=== PATIENT | female | born 1995 | race Caucasian/White ===

== ENCOUNTER → 2017-09-07 | Outpatient (CLI) | payer MEDICAID ==
[~2017-09-07] MED LIST: PREN-53 PO
--- NOTE | 2017-09-07 15:54 | Diagnostic Imaging Report ---
INDICATION: survey. TECHNIQUE: Multiple real-time grayscale images were obtained over the gravid uterus. COMPARISON: There are no prior studies available for comparison. FINDINGS: There is a single live fetus in cephalic presentation. heart motion was noted and a rate of 138 BPM was recorded. The renal pelves are somewhat prominent with each measuring approximately 4 mm. There is no sign of ascites. No other abnormality is noted. The growth parameters are fairly uniform. The placenta is posterior and there is no previa. The amniotic fluid volume is within normal limits. The cervix was not well visualized. IMPRESSION: 1. There is a single live fetus at approximately 21 weeks 4 days gestation +/-1.5 weeks. The EDC is January 14, 2018. 2. There were no abnormalities identified, although the renal pelves were somewhat prominent. It may prove worthwhile to have a short-term (4-6 weeks) followup ultrasound for further evaluation of the renal pelves. 3. The growth parameters are fairly uniform. Biometrical measurements are as follows: Biparietal 5.04 cm, age 21 weeks 2 days. Head circumference 19.10 cm, age 21 weeks 3 days. Abdominal circumference 16.36 cm, age 21 weeks 3 days. Femur length 3.78 cm, age 22 weeks 1 days. Sonographic estimate age: 21 weeks 4 days. Sonographic estimated date of delivery: 01/14/18. Estimated Weight: 441 gm (+/- 64 gm). LMP percentile: 80%. heart rate: 138 beats per minute. number: 1 of 1. Dictated by: Dictated on workstation # [id number]
== END ==
LOC: RAD 12:53
PROVIDERS: ATTEND Obstetrics & Gynecology
DX: Z36.89 Encounter for other specified antenatal screening (principal); Z3A.21 21 weeks gestation of pregnancy
CPT/HCPCS: 76805

== ENCOUNTER 2017-10-14 23:15 | Outpatient (CLI) | payer MEDICAID ==
[~2017-10-14] VITALS: Ht 170.2 cm; Wt 67.7 kg
[2017-10-14 23:33] VITALS: BP 118/73
[2017-10-14 23:41] LABS: BILIRUBIN,URINE NEGATIVE (NEGATIVE); CLARITY,URINE CLEAR; COLOR,URINE YELLOW; GLUCOSE, URINE (UA) NEGATIVE (NEGATIVE); KETONES,URINE NEGATIVE (NEGATIVE); LEUKOCYTE ESTERASE ,URINE 3+ (NEGATIVE); NITRITE,URINE NEGATIVE (NEGATIVE); PH,URINE 6 (5-9); PROTEIN,URINE 1+ (NEGATIVE); UROBILINOGEN,URINE 1 MG/DL (NORMAL)
[2017-10-14 23:49] LABS: BACTERIA,URINE FEW /HPF; CALCIUM OXALATE CRYSTALS,UR RARE /LPF
[2017-10-15] MEDS ORDERED: metroNIDAZOLE 500 MG (FLAGYL) TAB PO ONE (00:30)
[2017-10-15] MEDS ORDERED: PREN-53 PO (00:31)
[2017-10-15] MEDS ORDERED: BETAMETHASONE ACE/NA PHOS 6 MG/ML (CELESTONE SOLUSPAN) ONE (00:35)
[2017-10-15] MEDS ORDERED: metroNIDAZOLE 500 MG (FLAGYL) TAB ONE (00:40)
[2017-10-15] MEDS ORDERED: BETAMETHASONE ACE/NA PHOS 6 MG/ML (CELESTONE SOLUSPAN) IM ONE (09:00)
--- NOTE | 2017-10-15 19:52 | Physician Query-Final Dx ---
ZOIE VELEZ 10/15/172: Clinic Account Progress/Dx Physician Query: Please give diagnosis Date of Service Oct 14, 2017 at 23:15 PHOEBE MADRIGAL DO 10/18/17 1629: Clinic Account Progress/Dx DIAGNOSIS: Diagnosis 26 week contractions BV ZOIE VELEZ Oct 15, 2017 19:52 PHOEBE MADRIGAL DO Oct 18, 2017 16:29
== END 2017-10-15 00:55 | disposition home or self-care (01) ==
LOC: WSo 23:15 → LDRP 23:16 → WSo 10-15 00:55
PROVIDERS: ATTEND Obstetrics & Gynecology
DX: O60.02 Preterm labor without delivery, second trimester (principal); O23.592 Infection of other part of genital tract in pregnancy, second trimester; Z3A.26 26 weeks gestation of pregnancy
CPT/HCPCS: 81000; 87088; 87210; 96372; 99214

== ENCOUNTER 2017-11-02 16:14 | Outpatient (CLI) | payer MEDICAID ==
[~2017-11-02] VITALS: Ht 170.2 cm; Wt 66.8 kg
[2017-11-02 16:08] VITALS: BP 106/63
[2017-11-02 17:35] VITALS: BP 106/63
--- NOTE | 2017-11-04 11:57 | Physician Query-Final Dx ---
SOCO GUERRERO 11/04/17 1157: Clinic Account Progress/Dx Physician Query: Please give a diagnosis and weeks of gestation thank you Date of Service Nov 02, 2017 at 16:14 PHOEBE MADRIGAL DO 11/05/17 0900: Clinic Account Progress/Dx DIAGNOSIS: Diagnosis 28 week IUP Abdominal cramping SOCO GUERRERO Nov 04, 2017 11:57 PHOEBE MADRIGAL DO Nov 05, 2017 09:00
== END 2017-11-02 17:35 | disposition home or self-care (01) ==
LOC: WSo 16:14 → LDRP 16:15 → WSo 17:35
PROVIDERS: ATTEND Obstetrics & Gynecology
DX: O26.93 Pregnancy related conditions, unspecified, third trimester (principal); Z3A.28 28 weeks gestation of pregnancy; R10.9 Unspecified abdominal pain
CPT/HCPCS: 99214

== ENCOUNTER 2017-11-12 16:39 | Outpatient (CLI) | payer MEDICAID ==
[~2017-11-12] VITALS: Ht 170.2 cm; Wt 68.2 kg
[2017-11-12 16:50] VITALS: BP 110/69
--- NOTE | 2017-11-16 21:26 | Physician Query-Final Dx ---
ZOIE VELEZ 11/16/176: Clinic Account Progress/Dx Physician Query: Please give diagnosis Need diagnosis and weeks of gestation. Date of Service Nov 12, 2017 at 16:39 PHOEBE MADRIGAL DO 11/17/17 0920: Clinic Account Progress/Dx DIAGNOSIS: Diagnosis 30 week IUP Vaginal discharge and cramping ZOIE VELEZ Nov 16, 2017 21:26 PHOEBE MADRIGAL DO Nov 17, 2017 09:20
== END 2017-11-12 17:15 | disposition home or self-care (01) ==
LOC: WSo 16:39
PROVIDERS: ATTEND Obstetrics & Gynecology
DX: O99.89 Other specified diseases and conditions complicating pregnancy, childbirth and the puerperium (principal); N89.8 Other specified noninflammatory disorders of vagina; Z3A.30 30 weeks gestation of pregnancy
CPT/HCPCS: 99213

== ENCOUNTER 2017-11-17 17:14 | Outpatient (CLI) | payer MEDICAID ==
[~2017-11-17] VITALS: Ht 170.2 cm; Wt 68.2 kg
[2017-11-17 18:53] LABS: BASOPHILS % (AUTO) 0 % (0-10); EOSINOPHILS # (AUTO) 0.1 10^3/uL (0.0-0.3); EOSINOPHILS % (AUTO) 1 % (0-10); HEMATOCRIT 29 % (35-52); HEMOGLOBIN 9.8 G/DL (11.5-16.0); LYMPHOCYTES # (AUTO) 2.6 X 10^3 (1.0-4.0); LYMPHOCYTES % (AUTO) 25 % (12-44); MEAN CORPUSCULAR HEMOGLOBIN 31 PG (25-34); MEAN CORPUSCULAR HGB CONC 34 G/DL (32-36); MEAN CORPUSCULAR VOLUME 91 FL (80-99); MEAN PLATELET VOLUME 9.6 FL (7.4-10.4); MONOCYTES # (AUTO) 0.9 X 10^3 (0.0-1.0); MONOCYTES % (AUTO) 9 % (0-12); NEUTROPHILS # (AUTO) 6.9 X 10^3 (1.8-7.8); NEUTROPHILS % (AUTO) 66 % (42-75); PLATELET COUNT 214 10^3/uL (130-400); RED BLOOD COUNT 3.12 10^6/uL (4.35-5.85); RED CELL DISTRIBUTION WIDTH 12.4 % (10.0-14.5); WHITE BLOOD COUNT 10.5 10^3/uL (4.3-11.0)
[2017-11-17 19:13] LABS: ALANINE AMINOTRANSFERASE 9 U/L (0-55); ALBUMIN 3.4 GM/DL (3.2-4.5); ALKALINE PHOSPHATASE 65 U/L (40-136); BILIRUBIN,TOTAL 0.3 MG/DL (0.1-1.0); BUN/CREATININE RATIO 12; CALCIUM 8.9 MG/DL (8.5-10.1); CARBON DIOXIDE 24 MMOL/L (21-32); CHLORIDE 107 MMOL/L (98-107); GFR ESTIMATED > 60; GLUCOSE 94 MG/DL (70-105); POTASSIUM 3.4 MMOL/L (3.6-5.0); SODIUM 137 MMOL/L (135-145); TOTAL PROTEIN 6.2 GM/DL (6.4-8.2); URIC ACID 3.6 MG/DL (2.6-7.2)
[2017-11-17] MEDS ORDERED: FLU QUADRIvalent (5+ YOA) 2018-2019 (AFLURIA) 0.5 ML IM ONE (19:15)
[2017-11-17] MEDS ORDERED: CATHETER FLUSH 10 ML SYR IV PRN (19:15)
[2017-11-17 20:05] VITALS: BP 113/61
[2017-11-17] MEDS: D5 LR IV SOLUTION 1,000 ML IV SCH (20:37)
[2017-11-18 00:40] VITALS: BP 113/57
[2017-11-18 02:40] VITALS: BP 101/51
[2017-11-18] MEDS: D5 LR IV SOLUTION 1,000 ML IV SCH (04:42)
[2017-11-18 04:45] VITALS: BP 100/53
[2017-11-18 06:40] VITALS: BP 89/49
--- NOTE | 2017-11-18 08:05 | History & Physical ---
History and Physical Date Seen by Provider: Nov 18, 2017 Time Seen by Provider: 08:02 This patient is a 22-year-old gravid white female patient of Dr. Cee who presented with complaints of pain contractions and vaginal bleeding. Presentation. She has had a rare contraction and through the night. Her pain is improved. She denies rupture membranes. She does feel baby moving. Laboratory Tests Test 11/17/17 18:30 11/17/17 18:41 Range/Units Urine Protein 15 H 6-12 MG/DL Urine Creatinine 147 H 30-125 MG/DL Urine Protein/Creatinine Ratio 0.10 White Blood Count 10.5 4.3-11.0 10^3/uL Red Blood Count 3.12 L 4.35-5.85 10^6/uL Hemoglobin 9.8 L 11.5-16.0 G/DL Hematocrit 29 L 35-52 % Mean Corpuscular Volume 91 80-99 FL Mean Corpuscular Hemoglobin 31 25-34 PG Mean Corpuscular Hemoglobin Concent 34 32-36 G/DL Red Cell Distribution Width 12.4 10.0-14.5 % Platelet Count 214 130-400 10^3/uL Mean Platelet Volume 9.6 7.4-10.4 FL Neutrophils (%) (Auto) 66 42-75 % Lymphocytes (%) (Auto) 25 12-44 % Monocytes (%) (Auto) 9 0-12 % Eosinophils (%) (Auto) 1 0-10 % Basophils (%) (Auto) 0 0-10 % Neutrophils # (Auto) 6.9 1.8-7.8 X 10^3 Lymphocytes # (Auto) 2.6 1.0-4.0 X 10^3 Monocytes # (Auto) 0.9 0.0-1.0 X 10^3 Eosinophils # (Auto) 0.1 0.0-0.3 10^3/uL Basophils # (Auto) 0.0 0.0-0.1 10^3/uL Sodium Level 137 135-145 MMOL/L Potassium Level 3.4 L 3.6-5.0 MMOL/L Chloride Level 107 98-107 MMOL/L Carbon Dioxide Level 24 21-32 MMOL/L Anion Gap 6 5-14 MMOL/L Blood Urea Nitrogen 7 7-18 MG/DL Creatinine 0.60 0.60-1.30 MG/DL Estimat Glomerular Filtration Rate > 60 BUN/Creatinine Ratio 12 Glucose Level 94 70-105 MG/DL Uric Acid 3.6 2.6-7.2 MG/DL Calcium Level 8.9 8.5-10.1 MG/DL Corrected Calcium 9.4 8.5-10.1 MG/DL Total Bilirubin 0.3 0.1-1.0 MG/DL Aspartate Amino Transf (AST/SGOT) 15 5-34 U/L Alanine Aminotransferase (ALT/SGPT) 9 0-55 U/L Alkaline Phosphatase 65 40-136 U/L Lactate Dehydrogenase 138 125-220 U/L Total Protein 6.2 L 6.4-8.2 GM/DL Albumin 3.4 3.2-4.5 GM/DL Vital Signs Date Time Temp Pulse Resp B/P (MAP) Pulse Ox O2 Delivery O2 Flow Rate FiO2 11/18/17 06:40 66 18 89/49 (62) Room Air 11/18/17 04:45 83 18 100/53 (69) Room Air 11/18/17 02:40 86 18 101/51 (68) Room Air 11/18/17 00:40 98.2 71 18 113/57 (75) Room Air 11/17/17 20:05 98.5 86 18 113/61 (78) 100 Room Air I & O 11/18/17 07:00 Intake Total 1000 ml Balance 1000 ml Vital signs are stable. Patient afebrile. Allergies are none Medications are vitamins Medical social and surgical histories are per Dr. Kaba records The abdomen is benign Extremities show no clubbing cyanosis. There is no Homans sign. Pelvic exam deferred Assessment and plan 30 week gestation with presentation consistent with false labor. Patient will be discharged home with follow-up in clinic Vaginal bleeding at 30 weeks gestation Allergies and Home Medications Allergies Coded Allergies: No Known Allergies (Verified Allergy, Unknown, 10/14/17) Home Medications [id number]/Iron Fumarate/FA/Dss 1 Each Tablet, 1 EACH PO DAILY, (Reported) Patient Home Medication List Home Medication List Reviewed: YO Dominguez MD Nov 18, 2017 8:05 am
== END 2017-11-18 09:10 | disposition home or self-care (01) ==
LOC: WSo 17:14 → LDRP 18:31 → WSo 11-18 09:10
PROVIDERS: ATTEND Obstetrics & Gynecology
DX: O47.03 False labor before 37 completed weeks of gestation, third trimester (principal); O46.93 Antepartum hemorrhage, unspecified, third trimester; Z3A.30 30 weeks gestation of pregnancy
CPT/HCPCS: 36415; 80053; 82570; 83615; 84156; 84550; 85025

== ENCOUNTER 2017-11-24 21:07 | Outpatient (CLI) | payer MEDICAID ==
[~2017-11-24] VITALS: Ht 170.2 cm; Wt 68.2 kg
[2017-11-24 21:08] VITALS: BP 110/66
[2017-11-24] MEDS ORDERED: D5 LR IV SOLUTION 1,000 ML IV ONE ×2 (21:37→21:45)
[2017-11-24 21:44] LABS: BILIRUBIN,URINE NEGATIVE (NEGATIVE); CLARITY,URINE CLEAR; COLOR,URINE YELLOW; GLUCOSE, URINE (UA) NEGATIVE (NEGATIVE); KETONES,URINE NEGATIVE (NEGATIVE); LEUKOCYTE ESTERASE ,URINE 1+ (NEGATIVE); NITRITE,URINE NEGATIVE (NEGATIVE); PH,URINE 7 (5-9); PROTEIN,URINE NEGATIVE (NEGATIVE); UROBILINOGEN,URINE 1 MG/DL (NORMAL)
[2017-11-24 21:53] LABS: BACTERIA,URINE TRACE /HPF; CALCIUM OXALATE CRYSTALS,UR LARGE /LPF; WBC,URINE 0-2 /HPF
[2017-11-24 22:08] LABS: BASOPHILS % (AUTO) 0 % (0-10); EOSINOPHILS # (AUTO) 0.1 10^3/uL (0.0-0.3); EOSINOPHILS % (AUTO) 1 % (0-10); HEMATOCRIT 28 % (35-52); HEMOGLOBIN 9.9 G/DL (11.5-16.0); LYMPHOCYTES % (AUTO) 30 % (12-44); MEAN CORPUSCULAR HEMOGLOBIN 32 PG (25-34); MEAN CORPUSCULAR HGB CONC 35 G/DL (32-36); MEAN CORPUSCULAR VOLUME 91 FL (80-99); MEAN PLATELET VOLUME 9.8 FL (7.4-10.4); MONOCYTES # (AUTO) 0.8 X 10^3 (0.0-1.0); MONOCYTES % (AUTO) 8 % (0-12); NEUTROPHILS # (AUTO) 6.1 X 10^3 (1.8-7.8); NEUTROPHILS % (AUTO) 62 % (42-75); PLATELET COUNT 218 10^3/uL (130-400); RED BLOOD COUNT 3.11 10^6/uL (4.35-5.85); RED CELL DISTRIBUTION WIDTH 12.2 % (10.0-14.5); WHITE BLOOD COUNT 9.9 10^3/uL (4.3-11.0)
[2017-11-24 23:35] VITALS: BP 100/63
[2017-11-24 23:45] LABS: COLOR,URINE YELLOW
[2017-11-24 23:46] LABS: BACTERIA,URINE NEGATIVE /HPF; BILIRUBIN,URINE NEGATIVE (NEGATIVE); CLARITY,URINE CLEAR; GLUCOSE, URINE (UA) NEGATIVE (NEGATIVE); KETONES,URINE NEGATIVE (NEGATIVE); LEUKOCYTE ESTERASE ,URINE NEGATIVE (NEGATIVE); NITRITE,URINE NEGATIVE (NEGATIVE); PH,URINE 7 (5-9); PROTEIN,URINE NEGATIVE (NEGATIVE); UROBILINOGEN,URINE 4 MG/DL (NORMAL); WBC,URINE 0-2 /HPF
[2017-11-24 23:47] LABS: AMORPHOUS SEDIMENT,UR FEW AMOR PHOSPHATE /LPF; CALCIUM OXALATE CRYSTALS,UR FEW /LPF
--- NOTE | 2017-11-26 09:31 | Physician Query-Final Dx ---
SOCO GUERRERO 11/26/17 0931: Clinic Account Progress/Dx Physician Query: Please give a diagnosis and include the weeks of gestation thank you Date of Service Nov 24, 2017 at 21:07 YO VALENCIA MD 11/26/17 1334: Clinic Account Progress/Dx DIAGNOSIS: Diagnosis false labor at 36 weeks gestation SOCO GUERRERO Nov 26, 2017 09:31 YO VALENCIA MD Nov 26, 2017 13:34
== END 2017-11-24 23:43 | disposition home or self-care (01) ==
LOC: WSo 21:07 → LDRP 21:07 → WSo 23:43
PROVIDERS: ATTEND Obstetrics & Gynecology
DX: O47.03 False labor before 37 completed weeks of gestation, third trimester (principal); Z3A.36 36 weeks gestation of pregnancy
CPT/HCPCS: 36415; 81000; 85025; 96360; 96361; 99214

== ENCOUNTER 2017-12-08 02:02 | Outpatient (CLI) | payer MEDICAID ==
[~2017-12-08] VITALS: Ht 170.2 cm; Wt 68.5 kg
[2017-12-08 02:27] VITALS: BP 123/76
[2017-12-08 02:35] LABS: BILIRUBIN,URINE NEGATIVE (NEGATIVE); CLARITY,URINE CLEAR; COLOR,URINE YELLOW; GLUCOSE, URINE (UA) NEGATIVE (NEGATIVE); KETONES,URINE 4+ (NEGATIVE); LEUKOCYTE ESTERASE ,URINE 1+ (NEGATIVE); NITRITE,URINE NEGATIVE (NEGATIVE); PH,URINE 6 (5-9); PROTEIN,URINE 1+ (NEGATIVE); UROBILINOGEN,URINE 4 MG/DL (NORMAL)
[2017-12-08 02:47] LABS: BACTERIA,URINE FEW /HPF; URIC ACID CRYSTALS,URINE FEW /LPF; WBC,URINE RARE /HPF
== END 2017-12-08 03:50 | disposition home or self-care (01) ==
LOC: WSo 02:02 → LDRP 02:05 → WSo 03:50
PROVIDERS: ATTEND Obstetrics & Gynecology
DX: O47.03 False labor before 37 completed weeks of gestation, third trimester (principal); Z3A.34 34 weeks gestation of pregnancy
CPT/HCPCS: 81000; 99213

== ENCOUNTER 2017-12-28 18:59 | Outpatient (CLI) | payer MEDICAID ==
[~2017-12-28] VITALS: Ht 170.2 cm; Wt 68.5 kg
[2017-12-28 19:31] VITALS: BP 121/73
[2017-12-28 19:40] LABS: BILIRUBIN,URINE NEGATIVE (NEGATIVE); CLARITY,URINE CLEAR; COLOR,URINE YELLOW; GLUCOSE, URINE (UA) NEGATIVE (NEGATIVE); KETONES,URINE 3+ (NEGATIVE); LEUKOCYTE ESTERASE ,URINE 3+ (NEGATIVE); NITRITE,URINE NEGATIVE (NEGATIVE); PH,URINE 6 (5-9); PROTEIN,URINE 1+ (NEGATIVE); UROBILINOGEN,URINE 1 MG/DL (NORMAL)
[2017-12-28 19:53] LABS: BACTERIA,URINE MODERATE /HPF; RBC,URINE 0-2 /HPF
[2017-12-28] MEDS ORDERED: D5 LR IV SOLUTION 1,000 ML IV ONE (21:43)
[2017-12-28] MEDS: D5 LR IV SOLUTION 1,000 ML IV SCH (21:50)
[2017-12-28] MEDS ORDERED: morphine INJ 10 MG/ML 1ML (SYR OR VIAL) ONE (21:56)
[2017-12-28] MEDS ORDERED: PROMETHAZINE INJ 25 MG/ML (PHENERGAN) AMP ONE (22:49)
[2017-12-28] MEDS ORDERED: morphine INJ 10 MG/ML 1ML (SYR OR VIAL) IVP ONE (23:00)
[2017-12-28] MEDS ORDERED: PROMETHAZINE INJ 25 MG/ML (PHENERGAN) AMP IVP PRN (23:00)
[2017-12-29 02:33] VITALS: BP 104/63
[2017-12-29] MEDS: D5 LR IV SOLUTION 1,000 ML IV SCH (05:45)
[2017-12-29 06:40] VITALS: BP 132/86
[2017-12-29] MEDS ORDERED: FLU QUADRIvalent (5+ YOA) 2018-2019 (AFLURIA) 0.5 ML IM ONE (07:15)
[2017-12-29] MEDS ORDERED: CATHETER FLUSH 10 ML SYR IV PRN (07:15)
[2017-12-29] MEDS ORDERED: OXYTOCIN/NORMAL SALINE 500 ML IV SCH (13:48)
--- NOTE | 2017-12-29 13:55 | OB Labor & Delivery Record ---
Vag Delivery Note Vag Delivery Note Date of Delivery: 12/29/17 Preoperative Diagnosis: Sridevi Downing is a 22 /Para 3 / 1,Gestational Age 37 weeks, in spontaneous labor Postoperative Diagnosis: Same Surgeon: SHELLI FINLEY Anesthesia: none Delivery Type: vaginal Findings: Viable female , apgars pending, weight pending Lacerations: bilateral periurethral lacerations, no repaired. Intact placenta with 3 vessel cord. No nuchal cord, body cord or shoulder dystocia Estimated Blood Loss: 200 ml Complications: None Condition: Stable Description of Procedure: The patient is a 22 /Para 3 / 1,Gestational Age 37 weeks. She was admitted and informed consent was obtained. Her labor course was remarkable for precipitous delivery and SROM at complete dilation. She progressed to complete dilatation and began to push. She was then set up for delivery. The 's head was delivered atraumatically in the JIM position. The shoulders and remainder of the 's body were then delivered without difficulty. Upon delivery, the head was held below the level of the perineum and the mouth and nares were bulb suctioned. The cord was doubly clamped and cut and the infant was handed off to the pediatric staff. An intact placenta with 3-vessel cord delivered via Negar and there was found to be minimal bleeding.~ Vigorous fundal massage was performed and the fundus was found to be firm. IV oxytocin was given. Examination of the vagina and perineum revealed bilateral periurethral laceration not repaired Following the delivery, sponge, instrument and needle counts were correct. Mom and baby were both in stable condition in the labor suite. Vitals - Labs Vital Signs - I&O Vital Signs Date Time Temp Pulse Resp B/P (MAP) Pulse Ox O2 Delivery O2 Flow Rate FiO2 12/29/17 06:40 98.2 131 18 132/86 (101) Room Air 12/29/17 02:33 98.0 113 18 104/63 (77) Room Air 12/28/17 19:31 98.5 92 18 121/73 (89) Room Air I & O 12/29/17 07:00 Intake Total 1000 ml Balance 1000 ml Labs Laboratory Tests 12/28/17 19:10: Urine Color YELLOW, Urine Clarity CLEAR, Urine pH 6, Urine Specific [place] 1.025H, Urine Protein 1+H, Urine Glucose (UA) NEGATIVE, Urine Ketones 3+H, Urine Nitrite NEGATIVE, Urine Bilirubin NEGATIVE, Urine Urobilinogen 1, Urine Leukocyte Esterase 3+H, Urine RBC (Auto) 1+H, Urine RBC 0-2, Urine WBC 5-10H, Urine Squamous Epithelial Cells 10-25H, Urine Crystals NONE, Urine Bacteria MODERATEH, Urine Casts NONE, Urine Mucus LARGEH, Urine Culture Indicated YES SHELLI FINLEY DO Dec 29, 2017 13:55
--- NOTE | 2017-12-29 13:55 | History & Physical-OB ---
OB - Chief Complaint & HPI Date/Time Date of Admission: Date of Admission: Date seen by a Provider: Dec 29, 2017 Chief Complaint/History Hx : 3 Hx Para: 1 Expected Date of Delivery: Jan 18, 2018 Gestational Age in Weeks: 37 Gestational Age in Days: 0 Allergies and Home Medications Allergies Coded Allergies: No Known Allergies (Verified Allergy, Unknown, 10/14/17) Home Medications Afg365/Iron Fumarate/FA/Dss 1 Each Tablet, 1 EACH PO DAILY, (Reported) OB - History Hx of Present Care: Yes Obstetrical History Hx : 3 Hx Para: 1 Hx Total # of Abortions (Spona: 1 Social History/Family History Recent Infectious Disease Expo: No OB - Admission Exam Physical Exam Vitals: Vital Signs 12/29/17 06:40 Temp 98.2 Pulse 131 Resp 18 B/P (MAP) 132/86 (101) O2 Delivery Room Air Labs Laboratory Tests Test 12/28/17 19:10 Range/Units Urine Color YELLOW Urine Clarity CLEAR Urine pH 6 5-9 Urine Specific [place] 1.025 H 1.016-1.022 Urine Protein 1+ H NEGATIVE Urine Glucose (UA) NEGATIVE NEGATIVE Urine Ketones 3+ H NEGATIVE Urine Nitrite NEGATIVE NEGATIVE Urine Bilirubin NEGATIVE NEGATIVE Urine Urobilinogen 1 NORMAL MG/DL Urine Leukocyte Esterase 3+ H NEGATIVE Urine RBC (Auto) 1+ H NEGATIVE Urine RBC 0-2 /HPF Urine WBC 5-10 H /HPF Urine Squamous Epithelial Cells 10-25 H /HPF Urine Crystals NONE /LPF Urine Bacteria MODERATE H /HPF Urine Casts NONE /LPF Urine Mucus LARGE H /LPF Urine Culture Indicated YES SHELLI FINLEY DO Dec 29, 2017 13:55
[2017-12-29] MEDS ORDERED: MEASLES,MUMPS,RUBELLA 1 EA INJ SQ ONE (14:00)
[2017-12-29] MEDS ORDERED: IBUPROFEN 600 MG (MOTRIN) TAB PO SCH (14:00)
[2017-12-29] MEDS ORDERED: WITCH HAZEL(TUCKS) 40 EA JAR TOP PRN (14:00)
[2017-12-29] MEDS ORDERED: BENZOCAINE/MENTHOL (DERMOPLAST) 56 ML CAN TP PRN (14:00)
[2017-12-29] MEDS ORDERED: ACETAMINOPHEN 500 MG TAB (TYLENOL) PO PRN (14:00)
[2017-12-29] MEDS ORDERED: DIBUCAINE (NUPERCAINAL) 1% OINT 30 GM TOP PRN (14:00)
[2017-12-29] MEDS ORDERED: TETANUS,DIPTH,PERTUSS P/F (BOOSTRIX) 0.5 ML VIAL IM ONE (14:00)
[2017-12-29] MEDS ORDERED: CATHETER FLUSH 10 ML SYR IV SCH (14:00)
[2017-12-29] MEDS ORDERED: DOCUSATE SODIUM 100 MG (COLACE) CAP PO SCH (21:00)
[2017-12-30] MEDS ORDERED: PRENATAL VITAMIN 1 EA TAB PO SCH (07:00)
[2017-12-30] MEDS ORDERED: IBUP-844 PO (07:37)
[2017-12-30] MEDS ORDERED: DOCU100C37 PO (07:37)
[2017-12-30] MEDS ORDERED: FERROUS SULF 325 MG (IRON) TAB PO SCH (09:00)
== END 2017-12-29 07:35 | disposition home or self-care (01) ==
LOC: WSo 18:59 → LDRP 19:02 → WSo 12-29 07:35
PROVIDERS: ATTEND Obstetrics & Gynecology
DX: O62.2 Other uterine inertia (principal); Z3A.37 37 weeks gestation of pregnancy
CPT/HCPCS: 81000; 87088; 96361; 96374; 96375; 99214

== ENCOUNTER 2017-12-29 13:21 | Inpatient (IN) | payer MEDICAID ==
[~2017-12-29] VITALS: Ht 170.2 cm; Wt 68.5 kg
[2017-12-29] VITALS (11 sets, daily range): BP systolic 103–164; BP diastolic 55–89
[2017-12-29] MEDS ORDERED: OXYTOCIN/NORMAL SALINE 500 ML IV ONE (13:35)
[2017-12-29] MEDS ORDERED: IBUPROFEN 600 MG (MOTRIN) TAB PO ONE (14:07)
[2017-12-29] MEDS ORDERED: OXYTOCIN/NORMAL SALINE 500 ML IV SCH (14:15)
[2017-12-29] MEDS ORDERED: DIBUCAINE (NUPERCAINAL) 1% OINT 30 GM TOP PRN (14:15)
[2017-12-29] MEDS ORDERED: TETANUS,DIPTH,PERTUSS P/F (BOOSTRIX) 0.5 ML VIAL IM ONE (14:15)
[2017-12-29] MEDS ORDERED: CATHETER FLUSH 10 ML SYR IV SCH (14:15)
[2017-12-29] MEDS: IBUPROFEN 600 MG (MOTRIN) TAB PO SCH ×2 (14:15→19:45)
[2017-12-29] MEDS ORDERED: MEASLES,MUMPS,RUBELLA 1 EA INJ SQ ONE (14:15)
[2017-12-29] MEDS ORDERED: WITCH HAZEL(TUCKS) 40 EA JAR TOP PRN (14:15)
[2017-12-29] MEDS ORDERED: BENZOCAINE/MENTHOL (DERMOPLAST) 56 ML CAN TP PRN (14:15)
[2017-12-29] MEDS ORDERED: FLU QUADRIvalent (5+ YOA) 2018-2019 (AFLURIA) 0.5 ML IM ONE (14:30)
--- OUTSIDE RECORDS SUMMARY | 2017-12-29 15:29 | XMS REPORT | CCD ---
Author Author NOELLE LUZ Organization Unknown Address [address] [place], [place] [id number] Care Team Providers Care Medical Front Desk Coordinator Name Role Phone STEPHANIE PAN MD Attphys OKSANA Galvin NAS Vital Signs Vital Sign Value Unit Date/Time Recent/Initial? Weight Measured 157 lbs 06/11/2015 18:48 Initial VS Height 67 in 06/11/2015 18:48 Initial VS BMI (Body Mass Index) 24.59 kg/m^2 06/11/2015 18:48 Initial VS BSA (Body Surface Area) 1.83 m^2 06/11/2015 18:48 Initial VS BP Systolic 130 mmHg 06/12/2015 13:30 Initial VS BP Diastolic 86 mmHg 06/12/2015 13:30 Initial VS Respiratory Rate 20 bpm 06/12/2015 13:30 Initial VS Heart Rate 90 bpm 06/12/2015 13:30 Initial VS O2 % BldC Oximetry 94 % 06/12/2015 13:30 Initial VS Body Temperature 99.8 degrees 06/12/2015 13:30 Initial VS BP Systolic 133 mmHg 06/14/2015 08:26 Most Recent VS BP Diastolic 88 mmHg 06/14/2015 08:26 Most Recent VS Respiratory Rate 16 bpm 06/14/2015 08:26 Most Recent VS Heart Rate 86 bpm 06/14/2015 08:26 Most Recent VS O2 % BldC Oximetry 98 % 06/14/2015 08:26 Most Recent VS Body Temperature 98.6 degrees 06/14/2015 08:26 Most Recent VS Allergies Allergy Code Allergy Type Reaction Status MILK 0 Food allergy Active No Known Drug Allergies 0 No known drug allergies Active Procedures Procedure Code Procedure Type Date Delivery of Products of Conception, External Approach [id number] ICD -10 PCS 06/12/2015 Repair Anal Sphincter, Open Approach [id number] ICD-10 PCS Introduction of Other Therapeutic Substance into Female Reproductive, Via [id number] ICD-10 PCS 06/11/2015 Division of Female Perineum, External Approach [id number] ICD-10 PCS 06/12/2015 Introduction of Other Hormone into Peripheral Vein, Percutaneous Approach [id number] ICD-10 PCS 06/11/2015 OB LTD (AGE,HB,PLAC,POS,ETC) 901928126 SNOMED CT [id number] 06/13/2015 TYPE AND SCREEN 05088787 SNOMED CT 06/11/2015 UA ROUTINE C&S IF IND 926087725 SNOMED CT 06/11/[address] 06/11/2015 URIC ACID 78573165 SNOMED [address] 06/11/[address]55 SN[address] 06/11/2015 COMPREHENSIVE METABOLIC PANEL 349013669 SNOMED CT 2015 CBC W/ AUTO DIFF (RFLX MAN DIFF IF IND) 7301755 SNOMED CT 06/11/2015 ^UA WITH MICRO 758340947 SNOMED CT 06/11/2015 ^CBC W/AUTO DIFF 5481630 SNOMED CT 06/11/2015 History of Immunizations Immunization Code Date OPV 02 06/17/1999 MMR 03 06/17/1999 DTaP 20 1997 DTaP 20 06/17/1999 Hib (PRP-T) 48 06/17/1999 pneumococcal conjugate PCV 7 100 02/04/2001 Tdap 115 05/30/2015 Problems Unknown or Not Available. Results COMPREHENSIVE METABOLIC PANEL - Collect Date/Time: 06/11/2015 14:45 Test Name Code Test Result Test Units Test Ref Range GLUCOSE 2345-7 84 MG/DL L=70 H=100 SODIUM 2951-2 138 MEQ/L L=135 H=148 POTASSIUM 2823-3 3.6 MEQ/L L=3.5 H=5.3 CHLORIDE 2075-0 107 MEQ/L L=96 H=110 CO2 2028-9 21 MEQ/L L=22 H=29 BUN 3094-0 6 MG/DL L=8 H=22 CREATININE 2160-0 0.7 MG/DL L=0.6 H=1.6 SGOT/AST 1920-8 17 IU/L L=10 H=40 SGPT/ALT 1742-6 11 IU/L L=8 H=54 ALK PHOS 6768-6 140 IU/L L=35 H=115 TOTAL PROTEIN 2885-2 6.3 G/DL L=5.5 H=8.5 ALBUMIN 1751-7 3.5 G/DL L=3.1 H=5.4 TOTAL BILI 1975-2 0.4 MG/DL L=0.0 H=1.5 CALCIUM 99947-1 9.2 MG/DL L=8.2 H=10.6 AGE 20 yrs GFR NonAA 109 GFR AA 132 eGFR >60 N/A eGFR AA* >60 N/A CBC W/ AUTO DIFF (RFLX MAN DIFF IF IND) - Collect Date/Time: 06/11/2015 14:45 Test Name Code Test Result Test Units Test Ref Range WBC 55950-5 10.5 TH/CMM L=4.5 H=10.8 RBC 789-8 3.48 ML/CMM L=4.20 H=5.40 HGB 718-7 10.9 G/DL L=12.0 H=16.0 HCT 4544-3 32.3 % L=37.0 H=47.0 MCV 93 FL L=81 H=99 MCH 31.3 PG L=27.0 H=33.0 MCHC 33.7 G/DL L=31.0 H=36.0 RDW SD 42 FL L=36 H=50 RDW CV 12.6 % L=0.0 H=14.8 MPV 10.9 FL L=9.3 H=12.5 PLT 777-3 198 TH/CMM L=130 H=440 NRBC# 0.00 TH/CMM L=0.00 H=0.00 NRBC% 0.0 /100WBC L=0.0 H=2.0 %NEUT 70.7 % %LYMP 19.1 % %MONO 8.5 % %EOS 0.4 % %BASO 0.3 % #NEUT 7.42 TH/CMM L=2.10 H=8.20 #LYMP 2.01 TH/CMM L=0.90 H=5.20 #MONO 0.89 TH/CMM L=0.16 H=1.00 #EOS 0.04 TH/CMM L=0.00 H=0.80 #BASO 0.03 TH/CMM L=0.00 H=0.20 MANUAL DIFF NOT IND N/A HEMOGRAM - Collect Date/Time: 06/13/2015 05:55 Test Name Code Test Result Test Units Test Ref Range WBC 14617-5 9.6 TH/CMM L=4.5 H=10.8 RBC 789-8 2.90 ML/CMM L=4.20 H=5.40 HGB 718-7 9.0 G/DL L=12.0 H=16.0 HCT 4544-3 27.1 % L=37.0 H=47.0 MCV 93 FL L=81 H=99 MCH 31.0 PG L=27.0 H=33.0 MCHC 33.2 G/DL L=31.0 H=36.0 RDW SD 44 FL L=36 H=50 RDW CV 12.8 % L=0.0 H=14.8 MPV 11.4 FL L=9.3 H=12.5 PLT 777-3 146 TH/CMM L=130 H=440 NRBC# 0.00 TH/CMM L=0.00 H=0.00 NRBC% 0.0 /100WBC L=0.0 H=2.0 FIBRINOGEN - Collect Date/Time: 06/11/2015 14:45 Test Name Code Test Result Test Units Test Ref Range FIBRINOGEN 3255-7 325 MG/DL L=168 H=491 PT/PTT - Collect Date/Time: 06/11/2015 14:45 Test Name Code Test Result Test Units Test Ref Range PROTIME 27793-9 10.3 SEC L=9.9 H=11.9 INR 0.9 PTT 3173-2 24.7 SEC L=22.2 H=37.2 UA ROUTINE C&S IF IND - Collect Date/Time: 06/11/2015 14:54 Test Name Code Test Result Test Units Test Ref Range COLOR YELLOW N/A NL: YELLOW APPEARANCE HAZY N/A NL: CLEAR SPEC GRAV 1.025 N/A NL: 1.002 - 1.022 pH 6.0 N/A NL: 5 - 9 PROTEIN NEGATIVE N/A NL: NEGATIVE mg/dl GLUCOSE NEGATIVE N/A NL: NEGATIVE mg/dl KETONE NEGATIVE N/A NL: NEGATIVE mg/dl BILIRUBIN NEGATIVE N/A NL: NEGATIVE BLOOD TRACE-INTACT N/A NL: NEGATIVE NITRITE NEGATIVE N/A NL: NEGATIVE LEUK SCREEN NEGATIVE N/A NL: NEGATIVE MICRO INDICATED? SEE BELOW N/A WBC/HPF 0-5 N/A NL: NEGATIVE RBC/HPF 0-5 N/A NL: NEGATIVE CASTS/LPF NEGATIVE N/A NL: NEGATIVE CRYSTALS NEGATIVE N/A NL: NEGATIVE MUCOUS THRDS 1+ N/A NL: NEGATIVE BACTERIA 1+ N/A NL: NEGATIVE EPITH CELLS 3+++ SQUAMOUS N/A NL: NEGATIVE TRICHOMONAS NEGATIVE N/A NL: NEGATIVE YEAST NEGATIVE N/A NL: NEGATIVE CULT SET UP? NO N/A TYPE AND SCREEN - Collect Date/Time: 06/11/2015 14:45 Test Name Code Test Result Test Units Test Ref Range ABO/Rh Type A Positive N/A Antibody Screen-Gel Negative N/A LDH - Collect Date/Time: 06/11/2015 14:45 Test Name Code Test Result Test Units Test Ref Range LDH 2532-0 176 IU/L L=97 H=223 URIC ACID - Collect Date/Time: 06/11/2015 14:45 Test Name Code Test Result Test Units Test Ref Range URIC ACID 3084-1 5.4 MG/DL L=2.1 H=7.4 Active Medications Medication Code Dose Units Frequency Route Modification Start Date/Time PATIENT BEING DISCHARGED TODAY, EDUCATE 17490533167 1 EA PRN PO 06/14/2015 13:15 FERROUS SULFATE 325MG TABLET 844898 325 MG ACBID PO 06/13/2015 11:42 DERMOPLAST AEROSOL 22177469383 1 EA PRN TOPICAL 06/12/2015 11:42 DIPHENHYDRAMINE (BENADRYL) CAP : 25 MG 9953600 25 MG PRN PO 06/12/2015 11:42 DOCUSATE SODIUM 100 MG [COLACE] CAPSULE 5974788 100 MG PRN PO 06/12/2015 11:42 FLUVIRIN (INFLUENZA) VACCINE 0.5ML/DOSE 3237728 0.5 ML X1 IM 06/12/2015 11:42 IBUPROFEN (MOTRIN) TAB:800 MG 783850 800 MG Q8H PO 06/12/2015 11:42 LANOLIN HYDROUS GRX TOPICAL OINTMENT 128885 1 EA PRN TOPICAL 06/12/2015 11:42 MMR II VACCINE 0.5ML DOSE: 10VIALS/BX 127453 0.5 ML PRN SQ 06/12/2015 11:42 TETANUS DIPHTH PERTUSSIS [ADACEL] VIAL 9191519 0.5 ML X1 IM 06/12/2015 11:42 TUCKS PADS (WITCH SILVIANO PADS) 83356476469 1 EA PRN TOPICAL 06/12/2015 11:42 TYLENOL #3 [APAP 300 MG/CODEINE 30 MG] 398642 1 TAB PRN PO 06/12/2015 11:42 ZOLPIDEM [AMBIEN] TABLET : 5 MG 103772 5 MG PRN PO 06/12/2015 11:42 ACETAMINOPHEN [TYLENOL] TABS 325MG 005185 650 MG PRN PO 06/11/2015 18:04 BUTORPHANOL [STADOL] INJ 2 MG/ML VIAL 6110438 1 MG PRN IVP 06/11/2015 18:04 LIDO 2% UROJECT 10 ML 2592253 1 EA PRN TOPICAL 06/11/2015 18:04 LR 1000ML IV [PREDEFINED] 955294 CONT IV IV 06/11/2015 18:04 ~~ LR 1000 ML (7953) IV BAG 089554 0471 ML MAALOX EXTRA STRENGTH LIQUID: PER ML 728054 30 ML PRN Q 2 HRS PO 06/11/2015 18:04 METOCLOPRAMIDE [REGLAN] INJ: 10MG/2ML 240469 10 MG PRN Q 6 HRS IVP 06/11/2015 18:04 ONDANSETRON [ZOFRAN] INJ 4 MG/2 ML VIAL 5304868 4 MG PRN Q 8 HRS SIVP 06/11/2015 18:04 PROMETHAZINE [PHENERGAN] INJ 25 MG/ML 630023 6.25 MG PRN IVP 06/11/2015 18:04 TERBUTALINE [BRETHINE] INJ 1 MG/ML VIAL 901218 0.25 MG PRN SUB Q 06/11/2015 18:04 DINOPROSTONE 10 MG VAGINAL "CERVIDIL" 945216 1 EA X1 VAGINAL 06/11/2015 18:01 SALINE LOCK FLUSH 10 ML SYR 179060 1 EA PRN IVP 06/11/2015 18:01 Medications Administered During Visit Medication Dose Units Frequency Route Date/ Time of Last Dose IBUPROFEN (MOTRIN) TAB:800 MG 800 MG Q8H PO 06/14/2015 06:14 DOCUSATE SODIUM 100 MG [COLACE] CAPSULE 100 MG PRN PO 06/14/2015 08:28 FERROUS SULFATE 325MG TABLET 325 MG ACBID PO 06/14/2015 08:28 TYLENOL #3 [APAP 300 MG/CODEINE 30 MG] 1 TAB PRN PO 06/13/2015 12:40 Encounters Encounter Diagnosis Diagnosis Code Start Date Gestational [-induced] hypertension without significant proteinuria, third trimester O133 06/11/2015 Social History Smoking Status Code Start Date End Date Never smoker [id number] Patient Decision Aids Unknown or Not Available. Discharge Instructions You were admitted to [facility] on 06/11/2015 14:08 with a principal diagnosis of Gestational [-induced] hypertension without significant proteinur You had the following procedures done: Delivery of Products of Conception, External Approach Repair Anal Sphincter, Open Approach Introduction of Other Therapeutic Substance into Female Reproductive, Via Division of Female Perineum, External Approach Introduction of Other Hormone into Peripheral Vein, Percutaneous Approach You had the following tests done: CBC W/ AUTO DIFF (RFLX MAN DIFF IF IND) COMPREHENSIVE METABOLIC PANEL FIBRINOGEN HEMOGRAM LDH PT/PTT TYPE AND SCREEN UA ROUTINE C&S IF IND URIC ACID You were discharged from [facility] on 06/14/2015 13:45 Should you have any questions prior to discharge, please contact a member of your healthcare team. If you have left the hospital and have any questions, please contact your primary care physician. DIET: REGULAR, Drink plenty of fluids, As tolerated, Avoid caffeinated beverages. Avoid alcohol, Eat high iron foods: grn vegs, red meats. HOME MEDICATION INSTRUCTIONS: Continue taking your vitamins, Continue Home Meds as listed above. Call doc before taking new or OTC meds. IF : Breastfeed on demand, Incr flds and cals to promote mlk prdctn. Avoid spicy/gas producing foods, Exprs milk every 3 -4 hrs if unable to BF. If breast engorgement occurs:, apply moist heat /massage/or icepacks. Wear supportive bra, Ensure areola latch 1-1.5 "past nipple. Observe for cracked and bleeding nipples. Use "soothies"for sore or cracked nipple. Use tea bags for sore or cracked nipples. Colostrum to nipples after each feed. NON- Apply firm fitting bra SHUN, Avoid stim breasts to supress milk prod. Apply ice packs if breasts engorged. ACTIVITIES: Refrain from smoking, Rest as possible. Limit walking,standing & stair climbing, No heavy lifting. Gradually resume normal activity. HYGIENE: May shower, Use sandi-bottle with Betasept:. after each urine and BM until flow stops. Change pads with each urination or BM. BOWEL MOVEMENTS Stool softeners as needed, Avoid constipation. May take senokot, Milk of Magnesia. SEXUAL ACTIVITY Refrain from intercourse until pp exam. EXERCISES-VAGINAL DELIVERY May resume in 1-2 weeks, Start slowly and increase. Post blues; Hormonal changes You may have emotional changes, You may be tearful. This shouldn't last more than 2-3 wks, Call physician if you are concerned. PAIN MANAGEMENT Non drug pain control methods, When to contact physician. NOTIFY PHYSICIAN OF: Chills, fever, painful urination, foul- smelling vaginal discharge. bleeding more than a period, temperature is greater than 100.4. dizziness or fainting, Painful breasts, Red, hot and extremely HARD breasts. redness or drainage from incision, unrelieved pain with medication. nausea or vomiting, cough or shortness of breath. cramping or swelling of legs. RELEVANT CONTACT INFORMATION: Dr. Stephanie Pan: [phone]. FOLLOW-UP: Post visit: See in __6____ wks, Call office for an appointment. Make appt to see Dr. Pan in 1 week for blood pressure check in the office. [phone] Call office for an appointment. SPECIAL INSTRUCTIONS: If you have cold/canker sores:, do not kiss/nuzzle NB til lesions clear. CONTROL Discuss with at 4-6 wk pp visit. TREATMENTS: Tucks, frequent sitz baths, stool softeners and hemmorrhoid cream. PATIENT PORTAL EDUCATION INFO PROVIDED? YES, patient verbalized understanding. PATIENT PORTAL DEMONSTRATION PERFORMED? YES, patient verbalized understanding. DISCHARGED TO: Home. MODE OF TRANSPORTATION: Ambulatory. ACCOMPANIED BY: Significant Other, placed in car seat. PERSONAL EFFECTS/VALUABLES SENT HOME: Yes. IMPORTANT: INSURE YOUR BABY! Provided info on need to insure baby!. PATIENT/FAMILY UNDERSTANDS INSTRUCTIONS: Verbalizes. Chief Complaint and Reason For Visit Chief Complaint Date of Onset PP Function Status Unknown or Not Available. Plan of Care Unknown or Not Available. Referral/Transition of Care Unknown or Not Available.
--- OUTSIDE RECORDS SUMMARY | 2017-12-29 15:29 | XMS REPORT | CCD ---
Author Author LEONA ARELLANO Organization Unknown Address [address] [facility] [address] [place], [place] [id number] Care Team Providers Care Transportation Project Manager Name Role Phone HANDSHY ER, JANNA BARAKAT Attphys HANDSHY ER, JANNA BARAKAT Prisurg Vital Signs Unknown or Not Available. Allergies Unknown or Not Available. Procedures Procedure Code Procedure Type Date US OB COMP<14 WK SINGLE OR FIRST 022129891 SNOMED CT 10/20 US OB TRANSVAGINAL 480181436 SNOMED CT 10/20/2014 ^CULTURE URINE IDENTIFICATION 135114036 SNOMED CT 2014 ^UA WITH MICRO 796416712 SNOMED CT 10/20/2014 CULTURE URINE 837048655 SNOMED CT 10/20/2014 ^CBC W/AUTO DIFF 4893901 SNOMED CT 10/20/2014 COMPREHENSIVE METABOLIC PANEL 304987105 SNOMED CT 2014 UA ROUTINE C&S IF IND 152567770 SNOMED CT 10/20/[address] 10/20/2014 CBC W/ AUTO DIFF (RFLX MAN DIFF IF IND) 7157602 SNOMED CT 10/20/2014 History of Immunizations Immunization Code Date OPV 02 06/17/1999 MMR 03 06/17/1999 DTaP 20 1997 DTaP 20 06/17/1999 Hib (PRP-T) 48 06/17/1999 pneumococcal conjugate PCV 7 100 02/04/2001 Problems Unknown or Not Available. Results COMPREHENSIVE METABOLIC PANEL - Collect Date/Time: 10/20/2014 22:40 Test Name Code Test Result Test Units Test Ref Range GLUCOSE 2345-7 96 MG/DL L=60 H=110 SODIUM 2951-2 139 MEQ/L L=135 H=148 POTASSIUM 2823-3 3.6 MEQ/L L=3.5 H=5.3 CHLORIDE 2075-0 106 MEQ/L L=96 H=110 CO2 2028-9 25 MEQ/L L=22 H=29 BUN 3094-0 7 MG/DL L=8 H=22 CREATININE 2160-0 0.7 MG/DL L=0.6 H=1.6 SGOT/AST 1920-8 14 IU/L L=10 H=40 SGPT/ALT 1742-6 11 IU/L L=8 H=54 ALK PHOS 6768-6 42 IU/L L=35 H=115 TOTAL PROTEIN 2885-2 7.1 G/DL L=5.5 H=8.5 ALBUMIN 1751-7 4.3 G/DL L=3.1 H=5.4 TOTAL BILI 1975-2 0.3 MG/DL L=0.0 H=1.5 CALCIUM 77330-3 9.5 MG/DL L=8.2 H=10.6 AGE 19 yrs GFR NonAA N/A N/A eGFR N/A N/A eGFR AA* N/A N/A CBC W/ AUTO DIFF (RFLX MAN DIFF IF IND) - Collect Date/Time: 10/20/2014 22:40 Test Name Code Test Result Test Units Test Ref Range WBC 65840-3 8.4 TH/CMM L=4.5 H=10.8 RBC 789-8 3.92 ML/CMM L=4.20 H=5.40 HGB 718-7 11.8 G/DL L=12.0 H=16.0 HCT 4544-3 34.6 % L=37.0 H=47.0 MCV 88 FL L=81 H=99 MCH 30.1 PG L=27.0 H=33.0 MCHC 34.1 G/DL L=31.0 H=36.0 RDW SD 39 FL L=36 H=50 RDW CV 12.4 % L=0.0 H=14.8 MPV 9.9 FL L=9.3 H=12.5 PLT 777-3 172 TH/CMM L=130 H=440 NRBC# 0.00 TH/CMM L=0.00 H=0.00 NRBC% 0.0 /100WBC L=0.0 H=2.0 %NEUT 59.0 % %LYMP 32.9 % %MONO 7.1 % %EOS 0.8 % %BASO 0.2 % #NEUT 4.97 TH/CMM L=2.10 H=8.20 #LYMP 2.78 TH/CMM L=0.90 H=5.20 #MONO 0.60 TH/CMM L=0.16 H=1.00 #EOS 0.07 TH/CMM L=0.00 H=0.80 #BASO 0.02 TH/CMM L=0.00 H=0.20 MANUAL DIFF NOT IND N/A UA ROUTINE C&S IF IND - Collect Date/Time: 10/20/2014 22:40 Test Name Code Test Result Test Units Test Ref Range COLOR YELLOW N/A NL: YELLOW APPEARANCE HAZY N/A NL: CLEAR SPEC GRAV 1.025 N/A NL: 1.002 - 1.022 pH 5.5 N/A NL: 5 - 9 PROTEIN NEGATIVE N/A NL: NEGATIVE mg/dl GLUCOSE NEGATIVE N/A NL: NEGATIVE mg/dl KETONE NEGATIVE N/A NL: NEGATIVE mg/dl BILIRUBIN NEGATIVE N/A NL: NEGATIVE BLOOD NEGATIVE N/A NL: NEGATIVE NITRITE POSITIVE N/A NL: NEGATIVE LEUK SCREEN NEGATIVE N/A NL: NEGATIVE MICRO INDICATED? SEE BELOW N/A WBC/HPF RARE N/A NL: NEGATIVE RBC/HPF NEGATIVE N/A NL: NEGATIVE CASTS/LPF NEGATIVE N/A NL: NEGATIVE CRYSTALS NEGATIVE N/A NL: NEGATIVE MUCOUS THRDS 1+ N/A NL: NEGATIVE BACTERIA 3+++ N/A NL: NEGATIVE EPITH CELLS FEW SQUAMOUS N/A NL: NEGATIVE TRICHOMONAS NEGATIVE N/A NL: NEGATIVE YEAST NEGATIVE N/A NL: NEGATIVE CULT SET UP? YES N/A TEST - Collect Date/Time: 10/20/2014 22:40 Test Name Code Test Result Test Units Test Ref Range TEST 2118-8 POSITIVE N/A Active Medications Unknown or Not Available. Medications Administered During Visit Unknown or Not Available. Encounters Encounter Diagnosis Diagnosis Code Start Date INFECTION-ANTEPARTUM 94687 10/20/2014 Social History Smoking Status Code Start Date End Date Never smoker 144492822 Patient Decision Aids Unknown or Not Available. Discharge Instructions You were admitted to [facility] on 10/20/2014 with a principal diagnosis of INFECTION-ANTEPARTUM. You were discharged from [facility] on 10/21/2014. Should you have any questions prior to discharge, please contact a member of your healthcare team. If you have left the hospital and have any questions, please contact your primary care physician. Chief Complaint and Reason For Visit Chief Complaint Date of Onset ABDOMINAL PAIN Function Status Unknown or Not Available. Plan of Care Unknown or Not Available. Referral/Transition of Care Unknown or Not Available.
--- OUTSIDE RECORDS SUMMARY | 2017-12-29 15:29 | XMS REPORT | CCD ---
Author Author NOELLE ULZ Organization Unknown Address [address] [facility] [address] [place], [place] [address] Care Team Providers Care Edge Bonder Name Role Phone HANDSHY ERJANNA MD Attphys HANDSHY ER, JANNA BARAKAT Prisurg Vital Signs Unknown or Not Available. Allergies Unknown or Not Available. Procedures Procedure Code Procedure Type Date ^CBC W/AUTO DIFF 1413062 SNOMED CT 06/17/2014 C REACTIVE PROTEIN 66693453 SNOMED CT 06/17/2014 URINALYSIS C&S IF IND 239958296 SNOMED CT 06/17/[address] 06/17/[address] 06/17/[address] 06/17/2014 COMPREHENSIVE METABOLIC PANEL 299560100 SNOMED CT 2014 CBC W/ AUTO DIFF (RFLX MAN DIFF IF IND) 0993971 SNOMED CT 06/17/2014 History of Immunizations Immunization Code Date OPV 02 06/17/1999 MMR 03 06/17/1999 DTaP 20 1997 DTaP 20 06/17/1999 Hib (PRP-T) 48 06/17/1999 pneumococcal conjugate PCV 7 100 02/04/2001 Problems Unknown or Not Available. Results COMPREHENSIVE METABOLIC PANEL - Collect Date/Time: 06/17/2014 21:25 Test Name Code Test Result Test Units Test Ref Range GLUCOSE 2345-7 142 MG/DL L=60 H=110 SODIUM 2951-2 140 MEQ/L L=135 H=148 POTASSIUM 2823-3 3.9 MEQ/L L=3.5 H=5.3 CHLORIDE 2075-0 107 MEQ/L L=96 H=110 CO2 2028-9 24 MEQ/L L=22 H=29 BUN 3094-0 10 MG/DL L=8 H=22 CREATININE 2160-0 0.7 MG/DL L=0.6 H=1.6 SGOT/AST 1920-8 13 IU/L L=10 H=40 SGPT/ALT 1742-6 13 IU/L L=8 H=54 ALK PHOS 6768-6 41 IU/L L=35 H=115 TOTAL PROTEIN 2885-2 7.8 G/DL L=5.5 H=8.5 ALBUMIN 1751-7 4.8 G/DL L=3.1 H=5.4 TOTAL BILI 1975-2 0.3 MG/DL L=0.0 H=1.5 CALCIUM 62664-0 9.5 MG/DL L=8.2 H=10.6 AGE 19 yrs GFR NonAA N/A N/A eGFR N/A N/A eGFR AA* N/A N/A LIPASE - Collect Date/Time: 06/17/2014 21:25 Test Name Code Test Result Test Units Test Ref Range LIPASE 3040-3 15 U/L L=8 H=78 CBC W/ AUTO DIFF (RFLX MAN DIFF IF IND) - Collect Date/Time: 06/17/2014 21:25 Test Name Code Test Result Test Units Test Ref Range WBC 44600-0 6.8 TH/CMM L=4.5 H=10.8 RBC 789-8 4.21 ML/CMM L=4.20 H=5.40 HGB 718-7 12.8 G/DL L=12.0 H=16.0 HCT 4544-3 36.4 % L=37.0 H=47.0 MCV 87 FL L=81 H=99 MCH 30.4 PG L=27.0 H=33.0 MCHC 35.2 G/DL L=31.0 H=36.0 RDW SD 37 FL L=36 H=50 RDW CV 11.9 % L=0.0 H=14.8 MPV 10.0 FL L=9.3 H=12.5 PLT 777-3 181 TH/CMM L=130 H=440 NRBC# 0.00 TH/CMM L=0.00 H=0.00 NRBC% 0.0 /100WBC L=0.0 H=2.0 %NEUT 75.2 % %LYMP 16.4 % %MONO 8.4 % %EOS 0.0 % %BASO 0.0 % #NEUT 5.07 TH/CMM L=2.10 H=8.20 #LYMP 1.11 TH/CMM L=0.90 H=5.20 #MONO 0.57 TH/CMM L=0.16 H=1.00 #EOS 0.00 TH/CMM L=0.00 H=0.80 #BASO 0.00 TH/CMM L=0.00 H=0.20 MANUAL DIFF NOT IND N/A URINALYSIS C&S IF IND - Collect Date/Time: 06/17/2014 22:01 Test Name Code Test Result Test Units Test Ref Range COLOR YELLOW N/A NL: YELLOW APPEARANCE CLEAR N/A NL: CLEAR SPEC GRAV 1.010 N/A NL: 1.002 - 1.022 pH 6.0 N/A NL: 5 - 9 PROTEIN NEGATIVE N/A NL: NEGATIVE mg/dl GLUCOSE NEGATIVE N/A NL: NEGATIVE mg/dl KETONE NEGATIVE N/A NL: NEGATIVE mg/dl BILIRUBIN NEGATIVE N/A NL: NEGATIVE BLOOD NEGATIVE N/A NL: NEGATIVE NITRITE NEGATIVE N/A NL: NEGATIVE LEUK SCREEN NEGATIVE N/A NL: NEGATIVE WBC/HPF NEGATIVE N/A NL: NEGATIVE RBC/HPF RARE N/A NL: NEGATIVE CASTS/LPF NEGATIVE N/A NL: NEGATIVE CRYSTALS NEGATIVE N/A NL: NEGATIVE MUCOUS THRDS NEGATIVE N/A NL: NEGATIVE BACTERIA NEGATIVE N/A NL: NEGATIVE EPITH CELLS 1+ SQUAMOUS N/A NL: NEGATIVE TRICHOMONAS NEGATIVE N/A NL: NEGATIVE YEAST NEGATIVE N/A NL: NEGATIVE CULT SET UP? NO N/A C REACTIVE PROTEIN - Collect Date/Time: 06/17/2014 21:25 Test Name Code Test Result Test Units Test Ref Range C REACTIVE PROTEIN 1988-5 <0.5 MG/DL L=0.0 H= 1.0 TEST - Collect Date/Time: 06/17/2014 21:25 Test Name Code Test Result Test Units Test Ref Range TEST 8-8 NEGATIVE N/A AMYLASE - Collect Date/Time: 06/17/2014 21:25 Test Name Code Test Result Test Units Test Ref Range AMYLASE 1798-8 38 IU/L L=25 H=125 Active Medications Unknown or Not Available. Medications Administered During Visit Unknown or Not Available. Encounters Encounter Diagnosis Diagnosis Code Start Date ABDOMINAL PAIN, GENERALIZED 64511 06/17/2014 Social History Smoking Status Code Start Date End Date Never smoker 033276048 Patient Decision Aids Unknown or Not Available. Discharge Instructions You were admitted to [facility] on 06/17/2014 with a principal diagnosis of ABDOMINAL PAIN, GENERALIZED. You were discharged from [facility] on 06/17/2014. Should you have any questions prior to discharge, please contact a member of your healthcare team. If you have left the hospital and have any questions, please contact your primary care physician. Chief Complaint and Reason For Visit Chief Complaint Date of Onset LOWER ABDOMINAL PAIN Function Status Unknown or Not Available. Referral/Transition of Care Unknown or Not Available.
--- OUTSIDE RECORDS SUMMARY | 2017-12-29 15:29 | XMS REPORT | CCD ---
Author Author NOELLE LUZ Organization Unknown Address [address] [place] [address] Care Team Providers Care Canvass Manager Name Role Phone DANYELLE NAGY MD Attphys DANYELLE NAGY MD Prisurg Allergies Allergy Code Allergy Type Reaction Status MILK 0 Food allergy Active No Known Drug Allergies 0 Drug allergy Active Active Medications Unknown or Not Available. Problems Unknown or Not Available. Procedures Procedure Code Procedure Type Date INFLUENZA A & B 754100389 SNOMED CT 04/12/2016 Results INFLUENZA A & B - Collect Date/Time: 04/12/2016 18:25 Test Name Code Test Result Test Units Test Ref Range INFLUENZA A & B 6437-8 NO INFLUENZA A OR B DETECTED N/A Function Status Unknown or Not Available. History of Immunizations Immunization Code Date OPV 02 06/17/1999 MMR 03 06/17/1999 DTaP 20 1997 DTaP 20 06/17/1999 Hib (PRP-T) 48 06/17/1999 pneumococcal conjugate PCV 7 100 02/04/2001 Tdap 115 05/30/2015 Plan of Treatment Unknown or Not Available. Social History Smoking Status Code Start Date End Date Never smoker 919648305 Vital Signs Unknown or Not Available. Function Status Unknown or Not Available. Goals Unknown or Not Available. ASSESSMENTS Unknown or Not Available. Health Concerns Section Unknown or Not Available.
--- OUTSIDE RECORDS SUMMARY | 2017-12-29 15:29 | XMS REPORT ---
Discharge Summary 2.1 Created on: YAIMA PERALTA : 1995 Sex: Female Author Author DANIEL EDMOND Unknown Address [address] [facility] [address] [place], [place] [phone] Care Team Providers Care Rehab Assistant Name Role Phone EVERETT GUEVARA DO ER Attending TEJAL PETTIT MD [facility] Functional Status No Data Found Immunization Immunization Date Status Additional Notes Code Code System OPV 06/17/1999 Completed 02 CVX MMR 06/17/1999 Completed 03 CVX DTaP 1997 Completed 20 CVX DTaP 06/17/1999 Completed 20 CVX Hib (PRP-T) 06/17/1999 Completed 48 CVX pneumococcal conjugate PCV 7 02/04/2001 Completed 100 CVX Tdap 05/30/2015 Completed 115 CVX Mental Status No Data Found Results TEST URINE - Collect Date/Time: 02/02/2017 20:25 [employer] ID: [id number] [address] [facility] [address], [place], [place], [phone] [facility] [employer] ID: [id number] [address] [facility] [address], [place], [place], [phone] LOINC: Test Value Unit Reference Range Code Code System TEST UR NEGATIVE 2106-3 LOINC UA ROUTINE C&S IF IND - Collect Date/Time: 01/03/2017 20:00 [facility] [employer] ID: [id number] [address] [facility] [address], [place], [place], [phone] [employer] ID: [id number] [address] [facility] [address], [place], [place], [phone] LOINC: Test Value Unit Reference Range Code Code System COLOR YELLOW NL: YELLOW APPEARANCE CLEAR NL : CLEAR SPEC GRAV 1.025 NL: 1.002 - 1.022 pH 6.0 NL: 5 - 9 PROTEIN NEGATIVE NL : NEGATIVE mg/dl GLUCOSE NEGATIVE NL : NEGATIVE mg/dl KETONE NEGATIVE NL: NEGATIVE mg/dl BILIRUBIN NEGATIVE NL: NEGATIVE BLOOD NEGATIVE NL: NEGATIVE NITRITE NEGATIVE NL : NEGATIVE LEUK SCREEN NEGATIVE NL: NEGATIVE MICRO INDICATED? SEE BELOW WBC/HPF 0-5 NL: NEGATIVE RBC/HPF RARE NL: NEGATIVE CASTS/LPF NEGATIVE NL: NEGATIVE CRYSTALS NEGATIVE NL : NEGATIVE MUCOUS THRDS FEW NL : NEGATIVE BACTERIA FEW NL: NEGATIVE EPITH CELLS FEW SQUAMOUS NL: NEGATIVE TRICHOMONAS NEGATIVE NL: NEGATIVE YEAST NEGATIVE NL: NEGATIVE CULT SET UP? NO Social History Type Status Start Date End Date Code Code System Smoking History Never smoker (Never Smoked) [id number] SNOMED-CT Vital Signs No Data Found Assessment No Data Found Hospital Discharge Instructions Should you have any questions prior to discharge, please contact a member of your healthcare team. If you have left the hospital and have any questions, please contact your primary care physician. Reason For Referral No Data Found Hospital Course You were admitted to [facility] on 02/02/2017 19:54 with a principal diagnosis of Abnormal uterine and vaginal bleeding, unspecified You were discharged from [facility] on 02/02/2017 20:59 Medications No Data Found Procedures No Data Found Implants No Data Found Problems No Data Found Allergies Allergy Substance Reaction Severity Start Date Concern Status Code Code System MILK ABD pain (SNOMED-CT: 59656099) Mild 09/22/2017 Active RxNorm No Known Drug Allergies Active RxNorm Plan of Treatment No Data Found Encounters No Data Found Goals No Data Found Discharge Medications No Data Found Discharge Diagnosis Discharge Diagnosis Diagnosis Code Start Date Abnormal uterine and vaginal bleeding, unspecified N939 02/02/2017 Health Concerns Section No Data Found
--- OUTSIDE RECORDS SUMMARY | 2017-12-29 15:29 | XMS REPORT | CCD ---
Author Author STEPHANIE BORJAS Organization Unknown Address [address] [place], [place] [phone] Care Team Providers Care Software Engineering Analyst Name Role Phone LELAND PHYS, ALIZA ER Attphys LELAND PHYS, ALIZA ER Prisurg Vital Signs Unknown or Not Available. Allergies Unknown or Not Available. Procedures Unknown or Not Available. History of Immunizations Immunization Code Date OPV 02 06/17/1999 MMR 03 06/17/1999 DTaP 20 1997 DTaP 20 06/17/1999 Hib (PRP-T) 48 06/17/1999 pneumococcal conjugate PCV 7 100 02/04/2001 Problems Unknown or Not Available. Results Unknown or Not Available. Active Medications Unknown or Not Available. Medications Administered During Visit Unknown or Not Available. Encounters Encounter Diagnosis Diagnosis Code Start Date Allergic urticaria 90434628 01/09/2015 Social History Smoking Status Code Start Date End Date Never smoker 452036885 Patient Decision Aids Unknown or Not Available. Discharge Instructions You were admitted to [facility] on 01/09/2015 with a principal diagnosis of Allergic urticaria . You were discharged from [facility] on 01/09/2015. Should you have any questions prior to discharge, please contact a member of your healthcare team. If you have left the hospital and have any questions, please contact your primary care physician. Chief Complaint and Reason For Visit Chief Complaint Date of Onset SOB Function Status Unknown or Not Available. Plan of Care Unknown or Not Available. Referral/Transition of Care Unknown or Not Available.
--- OUTSIDE RECORDS SUMMARY | 2017-12-29 15:30 | XMS REPORT ---
Author Author [facility] Medical Staff Organization [facility] Address [address] [place], [place] [address] Phone [phone] Summary purpose TRANSITION OF CARE AUTO GENERATION Chief Complaint and Reason for Visit No authorized Reason for Visit (Admitting Diagnosis) is available for this visit. Problem list No authorized problems tracked for continuity of care are available for this visit. Encounters No authorized problems tracked for encounter diagnoses are available for this visit. Medications No medications recorded for this patient visit Allergies, adverse reactions, alerts Allergen Category Ingredient Status Reaction Severity Onset No known drug allergies No known drug allergies No known drug allergies Confirmed or Verified Immunizations No immunizations recorded for this patient visit Relevant diagnostic tests and/or laboratory data No authorized results are available for this patient visit History of procedures No procedures recorded for this patient visit. Functional status Functional Status Finding Observation Time Abdomen Appearance flat :35 Abdomen soft :35 [place] no :35 Urination normal :35 Quality sym/unlabored :35 Cough absent :35 Secretions no :35 Airway natural :35 Chest Tube no :35 Oxygen no :33 Temp >100.4 no :35 Temp <96.8 no :35 Chills with rigors no :35 HR > 90bpm no :35 Respirations > 20 no :35 Systolic <90 no :35 headache stiff neck no :35 IV Site Location no iv access :30 Nursing Note pt dc'd to home at this time in good condition and with all known belongings. pt exited ambulatory in care of sig other. :33 Vital signs Type Value Date Respiration Rate 18breaths per minute : Pulse 57beats per minute :33 Oxygen Saturation 100% :33 BP Systolic 110mmHg :33 BP Diastolic 70mmHg :33 Temperature 97.4F :33 Social history Type Value Smoking Status NEVER SMOKER Treatment Plan No treatment plan text is available for this visit. Hospital discharge instructions Dismissal Condition good Disposition on DC home DC Inst/Educ Give yes Flu Vac 2016 Tetanus Vac 2016
--- OUTSIDE RECORDS SUMMARY | 2017-12-29 15:30 | XMS REPORT ---
Author Author [facility] Medical Staff Organization [facility] Address [address] [place], [place] [address] Phone [phone] Care Team Providers Care Customer Professional Name Role Phone JEANETH RICH APRN PP [phone] Summary purpose TRANSITION OF CARE AUTO GENERATION Chief Complaint and Reason for Visit Admit Diagnosis 1 ABDOMINAL PAIN, UNSPECIF Problem list No authorized problems tracked for [...] visit Relevant diagnostic tests and/or laboratory data RESULTS Routine Urinalysis [id number]:07:00 Result Normal Range Units Color YELLOW Clarity Hazy Specific [place] 1.030 pH 5.5 4.5-8.0 Glucose NEGATIVE Bilirubin NEGATIVE Ketones 2+ Protein NEGATIVE Urobilinogen 0.2 0-0.2 E.U./dL Nitrites NEGATIVE Blood NEGATIVE Leukocytes NEGATIVE WBCs 0-5 RBCs 0-5 Squamous Epithelial 2+ Bacteria 1+ Mucous 3+ Chemistry [id number]:20:00 Result Normal Range Units Sodium 138 134-145 mEq/l Potassium 3.7 3.5-5.1 mEq/l Chloride 101 98-107 mEq/l CO2 24.2 22-28 mEq/l Glucose 82 70-105 mg/dl BUN 9 7-18 mg/dl Creatinine 0.62 0.6-1.0 mg/dl Calcium 8.8 8.4-10.2 mg/dl TP - Total Protein 7.2 6.0-8.3 g/dl Albumin 4.3 3.5-5 g/dl Bilirubin - Total 0.5 0.1-1.0 mg/dl AST 11 10-42 IU/L ALT 13 12-65 IU/L ALP 46 39-101 IU/L Osmolality L 273.4 280-300 mOsm/L Albumin/Globulin Ratio 1.5 0-8 Anion GAP 12.8 8-16 BUN/Creatinine Ratio 14.5 10-20 Estimated GFR 127 >=60 mL/min/1.7 Hematology :20:00 Result Normal Range Units WBC 10.2 4.8-10.8 103/uL RBC L 4.0 4.2-5.4 106/uL HGB L 11.9 12.0-16.0 g/dl HCT L 34.8 36.9-47.0 % MCV 86.8 81-99 FL MCH 29.7 27-31 pg MCHC 34.2 33-37 g/dl RDW L 11.4 11.5-15.5 % PLT 181 130-400 103/uL MPV 10.4 7.3-10.4 FL Neutro % 67.0 40-70 % Lymph % 25.7 20-40 % Harper % 6.3 0-10.0 % Eos % 0.3 0-7.0 % Baso % 0.4 0-2 % Neutro # 6.8 1.5-7.5 103/uL Lymph # 2.6 0.9-4.0 103/uL Harper # 0.6 0-0.8 103/uL Eos # 0.0 0-0.6 103/uL Baso # 0.0 0-0.1 103/uL Special Chemistry :30:00 Result Normal Range Units HCG - Quantitative H 27423 0-5 mIU/mL *For diagnostic purposes, hCG results should be used in conjunction with other data; e.g., symptoms, results of other tests, clinical impressions, etc. Ectopic cannot be distinguished from normal by hCG measurements alone. *Elevated hCG levels have been associated with some abnormal physiological states (e.g., trophoblastic and nontrophoblastic neoplasms) and should not be used in the diagnosis of these abnormal states that are not related to . Body Fluid :07:00 Result Normal Range Units pH 5.5 4.5-8.0 Radiology Results :20:00 Result Normal Range Units MPV 10.4 7.3-10.4 FL History of procedures Procedure Code Code Type Description Date Performed Performing Physician 32096 CPT-4 COMPLETE CBC W/AUTO DIFF WBC 10-30-2014 AMADEO DOUG 84239 CPT-4 COMPREHEN METABOLIC PANEL 10-30-2014 AMADEO DOUG 07400 CPT-4 URINALYSIS, AUTO W/SCOPE 10-30-2014 AMADEO DOUG 56850 CPT-4 CHORIONIC GONADOTROPIN TEST 10-30-2014 AMADEO DOUG 05502 CPT-4 BLOOD TYPING, RH (D) 10-30-2014 AMADEO DOUG 53351 CPT-4 ROUTINE VENIPUNCTURE 10-30-2014 AMADEO DOUG J2270 CPT-4 MORPHINE SULFATE INJECTION 10-30-2014 AMADEO DOUG J7120 CPT-4 RINGERS LACTATE INFUSION 10-30-2014 AMADEO DOUG 31023 CPT-4 EMERGENCY DEPT VISIT 10-30-2014 AMADEO DOUG 46714 CPT-4 EMERGENCY DEPT VISIT 10-30-2014 AMADEO DOUG 64902 CPT-4 THER/PROPH/DIAG INJ, IV PUSH 10-30-2014 AMADEO DOUG 42403 CPT-4 HYDRATE IV INFUSION, ADD-ON 10-30-2014 AMADEO DOUG Functional status Functional Status Finding Observation Time Abdomen Appearance flat :40 Abdomen soft :40 Bowel Sounds present :40 Urination normal :40 Quality sym/unlabored :40 Cough absent :40 Secretions no :40 Breath Sounds RUL clear :40 Breath Sounds RML clear :40 Breath Sounds RLL clear :40 Breath Sounds LENORE clear :40 Breath Sounds LLL clear :40 Airway natural :40 Oxygen no :59 Temp >100.4 no :40 Temp <96.8 no :40 Chills with rigors no :40 HR > 90bpm no :40 Respirations > 20 no :40 Systolic <90 no :40 headache stiff neck no [id number] Rapid Resp no :40 IV Site Location L AC [id number]:15 IV Type peripheral :15 IV Site Information new :15 IV Site Start Attmpt 1 times :15 IV Site Bharat 20 [id number]:15 IV Site Appearance WNL :15 IV Site Color clear :15 IV Site Patent yes :15 Dressing Type occlusive :15 Nursing Note Dismissed home per Dr Lopez. Discharge instructions given and understood by pt who verbaized understanding. Ambulated to exit in stable condition. 10-30-2014 23:58 Vital signs Type Value Date Respiration Rate 16breaths per minute :37 Pulse 74beats per minute :59 Oxygen Saturation 98% :59 BP Systolic 110mmHg :59 BP Diastolic 57mmHg :59 Temperature 98F 30-71-557947:58 Social history Type Value Smoking Status NEVER SMOKER Treatment Plan No treatment plan text is available for this visit. Hospital discharge instructions Dismissal Condition good Disposition on DC home DC Inst/Educ Give yes Med/Side Effects Rev yes Flu Vac unknown
--- OUTSIDE RECORDS SUMMARY | 2017-12-29 15:30 | XMS REPORT ---
Author Author [facility] Organization [facility] Address [address] [place], [place] [address] Phone [phone] Summary purpose TRANSITION OF CARE AUTO GENERATION [...] Relevant diagnostic tests and/or laboratory data RESULTS Radiology Results [id number]:25:00 WRIST XRAY - 3 VIEW PACs Image DATE OF EXAM: Aug 22 2015 RAD 1704-WRIST XRAY-3 VIEWS- RIGHT: RADIOLOGY REPORT DATE OF SERVICE: 08/22/15 HISTORY: Patient has pain. RIGHT WRIST 3 VIEWS 2010 HOURS Carpal bones and joints are maintained. Soft tissues are normal. IMPRESSION: Negative study of the wrist. DO Sophie Schrader 08/23/2015 08:38:00 08/23/2015 09:05:00 cc: This document has been electronically Signed by: On: DATE OF EXAM: Aug 22 2015 RAD 1704-WRIST XRAY-3 VIEWS- RIGHT: RADIOLOGY REPORT DATE OF SERVICE: 08/22/15 HISTORY: Patient has pain. RIGHT WRIST 3 VIEWS 2010 HOURS Carpal bones and joints are maintained. Soft tissues are normal. IMPRESSION: Negative study of the wrist. DO Sophie Schrader 08/23/2015 08:38:00 / 08/23/2015 09:05:00 cc: This document has been electronically Signed by: AMADEO SÁNCEHZ DO On: Aug 23 20154:25P Result Amended on 2015-08-23 at 16:25:56. Previous status was [place]. History of procedures No procedures recorded for this patient visit. Functional status Functional Status Finding Observation Time Abdomen Appearance flat :35 Abdomen soft :35 [place] no :35 Urination normal :35 Quality sym/unlabored :35 Cough absent :35 Secretions no :35 Airway natural : Chest Tube no :35 Oxygen no : Temp >100.4 no :35 Temp <96.8 no :35 Chills with rigors no : HR > 90bpm no : Respirations > 20 no :35 Systolic <90 [...] Give yes Flu Vac 2016 Tetanus Vac 2015
--- OUTSIDE RECORDS SUMMARY | 2017-12-29 15:30 | XMS REPORT ---
Author Author [facility] Organization [facility] Address [address] [place], [place] [address] Phone [phone] Care Team Providers Care It Support Consultant Name Role Phone JEANETH RICH APRN PP [phone] Summary purpose TRANSITION OF CARE AUTO GENERATION Chief Complaint and Reason for Visit No authorized Reason for Visit (Admitting Diagnosis) is available for this visit. Problem list No authorized problems tracked for continuity of care are available for this visit. Encounters The following conditions tracked for encounter diagnoses were recorded for this visit: Finding or Diagnosis Status Certainty Chronicity Onset *HEADACHE Active Medications Discharge Medications Status Medication Directions Current acetaminophen (TYLENOL): TABLET 1000 MG oral Give PO Q6 Hours As Needed for PAIN/FEVER Current iron 50 mg iron tablet 1 tab(s) oral Daily Current Vitamin tablet 1 tab(s) oral Daily Allergies, adverse reactions, alerts Allergen Category Ingredient Status Reaction Severity Onset No known drug allergies No known drug allergies No known drug allergies Confirmed or Verified Immunizations No immunizations recorded for this patient visit Relevant diagnostic tests and/or laboratory data RESULTS Routine Urinalysis [id number]:25:00 Result Normal Range Units Color YELLOW Clarity Cloudy Specific [place] 1.015 1.003-1.035 pH 6.0 4.5-8.0 Glucose NEGATIVE Bilirubin NEGATIVE Ketones TRACE Protein NEGATIVE Urobilinogen 0.2 0-0.2 E.U./dL Nitrites NEGATIVE Blood NEGATIVE Leukocytes NEGATIVE WBCs 0-5 RBCs No RBC's Seen. Squamous Epithelial 1+ Bacteria 1+ Chemistry :19:00 Result Normal Range Units TP - Total Protein 6.3 6.0-8.3 g/dl Albumin L 2.7 3.5-5 g/dl Bilirubin - Total 0.3 0.1-1.0 mg/dl Direct Bilirubin 0.1 0-0.3 mg/dl Bilirubin Indirect 0.2 0.1-1.0 mg/dl AST 13 10-42 IU/L ALT 14 12-65 IU/L ALP H 115 39-101 IU/L Albumin/Globulin Ratio 0.8 0-8 Hematology :19:00 Result Normal Range Units WBC 10.2 4.8-10.8 103/uL RBC L 3.4 4.2-5.4 106/uL HGB L 10.5 12.0-16.0 g/dl HCT L 30.9 36.9-47.0 % MCV 92.2 81-99 FL MCH H 31.3 27-31 pg MCHC 34.0 33-37 g/dl RDW 12.1 11.5-15.5 % PLT 180 130-400 103/uL MPV H 11.1 7.3-10.4 FL Neutro % 66.7 40-70 % Lymph % 26.2 20-40 % [place] % 5.9 0-10.0 % Eos % 0.4 0-7.0 % Baso % 0.2 0-2 % Neutro # 6.8 1.5-7.5 103/uL Lymph # 2.7 0.9-4.0 103/uL [place] # 0.6 0-0.8 103/uL Eos # 0.0 0-0.6 103/uL Baso # 0.0 0-0.1 103/uL Urine Chemistry :25:00 Result Normal Range Units Protein 12 0-14 mg/dl Creatinine - Urine 76.33 15.0-327 mg/dl Urine Protein Crea Ratio Calc 0.2 Body Fluid :25:00 Result Normal Range Units pH 6.0 4.5-8.0 Radiology Results :19:00 Result Normal Range Units MPV H 11.1 7.3-10.4 FL Reference Lab ([facility]) :25:00 Result Normal Range Units Protein 12 0-14 mg/dl Creatinine - Urine 76.33 15.0-327 mg/dl Urine Protein Crea Ratio Calc 0.2 History of procedures No procedures recorded for this patient visit. Functional status Functional Status Finding Observation Time Hearing Prob Loc none :30 Vision Problems no :30 Ambulation Asst Dev none : Range of Motion full :30 Muscle Strength RUE 5 ROM full resist :30 Muscle Strength RLE 5 ROM full resist :30 Muscle Strength LUE 5 ROM full resist :30 Muscle Strength LLE 5 ROM full resist :30 Transfers assist x 1 : Ambulation in room :30 Balance steady : Bathing Assistance none : Eating Assistance none : Dressing Assistance none : Toileting Assistance none : Transfer Assistance none : Decline Slf Care/Mob no : Phys Cond Stable yes :30 Nutrition normal :30 Diet regular : Oral Cavity moist and intact : Teeth intact :30 Dental Hygiene good 35-33-929054:30 Abdomen Appearance other (specify) :30 Abdomen soft :30 Bowel Sounds present :30 NG Tube no :30 Feeding Tube none :30 [place] no :30 Cont Bladder Irr no :30 Ostomy no :30 Stool normal :30 Urination normal :30 Urine Clarity clear :30 Urine Color straw 20-39-057518:30 Quality sym/unlabored :30 Cough absent :30 Secretions no :30 Breath Sounds RUL clear :30 Breath Sounds RML clear :30 Breath Sounds RLL clear :30 Breath Sounds LENORE clear :30 Breath Sounds LLL clear :30 Airway natural :30 Chest Tube no :30 Oxygen no 06-32-520485:00 C-PAP no :30 BI-PAP no :30 Temp >100.4 no : Temp <96.8 no : Chills with rigors no : HR > 90bpm no : Respirations > 20 no : Systolic <90 no : headache stiff neck no :30 WBC > 42016 no : WBC < 4000 no :30 IV Site Location LEFT HAND :40 IV Type peripheral :40 IV Site Information discontinued :40 IV Site Start Attmpt 1 times :40 IV Site Bharat 20 :40 IV Site Appearance WNL :40 IV Site Color clear :40 IV Site Patent yes :40 Dressing Type occlusive :40 Nursing Note Pt discharged home. Instructions given. Pt verbalized understanding. Questions answered. Discharged with S/O to private vehicle. :46 Cognitive Status Finding Observation Time Oriented To Date 5 Yes :[address] 5 Yes :30 Name 3 Objects 3 Yes :30 Name Object in Rm 2 Yes :30 Recall 3 Objects 3 Yes :30 Repeats a Phrase 1 Yes :30 Follows Verbal Direc 3 Yes :30 Follows Written Dire 1 Yes :30 Write a Sentance 1 Yes : Draw an Object 1 Yes :30 Mini Mental Total 25 points :30 Learning Ability comprehends well :30 Neurological no :30 Psychological no :30 Physical no :30 Hearing no :30 Supervisor Mill Needed no :30 Sign Language no :30 Emotional no :30 Vision no :30 Laguage no :30 Financial no : Vital signs Type Value Date Respiration Rate 20breaths per minute : Pulse 68beats per minute :00 BP Systolic 105mmHg :00 BP Diastolic 60mmHg :00 Temperature 97.7F 52-21-032079:00 Height 67inches :24 Weight 157LB :24 Social history Type Value Smoking Status NEVER SMOKER Treatment Plan No treatment plan text is available for this visit. Hospital discharge instructions Discharge Date/Time 05/25/15 Accompanied By 1150 Relationship spouse/signif other Dismissal Condition good Disposition on DC home Valuables yes Valuable Type cell phone Valuables Returned T patient DC Inst/Educ Give yes Exit Care Educ Given yes Med/Side Effects Rev yes DC Med Rec Rev yes Immun Indicated no PNE Vac UNKNOWN Flu Vac UNKNOWN Tetanus Vac UNKNOWN Follow up appt already scheduled Follow Up Appt D/T See Comments Comment: with primary OB
--- OUTSIDE RECORDS SUMMARY | 2017-12-29 15:30 | XMS REPORT ---
Author Author [facility] Medical Staff Organization [facility] Address [address] [place], [place] [address] Phone [phone] Care Team Providers Care Music Coordinator Name Role Phone JEANETH RICH APRN PP [phone] Summary purpose TRANSITION OF CARE AUTO GENERATION [...] tests and/or laboratory data RESULTS Routine Urinalysis 69-32-055740:07:00 Result Normal Range Units Color YELLOW Clarity Hazy Specific [place] 1.030 pH 5.5 4.5-8.0 Glucose NEGATIVE Bilirubin NEGATIVE Ketones 2+ Protein NEGATIVE Urobilinogen 0.2 0-0.2 E.U./dL Nitrites NEGATIVE Blood NEGATIVE Leukocytes NEGATIVE WBCs 0-5 RBCs 0-5 Squamous Epithelial 2+ Bacteria 1+ Mucous 3+ Chemistry [id number]:20:00 Result Normal Range Units Sodium 138 134-145 [...] 40-70 % Lymph % 25.7 20-40 % [place] % 6.3 0-10.0 % Eos % 0.3 0-7.0 % Baso % 0.4 0-2 % Neutro # 6.8 1.5-7.5 103/uL Lymph # 2.6 0.9-4.0 103/uL [place] # 0.6 0-0.8 103/uL Eos # 0.0 0-0.6 103/uL Baso # 0.0 0-0.1 103/uL Special Chemistry :30:00 Result Normal Range Units HCG - Quantitative H 81906 0-5 mIU/mL *For diagnostic purposes, hCG results [...] MPV 10.4 7.3-10.4 FL History of procedures No procedures recorded for [...] :40 Oxygen no :59 Temp >100.4 no : Temp <96.8 no :40 Chills with rigors no :40 HR > 90bpm no :40 Respirations > 20 no :40 Systolic <90 no :40 headache stiff neck no :40 Rapid Resp no :40 IV Site Location L AC :15 IV Type peripheral :15 IV Site Information new :15 IV Site Start Attmpt 1 times :15 IV Site Bharat 20 :15 IV Site Appearance WNL :15 IV Site [...] :59 BP Diastolic 57mmHg :59 Temperature 98F :58 Social history Type Value Smoking Status NEVER SMOKER Treatment Plan No treatment plan text is available for this visit. Hospital discharge instructions Dismissal Condition good Disposition on DC home DC Inst/Educ Give yes Med/Side Effects Rev yes Flu Vac unknown
--- OUTSIDE RECORDS SUMMARY | 2017-12-29 15:30 | XMS REPORT ---
Author Author [facility] Medical Staff Organization [facility] Address [address] [place], [place] [address] Phone [phone] Care Team Providers Care Chronometer Tester Name Role Phone JEANETH RICH APRN PP [phone] Summary purpose TRANSITION OF CARE AUTO GENERATION [...] tests and/or laboratory data RESULTS Routine Urinalysis [id number]:25:00 Result Normal Range Units Color YELLOW Clarity Cloudy Specific [place] 1.015 1.003-1.035 pH 6.0 4.5-8.0 Glucose NEGATIVE Bilirubin NEGATIVE Ketones TRACE Protein NEGATIVE Urobilinogen 0.2 0-0.2 E.U./dL Nitrites NEGATIVE Blood NEGATIVE Leukocytes NEGATIVE WBCs 0-5 RBCs No RBC's Seen. Squamous Epithelial 1+ Bacteria 1+ Chemistry [id number]:19:00 Result Normal Range Units TP - Total [...] 40-70 % Lymph % 26.2 20-40 % [place] % 5.9 0-10.0 % Eos % 0.4 0-7.0 % Baso % 0.2 0-2 % Neutro # 6.8 1.5-7.5 103/uL Lymph # 2.7 0.9-4.0 103/uL [place] # 0.6 0-0.8 103/uL Eos # 0.0 0-0.6 103/uL Baso # 0.0 0-0.1 103/uL Urine Chemistry :25:00 Result Normal Range Units Protein 12 0-14 mg/dl Creatinine - Urine 76.33 15.0-327 mg/dl Urine Protein Crea Ratio Calc 0.2 Body Fluid :25:00 Result Normal Range Units pH 6.0 4.5-8.0 Radiology Results :19:00 Result Normal Range Units MPV H 11.1 7.3-10.4 FL Reference Lab ([facility]) :25:00 Result Normal Range Units Protein [...] : Teeth intact :30 Dental Hygiene good 50-18-105492:30 Abdomen Appearance other (specify) :30 Abdomen soft :30 Bowel Sounds present :30 NG Tube no :30 Feeding Tube none :30 [place] no :30 Cont Bladder Irr no :30 Ostomy no :30 Stool normal :30 Urination normal :30 Urine Clarity clear :30 Urine Color straw 52-20-451110:30 Quality sym/unlabored :30 Cough absent :30 Secretions no :30 Breath Sounds RUL clear :30 Breath Sounds RML clear :30 Breath Sounds RLL clear :30 Breath Sounds LENORE clear :30 Breath Sounds LLL clear :30 Airway natural :30 Chest Tube no :30 Oxygen no 51-35-134767:00 C-PAP no :30 BI-PAP no :30 Temp >100.4 no : Temp <96.8 no : Chills with rigors no : HR > 90bpm no : Respirations > 20 no : Systolic <90 no : headache stiff neck no :30 WBC > 57102 no : WBC < 4000 no :30 [...] :30 Physical no :30 Hearing no :30 Sound Engineer Audio Control Needed no :30 Sign Language no :30 Emotional no :30 Vision no :30 Laguage no :30 Financial no : Vital signs Type Value Date Respiration Rate 20breaths per minute : Pulse 68beats per minute :00 BP Systolic 105mmHg :00 BP Diastolic 60mmHg :00 Temperature 97.7F 38-51-814893:00 Height 67inches :24 Weight 157LB :24 Social [...]
--- OUTSIDE RECORDS SUMMARY | 2017-12-29 15:30 | XMS REPORT ---
Author Author [facility] Organization [facility] Address [address] [place] [id number] Phone [phone] Care Team Providers Care Field Support Engineer Name Role Phone JEANETH RICH APRN PP [phone] Summary purpose TRANSITION OF CARE AUTO GENERATION Chief Complaint and Reason for Visit Admit Diagnosis 1 ACUTE PHARYNGITIS Problem list No authorized problems tracked for [...] for this patient visit History of procedures Procedure Code Code Type Description Date Performed Performing Physician 56850 CPT-4 EMERGENCY DEPT VISIT 08-20-2014 TOYA CHATMAN [id number] CPT-4 EMERGENCY DEPT VISIT 08-20-2014 TOYA CHATMAN Functional status Functional Status Finding Observation Time Muscle Strength RUE 5 ROM full resist 45-26-592243:00 Muscle Strength RLE 5 ROM full resist 96-71-571171:00 Muscle Strength LUE 5 ROM full resist 68-49-074912:00 Muscle Strength LLE 5 ROM full resist 98-17-449301:00 Abdomen Appearance flat 74-59-715235:00 Abdomen soft 72-22-955274:00 Bowel Sounds present 52-55-254296:00 Urination normal 57-87-561784: Quality sym/unlabored 24-50-002839: Oxygen no 10-45-791494:14 Temp >100.4 no :00 Temp <96.8 no 59-35-936324:00 Chills with rigors no 75-62-791557:00 HR > 90bpm no :00 Respirations > 20 no :00 Systolic <90 no 52-52-431655:00 headache stiff neck no :00 Nursing Note Discharge instructions reviewed with father-verbalized understanding. VS obtained, dc in good condition and ambulatory, rx in hand, :14 Vital signs Type Value Date Respiration Rate 20breaths per minute :14 Pulse 89beats per minute :14 Oxygen Saturation 99% :14 BP Systolic 114mmHg 10-59-113421:14 BP Diastolic 75mmHg 30-00-802279:14 Temperature 98.8F 80-37-666857:14 Weight 126.4LB 54-07-281698:10 Social history Type Value Smoking Status NEVER SMOKER Treatment Plan No treatment plan text is available for this visit. Hospital discharge instructions Dismissal Condition good Disposition on DC home DC Inst/Educ Give yes Med/Side Effects Rev yes Flu Vac unknown
--- OUTSIDE RECORDS SUMMARY | 2017-12-29 15:30 | XMS REPORT ---
Author Author [email or web address] Staff Organization [facility] Address [address] [place] [id number] Phone [phone] Care Team Providers Care Escrow Manager Name Role Phone JEANETH RICH APRN PP [phone] Summary purpose TRANSITION OF CARE AUTO GENERATION [...] Muscle Strength RUE 5 ROM full resist : Muscle Strength RLE 5 ROM full resist : Muscle Strength LUE 5 ROM full resist : Muscle Strength LLE 5 ROM full resist : Abdomen Appearance flat : Abdomen soft : Bowel Sounds present : Urination normal Quality sym/unlabored : Oxygen no 18-02-638095:14 Temp >100.4 no : Temp <96.8 no : Chills with rigors no : HR > 90bpm no : Respirations > 20 no : Systolic <90 no : headache stiff neck no 93-36-965310:00 Nursing Note Discharge instructions reviewed with father-verbalized understanding. VS obtained, dc in good condition and ambulatory, rx in hand, :14 Vital signs Type Value Date Respiration Rate 20breaths per minute :14 Pulse 89beats per minute :14 Oxygen Saturation 99% :14 BP Systolic 114mmHg :14 BP Diastolic 75mmHg 98-62-239224:14 Temperature 98.8F :14 Weight 126.4LB 43-41-834579:10 Social history Type Value Smoking Status NEVER SMOKER Treatment Plan No treatment plan text is available for this visit. Hospital discharge instructions Dismissal Condition good Disposition on DC home DC Inst/Educ Give yes Med/Side Effects Rev yes Flu Vac unknown
--- OUTSIDE RECORDS SUMMARY | 2017-12-29 15:31 | XMS REPORT ---
Author Author Evelina Villanueva [facility] Address [address] [place], [place] [address] Care Team Providers Care Property Field Inspector Name Role Phone Evelina Villanueva PCP Unavailable Allergies and Adverse Reactions Name Reaction Notes NO KNOWN DRUG ALLERGIES Plan of Treatment Not available. Medications Active Name Start Date Estimated Completion Date SIG Comments Concept DHA 35-1-200 mg oral capsule 10/29/2014 10/24/2015 take 1 capsule by oral route once daily for 30 days promethazine 25 mg oral tablet 12/10/2014 take 1 tablet (25 mg) by oral route every 4-6 hours as needed Name Start Date Expiration Date SIG Comments amoxicillin 500 mg oral capsule 07/13/2013 07/20/2013 take 1 capsule (500 mg) by oral route 3 times per day for 7 days Macrobid 100 mg oral capsule 02/12/2014 02/19/2014 take 1 capsule (100 mg) by oral route 2 times per day with food for 7 days Macrobid 100 mg oral capsule 03/12/2014 03/19/2014 take 1 capsule (100 mg) by oral route every 12 hours with food for 7 days Bactrim DS 800-160 mg oral tablet 07/10/2014 07/20/2014 take 1 tablet by oral route every 12 hours for 10 days Bactroban 2 % topical ointment 07/10/2014 08/07/2014 apply a small amount to the affected area by topical route 3 times per day for 14 days Ciprodex 0.3-0.1 % otic drops,suspension 08/07/2014 08/14/2014 instill 4 drops into left ear by otic route 2 times per day for 7 days Benadryl 25 mg oral capsule 08/07/2014 08/09/2014 take 1 capsule by oral route TID for 2 days Discontinued Name Start Date Discontinued Date SIG Comments Tylenol 325 mg oral tablet 01/30/2014 take 1 - 2 tablets (325 - 650 mg) by oral route every 4-6 hours as needed triamcinolone acetonide 0.1 % topical cream 08/16/2012 01/30/2014 apply a thin film to the affected skin areas by topical route 3 times per day Problem List Description Status Onset *No known medical problems Active Vital Signs Date Time BP-Sys(mm[Hg] BP-Sara(mm[Hg]) HR(bpm) RR(rpm) Temp WT HT HC BMI BSA BMI Percentile O2 Sat(%) 10/29/2014 3:08:00 PM 109 mmHg 59 mmHg 112 bpm 99.4 F 124 lbs 66 in 20.01 kg/m2 1.62 m2 35.4 % 08/07/2014 5:51:00 PM 102 mmHg 76 mmHg 77 bpm 16 rpm 97.6 F 128.5 lbs 66 in 20.7402 kg/m 1.6475 m 46.7 % 98 % 07/10/2014 6:48:00 PM 122 mmHg 62 mmHg 90 bpm 18 rpm 96.8 F 150 lbs 66 in 24.21 kg/m2 1.78 m2 79.8 % 99 % 03/12/2014 3:21:00 PM 129 mmHg 68 mmHg 55 bpm 96.8 F 139 lbs 66 in 22.435 kg/m 1.7135 m 67.8 % 02/08/2014 3:47:00 PM 129 mmHg 69 mmHg 60 bpm 97.7 F 142 lbs 66 in 22.92 kg/m2 1.73 m2 72.3 % 01/30/2014 11:28:00 AM 115 mmHg 69 mmHg 70 bpm 97.7 F 139 lbs 66 in 22.435 kg/m 1.7135 m 68.3 % 11/09/2012 9:58:00 AM 100 mmHg 54 mmHg 74 bpm 16 rpm 97.2 F 129 lbs 66 in 20.82 kg/m2 1.65 m2 57.9 % 97 % 08/15/2012 3:45:00 PM 105 mmHg 64 mmHg 78 bpm 16 rpm 98 F 129 lbs 66 in 20.8209 kg/m 1.6507 m 59.4 % 100 % 05/12/2012 3:49:00 PM 120 mmHg 60 mmHg 68 bpm 16 rpm 98.1 F 129.25 lbs 66 in 20.86 kg/m2 1.65 m2 61.5 % 100 % 04/05/2012 2:39:00 PM 110 mmHg 60 mmHg 60 bpm 14 rpm 98 F 132 lbs 66 in 21.3051 kg/m 1.6698 m 66.8 % 100 % 11/06/2010 1:43:00 PM 100 mmHg 62 mmHg 72 bpm 124 lbs 68 in 18.85 kg/m2 1.64 m2 47.6 % Social History Name Description Comments Tobacco Never smoker Single Student History of Procedures Date Ordered Description Order Status 11/06/2010 12:00 AM THER/PROPH/DIAG INJ SC/IM Reviewed 11/06/2010 12:00 AM Decadron Inj.1mg-([facility]) [facility] [place] #[id number] Reviewed 11/06/2010 12:00 AM Depo-Medrol 80 Mg Im/[facility] [id number] Reviewed 01/29/2015 12:00 AM OB US >/=14 WKS SNGL FETUS Returned 01/23/2015 12:00 AM ALPHA-FETOPROTEIN SERUM Returned 05/12/2012 12:00 AM SPECIMEN HANDLING OFFICE-LAB Reviewed 01/30/2014 12:00 AM CHORIONIC GONADOTROPIN TEST Returned 01/30/2014 12:00 AM US PREG UTERUS REAL TIME W/IMAGE DCMTN TRANSVAG Reviewed 01/30/2014 12:00 AM CHORIONIC GONADOTROPIN TEST Returned 02/12/2014 12:00 AM URINALYSIS AUTO W/SCOPE Returned 03/12/2014 12:00 AM URINALYSIS AUTO W/SCOPE Returned 03/12/2014 12:00 AM URINALYSIS AUTO W/SCOPE Returned 08/07/2014 12:00 AM Benadryl, Up to 50 Mg [facility]# [id number] Reviewed 11/01/2014 12:00 AM OB US < 14 WKS SINGLE FETUS Returned 10/29/2014 12:00 AM SPECIMEN HANDLING OFFICE-LAB Reviewed 10/29/2014 12:00 AM N.GONORRHOEAE DNA AMP PROB Returned 10/29/2014 12:00 AM CHLAMYDIA CULTURE Returned 10/29/2014 12:00 AM HIV-1ANTIBODY Returned 10/29/2014 12:00 AM URINALYSIS AUTO W/SCOPE Returned 10/29/2014 12:00 AM OBSTETRIC PANEL Returned Results Summary Data and Description Results 01/30/2014 12:45 PM BETA HCG QUANT <1 MIU/ML 02/01/2014 4:30 PM BETA HCG QUANT <1 MIU/ML 02/12/2014 5:56 PM COLOR YELLOW APPEARANCE CLOUDY SPEC GRAV >=1.030 pH 6.0 PROTEIN NEGATIVE GLUCOSE NEGATIVE KETONE NEGATIVE BILIRUBIN NEGATIVE BLOOD NEGATIVE NITRITE NEGATIVE LEUK SCREEN NEGATIVE CASTS/LPF NEGATIVE CRYSTALS 3+++ AMORPHOUS MUCOUS THRDS NEGATIVE BACTERIA NEGATIVE EPITH CELLS FEW SQUAMOUS TRICHOMONAS NEGATIVE YEAST NEGATIVE 03/12/2014 6:10 PM COLOR YELLOW APPEARANCE HAZY SPEC GRAV 1.020 pH 6.5 PROTEIN NEGATIVE GLUCOSE NEGATIVE KETONE NEGATIVE BILIRUBIN NEGATIVE BLOOD NEGATIVE NITRITE NEGATIVE LEUK SCREEN NEGATIVE CASTS/LPF FEW HYALINE CRYSTALS NEGATIVE MUCOUS THRDS FEW BACTERIA 2++ EPITH CELLS 2++ SQUAMOUS TRICHOMONAS NEGATIVE YEAST NEGATIVE 11/01/2014 5:25 PM HIV AG/AB COMBO 0.07 WBC 6.5 RBC 4.57 HGB 13.90 g/dLHCT 39.90 %MCV 87.0 fLMCH 30.40 pgMCHC 34.80 g/dLRDW CV 12.10 %MPV 10.60 fLPLT 208 % NEUT 65.40 %%LYMP 28.30 %%MONO 5.70 %%EOS 0.30 %%BASO 0.30 %#NEUT 4.27 #LYMP 1.85 #MONO 0.37 #EOS 0.02 #BASO 0.02 HBsAg Screen Negative RPR Non Reactive Rubella Antibodies, IgG 1.80 Index 11/03/2014 5:10 PM COLOR YELLOW APPEARANCE HAZY SPEC GRAV 1.020 pH 6.0 PROTEIN NEGATIVE GLUCOSE NEGATIVE mg/dLKETONE NEGATIVE BILIRUBIN NEGATIVE BLOOD NEGATIVE NITRITE NEGATIVE LEUK SCREEN NEGATIVE CASTS/LPF NEGATIVE /LPFCRYSTALS NEGATIVE MUCOUS THRDS 3+++ BACTERIA 2++ EPITH CELLS 2++ SQUAMOUS / HPFTRICHOMONAS NEGATIVE YEAST NEGATIVE 01/23/2015 11:00 AM AFP Value 0.0328 ug/mLAFP MoM 0.62 hCG Value 13143.0 mIU/ mLhCG MoM 1.51 uE3 Value 1.230 ng/mLuE3 MoM 0.74 SARA Value 203.190 pg/mLDIA MoM 0.99 OSBR [place] 1 [place] [address] DSR (Second Trimester) 1IN 1082 DSR (By Age) 1 IN 1184 T18 Risk Not increased T18 (By Age) 1:4611 02/12/2015 1:40 PM AMNISURE ROM NEGATIVE History Of Immunizations Not available. History of Past Illness Name Date of Onset Comments *No known medical problems Eustachian Tube Dysfunction Nov 06 2010 1:40PM Headache Apr 05 2012 2:40PM Dehydration Apr 05 2012 2:40PM Routine gynecological examination May 12 2012 3:50PM Contraceptive Counseling May 12 2012 3:50PM Contact Dermatitis Aug 15 2012 3:48PM Headache Nov 09 2012 9:59AM Shoulder Contusion Nov 09 2012 9:59AM Upper Respiratory Infection Jul 13 2013 2:17PM Pain, lower leg Jul 13 2013 2:17PM , spontaneous Jan 30 2014 11:41AM , Spontaneous Jan 30 2014 12:32PM Contraceptive Counseling Feb 08 2014 3:50PM Dysuria Feb 12 2014 4:58PM Pain, pelvic, female Mar 12 2014 4:36PM Urinary tract infection Mar 12 2014 3:30PM Cellulitis Jul 10 2014 6:50PM Otitis externa Aug 07 2014 5:58PM Dermatitis Aug 07 2014 5:58PM , Other Normal Oct 29 2014 3:23PM Care, First Normal Oct 29 2014 3:14PM Normal Dec 26 2014 10:23AM , Other Normal Jan 23 2015 10:43AM Payers Insurance Name Company Name Plan Name Plan Number Policy Number Policy Group Number Start Date Amer[place] Amer[place] [id number] N/A Nationwide Health Plans Nationwide Life Insurance Clai [id number] Sunday, 2012 [facility] Clinic - [place] [facility] Clinic [id number] N/A [employer] Insurance [employer] Insuran [id number] N/A Amerigroup - [place] State [place] Amerigroup [place] [id number] N/A History of Encounters Visit Date Visit Type Provider 01/23/2015 Office visit Evelina Villanueva LICENSED PRACTICAL NURSE INSTRUCTOR 12/26/2014 Office visit DEVANTE ANDRADE MD 12/10/2014 Office visit DEVANTE ANDRADE MD 11/26/2014 Office visit DEVANTE ANDRADE MD 10/29/2014 Office visit DEVNATE ANDRADE MD 08/07/2014 Office visit Deloris PRADO 07/10/2014 Office visit Kae Tariq LICENSED PRACTICAL NURSE INSTRUCTOR 03/29/2014 Voided Jose Carlos Neal MD 03/12/2014 Office visit Jose Carlos Neal MD 02/08/2014 Office visit Jose Carlos Neal MD 01/30/2014 Office visit Jose Carlos Neal MD 07/20/2013 Voided Conrad Bee APRN 07/13/2013 Office visit Conrad Bee APRN 11/09/2012 Office visit FRANK PRADO 08/15/2012 Office visit FRANK PRADO 05/12/2012 Office visit FRANK PRADO 04/05/2012 Office visit FRANK PRAOD 11/06/2010 Office visit Frank Houston PA-C
--- OUTSIDE RECORDS SUMMARY | 2017-12-29 15:31 | XMS REPORT ---
Author Author Stephanie Crandall [facility] Address [address] [place], [place] [id number] Care Team Providers Care Global Marketing Specialist Name Role Phone Stephanie Crandall PCP Unavailable Allergies and Adverse Reactions Name [...] HC BMI BSA BMI Percentile O2 Sat(%) 04/29/2015 1:32:00 PM 137 mmHg 87 mmHg 99 bpm 98 F 10/29/2014 3:08:00 PM 109 mmHg 59 mmHg 112 bpm 99.4 F 124 lbs 66 in 20.0139 kg/m 1.6184 m 35.4 % 08/07/2014 5:51:00 PM 102 mmHg 76 mmHg 77 bpm 16 rpm 97.6 F 128.5 lbs 66 in 20.74 kg/m2 1.65 m2 46.7 % 98 % 07/10/2014 6:48:00 PM 122 mmHg 62 mmHg 90 bpm 18 rpm 96.8 F 150 lbs 66 in 24.2104 kg/m 1.78 m 79.8 % 99 % 03/12/2014 3:21:00 PM 129 mmHg 68 mmHg 55 bpm 96.8 F 139 lbs 66 in 22.43 kg/m2 1.71 m2 67.8 % 02/08/2014 3:47:00 PM 129 mmHg 69 mmHg 60 bpm 97.7 F 142 lbs 66 in 22.9192 kg/m 1.7319 m 72.3 % 01/30/2014 11:28:00 AM 115 mmHg 69 mmHg 70 bpm 97.7 F 139 lbs 66 in 22.43 kg/m2 1.71 m2 68.3 % 11/09/2012 9:58:00 AM 100 mmHg 54 mmHg 74 bpm 16 rpm 97.2 F 129 lbs 66 in 20.8209 kg/m 1.6507 m 57.9 % 97 % 08/15/2012 3:45:00 PM 105 mmHg 64 mmHg 78 bpm 16 rpm 98 F 129 lbs 66 in 20.82 kg/m2 1.65 m2 59.4 % 100 % 05/12/2012 3:49:00 PM 120 mmHg 60 mmHg 68 bpm 16 rpm 98.1 F 129.25 lbs 66 in 20.8613 kg/m 1.6523 m 61.5 % 100 % 04/05/2012 2:39:00 PM 110 mmHg 60 mmHg 60 bpm 14 rpm 98 F 132 lbs 66 in 21.31 kg/m2 1.67 m2 66.8 % 100 % 11/06/2010 1:43:00 PM 100 mmHg 62 mmHg 72 bpm 124 lbs 68 in 18.8539 kg/m 1.6427 m 47.6 % Social History Name Description Comments Tobacco Never smoker Single Student History of Procedures Date Ordered Description Order Status 11/06/2010 12:00 AM THER/PROPH/DIAG INJ SC/IM Reviewed 11/06/2010 12:00 AM Decadron Inj.1mg-([facility]) [facility] #[id number] Reviewed 11/06/2010 12:00 AM Depo-Medrol 80 Mg Im/[facility] [id number] Reviewed 01/29/2015 12:00 AM OB US >/=14 WKS SNGL FETUS Returned 01/23/2015 12:00 AM ALPHA-FETOPROTEIN SERUM Returned 04/03/2015 12:00 AM GLUCOSE TOLERANCE TEST (GTT) Returned 04/03/2015 12:00 AM COMPLETE CBC W/AUTO DIFF WBC Returned 04/03/2015 12:00 AM Type and screen Returned 05/12/2012 12:00 AM SPECIMEN HANDLING OFFICE-LAB Reviewed 01/30/2014 12:00 AM CHORIONIC GONADOTROPIN TEST Returned 01/30/2014 12:00 AM US PREG UTERUS REAL TIME W/IMAGE DCMTN TRANSVAG Reviewed 01/30/2014 12:00 AM CHORIONIC GONADOTROPIN TEST Returned 02/12/2014 12:00 AM URINALYSIS AUTO W/SCOPE Returned 03/12/2014 12:00 AM URINALYSIS AUTO W/SCOPE Returned 03/12/2014 12:00 AM URINALYSIS AUTO W/SCOPE Returned 08/07/2014 12:00 AM Benadryl, Up to 50 Mg [facility]# [id number] Reviewed 11/01/2014 12:00 AM OB US < [...] Value 0.0328 ug/mLAFP MoM 0.62 hCG Value 59181.0 mIU/ mLhCG MoM 1.51 uE3 Value 1.230 ng/mLuE3 MoM 0.74 SARA Value 203.190 pg/mLDIA MoM 0.99 OSBR [place] 1 [place] [address] DSR (Second Trimester) 1IN 1082 DSR (By Age) 1 IN 1184 T18 Risk Not increased T18 (By Age) 1:4611 02/12/2015 1:40 PM AMNISURE ROM NEGATIVE 03/27/2015 8:30 PM AMNISURE ROM NEGATIVE 04/03/2015 10:40 AM WBC 7.6 RBC 3.58 HGB 11.30 g/dLHCT 33.80 %MCV 94.0 fLMCH 31.60 pgMCHC 33.40 g/dLRDW CV 12.50 %MPV 10.10 fLPLT 194 %NEUT 70.50 %%LYMP 21.20 %%MONO 7.40 %%EOS 0.80 %%BASO 0.10 %#NEUT 5.32 #LYMP 1.60 #MONO 0.56 #EOS 0.06 #BASO 0.01 04/27/2015 1:12 AM COLOR YELLOW APPEARANCE CLEAR SPEC GRAV <=1.005 pH 5.5 PROTEIN NEGATIVE GLUCOSE NEGATIVE mg/dLKETONE NEGATIVE BILIRUBIN NEGATIVE BLOOD NEGATIVE NITRITE NEGATIVE LEUK SCREEN NEGATIVE 04/28/2015 10:10 PM WBC 10.4 RBC 3.69 HGB 11.50 g/dLHCT 33.90 %MCV 92.0 fLMCH 31.20 pgMCHC 33.90 g/dLRDW CV 12.30 %MPV 10.60 fLPLT 207 %NEUT 64.40 %%LYMP 26.70 %%MONO 8.40 %%EOS 0.40 %%BASO 0.10 %#NEUT 6.70 #LYMP 2.78 #MONO 0.87 #EOS 0.04 #BASO 0.01 GLUCOSE 104.0 mg/dLSODIUM 138.0 mmol/LPOTASSIUM 3.40 mmol/ LCHLORIDE 107.0 mmol/LCO2 16.0 mmol/LBUN 7.0 mg/dLCREATININE 0.60 mg/dLSGOT/AST 17.0 IU/LSGPT/ALT 14.0 IU/LALK PHOS 94.0 IU/LTOTAL PROTEIN 5.90 g/dLALBUMIN 3.50 g/dLTOTAL BILI 0.40 mg/dLCALCIUM 8.90 mg/dLeGFR N/A mL/min/1.73mAMYLASE 42 IU/LLIPASE 12.0 U/L History Of Immunizations Not available. History of [...] , Other Normal Jan 23 2015 10:43AM , Other Normal Apr 03 2015 9:50AM Payers Insurance Name Company Name Plan Name Plan Number Policy Number Policy Group Number Start Date [place] Plan [place] State Plan [id number] N/A Nationwide Health Plans Nationwide Life Insurance [facility] [id number] Sunday, 2012 [place] - [place] [facility] [place] Free Clinic [id number] N/A [employer] Life Insurance Company [employer] Insuran [id number] N/A Amerigroup [place] Amer[place] [id number] N/A History of Encounters Visit Date Visit Type Provider 05/16/[address] Stephanie Crandall MD 05/01/[address] Stephanie Crandall MD 04/29/[address] Stephanie Crandall MD 04/03/[address] Stephanie Crandall MD 03/20/[address] Stephanie Crandall MD 02/20/[address] Stephanie Crandall MD 01/23/2015 Office visit Evelina Villanueva APRN 12/26/2014 Office visit DEVANTE ANDRADE MD 12/10/2014 Office visit DEVANTE ANDRADE MD 11/26/2014 Office visit DEVANTE ANDRADE MD 10/29/2014 Office visit DEVANTE ANDRADE MD 08/07/2014 Office visit Deloris PRADO 07/10/2014 Office visit Kae Tariq PUBLIC HEALTH TEACHER 03/29/2014 Voided Jose Carlos Neal MD 03/12/2014 Office visit 03/12/2014 Office visit Jose Carlos Neal MD 02/08/2014 Office visit Jose Carlos Neal MD 01/30/2014 Office visit Jose Carlos Neal MD 07/20/2013 Voided Conrad Bee PUBLIC HEALTH TEACHER 07/13/2013 Office visit Conrad Bee PUBLIC HEALTH TEACHER 11/09/2012 Office visit FRANK PRADO 08/15/2012 Office visit FRANK PRADO 05/12/2012 Office visit FRANK PRADO 04/05/2012 Office visit FRANK PRADO 11/06/2010 Office visit Frank Houston PA-C
--- OUTSIDE RECORDS SUMMARY | 2017-12-29 15:32 | XMS REPORT ---
Author Frank Ayers [facility] Address [address] [place], [place] [address] Care Team Providers Care Angle Shearer Name Role Phone Frank Ingram PCP Unavailable Allergies and Adverse Reactions Name Reaction Notes NO KNOWN DRUG ALLERGIES Plan of Treatment Planned Activity Comments Planned Date Planned Time Plan/Goal ASSAY OF PROTEIN URINE 05/23/2015 12:00 AM Medications Active Name Start Date Estimated Completion Date SIG Comments Concept DHA 35-1-200 mg oral capsule 10/29/2014 10/24/2015 take 1 capsule by oral route once daily for 30 days promethazine 25 mg oral tablet 05/30/2015 take 1 tablet (25 mg) by oral [...] problems Active Vital Signs Date Time BP-Sys(mm[Hg] BP-Asra(mm[Hg]) HR(bpm) RR(rpm) Temp WT HT HC BMI [...] SC/IM Reviewed 11/06/2010 12:00 AM Decadron Inj.1mg-([facility]) [facility] #[id number] Reviewed 11/06/2010 12:00 AM Depo-Medrol 80 Mg Im/[facility] [id number] Reviewed 01/29/2015 12:00 AM OB US >/=14 WKS SNGL FETUS Returned 01/23/2015 12:00 AM ALPHA-FETOPROTEIN SERUM Returned 04/03/2015 12:00 AM GLUCOSE TOLERANCE TEST (GTT) Returned 04/03/2015 12:00 AM COMPLETE CBC W/AUTO DIFF WBC Returned 04/03/2015 12:00 AM Type and screen Returned 05/23/2015 12:00 AM CULTURE SCREEN ONLY Returned 05/23/2015 12:00 AM COMPLETE CBC W/AUTO DIFF WBC Returned 05/23/2015 12:00 AM COMPREHEN METABOLIC PANEL Returned 05/23/2015 12:00 AM PROTHROMBIN TIME Returned 05/23/2015 12:00 AM THROMBOPLASTIN TIME PARTIAL Returned 05/23/2015 12:00 AM ASSAY OF BLOOD/URIC ACID Returned 05/23/2015 12:00 AM ASSAY OF URINE/URIC ACID Returned 05/30/2015 12:00 AM TDAP VACCINE 7 YRS/> IM Reviewed 05/30/2015 12:00 AM IMMUNIZATION ADMIN Reviewed 05/12/2012 12:00 AM SPECIMEN HANDLING OFFICE-LAB Reviewed 01/30/2014 12:00 AM CHORIONIC GONADOTROPIN TEST Returned 01/30/2014 12:00 AM US PREG UTERUS REAL TIME W/IMAGE DCMTN TRANSVAG Reviewed 01/30/2014 12:00 AM CHORIONIC GONADOTROPIN TEST Returned 02/12/2014 12:00 AM URINALYSIS AUTO W/SCOPE Returned 03/12/2014 12:00 AM URINALYSIS AUTO W/SCOPE Returned 03/12/2014 12:00 AM URINALYSIS AUTO W/SCOPE Returned 08/07/2014 12:00 AM Benadryl, Up to 50 Mg [facility]# [id number] Reviewed 11/01/2014 12:00 AM OB US < 14 WKS SINGLE FETUS Returned 10/29/2014 12:00 AM SPECIMEN HANDLING OFFICE-LAB Reviewed 10/29/2014 12:00 AM N.GONORRHOEAE DNA AMP PROB Returned 10/29/2014 12:00 AM CHLAMYDIA CULTURE Returned 10/29/2014 12:00 AM HIV-1ANTIBODY Returned 10/29/2014 12:00 AM URINALYSIS AUTO W/SCOPE Returned 10/29/2014 12:00 AM OBSTETRIC PANEL Returned Results Summary Data and Description Results 05/31/1999 5:00 PM COLOR YELLOW APPEARANCE HAZY SPEC GRAV 1.020 pH 5.5 PROTEIN NEGATIVE GLUCOSE NEGATIVE mg/dLKETONE 15 BILIRUBIN NEGATIVE BLOOD NEGATIVE NITRITE NEGATIVE LEUK SCREEN TRACE CASTS/LPF NEGATIVE /LPFCRYSTALS 1+ AMORPHOUS MUCOUS THRDS FEW BACTERIA 3+++ EPITH CELLS 3+++ SQUAMOUS /HPFTRICHOMONAS NEGATIVE YEAST NEGATIVE 01/30/2014 12:45 PM BETA HCG QUANT <1 [...] Value 0.0328 ug/mLAFP MoM 0.62 hCG Value 42848.0 mIU/ mLhCG MoM 1.51 uE3 Value 1.230 ng/mLuE3 MoM 0.74 SARA Value 203.190 pg/mLDIA MoM 0.99 OSBR [place] 1 [place] [address] DSR (Second Trimester) 1IN 1082 DSR (By [...] mg/dLeGFR N/A mL/min/1.73mAMYLASE 42 IU/LLIPASE 12.0 U/L 05/16/2015 10:31 PM AMNISURE ROM NEGATIVE 05/17/2015 12:35 AM COLOR YELLOW APPEARANCE CLEAR SPEC GRAV 1.010 pH 6.0 PROTEIN NEGATIVE GLUCOSE NEGATIVE mg/dLKETONE NEGATIVE BILIRUBIN NEGATIVE BLOOD NEGATIVE NITRITE NEGATIVE LEUK SCREEN NEGATIVE 05/23/2015 11:25 AM PROTIME 10.0 secsINR 0.9 PTT 25.40 secsWBC 9.2 RBC 3.72 HGB 11.70 g/dLHCT 34.50 %MCV 93.0 [facility] 31.50 pgHC 33.90 g/dLRDW CV 12.0 %MPV 10.80 fLPLT 181 %NEUT 69.20 %%LYMP 20.70 %%MONO 8.10 %%EOS 0.50 %%BASO 0.30 %# NEUT 6.36 #LYMP 1.90 #MONO 0.74 #EOS 0.05 #BASO 0.03 GLUCOSE 78.0 mg/dLSODIUM 140.0 mmol/LPOTASSIUM 4.40 mmol/LCHLORIDE 107.0 mmol/LCO2 23.0 mmol/LBUN 6.0 mg/ dLCREATININE 0.60 mg/dLSGOT/AST 13.0 IU/LSGPT/ALT 9.0 IU/LALK PHOS 127.0 IU/ LTOTAL PROTEIN 6.50 g/dLALBUMIN 3.60 g/dLTOTAL BILI 0.30 mg/dLCALCIUM 9.50 mg/ dLeGFR >60 mL/min/1.73mURIC ACID 4.7 mg/dL 05/24/2015 3:40 PM COLOR YELLOW APPEARANCE CLEAR SPEC GRAV 1.020 pH 7.5 PROTEIN NEGATIVE GLUCOSE NEGATIVE mg/dLKETONE NEGATIVE BILIRUBIN NEGATIVE BLOOD NEGATIVE NITRITE NEGATIVE LEUK SCREEN NEGATIVE History Of Immunizations Name Date Admin Mfg Name Mfg Code Trade Name Lot# Route Inj Vis Given Vis Pub CVX Tdap 05/30/2015 [employer] SKB BOOSTRIX 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 05/30/2015 04/24/2014 115 History of Past Illness Name Date of [...] , Other Normal Apr 03 2015 9:50AM Group B Strep Screening, May 23 2015 10:42AM Gestational [-induced] hypertension without significant proteinuria, third trimester May 23 2015 11:09AM Need for Tdap vaccine May 30 2015 9:16AM Payers Insurance Name Company Name Plan Name Plan Number Policy Number Policy Group Number Start Date Amerigroup [place] Amer[place] [id number] N/A Nationwide Health Plans Nationwide Life Insurance Clai [id number] Sunday, 2012 [place] Clinic - [place] [facility] [place] Free Clinic [id number] N/A [employer] Insuran [id number] N/A Amerigroup [place] Amer[employer] [place] [id number] N/A History of Encounters Visit Date Visit Type Provider 06/11/2015 Office visit Frank Ingram MD 06/04/[address] Stephanie Crandall MD 05/30/[address] Stephanie Crandall MD 05/23/[address] Stephanie Crandall MD 05/16/[address] Stephanie Crandall MD 05/01/[address] Stephanie Crandall MD 04/29/[address] Stephanie Crandall MD 04/03/[address] Stephanie Crandall MD 03/20/[address] Stephanie Crandall MD 02/20/[address] Stephanie Crandall MD 01/23/2015 Office visit Evelina Villanueva RUBBER STAMP MAKER 12/26/2014 Office visit DEVANTE ANDRADE MD 12/10/2014 Office visit DEVANTE ANDRADE MD 11/26/2014 Office visit DEVANTE ANDRADE MD 10/29/2014 Office visit DEVANTE ANDRADE MD 08/07/2014 Office visit Deloris PRADO 07/10/2014 Office visit Kae Tariq RUBBER STAMP MAKER 03/29/2014 Voided Jose Carlos Neal MD 03/12/2014 Office visit 03/12/2014 Office visit Jose Carlos Neal MD 02/08/2014 Office visit Jose Carlos Neal MD 01/30/2014 Office visit Jose Carlos Neal MD 07/20/2013 Voided Conrad Bee RUBBER STAMP MAKER 07/13/2013 Office visit Conrad Bee RUBBER STAMP MAKER 11/09/2012 Office visit FRANK PRADO 08/15/2012 Office visit FRANK PRADO 05/12/2012 Office visit FRANK PRADO 04/05/2012 Office visit FRANK PRADO 11/06/2010 Office visit Frank Houston PA-C
--- OUTSIDE RECORDS SUMMARY | 2017-12-29 15:32 | XMS REPORT ---
Author Evelina Smalls [facility] Address [address] [place], [place] [id number] Care Team Providers Care Machine Molder Squeeze Name Role Phone Evelina Villanueva PCP Allergies and Adverse Reactions Name Reaction Notes NO KNOWN DRUG ALLERGIES Plan of Treatment Planned Activity Comments Planned Date Planned Time Plan/Goal Quantitative Beta HCG 02/09/2017 12:00 AM Medications Name Start Date Expiration Date SIG Comments [...] by oral route TID for 2 days promethazine 25 mg oral tablet 05/30/2015 take 1 tablet (25 mg) by oral route every 4-6 hours as needed Diflucan 150 mg oral tablet 08/05/2015 08/06/2015 take 1 tablet (150 mg) by oral route once for 1 day Mirena 20 mcg/24 hr (5 years) intrauterine intrauterine device 08/07/20152015 place 1 device by intrauterine route daily for 1 day NuvaRing 0.12-0.015 mg/24 hr vaginal ring 09/17/2015 12/10/2015 insert 1 vaginal ring by vaginal route once a month leave in place for 3 weeks, remove for 1 week for 21 days Nexplanon 68 mg subdermal implant 02/06/2016 07/08/2012 implant 1 by subdermal route daily for 1 day Discontinued Name Start Date Discontinued Date SIG Comments Tylenol 325 mg oral tablet 01/30/2014 take 1 - 2 tablets (325 - 650 mg) by oral route every 4-6 hours as needed triamcinolone acetonide 0.1 % topical cream 08/16/2012 01/30/2014 apply a thin film to the affected skin areas by topical route 3 times per day Concept DHA 35-1-200 mg oral capsule 10/29/2014 09/16/2015 take 1 capsule by oral route once daily for 30 days Prozac 20 mg oral capsule 06/20/2015 09/16/2015 take 1 capsule (20 mg) by oral route once daily in the morning Sprintec (28) 0.25-35 mg-mcg oral tablet 11/03/2016 02/09/2017 take 1 tablet by oral route once daily for 84 days Problem List Description Status Onset *No known medical problems Active Vital Signs Date Time BP-Sys(mm[Hg] BP-Carmella(mm[Hg]) HR(bpm) RR(rpm) Temp WT HT HC BMI BSA BMI Percentile O2 Sat(%) 02/09/2017 11:15:00 AM 108 mmHg 63 mmHg 76 bpm 99.4 F 128 lbs 66 in 20.66 kg/m2 1.64 m2 36.7 % 01/20/2017 7:06:00 PM 122 mmHg 80 mmHg 64 bpm 18 rpm 98.1 F 130 lbs 66 in 20.9823 kg/m 1.6571 m 41.1 % 99 % 11/03/2016 10:23:00 AM 111 mmHg 62 mmHg 54 bpm 98.7 F 123 lbs 66 in 19.85 kg/m2 1.61 m2 26.2 % 10/06/2016 10:08:00 AM 111 mmHg 66 mmHg 62 bpm 97.6 F 123 lbs 66 in 19.8525 kg/m 1.6118 m 26.3 % 02/06/2016 9:07:00 AM 110 mmHg 62 mmHg 56 bpm 97.5 F 120 lbs 66 in 19.37 kg/m2 1.59 m2 21.3 % 09/16/2015 2:01:00 PM 112 mmHg 66 mmHg 68 bpm 98.4 F 124 lbs 66 in 20.0139 kg/m 1.6184 m 31.4 % 08/07/2015 4:14:00 PM 126 mmHg 73 mmHg 66 bpm 97.7 F 126 lbs 66 in 20.34 kg/m2 1.63 m2 36.4 % 08/05/2015 3:09:00 PM 127 mmHg 65 mmHg 78 bpm 97.6 F 128 lbs 66 in 20.6595 kg/m 1.6443 m 40.9 % 06/20/2015 3:09:00 PM 128 mmHg 87 mmHg 72 bpm 04/29/2015 1:32:00 PM 137 mmHg 87 mmHg [...] SC/IM Reviewed 11/06/2010 12:00 AM Decadron Inj.1mg-([facility] #[id number] Reviewed 11/06/2010 12:00 AM Depo-Medrol 80 Mg Im/[facility] [id number] Reviewed 01/29/2015 12:00 AM OB US >/=14 WKS SNGL FETUS Reviewed 01/23/2015 12:00 AM ALPHA-FETOPROTEIN SERUM Reviewed 04/03/2015 12:00 AM GLUCOSE TOLERANCE TEST (GTT) Reviewed 04/03/2015 12:00 AM COMPLETE CBC W/AUTO DIFF WBC Reviewed 04/03/2015 12:00 AM Type and screen Reviewed 05/23/2015 12:00 AM CULTURE SCREEN ONLY Reviewed 05/23/2015 12:00 AM COMPLETE CBC W/AUTO DIFF WBC Reviewed 05/23/2015 12:00 AM COMPREHEN METABOLIC PANEL Reviewed 05/23/2015 12:00 AM PROTHROMBIN TIME Reviewed 05/23/2015 12:00 AM THROMBOPLASTIN TIME PARTIAL Reviewed 05/23/2015 12:00 AM ASSAY OF BLOOD/URIC ACID Reviewed 05/23/2015 12:00 AM ASSAY OF URINE/URIC ACID Reviewed 05/30/2015 12:00 AM TDAP VACCINE 7 YRS/> IM Reviewed 05/30/2015 12:00 AM IMMUNIZATION ADMIN Reviewed 08/05/2015 12:00 AM CHLAMYDIA CULTURE Reviewed 08/05/2015 12:00 AM N.GONORRHOEAE DNA AMP PROB Reviewed 08/07/2015 4:26 PM URINE TEST Reviewed 08/07/2015 12:00 AM INSERT INTRAUTERINE DEVICE Reviewed 08/07/2015 12:00 AM Levonorgestrel-releasing IUD contraceptive system, 52 mg 5 year Reviewed 09/16/2015 12:00 AM REMOVE INTRAUTERINE DEVICE Reviewed 02/06/2016 3:32 PM URINE TEST Reviewed 02/06/2016 12:00 AM INSERT DRUG IMPLANT DEVICE Reviewed 02/06/2016 12:00 AM NEXPLANON (Etonogestrel implant) [facility] #[id number] Reviewed 11/03/2016 12:00 AM REMOVE CONTRACEPTIVE CAPSULE Reviewed 01/20/2017 12:00 AM CHORIONIC GONADOTROPIN TEST Reviewed 01/20/2017 12:00 AM COMPLETE CBC W/AUTO DIFF WBC Reviewed 01/20/2017 12:00 AM COMPREHEN METABOLIC PANEL Reviewed 01/20/2017 7:53 PM URINE TEST Reviewed 01/20/2017 7:53 PM URINALYSIS AUTO W/O SCOPE Reviewed 02/09/2017 11:30 AM URINE TEST Reviewed 05/12/2012 12:00 AM SPECIMEN HANDLING OFFICE-LAB Reviewed 01/30/2014 12:00 AM CHORIONIC GONADOTROPIN TEST Reviewed 01/30/2014 12:00 AM US PREG UTERUS REAL TIME W/IMAGE DCMTN TRANSVAG Reviewed 01/30/2014 12:00 AM CHORIONIC GONADOTROPIN TEST Reviewed 02/12/2014 12:00 AM URINALYSIS AUTO W/SCOPE Reviewed 03/12/2014 12:00 AM URINALYSIS AUTO W/SCOPE Reviewed 03/12/2014 12:00 AM URINALYSIS AUTO W/SCOPE Reviewed 08/07/2014 12:00 AM Benadryl, Up to 50 Mg [facility]# [id number] Reviewed 11/01/2014 12:00 AM OB US < 14 WKS SINGLE FETUS Reviewed 10/29/2014 12:00 AM SPECIMEN HANDLING OFFICE-LAB Reviewed 10/29/2014 12:00 AM N.GONORRHOEAE DNA AMP PROB Reviewed 10/29/2014 12:00 AM CHLAMYDIA CULTURE Reviewed 10/29/2014 12:00 AM HIV-1ANTIBODY Reviewed 10/29/2014 12:00 AM URINALYSIS AUTO W/SCOPE Reviewed 10/29/2014 12:00 AM OBSTETRIC PANEL Reviewed Results Summary Date and Description Results 01/30/2014 12:45 PM BETA HCG QUANT <1 MIU/ML 02/01/2014 4:30 PM BETA HCG QUANT <1 MIU/ML 02/12/2014 5:56 PM COLOR YELLOW APPEARANCE CLOUDY SPEC GRAV >=1.030 pH 6.0 PROTEIN NEGATIVE GLUCOSE NEGATIVE KETONE NEGATIVE BILIRUBIN NEGATIVE BLOOD NEGATIVE NITRITE NEGATIVE LEUK SCREEN NEGATIVE WBC/HPF NEGATIVE RBC/HPF NEGATIVE CASTS/LPF NEGATIVE CRYSTALS 3+++AMORPHOUS MUCOUS THRDS NEGATIVE BACTERIA NEGATIVE EPITH CELLS FEW SQUAMOUS TRICHOMONAS NEGATIVE YEAST NEGATIVE CULT SET UP? NO 03/12/2014 6:10 PM COLOR YELLOW APPEARANCE HAZY SPEC GRAV 1.020 pH 6.5 PROTEIN NEGATIVE GLUCOSE NEGATIVE KETONE NEGATIVE BILIRUBIN NEGATIVE BLOOD NEGATIVE NITRITE NEGATIVE LEUK SCREEN NEGATIVE WBC/HPF 0-5 RBC/HPF RARE CASTS/LPF FEW HYALINE CRYSTALS NEGATIVE MUCOUS THRDS FEW BACTERIA 2++ EPITH CELLS 2++ SQUAMOUS TRICHOMONAS NEGATIVE YEAST NEGATIVE CULT SET UP? YES 11/01/2014 5:25 PM HIV AG/AB COMBO 0.07 WBC 6.5 RBC 4.57 HGB 13.90 g/dLHCT 39.90 %MCV 87.0 fLMCH 30.40 pgMCHC 34.80 g/dLRDW SD 39 RDW CV 12.10 %MPV 10.60 fLPLT 208 NRBC# 0.00 NRBC% 0.0 %NEUT 65.40 %%LYMP 28.30 %%MONO 5.70 %%EOS 0.30 % %BASO 0.30 %#NEUT 4.27 #LYMP 1.85 #MONO 0.37 #EOS 0.02 #BASO 0.02 MANUAL DIFF NOT IND HBsAg Screen Negative RPR Non Reactive Rubella Antibodies, IgG 1.80 Index 11/03/2014 5:10 PM COLOR YELLOW APPEARANCE HAZY SPEC GRAV 1.020 pH 6.0 PROTEIN NEGATIVE GLUCOSE NEGATIVE mg/dLKETONE NEGATIVE BILIRUBIN NEGATIVE BLOOD NEGATIVE NITRITE NEGATIVE LEUK SCREEN NEGATIVE WBC/HPF 0-5 RBC/HPF NEGATIVE CASTS/LPF NEGATIVE /LPFCRYSTALS NEGATIVE MUCOUS THRDS 3+++ BACTERIA 2++ EPITH CELLS 2++ SQUAMOUS /HPFTRICHOMONAS NEGATIVE YEAST NEGATIVE CULT ORDERED YES 01/23/2015 11:00 AM Results Report Test Results: *Screen Negative* Gest. [age] on CollectionDate 18.7 Gestat. Age Based On Ultrasound M[age] Age At MARÍA ELENA 20.1 Race Weight 131 Insulin Dep Diabetes No Multiple Gestation No AFP Value 0.0328 ug/mLAFP MoM 0.62 hCG Value 86031.0 mIU/mLhCG MoM 1.51 uE3 Value 1.230 ng/mLuE3 MoM 0.74 CARMELLA Value 203.190 pg/mLDIA MoM 0.99 [place] 1 [place] [address] DSR (Second Trimester) 1IN 1082 DSR (By Age) 1 IN 1184 T18 Risk Not increased T18 (By Age) 1:4611 04/03/2015 10:40 AM WBC 7.6 RBC 3.58 HGB 11.30 g/dLHCT 33.80 %MCV 94.0 fLMCH 31.60 pgMCHC 33.40 g/dLRDW SD 43 RDW CV 12.50 %MPV 10.10 fLPLT 194 NRBC# 0.00 NRBC% 0.0 %NEUT 70.50 %%LYMP 21.20 %%MONO 7.40 %%EOS 0.80 %%BASO 0.10 %#NEUT 5.32 #LYMP 1.60 #MONO 0.56 #EOS 0.06 #BASO 0.01 MANUAL DIFF NOT IND 04/28/2015 10:10 PM WBC 10.4 RBC 3.69 HGB 11.50 g/dLHCT 33.90 %MCV 92.0 fLMCH 31.20 pgMCHC 33.90 g/dLRDW SD 42 RDW CV 12.30 %MPV 10.60 fLPLT 207 NRBC# 0.00 NRBC% 0.0 %NEUT 64.40 %%LYMP 26.70 %%MONO 8.40 %%EOS 0.40 %%BASO 0.10 %#NEUT 6.70 #LYMP 2.78 #MONO 0.87 #EOS 0.04 #BASO 0.01 MANUAL DIFF NOT IND 05/23/2015 11:25 AM PROTIME 10.0 secsINR 0.9 PTT 25.40 secsWBC 9.2 RBC 3.72 HGB 11.70 g/dLHCT 34.50 %MCV 93.0 fLMCH 31.50 pgMCHC 33.90 g/dLRDW SD 41 RDW CV 12.0 %MPV 10.80 fLPLT 181 NRBC# 0.00 NRBC% 0.0 %NEUT 69.20 %%LYMP 20.70 %%MONO 8.10 %%EOS 0.50 %%BASO 0.30 %#NEUT 6.36 #LYMP 1.90 #MONO 0.74 #EOS 0.05 #BASO 0.03 MANUAL DIFF NOT IND GLUCOSE 78.0 mg/dLSODIUM 140.0 mmol/LPOTASSIUM 4.40 mmol/LCHLORIDE 107.0 mmol/LCO2 23.0 mmol/LBUN 6.0 mg/dLCREATININE 0.60 mg/dLSGOT /AST 13.0 IU/LSGPT/ALT 9.0 IU/LALK PHOS 127.0 IU/LTOTAL PROTEIN 6.50 g/ dLALBUMIN 3.60 g/dLTOTAL BILI 0.30 mg/dLCALCIUM 9.50 mg/dLAGE 20 GFR NonAA 130 GFR AA 158 eGFR >60 mL/min/1.73meGFR AA* >60 URIC ACID 4.7 mg/dL 05/24/2015 9:16 AM STREP GROUP B PCR GBS NEGATIVE 08/07/2015 4:26 PM Test, Urine negative 02/06/2016 3:32 PM Test, Urine Negative 01/20/2017 7:45 PM GLUCOSE 96.0 mg/dLSODIUM 140.0 mmol/LPOTASSIUM 4.0 mmol/ LCHLORIDE 105.0 mmol/LCO2 26.0 mmol/LBUN 12.0 mg/dLCREATININE 0.70 mg/dLSGOT/ AST 14.0 IU/LSGPT/ALT 8.0 IU/LALK PHOS 44.0 IU/LTOTAL PROTEIN 7.80 g/dLALBUMIN 4.60 g/dLTOTAL BILI 0.40 mg/dLCALCIUM 9.60 mg/dLAGE 21 GFR NonAA 108 GFR AA 131 eGFR >60 mL/min/1.73meGFR AA* >60 BETA HCG QUANT <1 mIU/mLWBC 7.3 RBC 4.40 HGB 13.60 g/dLHCT 40.40 %MCV 92.0 fLMCH 30.90 pgMCHC 33.70 g/dLRDW SD 39 RDW CV 11.50 %MPV 9.50 fLPLT 185 NRBC# 0.00 NRBC% 0.0 %NEUT 61.30 %%LYMP 31.50 %%MONO 5.90 %%EOS 0.50 %%BASO 0.50 %#NEUT 4.49 #LYMP 2.31 #MONO 0.43 #EOS 0.04 #BASO 0.04 MANUAL DIFF NOT IND 02/09/2017 11:30 AM Test, Urine Negative History Of Immunizations Name Date Admin Mfg Name Mfg Code Trade Name Lot# Route Inj Vis Given Vis Pub CVX Tdap 05/30/2015 [email or web address] SKB BOOSTRIX 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 05/30/2015 04/24/2014 115 History of Past Illness Name Date of Onset Comments *No known medical problems Major Depression (Recurrent) Eustachian Tube Dysfunction Nov 06 2010 1:40PM [...] for Tdap vaccine May 30 2015 9:16AM depression Jun 20 2015 3:57PM Post- Follow-Up Aug 05 2015 3:13PM Contraceptive Counseling Aug 05 2015 3:13PM Candidiasis, Vulvovaginal Aug 05 2015 3:13PM depression Aug 05 2015 3:13PM Special investigations and examinations; examination or test; examination or test, negative result Aug 07 2015 4:26PM IUD insertion Aug 07 2015 4:22PM IUD removal Sep 16 2015 2:19PM Encounter for test with result negative Feb 06 2016 3:32PM NEXPLANON Insertion Feb 06 2016 3:32PM Contraceptive surveillance Oct 06 2016 10:11AM Encounter for Nexplanon removal Nov 03 2016 10:25AM Missed menses Jan 20 2017 7:09PM Vomiting Jan 20 2017 7:09PM Amenorrhea Feb 09 2017 11:30AM Payers Insurance Name Company Name Plan Name Plan Number Policy Number Policy Group Number Start Date [employer] [place] [employer] [place] [id number] N/A [employer] [place] [employer] [place] [id number] N/A [employer] Plans [employer] Life Insurance Clai [id number] Sunday, 2012 [facility] [place] [facility] [id number] N/A [employer] Insuran [id number] N/A History of Encounters Visit Date Visit Type Provider 02/09/2017 Office visit Evelina Villanueva DRAUGHTSMAN 01/20/2017 Office visit Eunice Cox DRAUGHTSMAN 11/03/2016 Procedures Evelina Villanueva DRAUGHTSMAN 10/06/2016 Office visit Evelina Villanueva DRAUGHTSMAN 02/06/2016 Office visit Evelina Villanueva DRAUGHTSMAN 09/16/2015 Office visit Evelina Villanueva DRAUGHTSMAN 08/07/2015 Office visit Evelina Villanueva DRAUGHTSMAN 08/05/2015 Office visit Evelina Villanueva DRAUGHTSMAN 06/20/[address] Stephanie Crandall MD 06/12/[address] [facility] [address] Stephanie Crandall MD 06/11/2015 Office visit Frank Ingram MD 06/04/2015 [...] Crandall MD 01/23/2015 Office visit Evelina Villanueva DRAUGHTSMAN 12/26/2014 Office visit DEVANTE ANDRADE MD 12/10/2014 Office visit DEVANTE ANDRADE MD 11/26/2014 Office visit DEVANTE ANDRADE MD 10/29/2014 Office visit DEVANTE ANDRADE MD 08/07/2014 Office visit Deloris PRADO 07/10/2014 Office visit Kae Tariq DRAUGHTSMAN 03/29/2014 Voided Jose Carlos Neal MD 03/12/2014 Office visit 03/12/2014 Office visit Jose Carlos Neal MD 02/08/2014 Office visit Jose Carlos Neal MD 01/30/2014 Office visit Jose Carlos Neal MD 07/20/2013 Voided Conrad Bee DRAUGHTSMAN 07/13/2013 Office visit Conrad Bee DRAUGHTSMAN 11/09/2012 Office visit FRANK PRADO 08/15/2012 Office visit FRANK PRADO 05/12/2012 Office visit FRANK PRADO 04/05/2012 Office visit FRANK PRADO 11/06/2010 Office visit Frank Houston PA-C
--- OUTSIDE RECORDS SUMMARY | 2017-12-29 15:33 | XMS REPORT ---
Author Evelina Smalls [facility] Address [address] [place], [place] [id number] Care Team Providers Care Professional Driver Name Role Phone Evelina Villanueva PCP FRANK HOUSTON PreferredProvider Allergies and Adverse Reactions Name Reaction Notes NO KNOWN DRUG ALLERGIES Plan of Treatment Planned Activity Comments Planned Date Planned Time Plan/Goal OB Complete Sono, Less than 14 weeks 05/19/2017 12:00 AM *Thin layer pap with reflex to HPV ; cervical/vaginal (ThinPrep or Surepath) 05/18/2017 12:00 AM Gonorrhea 05/18/2017 12:00 AM Chlamydia 05/18/2017 12:00 AM HIV-1 antibody 05/18/2017 12:00 AM UA with Culture and Sensitivity 05/18/2017 12:00 AM panel (CBC with differential, automated, Hepatitis B surface antigen ( HBsAg), Rubella antibody, RBC antibody screen, Blood typing (ABO and Rh(D), RPR w/ Reflex to TP 05/18/2017 12:00 AM FERRITIN 05/18/2017 12:00 AM URINE DRUG SCREEN RAPID 05/18/2017 12:00 AM TRICHOMONAS AMPLIFIED 05/18/2017 12:00 AM TRICHOMONAS AMPLIFIED 05/18/2017 12:00 AM HEPATITIS C AB 05/18/2017 12:00 AM Medications Active Name Start Date Estimated Completion Date SIG Comments Zofran ODT oral amoxicillin oral hydrocodone-acetaminophen oral Name Start Date Expiration Date SIG Comments [...] oral route once daily for 84 days Bactrim DS 800-160 mg oral tablet 05/11/2017 05/18/2017 take 1 tablet by oral route 2 times a day for 7 days Problem List Description Status Onset *No known medical problems Active Vital Signs Date Time BP-Sys(mm[Hg] BP-Sara(mm[Hg]) HR(bpm) RR(rpm) Temp WT HT HC BMI BSA BMI Percentile O2 Sat(%) 05/18/2017 10:59:00 AM 122 mmHg 82 mmHg 106 bpm 99.2 F 127 lbs 66 in 20.50 kg/m2 1.64 m2 0 % 05/11/2017 4:20:00 PM 108 mmHg 70 mmHg 106 bpm 18 rpm 98.2 F 136 lbs 98 % 02/09/2017 11:15:00 AM 108 mmHg 63 mmHg [...] SC/IM Reviewed 11/06/2010 12:00 AM Decadron Inj.1mg-([facility]) [facility] #[id number] Reviewed 11/06/2010 12:00 AM Depo-Medrol 80 Mg Im/[facility] [id number] Reviewed 01/29/2015 12:00 AM OB US >/=14 [...] Reviewed 02/06/2016 12:00 AM NEXPLANON (Etonogestrel implant) [facility] #[id number] Reviewed 11/03/2016 12:00 AM REMOVE CONTRACEPTIVE CAPSULE Reviewed 01/20/2017 7:53 PM URINE TEST Reviewed 01/20/2017 7:53 PM URINALYSIS AUTO W/O SCOPE Reviewed 02/09/2017 11:30 AM URINE TEST Reviewed 02/09/2017 12:00 AM CHORIONIC GONADOTROPIN ASSAY Reviewed 01/20/2017 12:00 AM CHORIONIC GONADOTROPIN TEST Reviewed 01/20/2017 12:00 AM COMPLETE CBC W/AUTO DIFF WBC Reviewed 01/20/2017 12:00 AM COMPREHEN METABOLIC PANEL Reviewed 05/11/2017 4:21 PM URINE TEST Reviewed 05/12/2012 12:00 AM SPECIMEN [...] 12:00 AM Benadryl, Up to 50 Mg [facility]# [id number] Reviewed 11/01/2014 12:00 AM OB US < [...] Value 0.0328 ug/mLAFP MoM 0.62 hCG Value 52332.0 mIU/mLhCG MoM 1.51 uE3 Value 1.230 ng/mLuE3 MoM 0.74 SARA Value 203.190 pg/mLDIA MoM 0.99 [place] 1 [place] [address] DSR (Second Trimester) 1IN 1082 DSR (By [...] 0.04 #BASO 0.04 MANUAL DIFF NOT IND 01/20/2017 7:52 PM Test, Urine NEG Clarity Ur CLEAR Color Ur YELLOW Glucose Ur-sCnc NEGATIVW Bilirub Ur Ql Strip NEGATIVE Ketones Ur Ql Strip NEGATIVE Sp Gr Ur Qn 1.015 Hgb Ur Ql Strip NEGATIVE pH Ur-LsCnc 7.0 Prot Ur Ql Strip NEGATIVE Urobilinogen Ur-mCnc 1.0 E.U Nitrite Ur Ql Strip NEGATIVE WBC Est Ur Ql Strip NEGATIVE 02/09/2017 11:30 AM Test, Urine Negative 02/09/2017 11:40 AM BETA HCG QUANT <1 mIU/mL 05/11/2017 4:21 PM Test, Urine Positive History Of Immunizations Name Date Admin Mfg Name Mfg Code Trade Name Lot# Route Inj Vis Given Vis Pub CVX Tdap 05/30/2015 [email or web address] SKB BOOSTRIX 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 05/30/2015 [...] 2017 7:09PM Amenorrhea Feb 09 2017 11:30AM Acute cystitis without hematuria May 11 2017 4:21PM Moderate Acute Nausea Unresponsive to treatment May 11 2017 4:21PM Moderate Acute Breast tenderness in female May 11 2017 4:21PM Acute Amenorrhea, unspecified May 11 2017 4:21PM test confirmed positive May 18 2017 11:06AM Late care May 18 2017 11:40AM Payers Insurance Name Company Name Plan Name Plan Number Policy Number Policy Group Number Start Date [employer] [place] [employer] [place] [id number] [place] [employer] [employer] [id number] N/A [employer] Plans [employer] Insurance Clai [id number] Sunday, 2012 [facility] [place] [facility] [id number] N/A [facility] Insurance [employer] Insuran [id number] N/A History of Encounters Visit Date Visit Type Provider 05/18/2017 Office visit Evelina Villanueva [employer] 05/11/2017 Office visit FRANK PRADO 02/09/2017 Office visit Evelina Villanueva [employer] 01/20/2017 Office visit Eunice Cox [employer] 11/03/2016 Procedures Evelina Villanueav EXPEDITIONARY FORCE COMBAT SKILLS 10/06/2016 Office visit Evelina Villanueva EXPEDITIONARY [employer] COMB[employer] SKILLS 02/06/2016 Office visit Evelina Villanueva [employer]ILLS 09/16/2015 Office visit Evelina Villanueva [employer]ILLS 08/07/2015 Office visit Evelina Villanueva [employer] 08/05/2015 Office visit Evelina Villanueva [employer] 06/20/[address] Stephanie Crnadall MD 06/12/[address] [facility] [address] Stephanie Crandall MD 06/11/2015 Office [...] Crandall MD 01/23/2015 Office visit Evelina Villanueva [employer] 12/26/2014 Office visit DEVANTE ANDRADE MD 12/10/2014 Office visit DEVANTE ANDRADE MD 11/26/2014 Office visit DEVANTE ANDRADE MD 10/29/2014 Office visit DEVANTE ANDRADE MD 08/07/2014 Office visit Deloris PRADO 07/10/2014 Office visit Kae Tariq [employer] 03/29/2014 Voided Jose Carlos Neal MD 03/12/2014 Office visit 03/12/2014 Office visit Jose Carlos Neal MD 02/08/2014 Office visit Jose Carlos Neal MD 01/30/2014 Office visit Jose Carlos Neal MD 07/20/2013 Voided Conrad Bee [employer] 07/13/2013 Office visit Conrad Bee [employer]ILLS 11/09/2012 Office visit FRANK PRADO 08/15/2012 Office visit FRANK PRADO 05/12/2012 Office visit FRANK PRADO 04/05/2012 Office visit FRANK PRADO 11/06/2010 Office visit Frank Houston PA-C
--- OUTSIDE RECORDS SUMMARY | 2017-12-29 15:34 | XMS REPORT ---
Author Evelina Smalls [facility] Address [address] [place], [place] [address] Care Team Providers Care Wheel Assembler Name Role Phone Evelina Villanueva PCP Unavailable Allergies and Adverse Reactions Name Reaction Notes NO KNOWN DRUG ALLERGIES Plan of Treatment Not available. Medications Name Start Date Expiration Date SIG [...] remove for 1 week for 21 days Discontinued Name Start Date Discontinued Date [...] oral route once daily in the morning Problem List Description Status Onset *No known medical problems Active Vital Signs Date Time BP-Sys(mm[Hg] BP-Carmella(mm[Hg]) HR(bpm) RR(rpm) Temp WT HT HC BMI BSA BMI Percentile O2 Sat(%) 02/06/2016 9:07:00 AM 110 mmHg 62 mmHg [...] bpm 124 lbs 68 in 18.8539 kg/m 1.64 m2 47.6 % Social History Name Description Comments Tobacco Never smoker Single Student History of Procedures Date Ordered Description Order Status 11/06/2010 12:00 AM THER/PROPH/DIAG INJ SC/IM Reviewed 11/06/2010 12:00 AM Decadron Inj.1mg-([facility]) [facility] #[id number] Reviewed 11/06/2010 12:00 AM Depo-Medrol 80 Mg Im/[facility] [id number] Reviewed 01/29/2015 12:00 AM OB US >/=14 WKS SNGL FETUS Reviewed 01/23/2015 12:00 AM ALPHA-FETOPROTEIN SERUM Reviewed 04/03/2015 12:00 AM GLUCOSE TOLERANCE TEST (GTT) Reviewed 04/03/2015 12:00 AM COMPLETE CBC W/AUTO DIFF WBC Reviewed 04/03/2015 12:00 AM Type and screen Reviewed 05/23/2015 12:00 AM CULTURE SCREEN ONLY Returned [...] ADMIN Reviewed 08/05/2015 12:00 AM CHLAMYDIA CULTURE Returned 08/05/2015 12:00 AM N.GONORRHOEAE DNA AMP PROB Returned 08/07/2015 4:26 PM URINE TEST Reviewed 08/07/2015 12:00 AM INSERT INTRAUTERINE DEVICE Reviewed 08/07/2015 12:00 AM Levonorgestrel-releasing IUD contraceptive system, 52 mg 5 year Reviewed 09/16/2015 12:00 AM REMOVE INTRAUTERINE DEVICE Reviewed 02/06/2016 3:32 PM URINE TEST Reviewed 05/12/2012 12:00 AM [...] Benadryl, Up to 50 Mg [facility]# [id number] Reviewed 11/01/2014 12:00 AM OB US < 14 WKS SINGLE FETUS Reviewed 10/29/2014 12:00 AM SPECIMEN HANDLING OFFICE-LAB Reviewed 10/29/2014 12:00 AM N.GONORRHOEAE DNA AMP PROB Reviewed 10/29/2014 12:00 AM CHLAMYDIA CULTURE Reviewed 10/29/2014 12:00 AM HIV-1ANTIBODY Reviewed 10/29/2014 12:00 AM URINALYSIS AUTO W/SCOPE Reviewed 10/29/2014 12:00 AM OBSTETRIC PANEL Reviewed Results Summary Data and Description Results 05/31/1999 5:00 PM COLOR YELLOW APPEARANCE HAZY SPEC GRAV 1.020 pH 5.5 PROTEIN NEGATIVE GLUCOSE NEGATIVE mg/dLKETONE 15 BILIRUBIN NEGATIVE BLOOD NEGATIVE NITRITE NEGATIVE LEUK SCREEN TRACE MICRO INDICATED? SEE BELOW WBC/HPF 0-5 RBC/ HPF NEGATIVE CASTS/LPF NEGATIVE /LPFCRYSTALS 1+ AMORPHOUS MUCOUS THRDS FEW BACTERIA 3+++ EPITH CELLS 3+++ SQUAMOUS /HPFTRICHOMONAS NEGATIVE YEAST NEGATIVE CULT SET UP? YES 01/30/2014 12:45 PM BETA HCG QUANT <1 [...] Value 0.0328 ug/mLAFP MoM 0.62 hCG Value 23468.0 mIU/mLhCG MoM 1.51 uE3 Value 1.230 ng/mLuE3 MoM 0.74 CARMELLA Value 203.190 pg/mLDIA MoM 0.99 OSBR [place] 1 [place] [address] DSR (Second Trimester) 1IN 1082 DSR (By [...] 0.06 #BASO 0.01 MANUAL DIFF NOT IND 04/27/2015 1:12 AM COLOR YELLOW APPEARANCE CLEAR SPEC GRAV <=1.005 pH 5.5 PROTEIN NEGATIVE GLUCOSE NEGATIVE mg/dLKETONE NEGATIVE BILIRUBIN NEGATIVE BLOOD NEGATIVE NITRITE NEGATIVE LEUK SCREEN NEGATIVE MICRO INDICATED? NOT INDICATED 04/28/2015 10:10 PM WBC 10.4 RBC 3.69 HGB 11.50 g/dLHCT 33.90 %MCV 92.0 fLMCH 31.20 pgMCHC 33.90 g/dLRDW SD 42 RDW CV 12.30 %MPV 10.60 fLPLT 207 NRBC# 0.00 NRBC% 0.0 %NEUT 64.40 %%LYMP 26.70 %%MONO 8.40 %%EOS 0.40 %%BASO 0.10 %#NEUT 6.70 #LYMP 2.78 #MONO 0.87 #EOS 0.04 #BASO 0.01 MANUAL DIFF NOT IND GLUCOSE 104.0 mg/dLSODIUM 138.0 mmol/LPOTASSIUM 3.40 mmol/LCHLORIDE 107.0 mmol/LCO2 16.0 mmol/LBUN 7.0 mg/dLCREATININE 0.60 mg/dLSGOT/AST 17.0 IU/LSGPT/ALT 14.0 IU/ LALK PHOS 94.0 IU/LTOTAL PROTEIN 5.90 g/dLALBUMIN 3.50 g/dLTOTAL BILI 0.40 mg/ dLCALCIUM 8.90 mg/dLAGE 19 GFR NonAA N/A eGFR N/A mL/min/1.73meGFR AA* N/A AMYLASE 42 IU/LLIPASE 12.0 U/L 05/16/2015 10:31 PM AMNISURE ROM NEGATIVE 05/17/2015 12:35 AM COLOR YELLOW APPEARANCE CLEAR SPEC GRAV 1.010 pH 6.0 PROTEIN NEGATIVE GLUCOSE NEGATIVE mg/dLKETONE NEGATIVE BILIRUBIN NEGATIVE BLOOD NEGATIVE NITRITE NEGATIVE LEUK SCREEN NEGATIVE MICRO INDICATED? NOT INDICATED 05/23/2015 11:25 AM PROTIME 10.0 secsINR 0.9 [...] AM STREP GROUP B PCR GBS NEGATIVE 05/24/2015 3:40 PM COLOR YELLOW APPEARANCE CLEAR SPEC GRAV 1.020 pH 7.5 PROTEIN NEGATIVE GLUCOSE NEGATIVE mg/dLKETONE NEGATIVE BILIRUBIN NEGATIVE BLOOD NEGATIVE NITRITE NEGATIVE LEUK SCREEN NEGATIVE MICRO INDICATED? NOT INDICATED 06/11/2015 2:45 PM WBC 10.5 RBC 3.48 HGB 10.90 g/dLHCT 32.30 %MCV 93.0 fLMCH 31.30 pgMCHC 33.70 g/dLRDW SD 42 RDW CV 12.60 %MPV 10.90 fLPLT 198 NRBC# 0.00 NRBC% 0.0 %NEUT 70.70 %%LYMP 19.10 %%MONO 8.50 %%EOS 0.40 %%BASO 0.30 %#NEUT 7.42 #LYMP 2.01 #MONO 0.89 #EOS 0.04 #BASO 0.03 MANUAL DIFF NOT IND PROTIME 10.30 secsINR 0.9 PTT 24.70 secsGLUCOSE 84.0 mg/dLSODIUM 138.0 mmol/LPOTASSIUM 3.60 mmol/LCHLORIDE 107.0 mmol/LCO2 21.0 mmol/LBUN 6.0 mg/dLCREATININE 0.70 mg/ dLSGOT/AST 17.0 IU/LSGPT/ALT 11.0 IU/LALK PHOS 140.0 IU/LTOTAL PROTEIN 6.30 g/ dLALBUMIN 3.50 g/dLTOTAL BILI 0.40 mg/dLCALCIUM 9.20 mg/dLAGE 20 GFR NonAA 109 GFR AA 132 eGFR >60 mL/min/1.73meGFR AA* >60 FIBRINOGEN 325.0 mg/dLLDH 176.0 IU/LURIC ACID 5.4 mg/dL 06/11/2015 2:54 PM COLOR YELLOW APPEARANCE HAZY SPEC GRAV 1.025 pH 6.0 PROTEIN NEGATIVE GLUCOSE NEGATIVE mg/dLKETONE NEGATIVE BILIRUBIN NEGATIVE BLOOD TRACE- INTACT NITRITE NEGATIVE LEUK SCREEN NEGATIVE MICRO INDICATED? SEE BELOW WBC/HPF 0-5 RBC/HPF 0-5 CASTS/LPF NEGATIVE /LPFCRYSTALS NEGATIVE MUCOUS THRDS 1+ BACTERIA 1+ EPITH CELLS 3+++ SQUAMOUS /HPFTRICHOMONAS NEGATIVE YEAST NEGATIVE CULT SET UP? NO 08/07/2015 4:26 PM Test, Urine negative 02/06/2016 3:32 PM Test, Urine Negative History Of Immunizations Name Date Admin Mfg Name Mfg Code Trade Name Lot# Route Inj Vis Given Vis Pub CVX Tdap 05/30/2015 GlaxoSmMimiboard SKB BOOSTRIX 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 05/30/2015 [...] with result negative Feb 06 2016 3:32PM Payers Insurance Name Company Name Plan Name Plan Number Policy Number Policy Group Number Start Date [facility] [id number] N/A Nationwide Health Plans Nationwide Life Insurance [facility] [id number] Sunday, 2012 Free Clinic - [place] [facility] ONLY Free Clinic [id number] N/A [employer] Insuran [id number] N/A Amerigroup - [place] State [place] Amerigroup - [place] State Plan [id number] N/A History of Encounters Visit Date Visit Type Provider 02/06/2016 Office visit Evelina Villanueva COGNOS BI ADMINISTRATOR 09/16/2015 Office visit Evelina Villanueva COGNOS BI ADMINISTRATOR 08/07/2015 Office visit Evelina Villanueva COGNOS BI ADMINISTRATOR 08/05/2015 Office visit Evelina Villanueva COGNOS BI ADMINISTRATOR 06/20/[address] Stephanie Crandall MD 06/12/[address] [facility] [address] Stephanie Crandall MD 06/11/2015 Office visit [...] Crandall MD 01/23/2015 Office visit Evelina Villanueva COGNOS BI ADMINISTRATOR 12/26/2014 Office visit DEVANTE ANDRADE MD 12/10/2014 Office visit DEVANTE ANDRADE MD 11/26/2014 Office visit DEVANTE ANDRADE MD 10/29/2014 Office visit DEVANTE ANDRADE MD 08/07/2014 Office visit Deloris PRADO 07/10/2014 Office visit Kae Tariq COGNOS BI ADMINISTRATOR 03/29/2014 Voided Jose Carlos Neal MD 03/12/2014 Office visit 03/12/2014 Office visit Jose Carlos Neal MD 02/08/2014 Office visit Jose Carlos Neal MD 01/30/2014 Office visit Jose Carlos Neal MD 07/20/2013 Voided Conrad Bee COGNOS BI ADMINISTRATOR 07/13/2013 Office visit Conrad Bee COGNOS BI ADMINISTRATOR 11/09/2012 Office visit FRANK PRADO 08/15/2012 Office visit FRANK PRADO 05/12/2012 Office visit FRANK PRADO 04/05/2012 Office visit FRANK PRADO 11/06/2010 Office visit Frank Houston PA-C
--- OUTSIDE RECORDS SUMMARY | 2017-12-29 15:34 | XMS REPORT ---
Author Author Minnie Gutierrez [facility] Address [address] [place], [place] [address] Care Team Providers Care Barrel Leveler Name Role Phone Minnie Gutierrez PCP Unavailable Allergies and Adverse Reactions Name Reaction Notes NO KNOWN DRUG ALLERGIES Plan of Treatment Planned Activity Comments Planned Date Planned Time Plan/Goal OB US < 14 WKS SINGLE FETUS 11/01/2014 12:00 AM Medications Name Start Date Expiration [...] SC/IM Reviewed 11/06/2010 12:00 AM Decadron Inj.1mg-([facility]) [facility] #[id number] Reviewed 11/06/2010 12:00 AM Depo-Medrol 80 Mg Im/[facility] [id number] Reviewed 05/12/2012 12:00 AM SPECIMEN HANDLING OFFICE-LAB Reviewed 01/30/2014 12:00 AM CHORIONIC GONADOTROPIN TEST Returned 01/30/2014 12:00 AM US PREG UTERUS REAL TIME W/IMAGE DCMTN TRANSVAG Reviewed 01/30/2014 12:00 AM CHORIONIC GONADOTROPIN TEST Returned 02/12/2014 12:00 AM URINALYSIS AUTO W/SCOPE Returned 03/12/2014 12:00 AM URINALYSIS AUTO W/SCOPE Returned 03/12/2014 12:00 AM URINALYSIS AUTO W/SCOPE Returned 08/07/2014 12:00 AM Benadryl, Up to 50 Mg [facility]# [id number] Reviewed Results Summary Data and Description Results 01/30/2014 [...] CELLS 2++ SQUAMOUS TRICHOMONAS NEGATIVE YEAST NEGATIVE History Of Immunizations Not available. History [...] , Other Normal Oct 29 2014 3:23PM Payers Insurance Name Company Name Plan Name Plan Number Policy Number Policy Group Number Start Date Amerigroup [place] Amerigroup [place] [id number] N/A Nationwide Health Plans Nationwide Life Insurance Clai [id number] Sunday, 2012 Free Clinic - [place] [facility] ONLY Free Clinic [id number] N/A Built [employer] Insurance [employer] Insuran [id number] N/A Amerigroup - [place] Amerigroup [place] [id number] N/A History of Encounters Visit Date Visit Type Provider 10/29/2014 Office visit Minnie Gutierrez MD 08/07/2014 Office visit Deloris PRADO 07/10/2014 Office visit Kae Tariq YOUTH COUNSELOR 03/29/2014 Voided Jose Carlos Neal MD 03/12/2014 Office visit Jose Carlos Neal MD 02/08/2014 Office visit Jose Carlos Neal MD 01/30/2014 Office visit Jose Carlos Neal MD 07/20/2013 Voided Conrad Bee YOUTH COUNSELOR 07/13/2013 Office visit Conrad Bee YOUTH COUNSELOR 11/09/2012 Office visit FRANK PRADO 08/15/2012 Office visit FRANK PRADO 05/12/2012 Office visit FRANK PRADO 04/05/2012 Office visit FRANK PRADO 11/06/2010 Office visit Frank Houston PA-C
--- OUTSIDE RECORDS SUMMARY | 2017-12-29 15:35 | XMS REPORT ---
Author Author Evelina Villanueva [facility] Address [address] [place], [place] [address] Care Team Providers Care Station Baggage Agent Name Role Phone Evelina Villanueva PCP Unavailable Allergies and Adverse Reactions Name Reaction Notes NO KNOWN DRUG ALLERGIES Plan of Treatment Planned Activity Comments Planned Date Planned Time Plan/Goal OB US >/=14 WKS SNGL FETUS 01/29/2015 12:00 AM ALPHA-FETOPROTEIN SERUM 01/23/2015 12:00 AM Medications Active Name Start Date [...] SC/IM Reviewed 11/06/2010 12:00 AM Decadron Inj.1mg-([facility]) [facility] #[id number] Reviewed 11/06/2010 12:00 AM Depo-Medrol 80 Mg Im/[facility] [id number] Reviewed 05/12/2012 12:00 AM SPECIMEN HANDLING OFFICE-LAB Reviewed 01/30/2014 12:00 AM CHORIONIC GONADOTROPIN TEST Returned 01/30/2014 12:00 AM US PREG UTERUS REAL TIME W/IMAGE DCMTN TRANSVAG Reviewed 01/30/2014 12:00 AM CHORIONIC GONADOTROPIN TEST Returned 02/12/2014 12:00 AM URINALYSIS AUTO W/SCOPE Returned 03/12/2014 12:00 AM URINALYSIS AUTO W/SCOPE Returned 03/12/2014 12:00 AM URINALYSIS AUTO W/SCOPE Returned 08/07/2014 12:00 AM Benadryl, Up to 50 Mg [facility]# [id number] Reviewed 11/01/2014 12:00 AM OB US < [...] 2++ SQUAMOUS / HPFTRICHOMONAS NEGATIVE YEAST NEGATIVE History Of Immunizations Not [...] Number Policy Group Number Start Date Amerigroup [place] State Plan [facility] [id number] N/A Nationwide Health Plans Nationwide Life Insurance Clai [id number] Sunday, 2012 [facility] Clinic - [place] [facility] Free Clinic [id number] N/A [employer] Insuran [id number] N/A Amerigroup - [place] State [place] Amerigroup [place] Plan [id number] N/A History of Encounters Visit Date Visit Type Provider 01/23/2015 Office visit Evelina Villanueva STEEL DIE ENGRAVER 12/26/2014 Office visit DEVANTE ANDRADE MD 12/10/2014 Office visit DEVANTE ANDRADE MD 11/26/2014 Office visit DEVANTE ANDRADE MD 10/29/2014 Office visit DEVANTE ANDRADE MD 08/07/2014 Office visit Deloris PRADO 07/10/2014 Office visit Kae Tariq STEEL DIE ENGRAVER 03/29/2014 Voided Jose Carlos Neal MD 03/12/2014 Office visit Jose Carlos Neal MD 02/08/2014 Office visit Jose Carlos Neal MD 01/30/2014 Office visit Jose Carlos Neal MD 07/20/2013 Voided Conrad Bee STEEL DIE ENGRAVER 07/13/2013 Office visit Conrad Bee STEEL DIE ENGRAVER 11/09/2012 Office visit FRANK PRADO 08/15/2012 Office visit FRANK PRADO 05/12/2012 Office visit FRANK PRADO 04/05/2012 Office visit FRANK PRADO 11/06/2010 Office visit Frank Houston PA-C
--- OUTSIDE RECORDS SUMMARY | 2017-12-29 15:36 | XMS REPORT ---
Author Author Evelina Villanueva [facility] Address [address] [place], [place] [address] Care Team Providers Care Community Arts Worker Name Role Phone Evelina Villanueva PCP Unavailable Allergies and Adverse Reactions Name Reaction Notes NO KNOWN DRUG ALLERGIES Plan of Treatment Planned Activity Comments Planned Date Planned Time Plan/Goal CHLAMYDIA CULTURE 08/05/2015 12:00 AM N.GONORRHOEAE DNA AMP PROB 08/05/2015 12:00 AM Medications Active Name Start Date Estimated Completion Date SIG Comments Concept DHA 35-1-200 mg oral capsule 10/29/2014 10/24/2015 take 1 capsule by oral route once daily for 30 days Prozac 20 mg oral capsule 06/20/2015 take 1 capsule (20 mg) by oral route once daily in the morning Diflucan 150 mg oral tablet 08/05/2015 08/06/2015 take 1 tablet (150 mg) by oral route once for 1 day Name Start Date Expiration Date SIG Comments [...] oral route every 4-6 hours as needed Discontinued Name Start Date Discontinued Date SIG [...] HC BMI BSA BMI Percentile O2 Sat(%) 08/05/2015 3:09:00 PM 127 mmHg 65 mmHg 78 bpm 97.6 F 128 lbs 66 in 20.66 kg/m2 1.64 m2 40.9 % 06/20/2015 3:09:00 PM 128 mmHg [...] SC/IM Reviewed 11/06/2010 12:00 AM Decadron Inj.1mg-([facility]) [facility] #[id number] Reviewed 11/06/2010 12:00 AM Depo-Medrol 80 Mg Im/[facility] [id number] Reviewed 01/29/2015 12:00 AM OB US >/=14 [...] 12:00 AM Benadryl, Up to 50 Mg [facility]# [id number] Reviewed 11/01/2014 12:00 AM OB US < [...] Value 0.0328 ug/mLAFP MoM 0.62 hCG Value 88611.0 mIU/ mLhCG MoM 1.51 uE3 Value 1.230 ng/mLuE3 MoM 0.74 SARA Value 203.190 pg/mLDIA MoM 0.99 OSBR [place] 1 [place] [address] DSR (Second Trimester) 1IN 1082 DSR (By [...] %MCV 93.0 fLMCH 31.50 pgMCHC 33.90 g/dLRDW CV 12.0 %MPV 10.80 fLPLT [...] BLOOD NEGATIVE NITRITE NEGATIVE LEUK SCREEN NEGATIVE 06/11/2015 2:45 PM WBC 10.5 RBC 3.48 HGB 10.90 g/dLHCT 32.30 %MCV 93.0 fLMCH 31.30 pgMCHC 33.70 g/dLRDW CV 12.60 %MPV 10.90 fLPLT 198 %NEUT 70.70 %%LYMP 19.10 %%MONO 8.50 %%EOS 0.40 %%BASO 0.30 %#NEUT 7.42 #LYMP 2.01 #MONO 0.89 #EOS 0.04 #BASO 0.03 PROTIME 10.30 secsINR 0.9 PTT 24.70 secsGLUCOSE 84.0 mg/ dLSODIUM 138.0 mmol/LPOTASSIUM 3.60 mmol/LCHLORIDE 107.0 mmol/LCO2 21.0 mmol/ LBUN 6.0 mg/dLCREATININE 0.70 mg/dLSGOT/AST 17.0 IU/LSGPT/ALT 11.0 IU/LALK PHOS 140.0 IU/LTOTAL PROTEIN 6.30 g/dLALBUMIN 3.50 g/dLTOTAL BILI 0.40 mg/dLCALCIUM 9.20 mg/dLeGFR >60 mL/min/1.73mFIBRINOGEN 325.0 mg/dLLDH 176.0 IU/LURIC ACID 5.4 mg/dL 06/11/2015 2:54 PM COLOR YELLOW APPEARANCE HAZY SPEC GRAV 1.025 pH 6.0 PROTEIN NEGATIVE GLUCOSE NEGATIVE mg/dLKETONE NEGATIVE BILIRUBIN NEGATIVE BLOOD TRACE- INTACT NITRITE NEGATIVE LEUK SCREEN NEGATIVE CASTS/LPF NEGATIVE /LPFCRYSTALS NEGATIVE MUCOUS THRDS 1+ BACTERIA 1+ EPITH CELLS 3+++ SQUAMOUS /HPFTRICHOMONAS NEGATIVE YEAST NEGATIVE History Of Immunizations Name Date Admin Mfg Name Mfg Code Trade Name Lot# Route Inj Vis Given Vis Pub CVX Tdap 05/30/2015 [employer]ag[employer] SKB BOOSTRIX 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 05/30/2015 [...] 2015 3:13PM depression Aug 05 2015 3:13PM Payers Insurance Name Company Name Plan Name Plan Number Policy Number Policy Group Number Start Date Amerigroup [place] Plan Amerigroup [place] Plan [id number] N/A Nationwide Health Plans Nationwide Life Insurance Clai [id number] Sunday, 2012 [facility] Clinic - [place] [facility] ONLY Free Clinic [id number] N/A [employer] Life Insurance [employer] Insuran [id number] N/A Amerigroup - [place] Amerigroup [place] Plan [id number] N/A History of Encounters Visit Date Visit Type Provider 08/05/2015 Office visit Evelina Villanueva FILER AND SANDER 06/20/[address] Stephanie Crandall MD 06/12/[address] [facility] [address] Stephanie Crandall MD 06/11/2015 Office [...] Crandall MD 01/23/2015 Office visit Evelina Villanueva FILER AND SANDER 12/26/2014 Office visit DEVANTE ANDRADE MD 12/10/2014 Office visit DEVANTE ANDRADE MD 11/26/2014 Office visit DEVANTE ANDRADE MD 10/29/2014 Office visit DEVANTE ANDRADE MD 08/07/2014 Office visit Deloris PRADO 07/10/2014 Office visit Kae Tariq FILER AND SANDER 03/29/2014 Voided Jose Carlos Neal MD 03/12/2014 Office visit 03/12/2014 Office visit Jose Carlos Neal MD 02/08/2014 Office visit Jose Carlos Neal MD 01/30/2014 Office visit Jose Carlos Neal MD 07/20/2013 Voided Conrad Bee FILER AND SANDER 07/13/2013 Office visit Conrad Bee APRN 11/09/2012 Office visit FRANK PRADO 08/15/2012 Office visit FRANK PRADO 05/12/2012 Office visit FRANK PRADO 04/05/2012 Office visit FRANK PRADO 11/06/2010 Office visit Frank Houston PA-C
--- OUTSIDE RECORDS SUMMARY | 2017-12-29 15:36 | XMS REPORT ---
Author Author Stephanie Crandall [facility] Address [address] [place], [place] [address] Care Team Providers Care Sql Report Developer Name Role Phone Stephanie Crandall PCP Unavailable [...] oral route every 4-6 hours as needed Prozac 20 mg oral capsule 06/20/2015 take 1 capsule (20 mg) by oral route once daily in the morning Name Start Date Expiration Date SIG Comments [...] HC BMI BSA BMI Percentile O2 Sat(%) 06/20/2015 3:09:00 PM 128 mmHg 87 mmHg 72 bpm 04/29/2015 1:32:00 PM 137 mmHg 87 mmHg 99 bpm 98 F 10/29/2014 3:08:00 PM 109 mmHg 59 mmHg 112 bpm 99.4 F 124 lbs 66 in 20.0139 kg/m 1.62 m2 35.4 % 08/07/2014 5:51:00 PM 102 mmHg 76 mmHg 77 bpm 16 rpm 97.6 F 128.5 lbs 66 in 20.74 kg/m2 1.6475 m 46.7 % 98 % 07/10/2014 6:48:00 PM 122 mmHg 62 mmHg 90 bpm 18 rpm 96.8 F 150 lbs 66 in 24.2104 kg/m 1.78 m2 79.8 % 99 % 03/12/2014 3:21:00 PM 129 mmHg 68 mmHg 55 bpm 96.8 F 139 lbs 66 in 22.43 kg/m2 1.7135 m 67.8 % 02/08/2014 3:47:00 PM 129 mmHg 69 mmHg 60 bpm 97.7 F 142 lbs 66 in 22.9192 kg/m 1.73 m2 72.3 % 01/30/2014 11:28:00 AM [...] INJ SC/IM Reviewed 11/06/2010 12:00 [facility] #[id number] Reviewed 11/06/2010 12:00 AM Depo-Medrol 80 Mg Im/[facility] [phone] Reviewed 01/29/2015 12:00 AM OB US >/=14 [...] Up to 50 Mg [facility]# [id number] Reviewed 11/01/2014 12:00 AM OB US < [...] Value 0.0328 ug/mLAFP MoM 0.62 hCG Value 93315.0 mIU/ mLhCG MoM 1.51 uE3 Value 1.230 ng/mLuE3 MoM 0.74 SARA Value 203.190 pg/mLDIA MoM 0.99 [place] 1 [place] [address] DSR (Second Trimester) 1IN 1082 DSR (By [...] Vis Given Vis Pub CVX Tdap 05/30/2015 [employer] SKB BOOSTRIX 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 05/30/2015 [...] 2015 9:16AM depression Jun 20 2015 3:57PM Payers Insurance Name Company Name Plan Name Plan Number Policy Number Policy Group Number Start Date Amerigroup [place] State Plan [facility] State Plan [id number] N/A Nationwide Health Plans Nationwide Life Insurance Clai [id number] Sunday, 2012 Free Clinic - [place] [facility] ONLY Free Clinic [id number] N/A [employer] Insurance [employer] Insuran [id number] N/A Amerigroup - [facility] - [place] State Plan [facility] State Plan [id number] N/A History of Encounters Visit Date Visit Type Provider 06/20/[address] Stephanie Crandall MD 06/12/[address] Stephanie Crandall MD 06/11/2015 Office [...] Crandall MD 01/23/2015 Office visit Evelina Villanueva MACHINE BUFFER 12/26/2014 Office visit DEVANTE ANDRADE MD 12/10/2014 Office visit DEVANTE ANDRADE MD 11/26/2014 Office visit DEVANTE ANDRADE MD 10/29/2014 Office visit DEVANTE ANDRADE MD 08/07/2014 Office visit Deloris PRADO 07/10/2014 Office visit Kae Tariq MACHINE BUFFER 03/29/2014 Voided Jose Carlos Neal MD 03/12/2014 Office visit 03/12/2014 Office visit Jose Carlos Neal MD 02/08/2014 Office visit Jose Carlos Neal MD 01/30/2014 Office visit Jose Carlos Neal MD 07/20/2013 Voided Conrad Bee MACHINE BUFFER 07/13/2013 Office visit Conrad Bee MACHINE BUFFER 11/09/2012 Office visit FRANK PRADO 08/15/2012 Office visit FRANK PRADO 05/12/2012 Office visit FRANK PRADO 04/05/2012 Office visit FRANK PRADO 11/06/2010 Office visit Frank Houston PA-C
--- OUTSIDE RECORDS SUMMARY | 2017-12-29 15:37 | XMS REPORT ---
Author Author Jose Carlos Neal [facility] Address [address] [place], [place] [address] Care Team Providers Care Flamer After Lasting Name Role Phone Jose Carlos Neal PCP Allergies and Adverse Reactions Name Reaction Notes NO KNOWN DRUG ALLERGIES Plan of Treatment Not available. Medications Active Name Start Date Estimated Completion Date SIG Comments Concept DHA 35-1-200 mg oral capsule 10/29/2014 10/24/2015 take 1 capsule by oral route once daily for 30 days Name Start Date Expiration Date SIG Comments [...] SC/IM Reviewed 11/06/2010 12:00 AM Decadron Inj.1mg-([facility]) [facility] #[id number] Reviewed 11/06/2010 12:00 AM Depo-Medrol 80 Mg Im/[facility] [id number] Reviewed 05/12/2012 12:00 AM SPECIMEN HANDLING OFFICE-LAB [...] AM Benadryl, Up to [address] [facility]# [phone] Reviewed 11/01/2014 12:00 AM OB US < [...] Care, First Normal Oct 29 2014 3:14PM Payers Insurance Name Company Name Plan Name Plan Number Policy Number Policy Group Number Start Date Amer[place] Amer[place] [id number] N/A Nationwide Health Plans Nationwide Life Insurance Clai [id number] Sunday, 2012 Free Clinic - [place] [facility] ONLY Free Clinic [id number] N/A [employer] Life Insurance [place] Life Insuran [id number] N/A Amerigroup [place] Amerigroup [place] [id number] N/A History of Encounters Visit Date Visit Type Provider 10/29/2014 Office visit DEVANTE ANDRADE MD 08/07/2014 Office visit Deloris PRADO 07/10/2014 Office visit Kae Tariq VETERANS CONTACT REPRESENTATIVE 03/29/2014 Voided Jose Carlos Neal MD 03/12/2014 Office visit Jose Carlos Neal MD 02/08/2014 Office visit Jose Carlos Neal MD 01/30/2014 Office visit Jose Carlos Neal MD 07/20/2013 Voided Conrad Bee VETERANS CONTACT REPRESENTATIVE 07/13/2013 Office visit Conrad Bee VETERANS CONTACT REPRESENTATIVE 11/09/2012 Office visit FRANK PRADO 08/15/2012 Office visit FRANK PRADO 05/12/2012 Office visit FRANK PRADO 04/05/2012 Office visit FRANK PRADO 11/06/2010 Office visit Frank Houston PA-C
--- OUTSIDE RECORDS SUMMARY | 2017-12-29 15:38 | XMS REPORT ---
Author Author Stephanie Crandall [facility] Address [address] [place], [place] [address] Care Team Providers Care Roll Form Operator Name Role Phone Stephanie Crandall PCP FRANK HOUSTON PreferredProvider Allergies and Adverse Reactions Name Reaction Notes NO KNOWN DRUG ALLERGIES Plan of Treatment Planned Activity Comments Planned Date Planned Time Plan/Goal *Thin layer pap with reflex to HPV ; cervical/vaginal (ThinPrep or Surepath) 05/18/2017 12:00 AM Medications Active Name Start Date Estimated Completion Date SIG Comments Zofran ODT oral Name Start Date Expiration Date SIG [...] 2 times a day for 7 days amoxicillin oral 05/27/2017 hydrocodone-acetaminophen oral 05/27/2017 Problem List Not available. Vital Signs Date Time BP-Sys(mm[Hg] BP-Sara(mm[Hg]) HR(bpm) [...] SC/IM Reviewed 11/06/2010 12:00 AM Decadron Inj.1mg-([facility]) [facility] #[id number] Reviewed 11/06/2010 12:00 AM Depo-Medrol 80 Mg Im/[facility] [id number] Reviewed 01/29/2015 12:00 AM OB US >/=14 [...] Reviewed 02/06/2016 12:00 AM NEXPLANON (Etonogestrel implant) [facility] #[id number] Reviewed 11/03/2016 12:00 AM REMOVE CONTRACEPTIVE CAPSULE [...] Reviewed 05/11/2017 4:21 PM URINE TEST Reviewed 05/19/2017 12:00 AM OB US < 14 WKS SINGLE FETUS Returned 05/18/2017 12:00 AM N.GONORRHOEAE DNA AMP PROB Returned 05/18/2017 12:00 AM CHLAMYDIA CULTURE Returned 05/18/2017 12:00 AM HIV-1ANTIBODY Returned 05/18/2017 12:00 AM URINALYSIS AUTO W/SCOPE Returned 05/18/2017 12:00 AM OBSTETRIC PANEL Returned 05/18/2017 12:00 AM ASSAY OF FERRITIN Returned 05/18/2017 12:00 AM URINE DRUG SCREEN RAPID Returned 05/18/2017 12:00 AM DETECT AGENT NOS DNA AMP Returned 05/18/2017 12:00 AM TRICHOMONAS VAGINALIS AMPLIF Returned 05/18/2017 12:00 AM HEPATITIS C AB TEST Returned 05/12/2012 12:00 AM SPECIMEN HANDLING OFFICE-LAB Reviewed 01/30/2014 12:00 AM CHORIONIC GONADOTROPIN TEST Reviewed 01/30/2014 12:00 AM US PREG UTERUS REAL TIME W/IMAGE DCMTN TRANSVAG Reviewed 01/30/2014 12:00 AM CHORIONIC GONADOTROPIN TEST Reviewed 02/12/2014 12:00 AM URINALYSIS AUTO W/SCOPE Reviewed 03/12/2014 12:00 AM URINALYSIS AUTO W/SCOPE Reviewed 03/12/2014 12:00 AM URINALYSIS AUTO W/SCOPE Reviewed 08/07/2014 12:00 AM Benadryl, Up to 50 Mg [facility]# [id number] Reviewed 11/01/2014 12:00 AM OB US < [...] Value 0.0328 ug/mLAFP MoM 0.62 hCG Value 98918.0 mIU/mLhCG MoM 1.51 uE3 Value 1.230 ng/mLuE3 MoM 0.74 SARA Value 203.190 pg/mLDIA MoM 0.99 [place] 1 [place] [address] DSR (Second Trimester) 1IN 1082 DSR (By [...] Vis Given Vis Pub CVX Tdap 05/30/2015 [employer] SKB BOOSTRIX 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 Stephanie Crandall MD 05/18/2017 Office visit Evelina Villanueva NEONATAL NURSE 05/11/2017 Office visit FRANK PRADO 02/09/2017 Office visit Evelina Villanueva NEONATAL NURSE 01/20/2017 Office visit Eunice Cox NEONATAL NURSE 11/03/2016 Procedures Evelina Villanueva NEONATAL NURSE 10/06/2016 Office visit Evelina Villanueva NEONATAL NURSE 02/06/2016 Office visit Evelina Villanueva NEONATAL NURSE 09/16/2015 Office visit Evelina Villanueva NEONATAL NURSE 08/07/2015 Office visit Evelina Villanueva NEONATAL NURSE 08/05/2015 Office visit Evelina Villanueva NEONATAL NURSE 06/20/[address] Stephanie Crandall MD 06/12/[address] [facility] [address] Stephanie Crandall MD 06/11/2015 Office [...] Crandall MD 01/23/2015 Office visit Evelina Villanueva NEONATAL NURSE 12/26/2014 Office visit DEVANTE ANDRADE MD 12/10/2014 Office visit DEVANTE ANDRADE MD 11/26/2014 Office visit DEVANTE ANDRADE MD 10/29/2014 Office visit DEVANTE ANDRADE MD 08/07/2014 Office visit Deloris PRADO 07/10/2014 Office visit Kae Tariq NEONATAL NURSE 03/29/2014 Voided Jose Carlos Neal MD 03/12/2014 Office visit 03/12/2014 Office visit Jose Carlos Neal MD 02/08/2014 Office visit Jose Carlos Neal MD 01/30/2014 Office visit Jose Carlos Neal MD 07/20/2013 Voided Conrad Bee NEONATAL NURSE 07/13/2013 Office visit Conrad Bee NEONATAL NURSE 11/09/2012 Office visit FRANK PRADO 08/15/2012 Office visit FRANK PRADO 05/12/2012 Office visit FRANK PRADO 04/05/2012 Office visit FRANK PRADO 11/06/2010 Office visit Frank Houston PA-C
--- OUTSIDE RECORDS SUMMARY | 2017-12-29 15:38 | XMS REPORT ---
Author Frank Ayers [facility] Address [address] [place], [place] [id number] Care Team Providers Care Budget Report Clerk Name Role Phone Frank Ingram PCP Unavailable [...] SC/IM Reviewed 11/06/2010 12:00 AM Decadron Inj.1mg-([facility]) [facility] #[id number] Reviewed 11/06/2010 12:00 AM Depo-Medrol 80 Mg Im/[facility] [id number] Reviewed 01/29/2015 12:00 AM OB US >/=14 [...] 12:00 AM Benadryl, Up to 50 Mg [facility]# [id number] Reviewed 11/01/2014 12:00 AM OB US < [...] Value 0.0328 ug/mLAFP MoM 0.62 hCG Value 49646.0 mIU/ mLhCG MoM 1.51 uE3 Value 1.230 ng/mLuE3 MoM 0.74 SARA Value 203.190 pg/mLDIA MoM 0.99 [place] 1 [place] [address] DSR (Second Trimester) 1IN 1082 DSR (By [...] 3.72 HGB 11.70 g/dLHCT 34.50 %MCV 93.0 [facility] 31.50 pgHC 33.90 g/dLRDW CV 12.0 %MPV [...] Vis Given Vis Pub CVX Tdap 05/30/2015 [employer] SKB BOOSTRIX 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 05/30/2015 [...] Number Policy Group Number Start Date Amerigroup [place] Amerigroup [place] [id number] N/A Nationwide Health Plans Nationwide Life Insurance Clai [id number] Sunday, 2012 [facility] - [place] [facility] Free Clinic [id number] N/A [employer] Life Insurance [employer] Life Insuran [id number] N/A Amerigroup - [place] Amerigroup [place] [id number] N/A History of Encounters Visit Date Visit [...] Crandall MD 01/23/2015 Office visit Evelina Villanueva ROUNDHOUSE WORKER 12/26/2014 Office visit DEVANTE ANDRADE MD 12/10/2014 Office visit DEVANTE ANDRADE MD 11/26/2014 Office visit DEVANTE ANDRADE MD 10/29/2014 Office visit DEVANTE ANDRADE MD 08/07/2014 Office visit Deloris PRADO 07/10/2014 Office visit Kae Tariq ROUNDHOUSE WORKER 03/29/2014 Voided Jose Carlos Neal MD 03/12/2014 Office visit 03/12/2014 Office visit Jose Carlos Neal MD 02/08/2014 Office visit Jose Carlos Neal MD 01/30/2014 Office visit Jose Carlos Neal MD 07/20/2013 Voided Conrad Bee ROUNDHOUSE WORKER 07/13/2013 Office visit Conrad Bee ROUNDHOUSE WORKER 11/09/2012 Office visit FRANK PRADO 08/15/2012 Office visit FRANK PRADO 05/12/2012 Office visit FRANK PRADO 04/05/2012 Office visit FRANK PRADO 11/06/2010 Office visit Frank Houston PA-C
--- OUTSIDE RECORDS SUMMARY | 2017-12-29 15:39 | XMS REPORT ---
Author Author Stephanie Crandall [facility] Address [address] [place], [place] [address] Care Team Providers Care Claim Review Medical Director Name Role Phone Stephanie Crandall PCP Unavailable Allergies and Adverse Reactions Name Reaction Notes NO KNOWN DRUG ALLERGIES Plan of Treatment Planned Activity Comments Planned Date Planned Time Plan/Goal GLUCOSE TOLERANCE TEST (GTT) 04/03/2015 12:00 AM COMPLETE CBC W/AUTO DIFF WBC 04/03/2015 12:00 AM Medications Active Name Start Date [...] SC/IM Reviewed 11/06/2010 12:00 AM Decadron Inj.1mg-([facility]) [facility] #[id number] Reviewed 11/06/2010 12:00 AM Depo-Medrol 80 Mg Im/[facility] [id number] Reviewed 01/29/2015 12:00 AM OB US >/=14 [...] 12:00 AM Benadryl, Up to 50 Mg [facility]# [id number] Reviewed 11/01/2014 12:00 AM OB US < [...] Value 0.0328 ug/mLAFP MoM 0.62 hCG Value 92934.0 mIU/ mLhCG MoM 1.51 uE3 Value 1.230 ng/mLuE3 MoM 0.74 SARA Value 203.190 pg/mLDIA MoM 0.99 OSBR [place] 1 [place] [address] DSR (Second Trimester) 1IN 1082 DSR (By Age) 1 IN 1184 T18 Risk Not increased T18 (By Age) 1:4611 02/12/2015 1:40 PM AMNISURE ROM NEGATIVE 03/27/2015 8:30 PM AMNISURE ROM NEGATIVE History Of Immunizations [...] Policy Number Policy Group Number Start Date [facility] State Plan [id number] N/A Nationwide Health Plans Nationwide Life Insurance [facility] [id number] Sunday, 2012 [place] Community [facility] [place] Free Clinic [id number] N/A [employer] Life Insurance [employer] Insuran [id number] N/A Amerigroup [place] Amerigroup [place] [id number] N/A History of Encounters Visit Date Visit Type Provider 04/03/[address] Stephanie Crandall MD 03/20/[address] Stephanie Crandall MD 02/20/[address] Stephanie Crandall MD 01/23/2015 Office visit Evelina Villanueva COST REPORT CLERK 12/26/2014 Office visit DEVANTE ANDRADE MD 12/10/2014 Office visit DEVANTE ANDRADE MD 11/26/2014 Office visit DEVANTE ANDRADE MD 10/29/2014 Office visit DEVANTE ANDRADE MD 08/07/2014 Office visit Deloris PRADO 07/10/2014 Office visit Kae Tariq COST REPORT CLERK 03/29/2014 Voided Jose Carlos Neal MD 03/12/2014 Office visit 03/12/2014 Office visit Jose Carlos Neal MD 02/08/2014 Office visit Jose Carlos Neal MD 01/30/2014 Office visit Jose Carlos Neal MD 07/20/2013 Voided Conrad Bee COST REPORT CLERK 07/13/2013 Office visit Conrad Bee COST REPORT CLERK 11/09/2012 Office visit FRANK PRADO 08/15/2012 Office visit FRANK PRADO 05/12/2012 Office visit FRANK PRADO 04/05/2012 Office visit FRANK PRADO 11/06/2010 Office visit Frank Houston PA-C
--- OUTSIDE RECORDS SUMMARY | 2017-12-29 15:39 | XMS REPORT ---
Author Author Minnie Gutierrez [facility] Address [address] [place], [place] [address] Care Team Providers Care Finance Admin Name Role Phone Minnie Gutierrez PCP Unavailable Allergies and Adverse Reactions Name Reaction Notes NO KNOWN DRUG ALLERGIES Plan of Treatment Planned Activity Comments Planned Date Planned Time Plan/Goal OB US >/=14 WKS SNGL FETUS 01/29/2015 12:00 AM Medications Active Name Start Date [...] [facility] #[id number] Reviewed 11/06/2010 12:00 AM Depo-Medrol 80 Mg Im/[facility] [id number] Reviewed 05/12/2012 12:00 AM SPECIMEN HANDLING OFFICE-LAB Reviewed 01/30/2014 12:00 AM CHORIONIC GONADOTROPIN TEST Returned 01/30/2014 12:00 AM US PREG UTERUS REAL TIME W/IMAGE DCMTN TRANSVAG Reviewed 01/30/2014 12:00 AM CHORIONIC GONADOTROPIN TEST Returned 02/12/2014 12:00 AM URINALYSIS AUTO W/SCOPE Returned 03/12/2014 12:00 AM URINALYSIS AUTO W/SCOPE Returned 03/12/2014 12:00 AM URINALYSIS AUTO W/SCOPE Returned 08/07/2014 12:00 AM Benadryl, Up to [address] [facility]# [id number] Reviewed 11/01/2014 12:00 AM OB US < [...] 2014 3:14PM Normal Dec 26 2014 10:23AM Payers Insurance Name Company Name Plan Name Plan Number Policy Number Policy Group Number Start Date Amerigroup [place] State Plan [facility] [id number] N/A Nationwide Health Plans Nationwide Life Insurance Clai [id number] Sunday, 2012 [place] Community Clinic [place] Free Clinic [id number] N/A [employer] Life Insurance [employer] Life Insuran [id number] N/A Amerigroup [place] Amerigroup [place] [id number] N/A History of Encounters Visit Date Visit Type Provider 12/26/2014 Office visit Minnie Gutierrez MD 12/10/2014 Office visit MINNIE GUTIERREZ MD 11/26/2014 Office visit MINNIE GUTIERREZ MD 10/29/2014 Office visit MINNIE GUTIERREZ MD 08/07/2014 Office visit Deloris PRADO 07/10/2014 Office visit Kae Tariq LAWN MOWER SHARPENER 03/29/2014 Voided Jose Carlos Neal MD 03/12/2014 Office visit Jose Carlos Neal MD 02/08/2014 Office visit Jose Carlos Neal MD 01/30/2014 Office visit Jose Carlos Neal MD 07/20/2013 Voided Conrad Bee LAWN MOWER SHARPENER 07/13/2013 Office visit Conrad Bee LAWN MOWER SHARPENER 11/09/2012 Office visit FRANK PRADO 08/15/2012 Office visit FRANK PRADO 05/12/2012 Office visit FRANK PRADO 04/05/2012 Office visit FRANK PRADO 11/06/2010 Office visit Frank Houston PA-C
--- OUTSIDE RECORDS SUMMARY | 2017-12-29 15:39 | XMS REPORT ---
Author Author Stephanie Crandall [facility] Address [address] [place], [place] [address] Care Team Providers Care Tailings Dam Pumper Name Role Phone Stephanie Crandall PCP Unavailable [...] SC/IM Reviewed 11/06/2010 12:00 AM Decadron Inj.1mg-([facility]) [facility] #[id number] Reviewed 11/06/2010 12:00 AM Depo-Medrol 80 Mg Im/[facility] [id number] Reviewed 01/29/2015 12:00 AM OB US >/=14 [...] 12:00 AM Benadryl, Up to 50 Mg [facility]# [id number] Reviewed 11/01/2014 12:00 AM OB US < [...] Value 0.0328 ug/mLAFP MoM 0.62 hCG Value 83460.0 mIU/ mLhCG MoM 1.51 uE3 Value 1.230 ng/mLuE3 MoM 0.74 SARA Value 203.190 pg/mLDIA MoM 0.99 OSBR [place] 1 [place] [address] DSR (Second Trimester) 1IN 1082 DSR (By [...] [place] [id number] N/A Nationwide Health Plans Nationwide Life Insurance Clai [id number] Sunday, 2012 [place] Community [facility] [place] Free Clinic [id number] N/A [employer] Insuran [id number] N/A Amerigroup - [place] Amerigroup [place] [id number] N/A History of Encounters Visit Date Visit Type Provider 03/20/[address] Stephanie Crandall MD 02/20/[address] Stephanie Crandall MD 01/23/2015 Office visit Evelina Villanueva HOSPITAL PRODUCT SPECIALIST 12/26/2014 Office visit DEVANTE ANDRADE MD 12/10/2014 Office visit DEVANTE ANDRADE MD 11/26/2014 Office visit DEVANTE ANDRADE MD 10/29/2014 Office visit DEVANTE ANDRADE MD 08/07/2014 Office visit Deloris PRADO 07/10/2014 Office visit Kae Tariq HOSPITAL PRODUCT SPECIALIST 03/29/2014 Voided Jose Carlos Neal MD 03/12/2014 Office visit 03/12/2014 Office visit Jose Carlos Neal MD 02/08/2014 Office visit Jose Carlos Neal MD 01/30/2014 Office visit Jose Carlos Neal MD 07/20/2013 Voided Conrad Bee HOSPITAL PRODUCT SPECIALIST 07/13/2013 Office visit Conrad Bee HOSPITAL PRODUCT SPECIALIST 11/09/2012 Office visit FRANK PRADO 08/15/2012 Office visit FRANK PRADO 05/12/2012 Office visit FRANK PRADO 04/05/2012 Office visit FRANK PRADO 11/06/2010 Office visit Frank Houston PA-C
--- OUTSIDE RECORDS SUMMARY | 2017-12-29 15:40 | XMS REPORT ---
Author Evelina Smalls [facility] Address [address] [place], [place] [address] Care Team Providers Care Bill Checker Name Role Phone Evelina Villanueva PCP Unavailable [...] HC BMI BSA BMI Percentile O2 Sat(%) 09/16/2015 2:01:00 PM 112 mmHg 66 mmHg 68 bpm 98.4 F 124 lbs 66 in 20.01 kg/m2 1.62 m2 31.4 % 08/07/2015 4:14:00 PM 126 mmHg 73 mmHg 66 bpm 97.7 F 126 lbs 66 in 20.3367 kg/m 1.6314 m 36.4 % 08/05/2015 3:09:00 PM 127 mmHg [...] SC/IM Reviewed 11/06/2010 12:00 AM Decadron Inj.1mg-([facility]) [facility] #[id number] Reviewed 11/06/2010 12:00 AM Depo-Medrol 80 Mg Im/[facility] [id number] Reviewed 01/29/2015 12:00 AM OB US >/=14 [...] 09/16/2015 12:00 AM REMOVE INTRAUTERINE DEVICE Reviewed 05/12/2012 12:00 AM SPECIMEN HANDLING OFFICE-LAB Reviewed 01/30/2014 12:00 AM CHORIONIC GONADOTROPIN TEST Reviewed 01/30/2014 12:00 AM US PREG UTERUS REAL TIME W/IMAGE DCMTN TRANSVAG Reviewed 01/30/2014 12:00 AM CHORIONIC GONADOTROPIN TEST Reviewed 02/12/2014 12:00 AM URINALYSIS AUTO W/SCOPE Reviewed 03/12/2014 12:00 AM URINALYSIS AUTO W/SCOPE Reviewed 03/12/2014 12:00 AM URINALYSIS AUTO W/SCOPE Reviewed 08/07/2014 12:00 AM Benadryl, Up to 50 Mg [facility]# [id number] Reviewed 11/01/2014 12:00 AM OB US < [...] Value 0.0328 ug/mLAFP MoM 0.62 hCG Value 52589.0 mIU/mLhCG MoM 1.51 uE3 Value 1.230 ng/mLuE3 MoM 0.74 CARMELLA Value 203.190 pg/mLDIA MoM 0.99 OSBR [place] 1 [place] [address] DSR (Second Trimester) 1IN 1082 DSR (By [...] NO 08/07/2015 4:26 PM Test, Urine negative History Of Immunizations Name Date Admin Mfg Name Mfg Code Trade Name Lot# Route Inj Vis Given Vis Pub CVX Tdap 05/30/2015 [employer] SKB BOOSTRIX 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 05/30/2015 [...] 4:22PM IUD removal Sep 16 2015 2:19PM Payers Insurance Name Company Name Plan Name Plan Number Policy Number Policy Group Number Start Date Amerigroup [place] State Plan [facility] Plan [id number] N/A Nationwide Health Plans Nationwide Life Insurance Clai [id number] Sunday, 2012 [facility] [place] - [place] Community Clinic ONLY Free Clinic [id number] N/A [employer] Insuran [id number] N/A Amerigroup - [place] Amerigroup [place] [id number] N/A History of Encounters Visit Date Visit Type Provider 09/16/2015 Office visit Evelina Villanueva STEAM BOILER FIREMAN 08/07/2015 Office visit Evelina Villanueva STEAM BOILER FIREMAN 08/05/2015 Office visit Evelina Villanueva STEAM BOILER FIREMAN 06/20/[address] Stephanie Crandall MD 06/12/[address] [facility] [address] Stephanie Crandall MD 06/11/2015 Office [...] Crandall MD 01/23/2015 Office visit Evelina Villanueva STEAM BOILER FIREMAN 12/26/2014 Office visit DEVANTE ANDRADE MD 12/10/2014 Office visit DEVANTE ANDRADE MD 11/26/2014 Office visit DEVANTE ANDRADE MD 10/29/2014 Office visit DEVANTE ANDRADE MD 08/07/2014 Office visit Deloris PRADO 07/10/2014 Office visit Kae Tariq STEAM BOILER FIREMAN 03/29/2014 Voided Jose Carlos Neal MD 03/12/2014 Office visit 03/12/2014 Office visit Jose Carlos Neal MD 02/08/2014 Office visit Jose Carlos Neal MD 01/30/2014 Office visit Jose Carlos Neal MD 07/20/2013 Voided Conrad Bee STEAM BOILER FIREMAN 07/13/2013 Office visit Conrad Bee STEAM BOILER FIREMAN 11/09/2012 Office visit FRANK PRADO 08/15/2012 Office visit FRANK PRADO 05/12/2012 Office visit FRANK PRADO 04/05/2012 Office visit FRANK PRADO 11/06/2010 Office visit Frank Houston PA-C
--- OUTSIDE RECORDS SUMMARY | 2017-12-29 15:41 | XMS REPORT ---
Author Author Stephanie Crandall [facility] Address [address] [place], [place] [address] Care Team Providers Care Ship Painter Helper Name Role Phone Stephanie Crandall PCP Unavailable [...] SC/IM Reviewed 11/06/2010 12:00 AM Decadron Inj.1mg-([facility]) [facility] #[id number] Reviewed 11/06/2010 12:00 AM Depo-Medrol 80 Mg Im/[facility] [id number] Reviewed 01/29/2015 12:00 AM OB US >/=14 [...] Benadryl, Up to 50 Mg [facility]# [id number] Reviewed 11/01/2014 12:00 AM OB US < [...] Value 0.0328 ug/mLAFP MoM 0.62 hCG Value 03455.0 mIU/ mLhCG MoM 1.51 uE3 Value 1.230 ng/mLuE3 MoM 0.74 SARA Value 203.190 pg/mLDIA MoM 0.99 OSBR [place] 1 [place] [address] DSR (Second Trimester) 1IN 1082 DSR (By [...] Vis Given Vis Pub CVX Tdap 05/30/2015 [employer] SKB BOOSTRIX 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 Stephanie Crandall MD 05/23/[address] Stephanie Crandall MD 05/16/[address] Stephanie Crandall MD 05/01/[address] Stephanie Crandall MD 04/29/[address] Stephanie Crandall MD 04/03/[address] Stephanie Crandall MD 03/20/[address] Stephanie Crandall MD 02/20/[address] Stephanie Crandall MD 01/23/2015 Office visit Evelina Villanueva ELECTRICAL LOGGING ENGINEER 12/26/2014 Office visit DEVANTE ANDRADE MD 12/10/2014 Office visit DEVANTE ANDRADE MD 11/26/2014 Office visit DEVANTE ANDRADE MD 10/29/2014 Office visit DEVANTE ANDRADE MD 08/07/2014 Office visit Deloris PRADO 07/10/2014 Office visit Kae Tariq ELECTRICAL LOGGING ENGINEER 03/29/2014 Voided Jose Carlos Neal MD 03/12/2014 Office visit 03/12/2014 Office visit Jose Carlos Neal MD 02/08/2014 Office visit Jose Carlos Neal MD 01/30/2014 Office visit Jose Carlos Neal MD 07/20/2013 Voided Conrad Bee ELECTRICAL LOGGING ENGINEER 07/13/2013 Office visit Conrad Bee ELECTRICAL LOGGING ENGINEER 11/09/2012 Office visit FRANK PRADO 08/15/2012 Office visit FRANK PRADO 05/12/2012 Office visit FRANK PRADO 04/05/2012 Office visit FRANK PRADO 11/06/2010 Office visit Frank Houston PA-C
--- OUTSIDE RECORDS SUMMARY | 2017-12-29 15:42 | XMS REPORT ---
Author Author Stephanie Crandall [facility] Address [address] [place], [place] [id number] Care Team Providers Care Senior Ecologist Name Role Phone Stephanie Crandall PCP FRANK [...] Reviewed 11/06/2010 12:00 AM Decadron Inj.1mg-([facility]) [facility] #[id number] Reviewed 11/06/2010 12:00 AM Depo-Medrol 80 Mg Im/[facility] [id number] Reviewed 01/29/2015 12:00 AM OB US >/=14 [...] Reviewed 02/06/2016 12:00 AM NEXPLANON (Etonogestrel implant) [facility] #[id number] Reviewed 11/03/2016 12:00 AM REMOVE CONTRACEPTIVE CAPSULE [...] AM Benadryl, Up to [address] 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 Stephanie Crandall MD 05/18/2017 Office visit Evelina Villanueva SALES HUNTER 05/11/2017 Office visit FRANK PRADO 02/09/2017 Office visit Evelina Villanueva SALES HUNTER 01/20/2017 Office visit Eunice Cox SALES HUNTER 11/03/2016 Procedures Evelina Villanueva SALES HUNTER 10/06/2016 Office visit Evelina Villanueva SALES HUNTER 02/06/2016 Office visit Evelina Villanueva SALES HUNTER 09/16/2015 Office visit Evelina Villanueva SALES HUNTER 08/07/2015 Office visit Evelina Villanueva SALES HUNTER 08/05/2015 Office visit Evelina Villanueva SALES HUNTER 06/20/[address] Stephanie Crandall MD 06/12/[address] [facility] [address] Stephanie Crandall MD 06/11/2015 Office [...] Crandall MD 01/23/2015 Office visit Evelina Villanueva SALES HUNTER 12/26/2014 Office visit DEVANTE ANDRADE MD 12/10/2014 Office visit DEVANTE ANDRADE MD 11/26/2014 Office visit DEVANTE ANDRADE MD 10/29/2014 Office visit DEVANTE ANDRADE MD 08/07/2014 Office visit Deloris PRADO 07/10/2014 Office visit Kae Tariq SALES HUNTER 03/29/2014 Voided Jose Carlos Neal MD 03/12/2014 Office visit 03/12/2014 Office visit Jose Carlos Neal MD 02/08/2014 Office visit Jose Carlos Neal MD 01/30/2014 Office visit Jose Carlos Neal MD 07/20/2013 Voided Conrad Bee SALES HUNTER 07/13/2013 Office visit Conrad Bee SALES HUNTER 11/09/2012 Office visit FRANK PRADO 08/15/2012 Office visit FRANK PRADO 05/12/2012 Office visit FRANK PRADO 04/05/2012 Office visit FRANK PRADO 11/06/2010 Office visit Frank Houston PA-C
--- OUTSIDE RECORDS SUMMARY | 2017-12-29 15:42 | XMS REPORT ---
Author Author Stephanie Crandall [facility] Address [address] [place], [place] [id number] Care Team Providers Care Actuarial Consultant Name Role Phone Stephanie Crandall PCP Unavailable [...] SC/IM Reviewed 11/06/2010 12:00 AM Decadron Inj.1mg-([facility]) [facility] #[id number] Reviewed 11/06/2010 12:00 AM Depo-Medrol 80 Mg Im/[facility] [id number] Reviewed 01/29/2015 12:00 AM OB US >/=14 [...] 12:00 AM ASSAY OF URINE/URIC ACID Returned 05/12/2012 12:00 AM SPECIMEN HANDLING OFFICE-LAB [...] AM Benadryl, Up to 50 Mg [facility]# [id number] Reviewed 11/01/2014 12:00 AM OB US < [...] Value 0.0328 ug/mLAFP MoM 0.62 hCG Value 31139.0 mIU/ mLhCG MoM 1.51 uE3 Value 1.230 ng/mLuE3 MoM 0.74 SARA Value 203.190 pg/mLDIA MoM 0.99 OSBR [place] 1 [place] [address] DSR (Second Trimester) 1IN 1082 DSR (By [...] NEGATIVE LEUK SCREEN NEGATIVE History Of Immunizations Not available. History [...] proteinuria, third trimester May 23 2015 11:09AM Payers Insurance Name Company Name Plan Name Plan Number Policy Number Policy Group Number Start Date [facility] State [facility] State Plan [id number] N/A Nationwide Health Plans Nationwide Life Insurance [facility] [id number] Sunday, 2012 [facility] - [place] [facility] [id number] N/A [employer] Insurance [place] Insuran [id number] N/A Amerigroup - [place] Amerigroup [place] [id number] N/A History of Encounters Visit Date Visit [...] Crandall MD 01/23/2015 Office visit Evelina Villanueva TEACHER AIDE CLERICAL 12/26/2014 Office visit DEVANTE ANDRADE MD 12/10/2014 Office visit DEVANTE ANDRADE MD 11/26/2014 Office visit DEVANTE ANDRADE MD 10/29/2014 Office visit DEVANTE ANDRADE MD 08/07/2014 Office visit Deloris PRADO 07/10/2014 Office visit Kae Tariq TEACHER AIDE CLERICAL 03/29/2014 Voided Jose Carlos Neal MD 03/12/2014 Office visit 03/12/2014 Office visit Jose Carlos Neal MD 02/08/2014 Office visit Jose Carlos Neal MD 01/30/2014 Office visit Jose Carlos Neal MD 07/20/2013 Voided Conrad Bee TEACHER AIDE CLERICAL 07/13/2013 Office visit Conrad Bee TEACHER AIDE CLERICAL 11/09/2012 Office visit FRANK PRADO 08/15/2012 Office visit FRANK PRADO 05/12/2012 Office visit FRANK PRADO 04/05/2012 Office visit FRANK PRADO 11/06/2010 Office visit Frank Houston PA-C
--- OUTSIDE RECORDS SUMMARY | 2017-12-29 15:42 | XMS REPORT ---
Author Author Minnie Gutierrez [facility] Address [address] [place], [place] [id number] Care Team Providers Care Necktie Turner Name Role Phone Minnie Gutierrez PCP Unavailable [...] SC/IM Reviewed 11/06/2010 12:00 AM Decadron Inj.1mg-([facility]) [facility] #[id number] Reviewed 11/06/2010 12:00 AM Depo-Medrol 80 Mg Im/[facility] [id number] Reviewed 05/12/2012 12:00 AM SPECIMEN HANDLING OFFICE-LAB [...] AM Benadryl, Up to 50 Mg [facility]# [id number] Reviewed 11/01/2014 12:00 AM OB US < [...] Number Policy Group Number Start Date Amerigroup [place] State Plan [facility] State Plan [id number] N/A Nationwide Health Plans Nationwide Life Insurance Clai [id number] Sunday, 2012 [facility] - [place] [facility] Clinic [id number] N/A [employer] Life Insurance [employer] Insuran [id number] N/A Amerigroup - [place] Amerigroup [place] [id number] N/A History of Encounters Visit Date Visit Type Provider 12/26/2014 Office visit Minnie Gutierrez MD 12/10/2014 Office visit MINNIE GUTIERREZ MD 11/26/2014 Office visit MINNIE GUTIERREZ MD 10/29/2014 Office visit MINNIE GUTIERREZ MD 08/07/2014 Office visit Deloris PRADO 07/10/2014 Office visit Kae Tariq PRODUCTION COORDINATOR 03/29/2014 Voided Jose Carlos Neal MD 03/12/2014 Office visit Jose Carlos Neal MD 02/08/2014 Office visit Jose Carlos Neal MD 01/30/2014 Office visit Jose Carlos Neal MD 07/20/2013 Voided Conrad Bee PRODUCTION COORDINATOR 07/13/2013 Office visit Conrad Bee PRODUCTION COORDINATOR 11/09/2012 Office visit FRANK PRADO 08/15/2012 Office visit FRANK PRADO 05/12/2012 Office visit FRANK PRADO 04/05/2012 Office visit FRANK PRADO 11/06/2010 Office visit Frank Houston PA-C
--- OUTSIDE RECORDS SUMMARY | 2017-12-29 15:43 | XMS REPORT ---
Author Author Evelina Villanueva [facility] Address [address] [place], [place] [id number] Care Team Providers Care Saw Setter Name Role Phone Evelina Villanueva PCP Unavailable [...] by oral route once for 1 day Discontinued Name Start Date [...] HC BMI BSA BMI Percentile O2 Sat(%) 08/07/2015 4:14:00 PM 126 mmHg 73 mmHg [...] lbs 66 in 22.43 kg/m2 1.7135 m 68.3 % 11/09/2012 9:58:00 AM 100 mmHg 54 mmHg 74 bpm 16 rpm 97.2 F 129 lbs 66 in 20.8209 kg/m 1.65 m2 57.9 % 97 % 08/15/2012 3:45:00 PM 105 mmHg 64 mmHg 78 bpm 16 rpm 98 F 129 lbs 66 in 20.82 kg/m2 1.6507 m 59.4 % 100 % 05/12/2012 3:49:00 PM 120 mmHg 60 mmHg 68 bpm 16 rpm 98.1 F 129.25 lbs 66 in 20.8613 kg/m 1.65 m2 61.5 % 100 % 04/05/2012 2:39:00 PM 110 mmHg 60 mmHg 60 bpm 14 rpm 98 F 132 lbs 66 in 21.31 kg/m2 1.6698 m 66.8 % 100 % 11/06/2010 1:43:00 PM 100 mmHg 62 mmHg 72 bpm 124 lbs 68 in 18.8539 kg/m 1.64 m2 47.6 % Social History Name Description Comments Tobacco Never smoker Single Student History of Procedures Date Ordered Description Order Status 11/06/2010 12:00 AM THER/PROPH/DIAG INJ SC/IM Reviewed 11/06/2010 12:00 AM Decadron Inj.1mg-([facility]) [facility] #[id number] Reviewed 11/06/2010 12:00 AM Depo-Medrol 80 Mg Im/[facility] [id number] Reviewed 01/29/2015 12:00 AM OB US >/=14 [...] Reviewed 05/30/2015 12:00 AM IMMUNIZATION ADMIN Reviewed 08/07/2015 4:26 PM URINE TEST Reviewed 05/12/2012 12:00 AM [...] 12:00 AM Benadryl, Up to 50 Mg [facility]# 0780-7575-41 Reviewed 11/01/2014 12:00 AM OB US < [...] Value 0.0328 ug/mLAFP MoM 0.62 hCG Value 28105.0 mIU/ mLhCG MoM 1.51 uE3 Value 1.230 ng/mLuE3 MoM 0.74 SARA Value 203.190 pg/mLDIA MoM 0.99 OSBR [place] 1 [place] [address] DSR (Second Trimester) 1IN 1082 DSR (By [...] CELLS 3+++ SQUAMOUS /HPFTRICHOMONAS NEGATIVE YEAST NEGATIVE 08/07/2015 4:26 PM Test, Urine negative History Of Immunizations Name Date Admin Mfg Name Mfg Code Trade Name Lot# Route Inj Vis Given Vis Pub CVX Tdap 05/30/2015 [employer] SKB BOOSTRIX 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 05/30/2015 [...] test, negative result Aug 07 2015 4:26PM Payers Insurance Name Company Name Plan Name Plan Number Policy Number Policy Group Number Start Date Amerigroup [place] State Plan [facility] [id number] N/A Nationwide Health Plans Nationwide Life Insurance Clai [id number] Sunday, 2012 [facility] - [place] [facility] [place] Free Clinic [id number] N/A [employer] Insuran [id number] N/A Amerigroup [place] Amerigroup [place] [id number] N/A History of Encounters Visit Date Visit Type Provider 08/07/2015 Office visit Evelina Villanueva PRE SALES SYSTEMS ENGINEER 08/05/2015 Office visit Evelina Villanueva PRE SALES SYSTEMS ENGINEER 06/20/[address] Stephanie Crandall MD 06/12/[address] [facility] [address] Stephanie Crandall MD 06/11/2015 [...] Crandall MD 01/23/2015 Office visit Evelina Villanueva PRE SALES SYSTEMS ENGINEER 12/26/2014 Office visit DEVANTE ANDRADE MD 12/10/2014 Office visit DEVANTE ANDRADE MD 11/26/2014 Office visit DEVANTE ANDRADE MD 10/29/2014 Office visit DEVANTE ANDRADE MD 08/07/2014 Office visit Deloris PRADO 07/10/2014 Office visit Kae Tariq PRE SALES SYSTEMS ENGINEER 03/29/2014 Voided Jose Carlos Neal MD 03/12/2014 Office visit 03/12/2014 Office visit Jose Carlos Neal MD 02/08/2014 Office visit Jose Carlos Neal MD 01/30/2014 Office visit Jose Carlos Neal MD 07/20/2013 Voided Conrad Bee PRE SALES SYSTEMS ENGINEER 07/13/2013 Office visit Conrad Bee PRE SALES SYSTEMS ENGINEER 11/09/2012 Office visit FRANK PRADO 08/15/2012 Office visit FRANK PRADO 05/12/2012 Office visit FRANK PRADO 04/05/2012 Office visit FRANK PRADO 11/06/2010 Office visit Frank Houston PA-C
--- OUTSIDE RECORDS SUMMARY | 2017-12-29 15:44 | XMS REPORT ---
Author Evelina Smalls [facility] Address [address] [place], [place] [address] Care Team Providers Care Exhibitions And Collections Manager Name Role Phone Evelina Villanueva PCP Unavailable [...] HC BMI BSA BMI Percentile O2 Sat(%) 10/06/2016 10:08:00 AM 111 mmHg 66 mmHg 62 bpm 97.6 F 123 lbs 66 in 19.85 kg/m2 1.61 m2 26.3 % 02/06/2016 9:07:00 AM 110 mmHg 62 mmHg 56 bpm 97.5 F 120 lbs 66 in 19.3683 kg/m 1.5921 m 21.3 % 09/16/2015 2:01:00 PM 112 mmHg [...] INJ SC/IM Reviewed 11/06/2010 12:00 AM Decadron Inj.1mg-([facility]) [facility] #[id number] Reviewed 11/06/2010 12:00 AM Depo-Medrol 80 Mg Im/[facility] [id number] Reviewed 01/29/2015 12:00 AM OB US >/=14 [...] Reviewed 02/06/2016 12:00 AM NEXPLANON (Etonogestrel implant) [facility] #[id number] Reviewed 05/12/2012 12:00 AM SPECIMEN HANDLING OFFICE-LAB Reviewed 01/30/2014 12:00 AM CHORIONIC GONADOTROPIN TEST Reviewed 01/30/2014 12:00 AM US PREG UTERUS REAL TIME W/IMAGE DCMTN TRANSVAG Reviewed 01/30/2014 12:00 AM CHORIONIC GONADOTROPIN TEST Reviewed 02/12/2014 12:00 AM URINALYSIS AUTO W/SCOPE Reviewed 03/12/2014 12:00 AM URINALYSIS AUTO W/SCOPE Reviewed 03/12/2014 12:00 AM URINALYSIS AUTO W/SCOPE Reviewed 08/07/2014 12:00 AM Benadryl, Up to 50 Mg [facility]# 6161-5124-55 Reviewed 11/01/2014 12:00 AM OB US < 14 WKS SINGLE FETUS Reviewed 10/29/2014 12:00 AM SPECIMEN HANDLING OFFICE-LAB Reviewed 10/29/2014 12:00 AM N.GONORRHOEAE DNA AMP PROB Reviewed 10/29/2014 12:00 AM CHLAMYDIA CULTURE Reviewed 10/29/2014 12:00 AM HIV-1ANTIBODY Reviewed 10/29/2014 12:00 AM URINALYSIS AUTO W/SCOPE Reviewed 10/29/2014 12:00 AM OBSTETRIC PANEL Reviewed Results Summary Date and Description Results 05/31/1999 5:00 PM COLOR [...] Value 0.0328 ug/mLAFP MoM 0.62 hCG Value 17799.0 mIU/mLhCG MoM 1.51 uE3 Value 1.230 ng/mLuE3 MoM 0.74 SARA Value 203.190 pg/mLDIA MoM 0.99 OSBR [place] 1 [place] [address] DSR (Second Trimester) 1IN 1082 DSR (By [...] Negative History Of Immunizations Name Date Admin [facility] Name Mfg Code Trade Name Lot# Route Inj Vis Given Vis Pub CVX Tdap 05/30/2015 [employer] SKB BOOSTRIX 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 05/30/2015 [...] leg Jul 13 2013 2:17PM , spontaneous Dec 2 2014 11:41AM , Spontaneous Jan 30 2014 [...] 3:32PM Contraceptive surveillance Oct 06 2016 10:11AM Payers Insurance Name Company Name Plan Name Plan Number Policy Number Policy Group Number Start Date [facility] State Plan [id number] N/A Nationwide Health Plans Nationwide Life Insurance [facility] [id number] Sunday, 2012 [place] - [place] [facility] [place] Free Clinic [id number] N/A [employer] Insurance [employer] Insuran [id number] N/A Amerigroup - [place] - [place] State Plan Amerigroup - [facility] State Plan [id number] N/A History of Encounters Visit Date Visit Type Provider 10/06/2016 Office visit Evelina Villanueva DISPLAY DECORATOR 02/06/2016 Office visit Evelina Villanueva DISPLAY DECORATOR 09/16/2015 Office visit Evelina Villanueva DISPLAY DECORATOR 08/07/2015 Office visit Evelina SteeleAdeline Villanueva DISPLAY DECORATOR 08/05/2015 Office visit Evelina CedricAdeline Villanueva DISPLAY DECORATOR 06/20/[address] Stephanie Crandall MD [...] Crandall MD 01/23/2015 Office visit Evelina Villanueva DISPLAY DECORATOR 12/26/2014 Office visit DEVANTE ANDRADE MD 12/10/2014 Office visit DEVANTE ANDRADE MD 11/26/2014 Office visit DEVANTE ANDRADE MD 10/29/2014 Office visit DEVANTE ANDRADE MD 08/07/2014 Office visit Deloris PRADO 07/10/2014 Office visit Kae Tariq DISPLAY DECORATOR 03/29/2014 Voided Jose Carlos Neal MD 03/12/2014 Office visit 03/12/2014 Office visit Jose Carlos Neal MD 02/08/2014 Office visit Jose Carlos Neal MD 01/30/2014 Office visit Jose Carlos Neal MD 07/20/2013 Voided Conrad Bee DISPLAY DECORATOR 07/13/2013 Office visit Conrad Bee DISPLAY DECORATOR 11/09/2012 Office visit FRANK PRADO 08/15/2012 Office visit FRANK PRADO 05/12/2012 Office visit FRANK PRADO 04/05/2012 Office visit FRANK PRADO 11/06/2010 Office visit Frank Houston PA-C
--- OUTSIDE RECORDS SUMMARY | 2017-12-29 15:45 | XMS REPORT ---
Author Author Chuck Tai [facility] Address [address] [place], [place] [address] Care Team Providers Care Client Care Consultant Name Role Phone Chuck Tai PCP FRANK HOUSTON PreferredProvider Allergies and Adverse Reactions Name Reaction Notes NO KNOWN DRUG ALLERGIES Plan of Treatment Planned Activity Comments Planned Date Planned Time Plan/Goal STREP SCREEN 07/04/2017 12:00 AM Throat culture and sensitivity 07/04/2017 12:00 AM Medications Active Name Start Date [...] HC BMI BSA BMI Percentile O2 Sat(%) 07/04/2017 3:23:00 PM 100 mmHg 60 mmHg 79 bpm 98.6 F 134.125 lbs 66 in 21.6481 kg/m 1.6832 m 0 % 99 % 05/18/2017 10:59:00 AM 122 mmHg 82 mmHg 106 bpm 99.2 F 127 lbs 66 in 20.50 kg/m2 1.64 m2 0 % 05/11/2017 4:20:00 PM 108 mmHg 70 mmHg 106 bpm 18 rpm 98.2 F 136 lbs 98 % 02/09/2017 11:15:00 AM 108 mmHg 63 mmHg 76 bpm 99.4 F 128 lbs 66 in 20.6595 kg/m 1.6443 m 36.7 % 01/20/2017 7:06:00 PM 122 mmHg 80 mmHg 64 bpm 18 rpm 98.1 F 130 lbs 66 in 20.98 kg/m2 1.66 m2 41.1 % 99 % 11/03/2016 10:23:00 AM 111 mmHg 62 mmHg 54 bpm 98.7 F 123 lbs 66 in 19.8525 kg/m 1.6118 m 26.2 % 10/06/2016 10:08:00 AM 111 mmHg [...] SC/IM Reviewed 11/06/2010 12:00 AM Decadron Inj.1mg-([facility]) [facility] #[id number] Reviewed 11/06/2010 12:00 AM Depo-Medrol 80 Mg Im/St Izaiah [facility] [id number] Reviewed 01/29/2015 12:00 AM OB US >/=14 [...] Reviewed 02/06/2016 12:00 AM NEXPLANON (Etonogestrel implant) [facility] #[id number] Reviewed 11/03/2016 12:00 AM REMOVE CONTRACEPTIVE CAPSULE [...] US < 14 WKS SINGLE FETUS Reviewed 05/18/2017 12:00 AM CYTOPATH C/V THIN LAYER Reviewed 05/18/2017 12:00 AM SPECIMEN HANDLING OFFICE-LAB Reviewed 05/18/2017 12:00 AM N.GONORRHOEAE DNA AMP PROB Reviewed 05/18/2017 12:00 AM CHLAMYDIA CULTURE Reviewed 05/18/2017 12:00 AM HIV-1ANTIBODY Reviewed 05/18/2017 12:00 AM URINALYSIS AUTO W/SCOPE Reviewed 05/18/2017 12:00 AM OBSTETRIC PANEL Reviewed 05/18/2017 12:00 AM ASSAY OF FERRITIN Reviewed 05/18/2017 12:00 AM URINE DRUG SCREEN RAPID Reviewed 05/18/2017 12:00 AM DETECT AGENT NOS DNA AMP Reviewed 05/18/2017 12:00 AM TRICHOMONAS VAGINALIS AMPLIF Reviewed 05/18/2017 12:00 AM HEPATITIS C AB TEST Reviewed 05/27/2017 12:00 AM US PREG UTERUS REAL TIME W/IMAGE DCMTN TRANSVAG Reviewed 07/04/2017 4:42 PM STREP A ASSAY W/OPTIC Reviewed 05/12/2012 12:00 AM SPECIMEN HANDLING OFFICE-LAB Reviewed 01/30/2014 12:00 AM CHORIONIC GONADOTROPIN TEST Reviewed 01/30/2014 12:00 AM US PREG UTERUS REAL TIME W/IMAGE DCMTN TRANSVAG Reviewed 01/30/2014 12:00 AM CHORIONIC GONADOTROPIN TEST Reviewed 02/12/2014 12:00 AM URINALYSIS AUTO W/SCOPE Reviewed 03/12/2014 12:00 AM URINALYSIS AUTO W/SCOPE Reviewed 03/12/2014 12:00 AM URINALYSIS AUTO W/SCOPE Reviewed 08/07/2014 12:00 AM Benadryl, Up to 50 Mg [facility]# 6178-7652-33 Reviewed 11/01/2014 12:00 AM OB US < [...] Value 0.0328 ug/mLAFP MoM 0.62 hCG Value 30439.0 mIU/mLhCG MoM 1.51 uE3 Value 1.230 ng/mLuE3 MoM 0.74 SARA Value 203.190 pg/mLDIA MoM 0.99 OSBR [place] 1 [place] [address] DSR (Second Trimester) 1IN 1082 DSR (By [...] mIU/mL 05/11/2017 4:21 PM Test, Urine Positive 05/18/2017 12:25 PM FERRITIN 134.0 ng/mLCOLOR YELLOW APPEARANCE CLEAR SPEC GRAV >=1.030 pH 6.0 PROTEIN 30 GLUCOSE NEGATIVE mg/dLKETONE >=80 BILIRUBIN SMALL BLOOD NEGATIVE NITRITE NEGATIVE LEUK SCREEN TRACE WBC/HPF RARE RBC/HPF RARE CASTS/LPF NEGATIVE /LPFCRYSTALS NEGATIVE MUCOUS THRDS 1+ BACTERIA FEW EPITH CELLS FEW SQUAMOUS /HPFTRICHOMONAS NEGATIVE YEAST NEGATIVE CULT ORDERED YES HIV AG/AB COMBO 0.07 HEPATITIS C 0.15 HBsAg Screen Negative RPR Non Reactive 05/18/2017 12:35 PM Cannabinoids (THC) NON-NEGATIVE ng/mLPhencyclidine (PCP) NEGATIVE ug/mLCocaine NEGATIVE Methamphetamine NEGATIVE ug/mLOpiates NON- NEGATIVE ng/mLAmphetamine NEGATIVE Benzodiazepines NEGATIVE ng/mLTricyclic Antidepres NEGATIVE Methadone NEGATIVE ng/mLBarbiturates NEGATIVE ng/ mLOxycodone NON-NEGATIVE Propoxyphene (PPX) NEGATIVE ng/mL 07/04/2017 4:42 PM STREPTOCOCCUS, GROUP A CULTURE neg History Of Immunizations Name Date Admin Mfg Name Mfg Code Trade Name Lot# Route Inj Vis Given Vis Pub CVX Tdap 05/30/2015 Outright SKB BOOSTRIX 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 05/30/2015 [...] 11:06AM Late care May 18 2017 11:40AM Encounter for supervision of normal in multigravida in first trimester May 27 2017 4:56PM Laryngitis Jul 04 2017 3:25PM Payers Insurance Name Company Name Plan Name Plan Number Policy Number Policy Group Number Start Date Amerigroup [place] Amerigroup [place] [id number] N/A Amerigroup [place] Amerigroup [place] State Plan [id number] N/A Nationwide Health Plans Nationwide Life Insurance Clai [id number] Sunday, 2012 [place] [facility] [place] Free [facility] [id number] N/A [employer] Life Insurance Company [employer] Life Insuran [id number] N/A History of Encounters Visit Date Visit Type Provider 07/04/2017 Office visit Chuck Tai NP 06/24/[address] Stephanie Crandall MD 05/27/[address] Stephanie Crandall MD 05/18/2017 Office visit Evelina Villanueva POLICE LIEUTENANT 05/11/2017 Office visit FRANK PRADO 02/09/2017 Office visit Evelina Villanueva POLICE LIEUTENANT 01/20/2017 Office visit Eunice Cox POLICE LIEUTENANT 11/03/2016 Procedures Evelina Villanueva POLICE LIEUTENANT 10/06/2016 Office visit Evelina Villanueva POLICE LIEUTENANT 02/06/2016 Office visit Evelina Villanueva POLICE LIEUTENANT 09/16/2015 Office visit Evelina Villanueva POLICE LIEUTENANT 08/07/2015 Office visit Evelina Villanueva POLICE LIEUTENANT 08/05/2015 Office visit Evelina Villanueva POLICE LIEUTENANT 06/20/[address] Stephanie Crandall MD [...] Crandall MD 01/23/2015 Office visit Evelina Villanueva POLICE LIEUTENANT 12/26/2014 Office visit DEVANTE ANDRADE MD 12/10/2014 Office visit DEVANTE ANDRADE MD 11/26/2014 Office visit DEVANTE ANDRADE MD 10/29/2014 Office visit DEVANTE ANDRADE MD 08/07/2014 Office visit Deloris PRADO 07/10/2014 Office visit Kae Tariq POLICE LIEUTENANT 03/29/2014 Voided Jose Carlos Neal MD 03/12/2014 Office visit 03/12/2014 Office visit Jose Carlos Neal MD 02/08/2014 Office visit Jose Carlos Neal MD 01/30/2014 Office visit Jose Carlos Neal MD 07/20/2013 Voided Conrad Bee POLICE LIEUTENANT 07/13/2013 Office visit Conrad Bee POLICE LIEUTENANT 11/09/2012 Office visit FRANK PRADO 08/15/2012 Office visit FRANK PRADO 05/12/2012 Office visit FRANK PRADO 04/05/2012 Office visit FRANK PRADO 11/06/2010 Office visit Frank Houston PA-C
--- OUTSIDE RECORDS SUMMARY | 2017-12-29 15:45 | XMS REPORT ---
Author Evelina Smalls [facility] Address [address] [place], [place] [address] Care Team Providers Care Electric Stove Installer Name Role Phone Evelina Villanueva PCP Allergies [...] Decadron Inj.1mg-([facility]) [facility] #[id number] Reviewed 11/06/2010 12:00 AM Depo-Medrol 80 Mg Im/[facility] [id number] Reviewed 01/29/2015 12:00 AM OB US >/=14 [...] 02/06/2016 12:00 AM NEXPLANON (Etonogestrel implant) [facility] #[id number] Reviewed 11/03/2016 12:00 AM REMOVE CONTRACEPTIVE CAPSULE Reviewed 01/20/2017 7:53 PM URINE TEST Reviewed 01/20/2017 7:53 PM URINALYSIS AUTO W/O SCOPE Reviewed 02/09/2017 11:30 AM URINE TEST Reviewed 02/09/2017 12:00 AM CHORIONIC GONADOTROPIN ASSAY Reviewed 01/20/2017 12:00 AM CHORIONIC GONADOTROPIN TEST Reviewed 01/20/2017 12:00 AM COMPLETE CBC W/AUTO DIFF WBC Reviewed 01/20/2017 12:00 AM COMPREHEN METABOLIC PANEL Reviewed 05/12/2012 12:00 AM SPECIMEN HANDLING OFFICE-LAB [...] Up to 50 Mg [facility]# [id number] Reviewed 11/01/2014 12:00 AM OB US < [...] Value 0.0328 ug/mLAFP MoM 0.62 hCG Value 89036.0 mIU/mLhCG MoM 1.51 uE3 Value 1.230 ng/mLuE3 MoM 0.74 CARMELLA Value 203.190 pg/mLDIA MoM 0.99 OSBR [place] 1 [place] [address] DSR (Second Trimester) 1IN 1082 DSR (By [...] 11:40 AM BETA HCG QUANT <1 mIU/mL History Of Immunizations Name Date Admin Mfg Name Mfg Code Trade Name Lot# Route Inj Vis Given Vis Pub CVX Tdap 05/30/2015 GlaxoSmithKline SKB BOOSTRIX 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 05/30/2015 [...] Plan Amerigroup - [place]HC [place] State Plan [id number] N/A Amerigroup [place] State [place] Amerigroup [place] State Plan [id number] N/A Nationwide Health Plans Nationwide Life Insurance [facility] [id number] Sunday, 2012 [facility] [place] [facility] [id number] N/A [employer] Insurance [employer] Insuran [id number] N/A History of Encounters Visit Date Visit Type Provider 02/09/2017 Office visit Evelina Villanueva HIP HOP ARTIST 01/20/2017 Office visit Eunice Cox HIP HOP ARTIST 11/03/2016 Procedures Evelina Villanueva HIP HOP ARTIST 10/06/2016 Office visit Evelina Villanueva HIP HOP ARTIST 02/06/2016 Office visit Evelina Villanueva HIP HOP ARTIST 09/16/2015 Office visit Evelina Villanueva HIP HOP ARTIST 08/07/2015 Office visit Evelina Villanueva HIP HOP ARTIST 08/05/2015 Office visit Evelina Villanueva HIP HOP ARTIST 06/20/[address] Stephanie Crandall MD [...] Crandall MD 01/23/2015 Office visit Evelina Villanueva HIP HOP ARTIST 12/26/2014 Office visit DEVANTE ANDRADE MD 12/10/2014 Office visit DEVANTE ANDRADE MD 11/26/2014 Office visit DEVANTE ANDRADE MD 10/29/2014 Office visit EDVANTE ANDRADE MD 08/07/2014 Office visit Deloris PRADO 07/10/2014 Office visit Kae Tariq HIP HOP ARTIST 03/29/2014 Voided Jose Carlos Neal MD 03/12/2014 Office visit 03/12/2014 Office visit Jose Carlos Neal MD 02/08/2014 Office visit Jose Carlos Neal MD 01/30/2014 Office visit Jose Carlos Neal MD 07/20/2013 Voided Conrad Bee HIP HOP ARTIST 07/13/2013 Office visit Conrad Bee HIP HOP ARTIST 11/09/2012 Office visit FRANK PRADO 08/15/2012 Office visit FRANK PRADO 05/12/2012 Office visit FRANK PRADO 04/05/2012 Office visit FRANK PRADO 11/06/2010 Office visit Frank Houston PA-C
--- OUTSIDE RECORDS SUMMARY | 2017-12-29 15:46 | XMS REPORT ---
Author Author Stephanie Crandall [facility] Address [address] [place], [place] [id number] Care Team Providers Care Case Maker Name Role Phone Stephanie Crandall PCP Unavailable [...] Reviewed 11/06/2010 12:00 AM Decadron Inj.1mg-([facility]) [facility] #[id number] Reviewed 11/06/2010 12:00 AM Depo-Medrol 80 Mg Im/[facility] [id number] Reviewed 01/29/2015 12:00 AM OB US >/=14 [...] 12:00 AM Benadryl, Up to 50 Mg [facility]# [id number] Reviewed 11/01/2014 12:00 AM OB US < [...] Value 0.0328 ug/mLAFP MoM 0.62 hCG Value 82206.0 mIU/ mLhCG MoM 1.51 uE3 Value 1.230 ng/mLuE3 MoM 0.74 SARA Value 203.190 pg/mLDIA MoM 0.99 OSBR [place] 1 [place] [address] DSR (Second Trimester) 1IN 1082 DSR (By [...] [place] Amer[place] [id number] N/A Nationwide Health Plans Nationwide Life Insurance [facility] [id number] Sunday, 2012 [place] - [place] [facility] [place] Clinic [id number] N/A [employer] Life Insurance [employer] Life Insuran [id number] N/A Amerigroup - [place] Amerigroup [place] [id number] N/A History of Encounters Visit Date Visit Type Provider 04/03/[address] Stephanie Crandall MD 03/20/[address] Stephanie Crandall MD 02/20/[address] Stephanie Crandall MD 01/23/2015 Office visit Evelina Villanueva POT MAKER 12/26/2014 Office visit DEVANTE ANDRADE MD 12/10/2014 Office visit DEVANTE ANDRADE MD 11/26/2014 Office visit DEVANTE ANDRADE MD 10/29/2014 Office visit DEVANTE ANDRADE MD 08/07/2014 Office visit Deloris PRADO 07/10/2014 Office visit Kae Tariq POT MAKER 03/29/2014 Voided Jose Carlos Neal MD 03/12/2014 Office visit 03/12/2014 Office visit Jose Carlos Neal MD 02/08/2014 Office visit Jose Carlos Neal MD 01/30/2014 Office visit Jose Carlos Neal MD 07/20/2013 Voided Conrad Bee POT MAKER 07/13/2013 Office visit Conrad Bee POT MAKER 11/09/2012 Office visit FRANK PRADO 08/15/2012 Office visit FRANK PRADO 05/12/2012 Office visit FRANK PRADO 04/05/2012 Office visit FRANK PRADO 11/06/2010 Office visit Frank Houston PA-C
--- OUTSIDE RECORDS SUMMARY | 2017-12-29 15:46 | XMS REPORT ---
Author Author Minnie Gutierrez [facility] Address [address] [place], [place] [phone] Care Team Providers Care Search Planner Name Role Phone Minnie Gutierrez PCP Unavailable [...] 12:00 AM Decadron Inj.1mg-([facility]) [facility] #[id number] Reviewed 11/06/2010 12:00 AM Depo-Medrol 80 Mg Im/[facility] [id number] Reviewed 05/12/2012 12:00 AM SPECIMEN HANDLING OFFICE-LAB Reviewed 01/30/2014 12:00 AM CHORIONIC GONADOTROPIN TEST Returned 01/30/2014 12:00 AM US PREG UTERUS REAL TIME W/IMAGE DCMTN TRANSVAG Reviewed 01/30/2014 12:00 AM CHORIONIC GONADOTROPIN TEST Returned 02/12/2014 12:00 AM URINALYSIS AUTO W/SCOPE Returned 03/12/2014 12:00 AM URINALYSIS AUTO W/SCOPE Returned 03/12/2014 12:00 AM URINALYSIS AUTO W/SCOPE Returned 08/07/2014 12:00 AM Benadryl, Up to 50 Mg [facility]# [id number] Reviewed 11/01/2014 12:00 AM OB US < [...] Number Policy Group Number Start Date Amerigroup [place] State Plan [facility] [id number] N/A Nationwide Health Plans Nationwide Life Insurance Clai [id number] Sunday, 2012 [place] Clinic - [place] Community [facility] [place] Free Clinic [id number] N/A [employer] Life Insurance [email or web address] Life Insuran [id number] N/A Amerigroup - [place] Amerigroup [place] [id number] N/A History of Encounters Visit Date Visit Type Provider 12/26/2014 Office visit Minnie Gutierrez MD 12/10/2014 Office visit MINNIE GUTIERREZ MD 11/26/2014 Office visit MINNIE GUTIERREZ MD 10/29/2014 Office visit MINNIE GUTIERREZ MD 08/07/2014 Office visit Deloris PRADO 07/10/2014 Office visit Kae Tariq SENIOR PRODUCT DEVELOPMENT ENGINEER 03/29/2014 Voided Jose Carlos Neal MD 03/12/2014 Office visit Jose Carlos Neal MD 02/08/2014 Office visit Jose Carlos Neal MD 01/30/2014 Office visit Jose Carlos Neal MD 07/20/2013 Voided Conrad Bee SENIOR PRODUCT DEVELOPMENT ENGINEER 07/13/2013 Office visit Conrad Bee SENIOR PRODUCT DEVELOPMENT ENGINEER 11/09/2012 Office visit FRANK PRADO 08/15/2012 Office visit FRANK PRADO 05/12/2012 Office visit RFANK PRADO 04/05/2012 Office visit FRANK PRADO 11/06/2010 Office visit Frank Houston PA-C
--- OUTSIDE RECORDS SUMMARY | 2017-12-29 15:46 | XMS REPORT ---
Author Author [facility] Organization [facility] Address [address] [place], [place] [address] Care Team Providers Care Aircraft Manager Name Role Phone PCP Unavailable Allergies and Adverse Reactions Name Reaction Notes NO KNOWN DRUG ALLERGIES Plan of Treatment Not available. Medications Active Name Start Date Estimated Completion Date SIG Comments Bactrim DS oral tablet 800-160 mg 07/10/2014 07/20/2014 take 1 tablet by oral route every 12 hours for 10 days Bactroban topical ointment 2 % 07/10/2014 08/07/2014 apply a small amount to the affected area by topical route 3 times per day for 14 days Name Start Date Expiration Date SIG Comments amoxicillin oral capsule 500 mg 07/13/2013 07/20/2013 take 1 capsule (500 mg) by oral route 3 times per day for 7 days Macrobid oral capsule 100 mg 02/12/2014 02/19/2014 take 1 capsule (100 mg) by oral route 2 times per day with food for 7 days Macrobid oral capsule 100 mg 03/12/2014 03/19/2014 take 1 capsule (100 mg) by oral route every 12 hours with food for 7 days Discontinued Name Start Date Discontinued Date SIG Comments Tylenol Oral tablet 325 mg 01/30/2014 take 1 - 2 tablets (325 - 650 mg) by oral route every 4-6 hours as needed Triamcinolone Acetonide Topical Cream 0.1 % 08/16/2012 01/30/2014 apply a thin film to the affected skin areas by topical route 3 times per day Problem List Description Status Onset *No known medical problems Active Vital Signs Date Time BP-Sys(mm[Hg] BP-Sara(mm[Hg]) HR(bpm) RR(rpm) Temp WT HT HC BMI BSA BMI Percentile O2 Sat(%) 07/10/2014 6:48:00 PM 122 mmHg 62 mmHg [...] 11/06/2010 12:00 AM THER/PROPH/DIAG INJ SC/IM Reviewed 05/12/2012 12:00 AM SPECIMEN HANDLING OFFICE-LAB Reviewed 01/30/2014 12:00 AM CHORIONIC GONADOTROPIN TEST Returned 01/30/2014 12:00 AM CHORIONIC GONADOTROPIN TEST Returned 02/12/2014 12:00 AM URINALYSIS AUTO W/SCOPE Returned 03/12/2014 12:00 AM URINALYSIS AUTO W/SCOPE Returned 03/12/2014 12:00 AM URINALYSIS AUTO W/SCOPE Returned Results Summary Data and Description Results [...] 2014 3:30PM Cellulitis Jul 10 2014 6:50PM Payers Insurance Name Company Name Plan Name Plan Number Policy Number Policy Group Number Start Date [facility] [id number] N/A Nationwide Health Plans Nationwide Life Insurance Clai [id number] Sunday, 2012 [place] Clinic - [place] Community Clinic [place] Free Clinic [id number] N/A [employer] Insurance [employer] Insuran [id number] N/A Amerigroup - [place] - [place] State Plan Amerigroup - [facility] State Plan [id number] N/A History of Encounters Visit Date Visit Type Provider 07/10/2014 Office visit Kae Tariq JIG HAND 03/29/2014 Voided Jose Carlos Neal MD 03/12/2014 [...]
--- OUTSIDE RECORDS SUMMARY | 2017-12-29 15:47 | XMS REPORT ---
Author Author Minnie Gutierrez [facility] Address [address] [place], [place] [address] Care Team Providers Care Customs Entry Clerk Name Role Phone Minnie Gutierrez PCP Unavailable [...] SC/IM Reviewed 11/06/2010 12:00 AM Decadron Inj.1mg-([facility]) [facility] #[id number] Reviewed 11/06/2010 12:00 AM Depo-Medrol 80 Mg Im/[facility] [id number] Reviewed 05/12/2012 12:00 AM SPECIMEN HANDLING OFFICE-LAB [...] AM Benadryl, Up to 50 Mg [facility]# [id number] Reviewed Results Summary Data and Description Results [...] Number Policy Group Number Start Date Amerigroup [place] State Plan Amerigroup [place] State Plan [id number] N/A Nationwide Health Plans Nationwide Life Insurance Clai [id number] Sunday, 2012 Free Clinic - [place] [facility] ONLY Free Clinic [id number] N/A [employer] Insurance [employer] Insuran [id number] N/A Amerigroup [place] Amerigroup [place] [id number] N/A History of Encounters Visit Date Visit Type Provider 10/29/2014 Office visit Minnie Gutierrez MD 08/07/2014 Office visit Deloris PRADO 07/10/2014 Office visit Kae Tariq COOKIE PADDER 03/29/2014 Voided Jose Carlos Neal MD 03/12/2014 Office visit Jose Carlos Neal MD 02/08/2014 Office visit Jose Carlos Neal MD 01/30/2014 Office visit Jose Carlos Neal MD 07/20/2013 Voided Conrad Bee COOKIE PADDER 07/13/2013 Office visit Conrad Bee COOKIE PADDER 11/09/2012 Office visit FRANK PRADO 08/15/2012 Office visit FRANK PRADO 05/12/2012 Office visit FRANK PRADO 04/05/2012 Office visit FRANK PRADO 11/06/2010 Office visit Frank Houston PA-C
--- OUTSIDE RECORDS SUMMARY | 2017-12-29 15:47 | XMS REPORT ---
Author Author [facility] Organization [facility] Address [address] [place], [place] [address] Care Team Providers Care Canal Lock Tender Chief Operator Name Role Phone PCP Unavailable Allergies and [...] with food for 7 days Bactrim DS oral tablet 800-160 mg 07/10/2014 07/20/2014 take 1 tablet by oral route every 12 hours for 10 days Bactroban topical ointment 2 % 07/10/2014 08/07/2014 apply a small amount to the affected area by topical route 3 times per day for 14 days Ciprodex otic drops,suspension 0.3-0.1 % 08/07/2014 08/14/2014 instill 4 drops into left ear by otic route 2 times per day for 7 days Benadryl oral capsule 25 mg 08/07/2014 08/09/2014 take 1 capsule by oral [...] HC BMI BSA BMI Percentile O2 Sat(%) 08/07/2014 5:51:00 PM 102 mmHg 76 mmHg [...] 2014 5:58PM Dermatitis Aug 07 2014 5:58PM Payers Insurance Name Company Name Plan Name Plan Number Policy Number Policy Group Number Start Date Amerigroup [place] Amerigroup [place] [id number] N/A Nationwide Health Plans Nationwide Life Insurance Clai [id number] Sunday, 2012 [place] - [place] Community [facility] [place] Free Clinic [id number] N/A [employer] Insurance Company [employer] Life Insuran [id number] N/A Amerigroup [place] Amerigroup [place] [id number] N/A History of Encounters Visit Date Visit Type Provider 08/07/2014 Office visit Deloris PRADO 07/10/2014 Office visit Kae Tariq PROPERTY ASSISTANT 03/29/2014 Voided Jose Carlos Neal MD 03/12/2014 Office visit Jose Carlos Neal MD 02/08/2014 Office visit Jose Carlos Neal MD 01/30/2014 Office visit Jose Carlos Neal MD 07/20/2013 Voided Conrad Bee PROPERTY ASSISTANT 07/13/2013 Office visit Conrad Bee PROPERTY ASSISTANT 11/09/2012 Office visit FRANK PRADO 08/15/2012 Office visit FRANK PRADO 05/12/2012 Office visit FRANK PRADO 04/05/2012 Office visit FRANK PRADO 11/06/2010 Office visit Frank Houston PA-C
--- OUTSIDE RECORDS SUMMARY | 2017-12-29 15:47 | XMS REPORT ---
Author Author Minnie Gutierrez [facility] Address [address] [place], [place] [address] Care Team Providers Care Oral Hygienist Name Role Phone Minnie Gutierrez PCP Unavailable [...] Reviewed 11/06/2010 12:00 AM Decadron Inj.1mg-([facility]) [facility] #[id number] Reviewed 11/06/2010 12:00 AM Depo-Medrol 80 Mg Im/[facility] [id number] Reviewed 05/12/2012 12:00 AM SPECIMEN HANDLING OFFICE-LAB Reviewed 01/30/2014 12:00 AM CHORIONIC GONADOTROPIN TEST Returned 01/30/2014 12:00 AM US PREG UTERUS REAL TIME W/IMAGE DCMTN TRANSVAG Reviewed 01/30/2014 12:00 AM CHORIONIC GONADOTROPIN TEST Returned 02/12/2014 12:00 AM URINALYSIS AUTO W/SCOPE Returned 03/12/2014 12:00 AM URINALYSIS AUTO W/SCOPE Returned 03/12/2014 12:00 AM URINALYSIS AUTO W/SCOPE Returned 08/07/2014 12:00 AM Benadryl, Up to 50 Mg [facility]# [id number] Reviewed 11/01/2014 12:00 AM OB US < [...] Number Policy Group Number Start Date Amerigroup [place] Amerigroup [place] [id number] N/A Nationwide Health Plans Nationwide Life Insurance Clai [id number] Sunday, 2012 Free Clinic - [place] [facility] ONLY Free Clinic [id number] N/A [employer] Life Insurance [employer] Life Insuran [id number] N/A Amerigroup - [place] Amerigroup [place] [id number] N/A History of Encounters Visit Date Visit Type Provider 11/26/2014 Office visit Minnie Gutierrez MD 10/29/2014 Office visit MINNIE GUTIERREZ MD 08/07/2014 Office visit Deloris PRADO 07/10/2014 Office visit Kae Tariq HOSPITAL SALES REPRESENTATIVE 03/29/2014 Voided Jose Carlos Neal MD 03/12/2014 Office visit Jose Carlos Neal MD 02/08/2014 Office visit Jose Carlos Neal MD 01/30/2014 Office visit Jose Carlos Neal MD 07/20/2013 Voided Conrad Bee HOSPITAL SALES REPRESENTATIVE 07/13/2013 Office visit Conrad Bee HOSPITAL SALES REPRESENTATIVE 11/09/2012 Office visit FRANK PRADO 08/15/2012 Office visit FRANK PRADO 05/12/2012 Office visit FRANK PRADO 04/05/2012 Office visit FRANK PRADO 11/06/2010 Office visit Frank Houston PA-C
--- OUTSIDE RECORDS SUMMARY | 2017-12-29 15:47 | XMS REPORT ---
Author Author Minnie Gutiererz [facility] Address [address] [place], [place] [address] Care Team Providers Care Butt Sawyer Name Role Phone Minnie Gutierrez PCP Unavailable [...] Reviewed 11/06/2010 12:00 AM Decadron Inj.1mg-([facility]) [facility] #[id number] Reviewed 11/06/2010 12:00 AM Depo-Medrol 80 Mg Im/St Iza[facility] [id number] Reviewed 05/12/2012 12:00 AM SPECIMEN HANDLING OFFICE-LAB Reviewed 01/30/2014 12:00 AM CHORIONIC GONADOTROPIN TEST Returned 01/30/2014 12:00 AM US PREG UTERUS REAL TIME W/IMAGE DCMTN TRANSVAG Reviewed 01/30/2014 12:00 AM CHORIONIC GONADOTROPIN TEST Returned 02/12/2014 12:00 AM URINALYSIS AUTO W/SCOPE Returned 03/12/2014 12:00 AM URINALYSIS AUTO W/SCOPE Returned 03/12/2014 12:00 AM URINALYSIS AUTO W/SCOPE Returned 08/07/2014 12:00 AM Benadryl, Up to 50 Mg [facility]# [id number] Reviewed Results Summary Data and Description Results [...] Number Policy Group Number Start Date Amerigroup [place] Amerigroup [place] [id number] N/A Nationwide Health Plans Nationwide Life Insurance Clai [id number] Sunday, 2012 [place] Clinic - [place] Community Clinic [place] Free Clinic [id number] N/A [employer] Insurance [employer] Insuran [id number] N/A Amerigroup [place] Amerigroup [place] [id number] N/A History of Encounters Visit Date Visit Type Provider 10/29/2014 Office visit Minnie Gutierrez MD 08/07/2014 Office visit Deloris PRADO 07/10/2014 Office visit Kae Tariq MECHANOTHERAPIST 03/29/2014 Voided Jose Carlos Neal MD 03/12/2014 Office visit Jose Carlos Neal MD 02/08/2014 Office visit Jose Carlos Neal MD 01/30/2014 Office visit Jose Carlos Neal MD 07/20/2013 Voided Conrad Bee MECHANOTHERAPIST 07/13/2013 Office visit Conrad Bee MECHANOTHERAPIST 11/09/2012 Office visit FRANK PRADO 08/15/2012 Office visit FRANK PRADO 05/12/2012 Office visit FRANK PRADO 04/05/2012 Office visit FRANK PRADO 11/06/2010 Office visit Frank Houston PA-C
--- OUTSIDE RECORDS SUMMARY | 2017-12-29 15:48 | XMS REPORT ---
Author Evelina Smalls [facility] Address [address] [place], [place] [address] Care Team Providers Care Policy Change Clerks Supervisor Name Role Phone Evelina Villanueva PCP FRNAK [place] PreferredProvider Allergies and Adverse Reactions Name [...] Inj.1mg-([facility]) [facility] #[id number] Reviewed 11/06/2010 12:00 AM Depo-Medrol 80 Mg Im/St Izaiah [facility] [id number] Reviewed 01/29/2015 12:00 AM OB US >/=14 [...] (Etonogestrel implant) [facility] #[id number] Reviewed 11/03/2016 12:00 AM REMOVE CONTRACEPTIVE CAPSULE [...] 50 Mg [facility]# [id number] Reviewed 11/01/2014 12:00 AM OB US < [...] Value 0.0328 ug/mLAFP MoM 0.62 hCG Value 29537.0 mIU/mLhCG MoM 1.51 uE3 Value 1.230 ng/mLuE3 MoM 0.74 SARA Value 203.190 pg/mLDIA MoM 0.99 OSBR [place] 1 [place] [address] DSR (Second Trimester) 1IN 1082 DSR (By [...] Vis Given Vis Pub CVX Tdap 05/30/2015 [employer] SKB BOOSTRIX 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 05/30/2015 [...] Plan Amerigroup - [place] [id number] N/A Amerigroup [place] Amerigroup [place] State Plan [id number] N/A Nationwide Health Plans Nationwide Life Insurance Clai [id number] Sunday, 2012 [place] - [place] Community [facility] [place] Free Clinic [id number] N/A [employer] Insurance [place] Insuran [id number] N/A History of Encounters Visit Date Visit Type Provider 05/18/2017 Office visit Evelina Villanueva STERILE PROCESSING TECHNICIAN 05/11/2017 Office visit FRANK PRADO 02/09/2017 Office visit Evelina Villanueva STERILE PROCESSING TECHNICIAN 01/20/2017 Office visit Eunice Cox STERILE PROCESSING TECHNICIAN 11/03/2016 Procedures Evelina Villanueva STERILE PROCESSING TECHNICIAN 10/06/2016 Office visit Evelina Villanueva STERILE PROCESSING TECHNICIAN 02/06/2016 Office visit Evelina Villanueva STERILE PROCESSING TECHNICIAN 09/16/2015 Office visit Evelina Villanueva STERILE PROCESSING TECHNICIAN 08/07/2015 Office visit Evelina Villanueva STERILE PROCESSING TECHNICIAN 08/05/2015 Office visit Evelina Villanueva STERILE PROCESSING TECHNICIAN 06/20/[address] Stephanie Crandall MD 06/12/[address] [facility] [address] Stephanie Crandall MD 06/11/2015 Office [...] Stephanie Crandall MD 02/20/[address] Stehpanie Crandall MD 01/23/2015 Office visit Evelina Villanueva STERILE PROCESSING TECHNICIAN 12/26/2014 Office visit DEVANTE ANDRADE MD 12/10/2014 Office visit DEVANTE ANDRADE MD 11/26/2014 Office visit DEVANTE ANDRADE MD 10/29/2014 Office visit DEVANTE ANDRADE MD 08/07/2014 Office visit Deloris PRADO 07/10/2014 Office visit Kae Tariq STERILE PROCESSING TECHNICIAN 03/29/2014 Voided Jose Carlos Neal MD 03/12/2014 Office visit 03/12/2014 Office visit Jose Carlos Neal MD 02/08/2014 Office visit Jose Carlos Neal MD 01/30/2014 Office visit Jose Carlos Neal MD 07/20/2013 Voided Conrad Bee STERILE PROCESSING TECHNICIAN 07/13/2013 Office visit Conrda Bee STERILE PROCESSING TECHNICIAN 11/09/2012 Office visit FRANK PRADO 08/15/2012 Office visit FRANK PRADO 05/12/2012 Office visit FRANK PRADO 04/05/2012 Office visit FRANK PRADO 11/06/2010 Office visit Frank Houston PA-C
--- OUTSIDE RECORDS SUMMARY | 2017-12-29 15:49 | XMS REPORT ---
Author Author Stephanie Crandall [facility] Address [address] [place], [place] [id number] Care Team Providers Care Windows Server Architect Name Role Phone KarleyStephanie beltran PCP FRANK HOUSTON PreferredProvider Allergies and Adverse [...] bpm 99.2 F 127 lbs 66 in 20.4981 kg/m 1.6378 m 0 % 05/11/2017 4:20:00 PM 108 mmHg [...] SC/IM Reviewed 11/06/2010 12:00 AM Decadron Inj.1mg-([facility]) [facility] #[id number] Reviewed 11/06/2010 12:00 AM Depo-Medrol 80 Mg Im/[facility] Izaiah [facility] [id number] Reviewed 01/29/2015 12:00 AM OB US >/=14 [...] Reviewed 02/06/2016 12:00 AM NEXPLANON (Etonogestrel implant) [facility] #[id number] Reviewed 11/03/2016 12:00 AM REMOVE CONTRACEPTIVE CAPSULE [...] UTERUS REAL TIME W/IMAGE DCMTN TRANSVAG Reviewed 05/12/2012 12:00 AM SPECIMEN HANDLING OFFICE-LAB Reviewed 01/30/2014 12:00 AM CHORIONIC GONADOTROPIN TEST Reviewed 01/30/2014 12:00 AM US PREG UTERUS REAL TIME W/IMAGE DCMTN TRANSVAG Reviewed 01/30/2014 12:00 AM CHORIONIC GONADOTROPIN TEST Reviewed 02/12/2014 12:00 AM URINALYSIS AUTO W/SCOPE Reviewed 03/12/2014 12:00 AM URINALYSIS AUTO W/SCOPE Reviewed 03/12/2014 12:00 AM URINALYSIS AUTO W/SCOPE Reviewed 08/07/2014 12:00 AM Benadryl, Up to 50 Mg [facility]# [id number] Reviewed 11/01/2014 12:00 AM OB US < [...] Value 0.0328 ug/mLAFP MoM 0.62 hCG Value 25585.0 mIU/mLhCG MoM 1.51 uE3 Value 1.230 ng/mLuE3 MoM 0.74 SARA Value 203.190 pg/mLDIA MoM 0.99 OSBR [place] 1 [place] [address] DSR (Second Trimester) 1IN 1082 DSR (By [...] ng/ mLOxycodone NON-NEGATIVE Propoxyphene (PPX) NEGATIVE ng/mL History Of Immunizations Name Date Admin Mfg Name Mfg Code Trade Name Lot# Route Inj Vis Given Vis Pub CVX Tdap 05/30/2015 GlaxBMEYE SKB BOOSTRIX 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 05/30/2015 [...] in first trimester May 27 2017 4:56PM Payers Insurance Name Company Name Plan Name Plan Number Policy Number Policy Group Number Start Date Amerigroup - [place] Amerigroup [place] Plan [id number] N/A Amerigroup [place] State Plan Amerigroup [place] State Plan [id number] N/A Nationwide Health Plans Nationwide Life Insurance Clai [id number] Sunday, 2012 [place] [facility] [id number] N/A [employer] Insurance [employer] Insuran [id number] N/A History of Encounters Visit Date Visit Type Provider 06/24/[address] Stephanie Crandall MD 05/27/[address] Stephanie Crandall MD 05/18/2017 Office visit Evelina Villanueva NUCLEAR PHYSICIST 05/11/2017 Office visit FRANK PRADO 02/09/2017 Office visit Evelina Villanueva NUCLEAR PHYSICIST 01/20/2017 Office visit Eunice Thomasong NUCLEAR PHYSICIST 11/03/2016 Procedures Evelina Villanueva NUCLEAR PHYSICIST 10/06/2016 Office visit Evelina Villanueva NUCLEAR PHYSICIST 02/06/2016 Office visit Evelina Villanueva NUCLEAR PHYSICIST 09/16/2015 Office visit Evelina Villanueva NUCLEAR PHYSICIST 08/07/2015 Office visit Evelina Villanueva NUCLEAR PHYSICIST 08/05/2015 Office visit Evelina Villanueva NUCLEAR PHYSICIST 06/20/[address] Stephanie Crandall MD 06/12/[address] [facility] [address] Stephanie Crandall MD 06/11/2015 Office visit [...] Crandall MD 01/23/2015 Office visit Evelina Villanueva NUCLEAR PHYSICIST 12/26/2014 Office visit DEVANTE ANDRADE MD 12/10/2014 Office visit DEVANTE ANDRADE MD 11/26/2014 Office visit DEVANTE ANDRADE MD 10/29/2014 Office visit DEVANTE ANDRADE MD 08/07/2014 Office visit Deloris PRADO 07/10/2014 Office visit Kae Tariq NUCLEAR PHYSICIST 03/29/2014 Voided Jose Carlos Neal MD 03/12/2014 Office visit 03/12/2014 Office visit Jose Carlos Neal MD 02/08/2014 Office visit Jose Carlos Neal MD 01/30/2014 Office visit Jose Carlos Neal MD 07/20/2013 Voided Conrad Bee NUCLEAR PHYSICIST 07/13/2013 Office visit Conrad Bee NUCLEAR PHYSICIST 11/09/2012 Office visit FRANK PRADO 08/15/2012 Office visit FRANK PRADO 05/12/2012 Office visit FRANK PRADO 04/05/2012 Office visit FRANK PRADO 11/06/2010 Office visit Frank Houston PA-C
--- OUTSIDE RECORDS SUMMARY | 2017-12-29 15:50 | XMS REPORT ---
Author Author Stephanie Crandall [facility] Address [address] [place], [place] [id number] Care Team Providers Care Data Examination Clerk Name Role Phone Stephanie Crandall PCP FRANK HOUSTON PreferredProvider Allergies and Adverse Reactions Name Reaction Notes NO KNOWN DRUG ALLERGIES Plan of Treatment Planned Activity Comments Planned Date Planned Time Plan/Goal STREP SCREEN 07/04/2017 12:00 AM Medications Active Name Start [...] SC/IM Reviewed 11/06/2010 12:00 AM Decadron Inj.1mg-([facility]) [facility] #[id number] Reviewed 11/06/2010 12:00 AM Depo-Medrol 80 Mg Im/St Izaiah [facility] [id number] Reviewed 01/29/2015 12:00 AM OB US >/=14 [...] 02/06/2016 12:00 AM NEXPLANON (Etonogestrel implant) [facility] #[id number] Reviewed 11/03/2016 12:00 AM REMOVE CONTRACEPTIVE CAPSULE [...] REAL TIME W/IMAGE DCMTN TRANSVAG Reviewed 07/04/2017 12:00 AM CULTURE SCREEN ONLY Reviewed 07/04/2017 4:42 PM STREP A ASSAY [...] AM Benadryl, Up to 50 Mg [facility]# [id number] Reviewed 11/01/2014 12:00 AM OB US < [...] Value 0.0328 ug/mLAFP MoM 0.62 hCG Value 18477.0 mIU/mLhCG MoM 1.51 uE3 Value 1.230 ng/mLuE3 MoM 0.74 SARA Value 203.190 pg/mLDIA MoM 0.99 OSBR [place] 1 [place] [address] DSR (Second Trimester) 1IN 1082 DSR (By [...] Vis Given Vis Pub CVX Tdap 05/30/2015 Misoca SKB BOOSTRIX 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 05/30/2015 [...] Plan Amerigroup [place] [id number] N/A Amerigroup [place] Amerigroup [place] Plan [id number] N/A Nationwide Health Plans Nationwide Life Insurance Clai [id number] Sunday, 2012 [place] Free Clinic [id number] N/A [employer] Life Insurance [employer] Insuran [id number] N/A History of Encounters Visit Date Visit Type Provider 07/22/[address] Stephanie Crandall MD 07/04/2017 Office visit Chuck Tai NP 06/24/[address] Stephanie Crandall MD 05/27/[address] Stephanie Crandall MD 05/18/2017 Office visit Evelina Villanueva WIENER PACKER 05/11/2017 Office visit FRANK PRADO 02/09/2017 Office visit Evelina Villanueva WIENER PACKER 01/20/2017 Office visit Eunice Cox WIENER PACKER 11/03/2016 Procedures Evelina Villanueva WIENER PACKER 10/06/2016 Office visit Evelina Villanueva WIENER PACKER 02/06/2016 Office visit Evelina Villanueva WIENER PACKER 09/16/2015 Office visit Evelina Villanueva WIENER PACKER 08/07/2015 Office visit Evelina Villanueva WIENER PACKER 08/05/2015 Office visit Evelina Villanueva WIENER PACKER 06/20/[address] Stephanie Crandall MD 06/12/[address] [facility] [address] Stephanie Crandall MD 06/11/2015 Office [...] Crandall MD 01/23/2015 Office visit Evelina Villanueva WIENER PACKER 12/26/2014 Office visit DEVANTE ANDRADE MD 12/10/2014 Office visit DEVANTE ANDRADE MD 11/26/2014 Office visit DEVANTE ANDRADE MD 10/29/2014 Office visit DEVANTE ANDRADE MD 08/07/2014 Office visit Deloris PRADO 07/10/2014 Office visit Kae Tariq WIENER PACKER 03/29/2014 Voided Jose Carlos Neal MD 03/12/2014 Office visit 03/12/2014 Office visit Jose Carlos Neal MD 02/08/2014 Office visit Jose Carlos Neal MD 01/30/2014 Office visit Jose Carlos Neal MD 07/20/2013 Voided Conrad Bee WIENER PACKER 07/13/2013 Office visit Conrad Bee WIENER PACKER 11/09/2012 Office visit FRANK PRADO 08/15/2012 Office visit FRANK PRADO 05/12/2012 Office visit FRANK PRADO 04/05/2012 Office visit FRANK PRADO 11/06/2010 Office visit Frank Houston PA-C
--- OUTSIDE RECORDS SUMMARY | 2017-12-29 15:51 | XMS REPORT ---
Author Author Stephanie Crandall [facility] Address [address] [place], [place] [address] Care Team Providers Care Dance Teacher Name Role Phone Stephanie Crandall PCP Unavailable [...] Reviewed 11/06/2010 12:00 AM Decadron Inj.1mg-([facility]) [facility] #[id number] Reviewed 11/06/2010 12:00 AM Depo-Medrol 80 Mg Im/[facility] [id number] Reviewed 01/29/2015 12:00 AM OB US >/=14 [...] 12:00 AM Benadryl, Up to [address] [facility]# [id number] Reviewed 11/01/2014 12:00 AM OB US < [...] Value 0.0328 ug/mLAFP MoM 0.62 hCG Value 63480.0 mIU/ mLhCG MoM 1.51 uE3 Value 1.230 ng/mLuE3 MoM 0.74 SARA Value 203.190 pg/mLDIA MoM 0.99 OSBR [place] 1 [place] [address] DSR (Second Trimester) 1IN 1082 DSR (By [...] Number Policy Group Number Start Date [facility] State Plan [id number] N/A Nationwide Health Plans Nationwide Life Insurance [facility] [id number] Sunday, 2012 [place] Free Clinic [id number] N/A [employer] Life Insurance Company [employer] Insuran [id number] N/A Amerigroup [place] Amerigroup [place] [id number] N/A History of Encounters Visit Date Visit Type Provider 05/01/[address] Stephanie Crandall MD 04/29/[address] Stephanie Crandall MD 04/03/[address] Stephanie Crandall MD 03/20/[address] Stephanie Crandall MD 02/20/[address] Stephanie Crandall MD 01/23/2015 Office visit Evelina Villanueva ANIMAL TRAINER 12/26/2014 Office visit DEVANTE ANDRADE MD 12/10/2014 Office visit DEVANTE ANDRADE MD 11/26/2014 Office visit DEVANTE ANDRADE MD 10/29/2014 Office visit DEVANTE ANDRADE MD 08/07/2014 Office visit Deloris PRADO 07/10/2014 Office visit Kae Tariq ANIMAL TRAINER 03/29/2014 Voided Jose Carlos Neal MD 03/12/2014 Office visit 03/12/2014 Office visit Jose Carlos Neal MD 02/08/2014 Office visit Jose Carlos Neal MD 01/30/2014 Office visit Jose Carlos Neal MD 07/20/2013 Voided Conrad Bee ANIMAL TRAINER 07/13/2013 Office visit Conrad Bee ANIMAL TRAINER 11/09/2012 Office visit FRANK PRADO 08/15/2012 Office visit FRANK PRADO 05/12/2012 Office visit FRANK PRADO 04/05/2012 Office visit FRANK PRADO 11/06/2010 Office visit Frank Houston PA-C
--- OUTSIDE RECORDS SUMMARY | 2017-12-29 15:51 | XMS REPORT ---
Author Author Stephanie Crandall [facility] Address [address] [place], [place] [phone] Care Team Providers Care Vending Supervisor Name Role Phone Stephanie Crandall PCP Unavailable [...] SC/IM Reviewed 11/06/2010 12:00 AM Decadron Inj.1mg-([facility]) [facility] #[id number] Reviewed 11/06/2010 12:00 AM Depo-Medrol 80 Mg Im/St Iza[facility] [id number] Reviewed 01/29/2015 12:00 AM OB US >/=14 [...] 12:00 AM Benadryl, Up to 50 Mg [facility]# [id number] Reviewed 11/01/2014 12:00 AM OB US < [...] Value 0.0328 ug/mLAFP MoM 0.62 hCG Value 42600.0 mIU/ mLhCG MoM 1.51 uE3 Value 1.230 ng/mLuE3 MoM 0.74 SARA Value 203.190 pg/mLDIA MoM 0.99 OSBR [place] 1 [place] [address] DSR (Second Trimester) 1IN 1082 DSR (By [...] Policy Number Policy Group Number Start Date [facility] State Plan [id number] N/A Nationwide Health Plans Nationwide Life Insurance [facility] [id number] Sunday, 2012 [place] Free Clinic [id number] N/A [employer] Life Insurance Company [employer] Insuran [id number] N/A Amerigroup [place] Amerigroup [place] [id number] N/A History of Encounters Visit Date Visit [...] Deloris PRADO 07/10/2014 Office visit Kae Tariq BILL DISTRIBUTOR 03/29/2014 Voided Jose Carlos eNal MD 03/12/2014 Office visit 03/12/2014 Office visit Jose Carlos Neal MD 02/08/2014 Office visit Jose Carlos Neal MD 01/30/2014 Office visit Jose Carlos Neal MD 07/20/2013 Voided Conrad Bee BILL DISTRIBUTOR 07/13/2013 Office visit Conrad Bee BILL DISTRIBUTOR 11/09/2012 Office visit FRANK PRADO 08/15/2012 Office visit FRANK PRADO 05/12/2012 Office visit FRANK PRADO 04/05/2012 Office visit FRANK PRADO 11/06/2010 Office visit Frank Houston PA-C
--- OUTSIDE RECORDS SUMMARY | 2017-12-29 15:51 | XMS REPORT ---
Author Author Stephanie Crandall [facility] Address [address] [place], [place] [address] Care Team Providers Care Change Management Coordinator Name Role Phone Stephanie Crandall PCP Unavailable [...] problems Active Vital Signs Date Time BP-Sys(mm[Hg] BP-Saar(mm[Hg]) HR(bpm) RR(rpm) Temp WT HT HC BMI [...] Reviewed 11/06/2010 12:00 AM Decadron Inj.1mg-([facility]za[facility]) [facility] #[id number] Reviewed 11/06/2010 12:00 AM Depo-Medrol 80 Mg Im/St Izaiah [facility] [id number] Reviewed 01/29/2015 12:00 AM OB US >/=14 [...] Benadryl, Up to 50 Mg [facility]# [id number] Reviewed 11/01/2014 12:00 AM OB US < [...] Value 0.0328 ug/mLAFP MoM 0.62 hCG Value 53254.0 mIU/ mLhCG MoM 1.51 uE3 Value 1.230 ng/mLuE3 MoM 0.74 SARA Value 203.190 pg/mLDIA MoM 0.99 OSBR [place] 1 [place] [address] DSR (Second Trimester) 1IN 1082 DSR (By [...] Number Policy Group Number Start Date [facility] State Plan [id number] N/A Nationwide Health Plans Nationwide Life Insurance [facility] [id number] Sunday, 2012 [place] Free Clinic [id number] N/A [employer] Insuran [id number] N/A Amerigroup [place] Amerigroup [place] [id number] N/A History of Encounters Visit Date Visit Type Provider 05/23/[address] Stephanie Crandall MD 05/16/[address] Stephanie Crandall MD 05/01/[address] Stephanie Crandall MD 04/29/[address] Stephanie Crandall MD 04/03/[address] Stephanie Crandall MD 03/20/[address] Stephanie Crandall MD 02/20/[address] Stephanie Crandall MD 01/23/2015 Office visit Evelina Villanueva INTERNET RESEARCHER 12/26/2014 Office visit DEVANTE ANDRADE MD 12/10/2014 Office visit DEVANTE ANDRADE MD 11/26/2014 Office visit DEVANTE ANDRADE MD 10/29/2014 Office visit DEVANTE ANDRADE MD 08/07/2014 Office visit Deloris PRADO 07/10/2014 Office visit Kae Tariq INTERNET RESEARCHER 03/29/2014 Voided Jose Carlos Neal MD 03/12/2014 Office visit 03/12/2014 Office visit Jose Carlos Neal MD 02/08/2014 Office visit Jose Carlos Neal MD 01/30/2014 Office visit Jose Carlos Neal MD 07/20/2013 Voided Conrad Bee INTERNET RESEARCHER 07/13/2013 Office visit Conrad Bee INTERNET RESEARCHER 11/09/2012 Office visit FRANK PRADO 08/15/2012 Office visit FRANK PRADO 05/12/2012 Office visit FRANK PRADO 04/05/2012 Office visit FRANK PRADO 11/06/2010 Office visit Frank Houston PA-C
--- OUTSIDE RECORDS SUMMARY | 2017-12-29 15:52 | XMS REPORT ---
Author Author Evelina Villanueva [facility] Address [address] [place], [place] [address] Care Team Providers Care Welcome Desk Agent Name Role Phone Evelina Villanuvea PCP FRANK HOUSTON PreferredProvider Allergies and Adverse [...] AM HEPATITIS C AB 05/18/2017 12:00 AM OB Complete Sono, Less than 14 weeks 05/24/2017 12:00 AM Medications Active Name Start Date [...] 12:00 AM Decadron Inj.1mg-([facility]) [facility] #[id number] Reviewed 11/06/2010 12:00 AM Depo-Medrol 80 Mg Im/St Izaiah [facility] [id number] Reviewed 01/29/2015 12:00 AM OB US >/=14 [...] Reviewed 02/06/2016 12:00 AM NEXPLANON (Etonogestrel implant) [facility] #[id number] Reviewed 11/03/2016 12:00 AM REMOVE CONTRACEPTIVE CAPSULE [...] 12:00 AM Benadryl, Up to 50 Mg [facility]# [id number] Reviewed 11/01/2014 12:00 AM OB US < [...] Value 0.0328 ug/mLAFP MoM 0.62 hCG Value 53945.0 mIU/mLhCG MoM 1.51 uE3 Value 1.230 ng/mLuE3 MoM 0.74 SARA Value 203.190 pg/mLDIA MoM 0.99 OSBR [place] 1 [place] [address] DSR (Second Trimester) 1IN 1082 DSR (By [...] Vis Given Vis Pub CVX Tdap 05/30/2015 dscout SKB BOOSTRIX 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 05/30/2015 [...] Plan Amerigroup [place] [id number] N/A Amer[place] Amerigroup [place] Plan [id number] N/A Nationwide Health Plans Nationwide Life Insurance Clai [id number] Sunday, 2012 [place] Free Clinic [id number] N/A [employer] Insuran [id number] N/A History of Encounters Visit Date Visit Type Provider 05/18/2017 Office visit Evelina Villanueva RELIEF DRILLER 05/11/2017 Office visit FRANK PRADO 02/09/2017 Office visit Evelina Villanueva RELIEF DRILLER 01/20/2017 Office visit Eunice Cox RELIEF DRILLER 11/03/2016 Procedures Evelina Villanueva RELIEF DRILLER 10/06/2016 Office visit Evelina Villanueva RELIEF DRILLER 02/06/2016 Office visit Evelina Villanueva RELIEF DRILLER 09/16/2015 Office visit Evelina Villanueva RELIEF DRILLER 08/07/2015 Office visit Evelina Villanueva RELIEF DRILLER 08/05/2015 Office visit Evelina Villanueva RELIEF DRILLER 06/20/[address] Stephanie Crandall MD 06/12/[address] [facility] [address] Stephanie Crandall MD 06/11/2015 Office [...] Crandall MD 01/23/2015 Office visit Evelina Villanueva RELIEF DRILLER 12/26/2014 Office visit DEVANTE ANDRADE MD 12/10/2014 Office visit DEVANTE ANDRADE MD 11/26/2014 Office visit DEVANTE ANDRADE MD 10/29/2014 Office visit DEVANTE ANDRADE MD 08/07/2014 Office visit Deloris PRADO 07/10/2014 Office visit Kae Tariq RELIEF DRILLER 03/29/2014 Voided Jose Carlos Neal MD 03/12/2014 Office visit 03/12/2014 Office visit Jose Carlos Neal MD 02/08/2014 Office visit Jose Carlos Neal MD 01/30/2014 Office visit Jose Carlos Neal MD 07/20/2013 Voided Conrad Bee RELIEF DRILLER 07/13/2013 Office visit Conrad Bee RELIEF DRILLER 11/09/2012 Office visit FRANK PRADO 08/15/2012 Office visit FRANK PRADO 05/12/2012 Office visit FRANK PRADO 04/05/2012 Office visit FRANK PRADO 11/06/2010 Office visit Frank Houston PA-C
--- OUTSIDE RECORDS SUMMARY | 2017-12-29 15:53 | XMS REPORT ---
Author Frank Ayers [facility] Address [address] [place], [place] [address] Care Team Providers Care Anthropology Faculty Member Name Role Phone Frank Ingram PCP Unavailable [...] SC/IM Reviewed 11/06/2010 12:00 AM Decadron Inj.1mg-([facility].Iza[facility]) [facility] #[id number] Reviewed 11/06/2010 12:00 AM Depo-Medrol 80 Mg Im/St Izaiah [facility] [id number] Reviewed 01/29/2015 12:00 AM OB US >/=14 [...] 12:00 AM Benadryl, Up to 50 Mg [facility]# [id number] Reviewed 11/01/2014 12:00 AM OB US < [...] Value 0.0328 ug/mLAFP MoM 0.62 hCG Value 47055.0 mIU/ mLhCG MoM 1.51 uE3 Value 1.230 ng/mLuE3 MoM 0.74 SARA Value 203.190 pg/mLDIA MoM 0.99 OSBR [place] 1 [place] [address] DSR (Second Trimester) 1IN 1082 DSR (By [...] 3.72 HGB 11.70 g/dLHCT 34.50 %MCV 93.0 [facility] 31.50 pgHC 33.90 g/dLRDW CV 12.0 [...] Vis Given Vis Pub CVX Tdap 05/30/2015 Sprio SKB BOOSTRIX 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 05/30/2015 [...] Number Policy Group Number Start Date Amerigroup [place] Amerigroup [place] [id number] N/A Nationwide Health Plans Nationwide Life Insurance Clai [id number] Sunday, 2012 [place] Clinic - [place] Community [place] Free Clinic [id number] N/A [employer] Life Insurance [employer] Life Insuran [id number] N/A Amerigroup [place] Amerigroup [place] [id number] N/A History of Encounters Visit Date Visit [...] Crandall MD 01/23/2015 Office visit Evelina Villanueva TANDEM MILL STICKER 12/26/2014 Office visit DEVANTE ANDRADE MD 12/10/2014 Office visit DEVANTE ANDRADE MD 11/26/2014 Office visit DEVANTE ANDRADE MD 10/29/2014 Office visit DEVANTE ANDRADE MD 08/07/2014 Office visit Deloris PRADO 07/10/2014 Office visit Kae Tariq TANDEM MILL STICKER 03/29/2014 Voided Jose Carlos Neal MD 03/12/2014 Office visit 03/12/2014 Office visit Jose Carlos Neal MD 02/08/2014 Office visit Jose Carlos Neal MD 01/30/2014 Office visit Jose Carlos Neal MD 07/20/2013 Voided Conrad Bee TANDEM MILL STICKER 07/13/2013 Office visit Conrad Bee TANDEM MILL STICKER 11/09/2012 Office visit FRANK PRADO 08/15/2012 Office visit FRANK PRADO 05/12/2012 Office visit FRANK PRADO 04/05/2012 Office visit FRANK PRADO 11/06/2010 Office visit Frank Houston PA-C
--- OUTSIDE RECORDS SUMMARY | 2017-12-29 15:54 | XMS REPORT ---
Author Author Minnie Gutierrez [facility] Address [address] [place], [place] [address] Care Team Providers Care Towboat Captain Name Role Phone Minnie Gutierrez PCP Unavailable [...] SC/IM Reviewed 11/06/2010 12:00 AM Decadron Inj.1mg-([facility]) [facility] #[id number] Reviewed 11/06/2010 12:00 AM Depo-Medrol 80 Mg Im/St Izaiah [facility] [id number] Reviewed 05/12/2012 12:00 AM SPECIMEN HANDLING OFFICE-LAB Reviewed 01/30/2014 12:00 AM CHORIONIC GONADOTROPIN TEST Returned 01/30/2014 12:00 AM US PREG UTERUS REAL TIME W/IMAGE DCMTN TRANSVAG Reviewed 01/30/2014 12:00 AM CHORIONIC GONADOTROPIN TEST Returned 02/12/2014 12:00 AM URINALYSIS AUTO W/SCOPE Returned 03/12/2014 12:00 AM URINALYSIS AUTO W/SCOPE Returned 03/12/2014 12:00 AM URINALYSIS AUTO W/SCOPE Returned 08/07/2014 12:00 AM Benadryl, Up to 50 Mg [facility]# [id number] Reviewed Results Summary Data and Description Results [...] Number Policy Group Number Start Date Amerigroup [place] Amerigroup [place] Plan [id number] N/A Nationwide Health Plans Nationwide Life Insurance Clai [id number] Sunday, 2012 [place] Clinic [place] Community [place] Free Clinic [id number] N/A [employer] Insuran [id number] N/A Amerigroup [place] Amerigroup [place] [id number] N/A History of Encounters Visit Date Visit Type Provider 10/29/2014 Office visit Minnie Gutierrez MD 08/07/2014 Office visit Deloris PRADO 07/10/2014 Office visit Kae Tariq PLASTIC PANEL INSTALLER 03/29/2014 Voided Jose Carlos Neal MD 03/12/2014 Office visit Jose Carlos Neal MD 02/08/2014 Office visit Jose Carlos Neal MD 01/30/2014 Office visit Jose Carlos Neal MD 07/20/2013 Voided Conrad Bee PLASTIC PANEL INSTALLER 07/13/2013 Office visit Conrad Bee PLASTIC PANEL INSTALLER 11/09/2012 Office visit FRANK PRADO 08/15/2012 Office visit FRANK PRADO 05/12/2012 Office visit FRANK PRADO 04/05/2012 Office visit FRANK PRADO 11/06/2010 Office visit Frank Houston PA-C
--- OUTSIDE RECORDS SUMMARY | 2017-12-29 15:54 | XMS REPORT ---
Author Author Evelina Villanueva [facility] Address [address] [place], [place] [address] Care Team Providers Care Descriptive Catalog Librarian Name Role Phone Evelina Villanueva PCP FRANK [...] [facility] #[id number] Reviewed 11/06/2010 12:00 AM Depo-Medrol 80 Mg Im/[facility] [id number] Reviewed 01/29/2015 12:00 AM OB US >/=14 [...] Reviewed 02/06/2016 12:00 AM NEXPLANON (Etonogestrel implant) [facility] #[id number] Reviewed 11/03/2016 12:00 AM REMOVE CONTRACEPTIVE CAPSULE [...] [facility]# [id number] Reviewed 11/01/2014 12:00 AM OB US < [...] Value 0.0328 ug/mLAFP MoM 0.62 hCG Value 51959.0 mIU/mLhCG MoM 1.51 uE3 Value 1.230 ng/mLuE3 MoM 0.74 SARA Value 203.190 pg/mLDIA MoM 0.99 [place]BR [place] 1 [place] [address] DSR (Second Trimester) 1IN 1082 DSR (By [...] Vis Given Vis Pub CVX Tdap 05/30/2015 [employer] SKB BOOSTRIX 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 05/30/2015 [...] Acute Amenorrhea, unspecified May 11 2017 4:21PM Payers Insurance Name Company Name Plan Name Plan Number Policy Number Policy Group Number Start Date Amerigroup - [place] State Plan Amerigroup - [place] State Plan [id number] N/A Amerigroup [place] State Plan Amerigroup [place] State Plan [id number] N/A Nationwide Health Plans Nationwide Life Insurance [facility] [id number] Sunday, 2012 [place] Clinic - [place] Community Clinic ONLY Free Clinic [id number] N/A [place] Insurance [employer] Insuran [id number] N/A History of Encounters Visit Date Visit Type Provider 05/18/2017 Office visit Evelina Villanueva PESTICIDE CHEMIST 05/11/2017 Office visit FRANK PRADO 02/09/2017 Office visit Evelina Villanueva PESTICIDE CHEMIST 01/20/2017 Office visit Eunice LAdeline Cox PESTICIDE CHEMIST 11/03/2016 Procedures Evelina Villanueva PESTICIDE CHEMIST 10/06/2016 Office visit Evelina Villanueva PESTICIDE CHEMIST 02/06/2016 Office visit Evelina Villanueva PESTICIDE CHEMIST 09/16/2015 Office visit Evelina Villanueva PESTICIDE CHEMIST 08/07/2015 Office visit Evelina Villanueva PESTICIDE CHEMIST 08/05/2015 Office visit Evelina Villanueva PESTICIDE CHEMIST 06/20/[address] Stephanie Crandall MD 06/12/[address] [facility] [address] Stephanie Crandall MD 06/11/2015 [...] Crandall MD 01/23/2015 Office visit Evelina Villanueva PESTICIDE CHEMIST 12/26/2014 Office visit DEVANTE ANDRADE MD 12/10/2014 Office visit DEVANTE ANDRADE MD 11/26/2014 Office visit DEVANTE ANDRADE MD 10/29/2014 Office visit DEVANTE ANDRADE MD 08/07/2014 Office visit Deloris PRADO 07/10/2014 Office visit Kae Tariq PESTICIDE CHEMIST 03/29/2014 Voided Jose Carlos Neal MD 03/12/2014 Office visit 03/12/2014 Office visit Jose Carlos Neal MD 02/08/2014 Office visit Jose Carlos Neal MD 01/30/2014 Office visit Jose Carlos Neal MD 07/20/2013 Voided Conrad Bee PESTICIDE CHEMIST 07/13/2013 Office visit Conrad Bee APRN 11/09/2012 Office visit FRANK PRADO 08/15/2012 Office visit FRANK PRADO 05/12/2012 Office visit FRANK PRADO 04/05/2012 Office visit FRANK PRADO 11/06/2010 Office visit Frank Houston PA-C
--- OUTSIDE RECORDS SUMMARY | 2017-12-29 15:55 | XMS REPORT ---
Author Author FRANK HOUSTON [facility] Address [address] [place], [place] [phone] Care Team Providers Care Motorcoach Driver Name Role Phone FRANK HOUSTON PCP FRANK HOUSTON PreferredProvider Allergies and Adverse Reactions Name Reaction Notes NO KNOWN DRUG ALLERGIES Plan of Treatment Not available. Medications Active Name Start Date Estimated Completion Date SIG Comments Bactrim DS 800-160 mg oral tablet 05/11/2017 take 1 tablet by oral route 2 times a day for 7 days Name Start Date Expiration Date SIG [...] HC BMI BSA BMI Percentile O2 Sat(%) 05/11/2017 4:20:00 PM 108 mmHg 70 mmHg [...] [facility] #[id number] Reviewed 11/06/2010 12:00 AM Depo-Medrol 80 Mg Im/[facility] [id number] Reviewed 01/29/2015 12:00 AM OB US >/=14 [...] Reviewed 02/06/2016 12:00 AM NEXPLANON (Etonogestrel implant) [facility] #[id number] Reviewed 11/03/2016 12:00 AM REMOVE CONTRACEPTIVE CAPSULE [...] 12:00 AM Benadryl, Up to 50 Mg [facility]# [id number] Reviewed 11/01/2014 12:00 AM OB US < [...] Value 0.0328 ug/mLAFP MoM 0.62 hCG Value 45290.0 mIU/mLhCG MoM 1.51 uE3 Value 1.230 ng/mLuE3 MoM 0.74 SARA Value 203.190 pg/mLDIA MoM 0.99 OSBR [place] 1 [place] [address] DSR (Second Trimester) 1IN 1082 DSR (By [...] Plan Amerigroup - [place] State Plan [id number] N/A Amerigroup [place] State Plan Amerigroup [place] State Plan [id number] N/A Nationwide Health Plans Nationwide Life Insurance Clai [id number] Sunday, 2012 [place] Clinic - [place] Community Clinic [place] [facility] [id number] N/A [employer] Insurance [employer] Insuran [id number] N/A History of Encounters Visit Date Visit Type Provider 05/11/2017 Office visit FRANK PRADO 02/09/2017 Office visit Evelina Villanueva IT OPERATIONS ANALYST 01/20/2017 Office visit Eunice Cox IT OPERATIONS ANALYST 11/03/2016 Procedures Evelina CedricAdeline Villanueva IT OPERATIONS ANALYST 10/06/2016 Office visit Evelina CedricAdeline Villanueva IT OPERATIONS ANALYST 02/06/2016 Office visit Evelina CedricAdeline Villanueva IT OPERATIONS ANALYST 09/16/2015 Office visit Evelina CedricAdeline Villanueva IT OPERATIONS ANALYST 08/07/2015 Office visit Evelina CedricAdeline Villanueva IT OPERATIONS ANALYST 08/05/2015 Office visit Evelina CedricAdeline Villanueva IT OPERATIONS ANALYST 06/20/[address] Stephanie Crandall MD 06/12/[address] [facility] [address] Stephanie Crandall MD 06/11/2015 [...] Crandall MD 01/23/2015 Office visit Evelina Villanueva IT OPERATIONS ANALYST 12/26/2014 Office visit DEVANTE ANDRADE MD 12/10/2014 Office visit DEVANTE ANDRADE MD 11/26/2014 Office visit DEVANTE ANDRADE MD 10/29/2014 Office visit DEVANTE ANDRADE MD 08/07/2014 Office visit Deloris PRADO 07/10/2014 Office visit Kae Tariq IT OPERATIONS ANALYST 03/29/2014 Voided Jose Carlos Neal MD 03/12/2014 Office visit 03/12/2014 Office visit Jose Carlos Neal MD 02/08/2014 Office visit Jose Carlos Neal MD 01/30/2014 Office visit Jose Carlos Neal MD 07/20/2013 Voided Conrad Bee IT OPERATIONS ANALYST 07/13/2013 Office visit Conrad Bee IT OPERATIONS ANALYST 11/09/2012 Office visit FRANK PRADO 08/15/2012 Office visit FRANK PRADO 05/12/2012 Office visit FRANK PRADO 04/05/2012 Office visit FRANK PRADO 11/06/2010 Office visit Frank Houston PA-C
--- OUTSIDE RECORDS SUMMARY | 2017-12-29 15:55 | XMS REPORT ---
Author Evelina Smalls [facility] Address [address] [place], [place] [address] Care Team Providers Care Director Radio Name Role Phone Evelina Villanueva PCP Unavailable Allergies and Adverse Reactions Name Reaction Notes NO KNOWN DRUG ALLERGIES Plan of Treatment Not available. Medications Active Name Start Date Estimated Completion Date SIG Comments NuvaRing 0.12-0.015 mg/24 hr vaginal ring 09/16/2015 12/09/2015 insert 1 vaginal ring by vaginal route once a month leave in place for 3 weeks, remove for 1 week for 21 days Name Start Date Expiration Date SIG [...] by intrauterine route daily for 1 day Discontinued Name [...] Inj.1mg-([facility]) [facility] #[id number] Reviewed 11/06/2010 12:00 AM Depo-Medrol 80 Mg Im/[facility] [id number] Reviewed 01/29/2015 12:00 AM OB US >/=14 [...] 12:00 AM Benadryl, Up to 50 Mg [facility]# [id number] Reviewed 11/01/2014 12:00 AM OB US < [...] Value 0.0328 ug/mLAFP MoM 0.62 hCG Value 44529.0 mIU/ mLhCG MoM 1.51 uE3 Value 1.230 ng/mLuE3 MoM 0.74 SARA Value 203.190 pg/mLDIA MoM 0.99 OSBR [place] 1 [place] [address] DSR (Second Trimester) 1IN 1082 DSR (By [...] Vis Given Vis Pub CVX Tdap 05/30/2015 [employer] SKB BOOSTRIX 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 05/30/2015 [...] Policy Number Policy Group Number Start Date [facility] State Plan [id number] N/A Nationwide Health Plans Nationwide Life Insurance [facility] [id number] Sunday, 2012 [place] Clinic - [place] Community Clinic ONLY Free Clinic [id number] N/A VTL Group Insurance [place] Insuran [id number] N/A Amerigroup - RHC - [place] State Plan Amerigroup - [facility] State Plan [id number] N/A History of Encounters Visit Date Visit Type Provider 09/16/2015 Office visit Evelina Villanueva ADVERTISING INSERTER 08/07/2015 Office visit Evelina Villanueva ADVERTISING INSERTER 08/05/2015 Office visit Evelina Villanueva ADVERTISING INSERTER 06/20/[address] Stephanie Crandall MD [...] Crandall MD 01/23/2015 Office visit Evelina Villanueva ADVERTISING INSERTER 12/26/2014 Office visit DEVANTE ANDRADE MD 12/10/2014 Office visit DEVANTE ANDRADE MD 11/26/2014 Office visit DEVANTE ANDRADE MD 10/29/2014 Office visit DEVANTE ANDRADE MD 08/07/2014 Office visit Deloris PRADO 07/10/2014 Office visit Kae Tariq ADVERTISING INSERTER 03/29/2014 Voided Jose Carlos Neal MD 03/12/2014 Office visit 03/12/2014 Office visit Jose Carlos Neal MD 02/08/2014 Office visit Jose Carlos Neal MD 01/30/2014 Office visit Jose Carlos Neal MD 07/20/2013 Voided Conrad Bee ADVERTISING INSERTER 07/13/2013 Office visit Conrad Bee ADVERTISING INSERTER 11/09/2012 Office visit FRANK PRADO 08/15/2012 Office visit FRANK PRADO 05/12/2012 Office visit FRANK PRADO 04/05/2012 Office visit FRANK PRADO 11/06/2010 Office visit Frank Houston PA-C
--- OUTSIDE RECORDS SUMMARY | 2017-12-29 15:56 | XMS REPORT ---
Author Author Stephanie Crandall [facility] Address [address] [place], [place] [phone] Care Team Providers Care Teen Counselor Name Role Phone Stephanie Crandall PCP Unavailable [...] AM Decadron Inj.1mg-([facility]) [facility] #[id number] Reviewed 11/06/2010 12:00 AM Depo-Medrol 80 Mg Im/[facility] [id number] Reviewed 01/29/2015 12:00 AM OB US >/=14 [...] Mg [facility]# [id number] Reviewed 11/01/2014 12:00 AM OB US < [...] Value 0.0328 ug/mLAFP MoM 0.62 hCG Value 61502.0 mIU/ mLhCG MoM 1.51 uE3 Value 1.230 ng/mLuE3 MoM 0.74 SARA Value 203.190 pg/mLDIA MoM 0.99 OSBR [place] 1 [place] [address] DSR (Second Trimester) 1IN 1082 DSR (By [...] 1.60 #MONO 0.56 #EOS 0.06 #BASO 0.01 History Of Immunizations Not available. History of [...] Number Policy Group Number Start Date Amerigroup [place] State Plan Amerigroup [place] State Plan [id number] N/A Nationwide Health Plans Nationwide Life Insurance [facility] [id number] Sunday, 2012 [place] Clinic - [place] Community Clinic ONLY Free Clinic [id number] N/A [employer] Insuran [id number] N/A Amerigroup - [place] Amerigroup - [place] [id number] N/A History of Encounters Visit Date Visit Type Provider 04/29/[address] Stephanie Crandall MD 04/03/[address] Stephanie Crandall MD 03/20/[address] Stephanie Crandall MD 02/20/[address] Stephanie Crandall MD 01/23/2015 Office visit Evelina Villanueva SENIOR INTERACTIVE PRODUCER 12/26/2014 Office visit DEVANTE ANDRADE MD 12/10/2014 Office visit DEVANTE ANDRADE MD 11/26/2014 Office visit DEVANTE ANDRADE MD 10/29/2014 Office visit DEVANTE ANDRADE MD 08/07/2014 Office visit Deloris PRADO 07/10/2014 Office visit Kae Tariq SENIOR INTERACTIVE PRODUCER 03/29/2014 Voided Jose Carlos Neal MD 03/12/2014 Office visit 03/12/2014 Office visit Jose Carlos Neal MD 02/08/2014 Office visit Jose Carlos Neal MD 01/30/2014 Office visit Jose Carlos Neal MD 07/20/2013 Voided Conrad Bee SENIOR INTERACTIVE PRODUCER 07/13/2013 Office visit Conrad Bee SENIOR INTERACTIVE PRODUCER 11/09/2012 Office visit FRANK PRADO 08/15/2012 Office visit FRANK PRADO 05/12/2012 Office visit FRANK PRADO 04/05/2012 Office visit FRANK PRADO 11/06/2010 Office visit Frank Houston PA-C
--- OUTSIDE RECORDS SUMMARY | 2017-12-29 15:57 | XMS REPORT ---
Author Author Minnie Gutierrez [facility] Address [address] [place], [place] [address] Care Team Providers Care Refinery Technician Name Role Phone Minnie Gutierrez PCP Unavailable [...] Reviewed 11/06/2010 12:00 AM Decadron Inj.1mg-([facility]) [facility] #[id number] Reviewed 11/06/2010 12:00 AM Depo-Medrol 80 Mg Im/[facility] [id number] Reviewed 05/12/2012 12:00 AM SPECIMEN HANDLING OFFICE-LAB [...] Up to [address] [facility]# [id number] Reviewed 11/01/2014 12:00 AM OB US < [...] Number Policy Group Number Start Date Amerigroup [place] State Plan Amerigroup [place] State Plan [id number] N/A Nationwide Health Plans Nationwide Life Insurance Clai [id number] Sunday, 2012 [facility] Clinic - [place] [facility] Clinic ONLY Free Clinic [id number] N/A [employer] Life Insurance [employer] Life Insuran [id number] N/A Amerigroup - [place] Amerigroup [place] [id number] N/A History of Encounters Visit Date Visit Type Provider 11/26/2014 Office visit Minnie Gutierrez MD 10/29/2014 Office visit MINNIE GUTIERREZ MD 08/07/2014 Office visit Deloris PRADO 07/10/2014 Office visit Kae Tariq VIOLIN REPAIRER 03/29/2014 Voided Jose Carlos Neal MD 03/12/2014 Office visit Jose Carlos Neal MD 02/08/2014 Office visit Jose Carlos Neal MD 01/30/2014 Office visit Jose Carlos Neal MD 07/20/2013 Voided Conrad Bee VIOLIN REPAIRER 07/13/2013 Office visit Conrad Bee VIOLIN REPAIRER 11/09/2012 Office visit FRANK PRADO 08/15/2012 Office visit FRANK PRAOD 05/12/2012 Office visit FRANK PRADO 04/05/2012 Office visit FRANK PRADO 11/06/2010 Office visit Frank Houston PA-C
--- OUTSIDE RECORDS SUMMARY | 2017-12-29 15:57 | XMS REPORT ---
Author Author Stephanie Crandall [facility] Address [address] [place], [place] [address] Care Team Providers Care Hand Cloth Cutter Name Role Phone Stephanie Crandall PCP Unavailable [...] AM Decadron Inj.1mg-([facility]) [facility] #[id number] Reviewed 11/06/2010 12:00 AM Depo-Medrol 80 Mg Im/[facility] [id number] Reviewed 01/29/2015 12:00 AM OB US >/=14 [...] to 50 Mg [facility]# [id number] Reviewed 11/01/2014 12:00 AM OB US < [...] Value 0.0328 ug/mLAFP MoM 0.62 hCG Value 95373.0 mIU/ mLhCG MoM 1.51 uE3 Value 1.230 ng/mLuE3 MoM 0.74 SARA Value 203.190 pg/mLDIA MoM 0.99 OSBR Risk 1 [place] [address] DSR (Second Trimester) 1IN 1082 DSR (By [...] [place] Amerigroup [place] [id number] N/A Nationwide Health Plans Nationwide Life Insurance Clai [id number] Sunday, 2012 [place] Clinic [place] Community Clinic [place] Free Clinic [id number] N/A [employer] Insurance [place] Insuran [id number] N/A Amerigroup - [place] Amerigroup [place] State [place] [id number] N/A History of Encounters Visit Date Visit Type Provider 03/20/[address] Stephanie Crandall MD 02/20/[address] Stephanie Crandall MD 01/23/2015 Office visit Evelina Villanueva FRONT COUNTER ATTENDANT 12/26/2014 Office visit DEVANTE ANDRADE MD 12/10/2014 Office visit DEVANTE ANDRADE MD 11/26/2014 Office visit DEVANTE ANDRADE MD 10/29/2014 Office visit DEVANTE ANDRADE MD 08/07/2014 Office visit Deloris PRADO 07/10/2014 Office visit Kae Tariq FRONT COUNTER ATTENDANT 03/29/2014 Voided Jose Carlos Neal MD 03/12/2014 Office visit 03/12/2014 Office visit Jose Carlos Neal MD 02/08/2014 Office visit Jose Carlos Neal MD 01/30/2014 Office visit Jose Carlos Neal MD 07/20/2013 Voided Conrad Bee FRONT COUNTER ATTENDANT 07/13/2013 Office visit Conrad Bee FRONT COUNTER ATTENDANT 11/09/2012 Office visit FRANK PRADO 08/15/2012 Office visit FRANK PRADO 05/12/2012 Office visit FRANK PRADO 04/05/2012 Office visit FRANK PRADO 11/06/2010 Office visit Frank Houston PA-C
--- OUTSIDE RECORDS SUMMARY | 2017-12-29 15:57 | XMS REPORT ---
Author Author Evelina Villanueva [facility] Address [address] [place], [place] [address] Care Team Providers Care Ledger Clerk Name Role Phone Evelina Villanueva PCP Unavailable [...] oral route once daily in the morning Mirena 20 mcg/24 hr (5 years) intrauterine intrauterine device 08/07/20152015 place 1 device by intrauterine route daily for 1 day Name Start Date Expiration [...] SC/IM Reviewed 11/06/2010 12:00 AM Decadron Inj.1mg-([facility]) [facility] #[id number] Reviewed 11/06/2010 12:00 AM Depo-Medrol 80 Mg Im/[facility] [id number] Reviewed 01/29/2015 12:00 AM OB US >/=14 [...] AM Benadryl, Up to 50 Mg [facility]# [id number] Reviewed 11/01/2014 12:00 AM OB US < [...] Value 0.0328 ug/mLAFP MoM 0.62 hCG Value 17376.0 mIU/ mLhCG MoM 1.51 uE3 Value 1.230 ng/mLuE3 MoM 0.74 SARA Value 203.190 pg/mLDIA MoM 0.99 OSBR [place] 1 [place] [address] DSR (Second Trimester) 1IN 1082 DSR (By [...] Vis Given Vis Pub CVX Tdap 05/30/2015 Gl[employer] SKB BOOSTRIX 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 05/30/2015 [...] 4:26PM IUD insertion Aug 07 2015 4:22PM Payers Insurance Name Company Name Plan Name Plan Number Policy Number Policy Group Number Start Date Amerigroup [employer] State Plan Amerigroup [employer] State Plan [id number] N/A [employer] Health Plans Nationwide Life Insurance Clai [id number] Sunday, 2012 Free Clinic - [place] [facility] Clinic ONLY Free Clinic [id number] N/A [employer] Insuran [id number] N/A Amerigroup - [place] Amerigroup - [place] [id number] N/A History of Encounters Visit Date Visit Type Provider 08/07/2015 Office visit Evelina Villanueva CRUSHER PLANT OPERATOR 08/05/2015 Office visit Evelina Villanueva CRUSHER PLANT OPERATOR 06/20/[address] Stephanie Crandall MD 06/12/[address] [facility] [address] Stephanie Crandall MD 06/11/2015 [...] Crandall MD 01/23/2015 Office visit Evelina Villanueva CRUSHER PLANT OPERATOR 12/26/2014 Office visit DEVANTE ANDRADE MD 12/10/2014 Office visit DEVANTE ANDRADE MD 11/26/2014 Office visit DEVANTE ANDRADE MD 10/29/2014 Office visit DEVANTE ANDRADE MD 08/07/2014 Office visit Deloris PRADO 07/10/2014 Office visit Kae Tariq CRUSHER PLANT OPERATOR 03/29/2014 Voided Jose Carlos Neal MD 03/12/2014 Office visit 03/12/2014 Office visit Jose Carlos Neal MD 02/08/2014 Office visit Jose Carlos Neal MD 01/30/2014 Office visit Jose Carlos Neal MD 07/20/2013 Voided Conrad Bee CRUSHER PLANT OPERATOR 07/13/2013 Office visit Conrad Bee CRUSHER PLANT OPERATOR 11/09/2012 Office visit FRANK PRADO 08/15/2012 Office visit FRANK PRADO 05/12/2012 Office visit FRANK PRADO 04/05/2012 Office visit FRANK PRADO 11/06/2010 Office visit Frank Houston PA-C
--- OUTSIDE RECORDS SUMMARY | 2017-12-29 15:58 | XMS REPORT ---
Author Evelina Smalls [facility] Address [address] [place], [place] [address] Care Team Providers Care Sales Associate Fishing Name Role Phone Evelina Villanueva PCP FRANK [...] SC/IM Reviewed 11/06/2010 12:00 AM Decadron Inj.1mg-([facility]) [facility] #[id number] Reviewed 11/06/2010 12:00 AM Depo-Medrol 80 Mg Im/[facility] [id number] Reviewed 01/29/2015 12:00 AM OB US >/=14 [...] Reviewed 02/06/2016 12:00 AM NEXPLANON (Etonogestrel implant) [facility] #[id number] Reviewed 11/03/2016 12:00 AM REMOVE CONTRACEPTIVE CAPSULE [...] to 50 Mg [facility]# [id number] Reviewed 11/01/2014 12:00 AM OB US < [...] Value 0.0328 ug/mLAFP MoM 0.62 hCG Value 55332.0 mIU/mLhCG MoM 1.51 uE3 Value 1.230 ng/mLuE3 MoM 0.74 SARA Value 203.190 pg/mLDIA MoM 0.99 OSBR [place] 1 [place] [address] DSR (Second Trimester) 1IN 1082 DSR (By [...] Vis Given Vis Pub CVX Tdap 05/30/2015 [employer] SKB BOOSTRIX 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 05/30/2015 [...] Plan Amerigroup - [place] [id number] N/A Amer[place] Amerigroup [place] State Plan [id number] N/A Nationwide Health Plans Nationwide Life Insurance Clai [id number] Sunday, 2012 [place] Community Clinic [place] Free Clinic [id number] N/A [employer] Insurance [employer] Insuran [id number] N/A History of Encounters Visit Date Visit Type Provider 05/18/2017 Office visit Evelina Villanueva CIGAR HEAD PERFORATOR 05/11/2017 Office visit FRANK PRADO 02/09/2017 Office visit Evelina Villanueva CIGAR HEAD PERFORATOR 01/20/2017 Office visit Eunice Cox CIGAR HEAD PERFORATOR 11/03/2016 Procedures Evelina Villanueva CIGAR HEAD PERFORATOR 10/06/2016 Office visit Evelina Villanueva CIGAR HEAD PERFORATOR 02/06/2016 Office visit Evelina Villanueva CIGAR HEAD PERFORATOR 09/16/2015 Office visit Evelina Villanueva CIGAR HEAD PERFORATOR 08/07/2015 Office visit Evelina Villanueva CIGAR HEAD PERFORATOR 08/05/2015 Office visit Evelina Villanueva CIGAR HEAD PERFORATOR 06/20/[address] Stephanie Crandall MD 06/12/[address] [facility] [address] Stephanie Crandall MD 06/11/2015 Office [...] Crandall MD 01/23/2015 Office visit Evelina Villanueva CIGAR HEAD PERFORATOR 12/26/2014 Office visit DEVANTE ANDRADE MD 12/10/2014 Office visit DEVANTE ANDRADE MD 11/26/2014 Office visit DEVANTE ANDRADE MD 10/29/2014 Office visit DEVANTE ANDRADE MD 08/07/2014 Office visit Deloris PRADO 07/10/2014 Office visit Kae Tariq CIGAR HEAD PERFORATOR 03/29/2014 Voided Jose Carlos Neal MD 03/12/2014 Office visit 03/12/2014 Office visit Jose Carlos Neal MD 02/08/2014 Office visit Jose Carlos Neal MD 01/30/2014 Office visit Jose Carlos Neal MD 07/20/2013 Voided Conrad Bee CIGAR HEAD PERFORATOR 07/13/2013 Office visit Conrad Bee CIGAR HEAD PERFORATOR 11/09/2012 Office visit FRANK PRADO 08/15/2012 Office visit FRANK PRADO 05/12/2012 Office visit FRANK PRADO 04/05/2012 Office visit FRANK PRADO 11/06/2010 Office visit Frank Houston PA-C
--- OUTSIDE RECORDS SUMMARY | 2017-12-29 15:59 | XMS REPORT ---
Author Author Stephanie Crandall [facility] Address [address] [place], [place] [id number] Care Team Providers Care Glove Examiner Name Role Phone Stephanie Crandall PCP Unavailable [...] Decadron Inj.1mg-([facility]) [facility] #[id number] Reviewed 11/06/2010 12:00 AM Depo-Medrol 80 Mg Im/St Izaiah [facility] [id number] Reviewed 01/29/2015 12:00 AM OB US >/=14 [...] to 50 Mg [facility]# [id number] Reviewed 11/01/2014 12:00 AM OB US < [...] Value 0.0328 ug/mLAFP MoM 0.62 hCG Value 49516.0 mIU/ mLhCG MoM 1.51 uE3 Value 1.230 ng/mLuE3 MoM 0.74 SARA Value 203.190 pg/mLDIA MoM 0.99 OSBR [place] 1 [place] [address] DSR (Second Trimester) 1IN 1082 DSR (By [...] Vis Given Vis Pub CVX Tdap 05/30/2015 [facility] SKB BOOSTRIX 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 05/30/2015 [...] Number Policy Group Number Start Date Amerigroup [place] Amerigroup [place] [id number] N/A Nationwide Health Plans Nationwide Life Insurance Clai [id number] Sunday, 2012 [place] Clinic - [place] Community Clinic [place] Free Clinic [id number] N/A [employer] Life Insurance [employer] Life Insuran [id number] N/A Amerigroup - [place] State [place] Amerigroup [place] State [place] [id number] N/A History of Encounters Visit Date Visit Type Provider 06/04/[address] Stephanie Crandall MD [...] Crandall MD 01/23/2015 Office visit Evelina Villanueva STRATEGIC MARKETING ASSOCIATE 12/26/2014 Office visit DEVANTE ANDRADE MD 12/10/2014 Office visit DEVANTE ANDRADE MD 11/26/2014 Office visit DEVANTE ANDRADE MD 10/29/2014 Office visit DEVANTE ANDRADE MD 08/07/2014 Office visit Delorisjarod PRADO 07/10/2014 Office visit Kae Tariq STRATEGIC MARKETING ASSOCIATE 03/29/2014 Voided Jose Carlos Neal MD 03/12/2014 Office visit 03/12/2014 Office visit Jose Carlos Neal MD 02/08/2014 Office visit Jose Carlos Neal MD 01/30/2014 Office visit Jose Carlos Neal MD 07/20/2013 Voided Conrad Bee STRATEGIC MARKETING ASSOCIATE 07/13/2013 Office visit Conrad Bee STRATEGIC MARKETING ASSOCIATE 11/09/2012 Office visit FRANK PRADO 08/15/2012 Office visit FRANK PRADO 05/12/2012 Office visit FRANK PRADO 04/05/2012 Office visit FRANK PRADO 11/06/2010 Office visit Frank Houston PA-C
--- OUTSIDE RECORDS SUMMARY | 2017-12-29 16:00 | XMS REPORT ---
Author Author Evelina Villanueva [facility] Address [address] [place], [place] [address] Care Team Providers Care Preflight Inspector Name Role Phone Evelina Villanueva PCP [...] 12:00 AM Decadron Inj.1mg-([facility]) [facility] #[id number] Reviewed 11/06/2010 12:00 AM Depo-Medrol 80 Mg Im/St Izaiah [facility] [id number] Reviewed 01/29/2015 12:00 AM OB US >/=14 [...] 12:00 AM Benadryl, Up to [address] [facility]# [id number] Reviewed 11/01/2014 12:00 AM OB US < [...] Value 0.0328 ug/mLAFP MoM 0.62 hCG Value 77112.0 mIU/ mLhCG MoM 1.51 uE3 Value 1.230 ng/mLuE3 MoM 0.74 SARA Value 203.190 pg/mLDIA MoM 0.99 OSBR [place] 1 [place] [address] DSR (Second Trimester) 1IN 1082 DSR (By [...] Vis Given Vis Pub CVX Tdap 05/30/2015 [employer] SKB BOOSTRIX 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 05/30/2015 [...] [place] Amerigroup [place] [id number] N/A Nationwide Health Plans Nationwide Life Insurance Clai [id number] Sunday, 2012 [place] Clinic [place] Community [place] Free Clinic [id number] N/A [employer] Life Insurance Get[employer] Life Insuran [id number] N/A Amerigroup - [place] State [place] Amerigroup [place] State Plan [id number] N/A History of Encounters Visit Date Visit Type Provider 08/05/2015 Office visit Evelina Villanueva STORE ADMINISTRATOR 06/20/[address] Stephanie Crandall MD 06/12/[address] [facility] Dr. Stephanie Crandall MD 06/11/2015 Office [...] Crandall MD 01/23/2015 Office visit Evelina Villanueva STORE ADMINISTRATOR 12/26/2014 Office visit DEVANTE ANDRADE MD 12/10/2014 Office visit DEVANTE ANDRADE MD 11/26/2014 Office visit DEVANTE ANDRADE MD 10/29/2014 Office visit DEVANTE ANDRADE MD 08/07/2014 Office visit Deloris PRADO 07/10/2014 Office visit Kae Tariq STORE ADMINISTRATOR 03/29/2014 Voided Jose Carlos Neal MD 03/12/2014 Office visit 03/12/2014 Office visit Jose Carlos Neal MD 02/08/2014 Office visit Jose Carlos Neal MD 01/30/2014 Office visit Jose Carlos Neal MD 07/20/2013 Voided Conrad Bee STORE ADMINISTRATOR 07/13/2013 Office visit Conrad Bee APRN 11/09/2012 Office visit FRANK PRADO 08/15/2012 Office visit FRANK PRADO 05/12/2012 Office visit FRANK PRADO 04/05/2012 Office visit FRANK PRADO 11/06/2010 Office visit Frank Houston PA-C
--- OUTSIDE RECORDS SUMMARY | 2017-12-29 16:00 | XMS REPORT ---
Author Evelina Smalls [facility] Address [address] [place], [place] [address] Care Team Providers Care Holistic Health Practitioner Name Role Phone Evelina Villanueva PCP Allergies [...] SC/IM Reviewed 11/06/2010 12:00 AM Decadron Inj.1mg-([facility]) [facility] #[id number] Reviewed 11/06/2010 12:00 AM Depo-Medrol 80 Mg Im/St Izaiah [facility] [id number] Reviewed 01/29/2015 12:00 AM OB US >/=14 [...] Reviewed 02/06/2016 12:00 AM NEXPLANON (Etonogestrel implant) [facility] #[id number] Reviewed 11/03/2016 12:00 AM REMOVE CONTRACEPTIVE CAPSULE [...] to [address] [facility]# [id number] Reviewed 11/01/2014 12:00 AM OB US < [...] Value 0.0328 ug/mLAFP MoM 0.62 hCG Value 55938.0 mIU/mLhCG MoM 1.51 uE3 Value 1.230 ng/mLuE3 MoM 0.74 CARMELLA Value 203.190 pg/mLDIA MoM 0.99 [place]BR [place] 1 [place] [address] DSR (Second Trimester) 1IN 1082 DSR (By [...] Vis Given Vis Pub CVX Tdap 05/30/2015 [employer] SKB BOOSTRIX 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 05/30/2015 [...] Plan Amerigroup - [place] State Plan [id number] N/A Amerigroup [place] State [place] Amerigroup [place] State Plan [id number] N/A Nationwide Health Plans Nationwide Life Insurance Clai [id number] Sunday, 2012 [place] Free Clinic [id number] N/A [employer] Insuran [id number] N/A History of Encounters Visit Date Visit Type Provider 02/09/2017 Office visit Evelina Villanueva PHYSICAL THERAPY TEACHER 01/20/2017 Office visit Eunice Cox PHYSICAL THERAPY TEACHER 11/03/2016 Procedures Evelina Villanueva PHYSICAL THERAPY TEACHER 10/06/2016 Office visit Evelina Villanueva PHYSICAL THERAPY TEACHER 02/06/2016 Office visit Evelina Villanueva PHYSICAL THERAPY TEACHER 09/16/2015 Office visit Evelina Villanueva PHYSICAL THERAPY TEACHER 08/07/2015 Office visit Evelina Villanueva PHYSICAL THERAPY TEACHER 08/05/2015 Office visit Evelina Villanueva PHYSICAL THERAPY TEACHER 06/20/[address] Stephanie Crandall MD 06/12/[address] [facility] [address] Stephanie Crandall MD 06/11/2015 [...] Crandall MD 01/23/2015 Office visit Evelina Villanueva PHYSICAL THERAPY TEACHER 12/26/2014 Office visit DEVANTE ANDRADE MD 12/10/2014 Office visit DEVANTE ANDRADE MD 11/26/2014 Office visit DEVANTE ANDRADE MD 10/29/2014 Office visit DEVANTE ANDRADE MD 08/07/2014 Office visit Deloris PRADO 07/10/2014 Office visit Kae Tariq PHYSICAL THERAPY TEACHER 03/29/2014 Voided Jose Carlos Neal MD 03/12/2014 Office visit 03/12/2014 Office visit Jose Carlos Neal MD 02/08/2014 Office visit Jose Carlos Neal MD 01/30/2014 Office visit Jose Carlos Neal MD 07/20/2013 Voided Conrad Bee PHYSICAL THERAPY TEACHER 07/13/2013 Office visit Conrad Bee PHYSICAL THERAPY TEACHER 11/09/2012 Office visit FRANK PRADO 08/15/2012 Office visit FRANK PRADO 05/12/2012 Office visit FRANK PRADO 04/05/2012 Office visit FRANK PRADO 11/06/2010 Office visit Frank Houston PA-C
--- OUTSIDE RECORDS SUMMARY | 2017-12-29 16:01 | XMS REPORT ---
Author Author Stephanie Crandall [facility] Address [address] [place], [place] [phone] Care Team Providers Care Hot Die Picker Name Role Phone KarleyStephanie beltran PCP FRANK [...] AM Decadron Inj.1mg-([facility]) [facility] #[id number] Reviewed 11/06/2010 12:00 AM Depo-Medrol 80 Mg Im/St Iza[facility] [id number] Reviewed 01/29/2015 12:00 AM OB US >/=14 [...] 02/06/2016 12:00 AM NEXPLANON (Etonogestrel implant) [facility] #[id number] Reviewed 11/03/2016 12:00 AM REMOVE CONTRACEPTIVE CAPSULE [...] AM Benadryl, Up to 50 Mg [facility]# [id number] Reviewed 11/01/2014 12:00 AM OB US < [...] Value 0.0328 ug/mLAFP MoM 0.62 hCG Value 56501.0 mIU/mLhCG MoM 1.51 uE3 Value 1.230 ng/mLuE3 MoM 0.74 SARA Value 203.190 pg/mLDIA MoM 0.99 OSBR [place] 1 [place] [address] DSR (Second Trimester) 1IN 1082 DSR (By [...] Vis Given Vis Pub CVX Tdap 05/30/2015 [employer] SKB BOOSTRIX 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 05/30/2015 [...] Plan Amerigroup [place] [id number] N/A Amerigroup [place] Amerigroup [place] State Plan [id number] N/A Nationwide Health Plans Nationwide Life Insurance Clai [id number] Sunday, 2012 [place] Free Clinic [id number] N/A [employer] Insurance [employer] Insuran [id number] N/A History of Encounters Visit Date Visit Type Provider 06/24/[address] Stephanie Crandall MD 05/27/[address] Stephanie Crandall MD 05/18/2017 Office visit Evelina Villanueva CARPENTRY SPECIALIST 05/11/2017 Office visit FRANK PRADO 02/09/2017 Office visit Evelina Villanueva CARPENTRY SPECIALIST 01/20/2017 Office visit Eunice Thomasong CARPENTRY SPECIALIST 11/03/2016 Procedures Evelina Villanueva CARPENTRY SPECIALIST 10/06/2016 Office visit Evelina Villanueva CARPENTRY SPECIALIST 02/06/2016 Office visit Evelina Villanueva CARPENTRY SPECIALIST 09/16/2015 Office visit Evelina Villanueva CARPENTRY SPECIALIST 08/07/2015 Office visit Evelina Villanueva CARPENTRY SPECIALIST 08/05/2015 Office visit Evelina Villanueva CARPENTRY SPECIALIST 06/20/[address] Stephanie Crandall MD 06/12/[address] [facility] [address] Stephanie Crandall MD 06/11/2015 Office visit Frank Ingram MD 06/04/[address] Stephanie Crandall MD 05/30/[address] Stephanie Crandall MD 05/23/[address] Stephanie Crandall MD 05/16/[address] Stephanie Crnadall MD 05/01/[address] Stephanie Crandall MD 04/29/[address] Stephanie Crandall MD 04/03/[address] Stephanie Crandall MD 03/20/[address] Stephanie Crandall MD 02/20/[address] Stephanie Crandall MD 01/23/2015 Office visit Evelina Villanueva CARPENTRY SPECIALIST 12/26/2014 Office visit DEVANTE ANDRADE MD 12/10/2014 Office visit DEVANTE ANDRADE MD 11/26/2014 Office visit DEVANTE ANDRADE MD 10/29/2014 Office visit DEVANTE ANDRADE MD 08/07/2014 Office visit Deloris PRADO 07/10/2014 Office visit Kae Tariq CARPENTRY SPECIALIST 03/29/2014 Voided Jose Carlos Neal MD 03/12/2014 Office visit 03/12/2014 Office visit Jose Carlos Neal MD 02/08/2014 Office visit Jose Carlos Neal MD 01/30/2014 Office visit Jose Carlos Neal MD 07/20/2013 Voided Conrad Bee CARPENTRY SPECIALIST 07/13/2013 Office visit Conrad Bee CARPENTRY SPECIALIST 11/09/2012 Office visit FRANK PRADO 08/15/2012 Office visit FRANK PRADO 05/12/2012 Office visit FRANK PRADO 04/05/2012 Office visit FRANK PRADO 11/06/2010 Office visit Frank Houston PA-C
--- OUTSIDE RECORDS SUMMARY | 2017-12-29 16:02 | XMS REPORT ---
Author Author Stephanie Crandall [facility] Address [address] [place], [place] [address] Care Team Providers Care R&D Engineer Name Role Phone Stephanie Crandall PCP Unavailable Allergies and Adverse Reactions Name Reaction Notes NO KNOWN DRUG ALLERGIES Plan of Treatment Planned Activity Comments Planned Date Planned Time Plan/Goal CULTURE SCREEN ONLY 05/23/2015 12:00 AM COMPLETE CBC W/AUTO DIFF WBC 05/23/2015 12:00 AM COMPREHEN METABOLIC PANEL 05/23/2015 12:00 AM PROTHROMBIN TIME 05/23/2015 12:00 AM THROMBOPLASTIN TIME PARTIAL 05/23/2015 12:00 AM ASSAY OF BLOOD/URIC ACID 05/23/2015 12:00 AM ASSAY OF URINE/URIC ACID 05/23/2015 12:00 AM ASSAY OF PROTEIN URINE 05/23/2015 12:00 AM [...] SC/IM Reviewed 11/06/2010 12:00 AM Decadron Inj.1mg-([facility]) [facility] #[id number] Reviewed 11/06/2010 12:00 AM Depo-Medrol 80 Mg Im/St Iza[facility] [id number] Reviewed 01/29/2015 12:00 AM OB US >/=14 [...] AM Benadryl, Up to 50 Mg [facility]# [id number] Reviewed 11/01/2014 12:00 AM OB US < [...] Value 0.0328 ug/mLAFP MoM 0.62 hCG Value 61965.0 mIU/ mLhCG MoM 1.51 uE3 Value 1.230 ng/mLuE3 MoM 0.74 SARA Value 203.190 pg/mLDIA MoM 0.99 OSBR Risk 1 [place] [address] DSR (Second Trimester) 1IN 1082 DSR (By [...] Number Policy Group Number Start Date Amerigroup [place] Amerigroup [place] [id number] N/A Nationwide Health Plans Nationwide Life Insurance Clai [id number] Sunday, 2012 [place] Clinic - [place] Community [place] Free Clinic [id number] N/A [employer] Life Insurance [employer] Life Insuran [id number] N/A Amerigroup [place] Amerigroup [place] [id number] N/A History of Encounters Visit Date Visit Type Provider 05/23/[address] Stephanie Crandall MD 05/16/[address] Stephanie Crandall MD 05/01/[address] Stephanie Crandall MD 04/29/[address] Stephanie Crandall MD 04/03/[address] Stephanie Crandall MD 03/20/[address] Stephanie Crandall MD 02/20/[address] Stephanie Crandall MD 01/23/2015 Office visit Evelina Villanueva IMPLEMENTATION MANAGER 12/26/2014 Office visit DEVANTE ANDRADE MD 12/10/2014 Office visit DEVANTE ANDRADE MD 11/26/2014 Office visit DEVANTE ANDRADE MD 10/29/2014 Office visit DEVANTE ANDRADE MD 08/07/2014 Office visit Deloris PRADO 07/10/2014 Office visit Kea Tariq IMPLEMENTATION MANAGER 03/29/2014 Voided Jose Carlos Neal MD 03/12/2014 Office visit 03/12/2014 Office visit Jose Carlos Neal MD 02/08/2014 Office visit Jose Carlos Neal MD 01/30/2014 Office visit Jose Carlos Neal MD 07/20/2013 Voided Conrad Bee IMPLEMENTATION MANAGER 07/13/2013 Office visit Conrad Bee IMPLEMENTATION MANAGER 11/09/2012 Office visit FRANK PRADO 08/15/2012 Office visit FRANK PRADO 05/12/2012 Office visit FRANK PRADO 04/05/2012 Office visit FRANK PRADO 11/06/2010 Office visit Frank Houston PA-C
--- OUTSIDE RECORDS SUMMARY | 2017-12-29 16:02 | XMS REPORT ---
Author Author Stephanie Crandall [facility] Address [address] [place], [place] [address] Care Team Providers Care Suture Polisher Name Role Phone Stephanie Crandall PCP Unavailable [...] SC/IM Reviewed 11/06/2010 12:00 AM Decadron Inj.1mg-([facility]) [facility] #[id number] Reviewed 11/06/2010 12:00 AM Depo-Medrol 80 Mg Im/St Izaiah [facility] [id number] Reviewed 01/29/2015 12:00 AM OB US >/=14 [...] AM Benadryl, Up to 50 Mg [facility]# [id number] Reviewed 11/01/2014 12:00 AM OB US < [...] Value 0.0328 ug/mLAFP MoM 0.62 hCG Value 87774.0 mIU/ mLhCG MoM 1.51 uE3 Value 1.230 ng/mLuE3 MoM 0.74 SARA Value 203.190 pg/mLDIA MoM 0.99 OSBR [place] 1 [place] [address] DSR (Second Trimester) 1IN 1082 DSR (By [...] Vis Given Vis Pub CVX Tdap 05/30/2015 [employer] SKB BOOSTRIX 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 05/30/2015 [...] Number Policy Group Number Start Date Amerigroup [place] Amer[place] [id number] N/A Nationwide Health Plans Nationwide Life Insurance Clai [id number] Sunday, 2012 [place] Clinic [place] Community [place] Free Clinic [id number] N/A [employer] Life Insurance [employer] Life Insuran [id number] N/A Amerigroup [place] Amerigroup [place] [id number] N/A History of Encounters Visit Date Visit [...] Crandall MD 01/23/2015 Office visit Evelina Villanueva ZIGZAG TUNNEL ELASTIC OPERATOR 12/26/2014 Office visit DEVANTE ANDRADE MD 12/10/2014 Office visit DEVANTE ANDRADE MD 11/26/2014 Office visit DEVANTE ANDRADE MD 10/29/2014 Office visit DEVANTE ANDRADE MD 08/07/2014 Office visit Delorisjarod PRADO 07/10/2014 Office visit Kae Tariq ZIGZAG TUNNEL ELASTIC OPERATOR 03/29/2014 Voided Jose Carlos Neal MD 03/12/2014 Office visit 03/12/2014 Office visit Jose Carlos Neal MD 02/08/2014 Office visit Jose Carlos Neal MD 01/30/2014 Office visit Jose Carlos Neal MD 07/20/2013 Voided Conrad Bee ZIGZAG TUNNEL ELASTIC OPERATOR 07/13/2013 Office visit Conrad Bee ZIGZAG TUNNEL ELASTIC OPERATOR 11/09/2012 Office visit FRANK PRADO 08/15/2012 Office visit FRANK PRADO 05/12/2012 Office visit FRANK PRADO 04/05/2012 Office visit FRANK PRADO 11/06/2010 Office visit Frank Houston PA-C
--- OUTSIDE RECORDS SUMMARY | 2017-12-29 16:04 | XMS REPORT ---
Author Author Stephanie Crandall [facility] Address [address] [place], [place] [address] Care Team Providers Care Sludge Filtration Attendant Name Role Phone Stephanie Crandall PCP Unavailable [...] INJ SC/IM Reviewed 11/06/2010 12:00 AM [facility] #[id number] Reviewed 11/06/2010 12:00 AM Depo-Medrol 80 Mg Im/St Izaiah [facility] [id number] Reviewed 01/29/2015 12:00 AM OB US >/=14 [...] 12:00 AM Benadryl, Up to 50 Mg [facility]# [id number] Reviewed 11/01/2014 12:00 AM OB US < [...] Value 0.0328 ug/mLAFP MoM 0.62 hCG Value 09144.0 mIU/ mLhCG MoM 1.51 uE3 Value 1.230 ng/mLuE3 MoM 0.74 SARA Value 203.190 pg/mLDIA MoM 0.99 OSBR [place] 1 [place] [address] DSR (Second Trimester) 1IN 1082 DSR (By [...] Vis Given Vis Pub CVX Tdap 05/30/2015 [employer] SKB BOOSTRIX 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 05/30/2015 [...] Number Start Date Amerigroup [place] State Plan [facility] [id number] N/A Nationwide Health Plans Nationwide Life Insurance Clai [id number] Sunday, 2012 [place] Clinic - [place] Community Clinic [place] Free Clinic [id number] N/A [employer] Insurance [employer] Insuran [id number] N/A Amerigroup - [facility] - [place] State Plan [facility] State Plan [id number] N/A History of Encounters Visit Date Visit [...] Crandall MD 01/23/2015 Office visit Evelina Villanueva CARDIAC SONOGRAPHER 12/26/2014 Office visit DEVANTE ANDRADE MD 12/10/2014 Office visit DEVANTE ANDRADE MD 11/26/2014 Office visit DEVANTE ANDRADE MD 10/29/2014 Office visit DEVANTE ANDRADE MD 08/07/2014 Office visit Deloris PRADO 07/10/2014 Office visit Kae Tariq CARDIAC SONOGRAPHER 03/29/2014 Voided Jose Carlos Neal MD 03/12/2014 Office visit 03/12/2014 Office visit Jose Carlos Neal MD 02/08/2014 Office visit Jose Carlos Neal MD 01/30/2014 Office visit Jose Carlos Neal MD 07/20/2013 Voided Conrad Bee CARDIAC SONOGRAPHER 07/13/2013 Office visit Conrad Bee CARDIAC SONOGRAPHER 11/09/2012 Office visit FRANK PRADO 08/15/2012 Office visit FRANK PRADO 05/12/2012 Office visit FRANK PRADO 04/05/2012 Office visit FRANK PRADO 11/06/2010 Office visit Frank Houston PA-C
--- OUTSIDE RECORDS SUMMARY | 2017-12-29 16:06 | XMS REPORT ---
Author Author Stephanie Crandall [facility] Address [address] [place], [place] [address] Care Team Providers Care Utility System Operator Name Role Phone Stephanie Crandall PCP Unavailable [...] 12:00 AM Decadron Inj.1mg-([facility]za[facility]) [facility] #[id number] Reviewed 11/06/2010 12:00 AM Depo-Medrol 80 Mg Im/St Izaiah [facility] [id number] Reviewed 01/29/2015 12:00 AM OB US >/=14 [...] 12:00 AM Benadryl, Up to 50 Mg [facility]# [id number] Reviewed 11/01/2014 12:00 AM OB US < [...] Value 0.0328 ug/mLAFP MoM 0.62 hCG Value 86739.0 mIU/ mLhCG MoM 1.51 uE3 Value 1.230 ng/mLuE3 MoM 0.74 SARA Value 203.190 pg/mLDIA MoM 0.99 OSBR [place] 1 [place] [address] DSR (Second Trimester) 1IN 1082 DSR (By [...] Policy Number Policy Group Number Start Date [facility] State Plan [id number] N/A Nationwide Health Plans Nationwide Life Insurance [facility] [id number] Sunday, 2012 [place] Clinic [place] Community [place] Free Clinic [id number] N/A [employer] Life Insurance Company [employer] Insuran [id number] N/A Amerigroup [place] Amerigroup [place] [id number] N/A History of Encounters Visit Date Visit Type Provider 05/01/[address] Stephanie Crandall MD 04/29/[address] Stephanie Crandall MD 04/03/[address] Stephanie Crandall MD 03/20/[address] Stephanie Crandall MD 02/20/[address] Stephanie Crandall MD 01/23/2015 Office visit Evelina Villanueva REGIONAL DRIVER 12/26/2014 Office visit DEVANTE ANDRADE MD 12/10/2014 Office visit DEVANTE ANDRADE MD 11/26/2014 Office visit DEVANTE ANDRADE MD 10/29/2014 Office visit DEVANTE ANDRADE MD 08/07/2014 Office visit Deloris PRADO 07/10/2014 Office visit Kae Tariq REGIONAL DRIVER 03/29/2014 Voided Jose Carlos Neal MD 03/12/2014 Office visit 03/12/2014 Office visit Jose Carlos Neal MD 02/08/2014 Office visit Jose Carlos Neal MD 01/30/2014 Office visit Jose Carlos Neal MD 07/20/2013 Voided Conrad Bee REGIONAL DRIVER 07/13/2013 Office visit Conrad Bee REGIONAL DRIVER 11/09/2012 Office visit FRANK PRADO 08/15/2012 Office visit FRANK PRADO 05/12/2012 Office visit FRANK PRADO 04/05/2012 Office visit FRANK PRADO 11/06/2010 Office visit Frank Houston PA-C
--- OUTSIDE RECORDS SUMMARY | 2017-12-29 16:07 | XMS REPORT ---
Author Author Eunice Cox Organization [facility] Address [address] [place], [place] [address] Care Team Providers Care Chucking Machine Set Up Operator Tool Name Role Phone Eunice Cox PCP Allergies and Adverse Reactions Name Reaction Notes NO KNOWN DRUG ALLERGIES Plan of Treatment Not available. Medications Active Name Start Date Estimated Completion Date SIG Comments Sprintec (28) 0.25-35 mg-mcg oral tablet 11/03/2016 take 1 tablet by oral route once daily for 84 days Name Start Date Expiration Date SIG [...] HC BMI BSA BMI Percentile O2 Sat(%) 01/20/2017 7:06:00 PM 122 mmHg 80 mmHg [...] INJ SC/IM Reviewed 11/06/2010 12:00 AM Decadron Inj.1mg-(StIzaiah) [facility] [place] #[id number] Reviewed 11/06/2010 12:00 AM Depo-Medrol 80 Mg Im/St Izaiah [facility] [id number] Reviewed 01/29/2015 12:00 AM OB US >/=14 [...] 02/06/2016 12:00 AM NEXPLANON (Etonogestrel implant) [facility] #[id number] Reviewed 11/03/2016 12:00 AM REMOVE CONTRACEPTIVE CAPSULE Reviewed 01/20/2017 12:00 AM CHORIONIC GONADOTROPIN TEST Reviewed 01/20/2017 12:00 AM COMPLETE CBC W/AUTO DIFF WBC Reviewed 01/20/2017 12:00 AM COMPREHEN METABOLIC PANEL Reviewed 01/20/2017 7:53 PM URINE TEST Reviewed 01/20/2017 7:53 PM URINALYSIS AUTO W/O SCOPE Reviewed 05/12/2012 12:00 AM SPECIMEN HANDLING OFFICE-LAB [...] AM Benadryl, Up to 50 Mg [facility]# [id number] Reviewed 11/01/2014 12:00 AM OB US < [...] Value 0.0328 ug/mLAFP MoM 0.62 hCG Value 24025.0 mIU/mLhCG MoM 1.51 uE3 Value 1.230 ng/mLuE3 MoM 0.74 SARA Value 203.190 pg/mLDIA MoM 0.99 OSBR [place] 1 [place] [address] DSR (Second Trimester) 1IN 1082 DSR (By [...] 0.04 #BASO 0.04 MANUAL DIFF NOT IND History Of Immunizations Name Date Admin Mfg Name Mfg Code Trade Name Lot# Route Inj Vis Given Vis Pub CVX Tdap 05/30/2015 [employer] SKB BOOSTRIX 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 05/30/2015 [...] 10:25AM Missed menses Jan 20 2017 7:09PM Jan 20 2017 7:09PM Payers Insurance Name Company Name Plan Name Plan Number Policy Number Policy Group Number Start Date Amerigroup - [place] Amerigroup [place] [id number] N/A Amerigroup [place] Amerigroup [place] Plan [id number] N/A Nationwide Health Plans Nationwide Life Insurance Clai [id number] Sunday, 2012 [facility] - [place] [facility] [place] Free Clinic [id number] N/A [employer] Life Insurance [employer] Insuran [id number] N/A History of Encounters Visit Date Visit Type Provider 01/20/2017 Office visit Eunice Cox STEAMFITTER APPRENTICE 11/03/2016 Procedures Evelina Villanueva STEAMFITTER APPRENTICE 10/06/2016 Office visit Evelina Villanueva STEAMFITTER APPRENTICE 02/06/2016 Office visit Evelina Villanueva STEAMFITTER APPRENTICE 09/16/2015 Office visit Evelina Villanueva STEAMFITTER APPRENTICE 08/07/2015 Office visit Evelina Villanueva STEAMFITTER APPRENTICE 08/05/2015 Office visit Evelina Villanueva STEAMFITTER APPRENTICE 06/20/[address] Stephanie Crandall MD [...] Crandall MD 01/23/2015 Office visit Evelina Villanueva STEAMFITTER APPRENTICE 12/26/2014 Office visit DEVANTE ANDRADE MD 12/10/2014 Office visit DEVANTE ANDRADE MD 11/26/2014 Office visit DEVANTE ANDRADE MD 10/29/2014 Office visit DEVANTE ANDRADE MD 08/07/2014 Office visit Deloris PRADO 07/10/2014 Office visit Kae Tariq STEAMFITTER APPRENTICE 03/29/2014 Voided Jose Carlos Neal MD 03/12/2014 Office visit 03/12/2014 Office visit Jose Carlos Neal MD 02/08/2014 Office visit Jose Carlos Neal MD 01/30/2014 Office visit Jose Carlos Neal MD 07/20/2013 Voided Conrad Bee STEAMFITTER APPRENTICE 07/13/2013 Office visit Conrad Bee STEAMFITTER APPRENTICE 11/09/2012 Office visit FRANK PRADO 08/15/2012 Office visit FRANK PRADO 05/12/2012 Office visit FRANK PRADO 04/05/2012 Office visit FRANK PRADO 11/06/2010 Office visit Frank Houston PA-C
--- OUTSIDE RECORDS SUMMARY | 2017-12-29 16:10 | XMS REPORT ---
Author Author Stephanie Crandall [facility] Address [address] [place], [place] [address] Care Team Providers Care Calciner Operator Helper Name Role Phone Stephanie Crandall PCP [...] INJ SC/IM Reviewed 11/06/2010 12:00 AM Decadron Inj.1mg-(St.Izaiha) [facility] #[id number] Reviewed 11/06/2010 12:00 AM Depo-Medrol 80 Mg Im/St Izaiah [facility] [id number] Reviewed 01/29/2015 12:00 AM OB US >/=14 [...] 12:00 AM Benadryl, Up to 50 Mg [facility]# [id number] Reviewed 11/01/2014 12:00 AM OB US < [...] Value 0.0328 ug/mLAFP MoM 0.62 hCG Value 82341.0 mIU/ mLhCG MoM 1.51 uE3 Value 1.230 ng/mLuE3 MoM 0.74 SARA Value 203.190 pg/mLDIA MoM 0.99 [place] 1 [place] [address] DSR (Second Trimester) 1IN 1082 DSR (By [...] [place] Amer[place] [id number] N/A Nationwide Health Plans Nationwide Life Insurance Clai [id number] Sunday, 2012 [place] Community Clinic [place] Free Clinic [id number] N/A [employer] Insuran [id number] N/A Amerigroup [place] Amerigroup [place] [id number] N/A History of Encounters Visit Date Visit Type Provider 02/20/[address] Stephanie Crandall MD 01/23/2015 Office visit Evelina Villanueva COLD WATER MACHINE OPERATOR 12/26/2014 Office visit DEVANTE ANDRADE MD 12/10/2014 Office visit DEVANTE ANDRADE MD 11/26/2014 Office visit DEVANTE ANDRADE MD 10/29/2014 Office visit DEVANTE ANDRADE MD 08/07/2014 Office visit Deloris PRADO 07/10/2014 Office visit Kae Tariq COLD WATER MACHINE OPERATOR 03/29/2014 Voided Jose Carlos Neal MD [...]
--- OUTSIDE RECORDS SUMMARY | 2017-12-29 16:12 | XMS REPORT ---
Author Author Stephanie Crandall [facility] Address [address] [place], [place] [address] Care Team Providers Care Estate Manager Name Role Phone Stephanie Crandall PCP Unavailable Allergies and Adverse Reactions Name Reaction Notes NO KNOWN DRUG ALLERGIES Plan of Treatment Planned Activity Comments Planned Date Planned Time Plan/Goal ASSAY OF PROTEIN URINE 05/23/2015 12:00 AM TDAP VACCINE 7 YRS/> IM 05/30/2015 12:00 AM IMMUNIZATION ADMIN 05/30/2015 12:00 AM Medications Active Name Start Date [...] AM Decadron Inj.1mg-(St.Izaiah) [facility] #[id number] Reviewed 11/06/2010 12:00 AM Depo-Medrol 80 Mg Im/St Izaiah [facility] [id number] Reviewed 01/29/2015 12:00 AM OB US >/=14 [...] AM Benadryl, Up to 50 Mg [facility]# [id number] Reviewed 11/01/2014 12:00 AM OB US < [...] Value 0.0328 ug/mLAFP MoM 0.62 hCG Value 27273.0 mIU/ mLhCG MoM 1.51 uE3 Value 1.230 ng/mLuE3 MoM 0.74 SARA Value 203.190 pg/mLDIA MoM 0.99 OSBR [place] 1 [place] [address] DSR (Second Trimester) 1IN 1082 DSR (By [...] Policy Number Policy Group Number Start Date [facility] State Plan [id number] N/A Nationwide Health Plans Nationwide Life Insurance [facility] [id number] Sunday, 2012 Free Clinic - [place] Community Clinic ONLY Free Clinic [id number] N/A [employer] Insurance [employer] Insuran [id number] N/A Amerigroup - [place] - [place] State Plan [facility] State Plan [id number] N/A History of Encounters Visit Date Visit [...] Crandall MD 01/23/2015 Office visit Evelina Villanueva OFFSHORE DIVER 12/26/2014 Office visit DEVANTE ANDRADE MD 12/10/2014 Office visit DEVANTE ANDRADE MD 11/26/2014 Office visit DEVANTE ANDRADE MD 10/29/2014 Office visit DEVANTE ANDRADE MD 08/07/2014 Office visit Deloris PRADO 07/10/2014 Office visit Kae Tariq OFFSHORE DIVER 03/29/2014 Voided Jose Carlos Neal MD 03/12/2014 Office visit 03/12/2014 Office visit Jose Carlos Neal MD 02/08/2014 Office visit Jose Carlos Neal MD 01/30/2014 Office visit Jose Carlos Neal MD 07/20/2013 Voided Conrad Bee OFFSHORE DIVER 07/13/2013 Office visit Conrad Bee OFFSHORE DIVER 11/09/2012 Office visit FRANK PRADO 08/15/2012 Office visit FRANK PRADO 05/12/2012 Office visit FRANK PRADO 04/05/2012 Office visit FRANK PRADO 11/06/2010 Office visit Frank Houston PA-C
--- OUTSIDE RECORDS SUMMARY | 2017-12-29 16:14 | XMS REPORT ---
Author Author Stephanie Crandall [facility] Address [address] [place], [place] [address] Care Team Providers Care Peanut Vendor Name Role Phone Stephanie Crandall PCP Unavailable [...] Reviewed 11/06/2010 12:00 AM Decadron Inj.1mg-(St.Izaiah) [facility] #[id number] Reviewed 11/06/2010 12:00 AM Depo-Medrol 80 Mg Im/St Izaiah [facility] [id number] Reviewed 01/29/2015 12:00 AM OB US >/=14 [...] 12:00 AM Benadryl, Up to 50 Mg [facility]# [id number] Reviewed 11/01/2014 12:00 AM OB US < [...] Value 0.0328 ug/mLAFP MoM 0.62 hCG Value 84357.0 mIU/ mLhCG MoM 1.51 uE3 Value 1.230 ng/mLuE3 MoM 0.74 SARA Value 203.190 pg/mLDIA MoM 0.99 OSBR [place] 1 [place] [address] DSR (Second Trimester) 1IN 1082 DSR (By [...] Number Policy Group Number Start Date Amerigroup [place] Amerigroup [place] [id number] N/A Nationwide Health Plans Nationwide Life Insurance Clai [id number] Sunday, 2012 [place] - [place] Community Clinic [place] Free Clinic [id number] N/A [employer] Life Insurance [employer] Life Insuran [id number] N/A Amerigroup [place] Amerigroup [place] [id number] N/A History of Encounters Visit Date Visit Type Provider 05/23/[address] Stephanie Crandall MD 05/16/[address] Stephanie Crandall MD 05/01/[address] Stephanie Crandall MD 04/29/[address] Stephanie Crandall MD 04/03/[address] Stephanie Crandall MD 03/20/[address] Stephanie Crandall MD 02/20/[address] Stephanie Crandall MD 01/23/2015 Office visit Evelina Villanueva TILE SPRAYER 12/26/2014 Office visit DEVANTE ANDRADE MD 12/10/2014 Office visit DEVANTE ANDRADE MD 11/26/2014 Office visit DEVANTE ANDRADE MD 10/29/2014 Office visit DEVANTE ANDRADE MD 08/07/2014 Office visit Deloris PRADO 07/10/2014 Office visit Kae Tariq TILE SPRAYER 03/29/2014 Voided Jose Carlos Neal MD 03/12/2014 Office visit 03/12/2014 Office visit Jose Carlos Neal MD 02/08/2014 Office visit Jose Carlos Neal MD 01/30/2014 Office visit Jose Carlos Neal MD 07/20/2013 Voided Conrad Bee TILE SPRAYER 07/13/2013 Office visit Conrad Bee TILE SPRAYER 11/09/2012 Office visit FRANK PRADO 08/15/2012 Office visit FRANK PRADO 05/12/2012 Office visit FRANK PRADO 04/05/2012 Office visit FRANK PRADO 11/06/2010 Office visit Frank Houston PA-C
--- OUTSIDE RECORDS SUMMARY | 2017-12-29 16:15 | XMS REPORT ---
Author Author Evelina Villanueva [facility] Address [address] [place], [place] [address] Care Team Providers Care Pants Busheler Name Role Phone Evelina Villanueva PCP Unavailable [...] HC BMI BSA BMI Percentile O2 Sat(%) 11/03/2016 10:23:00 AM 111 mmHg 62 mmHg [...] SC/IM Reviewed 11/06/2010 12:00 AM Decadron Inj.1mg-(St.Izaiah) [facility] #[id number] Reviewed 11/06/2010 12:00 AM Depo-Medrol 80 Mg Im/St Izaiah [facility] [id number] Reviewed 01/29/2015 12:00 AM OB US >/=14 [...] Reviewed 02/06/2016 12:00 AM NEXPLANON (Etonogestrel implant) [facility] #[id number] Reviewed 05/12/2012 12:00 AM SPECIMEN HANDLING OFFICE-LAB Reviewed 01/30/2014 12:00 AM CHORIONIC GONADOTROPIN TEST Reviewed 01/30/2014 12:00 AM US PREG UTERUS REAL TIME W/IMAGE DCMTN TRANSVAG Reviewed 01/30/2014 12:00 AM CHORIONIC GONADOTROPIN TEST Reviewed 02/12/2014 12:00 AM URINALYSIS AUTO W/SCOPE Reviewed 03/12/2014 12:00 AM URINALYSIS AUTO W/SCOPE Reviewed 03/12/2014 12:00 AM URINALYSIS AUTO W/SCOPE Reviewed 08/07/2014 12:00 AM Benadryl, Up to 50 Mg [facility]# [id number] Reviewed 11/01/2014 12:00 AM OB US < [...] Value 0.0328 ug/mLAFP MoM 0.62 hCG Value 91132.0 mIU/mLhCG MoM 1.51 uE3 Value 1.230 ng/mLuE3 MoM 0.74 CARMELLA Value 203.190 pg/mLDIA MoM 0.99 OSBR [place] 1 [place] [address] DSR (Second Trimester) 1IN 1082 DSR (By [...] Vis Given Vis Pub CVX Tdap 05/30/2015 [email or web address] SKB BOOSTRIX 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 05/30/2015 [...] for Nexplanon removal Nov 03 2016 10:25AM Payers Insurance Name Company Name Plan Name Plan Number Policy Number Policy Group Number Start Date Amerigroup [place] State Plan Amerigroup [place] State Plan [id number] N/A Nationwide Health Plans Nationwide Life Insurance Clai [id number] Sunday, 2012 Free Clinic - [place] [facility] Clinic ONLY Free Clinic [id number] N/A [employer] Insurance [employer] Insuran [id number] N/A Amerigroup - [place] Amerigroup [place] [id number] N/A History of Encounters Visit Date Visit Type Provider 11/03/2016 Procedures Evelina Villanueva CORRECTIONAL MANAGER 10/06/2016 Office visit Evelina Villanueva CORRECTIONAL MANAGER 02/06/2016 Office visit Evelina Villanueva CORRECTIONAL MANAGER 09/16/2015 Office visit Evelina Villanueva CORRECTIONAL MANAGER 08/07/2015 Office visit Evelina Villanueva CORRECTIONAL MANAGER 08/05/2015 Office visit Evelina Villanueva CORRECTIONAL MANAGER 06/20/[address] Stephanie Crandall MD 06/12/[address] [facility] [address] Stephanie Crandall MD 06/11/2015 Office [...] Crandall MD 01/23/2015 Office visit Evelina Villanueva CORRECTIONAL MANAGER 12/26/2014 Office visit DEVANTE ANDRADE MD 12/10/2014 Office visit DEVANTE ANDRADE MD 11/26/2014 Office visit DEVANTE ANDRADE MD 10/29/2014 Office visit DEVANTE ANDRAED MD 08/07/2014 Office visit Deloris PRADO 07/10/2014 Office visit Kae Tariq CORRECTIONAL MANAGER 03/29/2014 Voided Jose Carlos Neal MD 03/12/2014 Office visit 03/12/2014 Office visit Jose Carlos Neal MD 02/08/2014 Office visit Jose Carlos Neal MD 01/30/2014 Office visit Jose Carlos Neal MD 07/20/2013 Voided Conrad Bee CORRECTIONAL MANAGER 07/13/2013 Office visit Conrad Bee CORRECTIONAL MANAGER 11/09/2012 Office visit FRANK PRADO 08/15/2012 Office visit FRANK PRADO 05/12/2012 Office visit FRANK PRADO 04/05/2012 Office visit FRANK PRDAO 11/06/2010 Office visit Frank Houston PA-C
--- OUTSIDE RECORDS SUMMARY | 2017-12-29 16:16 | XMS REPORT ---
Author Author Stephanie Crandall [facility] Address [address] [place], [place] [address] Care Team Providers Care Small Appliance Assembly Supervisor Name Role Phone Stephanie Crandall PCP FRANK [...] SC/IM Reviewed 11/06/2010 12:00 AM Decadron Inj.1mg-(St.Izaiah) [facility] #[id number] Reviewed 11/06/2010 12:00 AM Depo-Medrol 80 Mg Im/St Izaiah [facility] [id number] Reviewed 01/29/2015 12:00 AM OB US >/=14 [...] Reviewed 02/06/2016 12:00 AM NEXPLANON (Etonogestrel implant) [facility] #[id number] Reviewed 11/03/2016 12:00 AM REMOVE CONTRACEPTIVE CAPSULE [...] 12:00 AM HEPATITIS C AB TEST Returned 05/27/2017 12:00 AM US PREG UTERUS REAL [...] 12:00 AM Benadryl, Up to 50 Mg [facility]# [id number] Reviewed 11/01/2014 12:00 AM OB US < [...] Value 0.0328 ug/mLAFP MoM 0.62 hCG Value 68470.0 mIU/mLhCG MoM 1.51 uE3 Value 1.230 ng/mLuE3 MoM 0.74 SARA Value 203.190 pg/mLDIA MoM 0.99 OSBR [place] 1 [place] [address] DSR (Second Trimester) 1IN 1082 DSR (By [...] Vis Given Vis Pub CVX Tdap 05/30/2015 [employer] SKB BOOSTRIX 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 05/30/2015 [...] Plan Amerigroup [place] [id number] N/A Amerigroup [place] Amerigroup [place] Plan [id number] N/A Nationwide Health Plans Nationwide Life Insurance [facility] [id number] Sunday, 2012 [place] Clinic - [place] Community Clinic [place] Free Clinic [id number] N/A [employer] Insuran [id number] N/A History of Encounters Visit Date Visit Type Provider 05/27/[address] Stephanie Crandall MD 05/18/2017 Office visit Evelina Villanueva HOTEL CONCIERGE 05/11/2017 Office visit FRANK PRADO 02/09/2017 Office visit Evelina Villanueva HOTEL CONCIERGE 01/20/2017 Office visit Eunice Cox HOTEL CONCIERGE 11/03/2016 Procedures Evelina Villanueva HOTEL CONCIERGE 10/06/2016 Office visit Evelina Villanueva HOTEL CONCIERGE 02/06/2016 Office visit Evelina Villanueva HOTEL CONCIERGE 09/16/2015 Office visit Evelina Villanueva HOTEL CONCIERGE 08/07/2015 Office visit Evelina Villanueva HOTEL CONCIERGE 08/05/2015 Office visit Evelina Villanueva HOTEL CONCIERGE 06/20/[address] Stephanie Crandall MD 06/12/[address] [facility] [address] Stephanie Crandall MD 06/11/2015 [...] Crandall MD 01/23/2015 Office visit Evelina Villanueva HOTEL CONCIERGE 12/26/2014 Office visit DEVANTE ANDRADE MD 12/10/2014 Office visit DEVANTE ANDRADE MD 11/26/2014 Office visit DEVANTE ANDRADE MD 10/29/2014 Office visit DEVANTE ANDRADE MD 08/07/2014 Office visit Deloris PRADO 07/10/2014 Office visit Kae Tariq HOTEL CONCIERGE 03/29/2014 Voided Jose Carlos Neal MD 03/12/2014 Office visit 03/12/2014 Office visit Jose Carlos Neal MD 02/08/2014 Office visit Jose Carlos Neal MD 01/30/2014 Office visit Jose Carlos Neal MD 07/20/2013 Voided Conrad Bee HOTEL CONCIERGE 07/13/2013 Office visit Conrad Bee HOTEL CONCIERGE 11/09/2012 Office visit FRANK PRADO 08/15/2012 Office visit FRANK PRADO 05/12/2012 Office visit FRANK PRADO 04/05/2012 Office visit FRANK PRADO 11/06/2010 Office visit Frank Houston PA-C
--- OUTSIDE RECORDS SUMMARY | 2017-12-29 16:17 | XMS REPORT ---
Author Author Setphanie Crandall [facility] Address [address] [place], [place] [address] Care Team Providers Care Brick Molder Hand Name Role Phone Stephanie Crandall PCP Unavailable Allergies and Adverse Reactions Name Reaction Notes NO KNOWN DRUG ALLERGIES Plan of Treatment Planned Activity Comments Planned Date Planned Time Plan/Goal CULTURE SCREEN ONLY 05/23/2015 12:00 AM Medications Active Name Start [...] Decadron Inj.1mg-(St.Izaiah) [facility] #[id number] Reviewed 11/06/2010 12:00 AM Depo-Medrol 80 Mg Im/St Izaiah [facility] [id number] Reviewed 01/29/2015 12:00 AM OB US >/=14 [...] 50 Mg [facility]# [id number] Reviewed 11/01/2014 12:00 AM OB US < [...] Value 0.0328 ug/mLAFP MoM 0.62 hCG Value 28118.0 mIU/ mLhCG MoM 1.51 uE3 Value 1.230 ng/mLuE3 MoM 0.74 SARA Value 203.190 pg/mLDIA MoM 0.99 OSBR [place] 1 [place] [address] DSR (Second Trimester) 1IN 1082 DSR (By [...] B Strep Screening, May 23 2015 10:42AM Payers Insurance Name Company Name Plan Name Plan Number Policy Number Policy Group Number Start Date Amerigroup [place] State Plan [facility] [id number] N/A Nationwide Health Plans Nationwide Life Insurance Clai [id number] Sunday, 2012 [place] Clinic - [place] Community Clinic ONLY Free Clinic [id number] N/A [employer] Insurance [employer] Insuran [id number] N/A Amerigroup - [place] - [place] State Plan [facility] State Plan [id number] N/A History of Encounters Visit Date Visit Type Provider 05/23/[address] Stpehanie Crandall MD 05/16/[address] Stephanie Crandall MD 05/01/[address] Stephanie Crandall MD 04/29/[address] Stephanie Crandall MD 04/03/[address] Stephanie Crandall MD 03/20/[address] Stephanie Crandall MD 02/20/[address] Stephanie Crandall MD 01/23/2015 Office visit Evelina Villanueva BALLISTICS LABORATORY GUNSMITH 12/26/2014 Office visit DEVANTE ANDRADE MD 12/10/2014 Office visit DEVANTE ANDRADE MD 11/26/2014 Office visit DEVANTE ANDRADE MD 10/29/2014 Office visit DEVANTE ANDRADE MD 08/07/2014 Office visit Deloris PRADO 07/10/2014 Office visit Kae Tariq BALLISTICS LABORATORY GUNSMITH 03/29/2014 Voided Jose Carlos Neal MD 03/12/2014 Office visit 03/12/2014 Office visit Jose Carlos Neal MD 02/08/2014 Office visit Jose Carlos Neal MD 01/30/2014 Office visit Jose Carlos Neal MD 07/20/2013 Voided Conrad Bee BALLISTICS LABORATORY GUNSMITH 07/13/2013 Office visit Conrad Bee BALLISTICS LABORATORY GUNSMITH 11/09/2012 Office visit FRANK PRADO 08/15/2012 Office visit FRANK PRADO 05/12/2012 Office visit FRANK PRADO 04/05/2012 Office visit FRANK PRADO 11/06/2010 Office visit Frank Houston PA-C
--- OUTSIDE RECORDS SUMMARY | 2017-12-29 16:17 | XMS REPORT ---
Author Author [facility] Organization [facility] Address [address] [place], [place] [address] Care Team Providers Care Box Spinner Name Role Phone PCP Unavailable Allergies and [...] Number Policy Group Number Start Date Amerigroup [place] Amerigroup [place] Plan [id number] N/A Nationwide Health Plans Nationwide Life Insurance Clai [id number] Sunday, 2012 Free Clinic - [place] Community Clinic ONLY Free Clinic [id number] N/A [employer] Life Insurance Company [employer] Life Insuran [id number] N/A Amerigroup - [place] Amerigroup - [place] Plan [id number] N/A History of Encounters Visit Date Visit Type Provider 08/07/2014 Office visit Deloris PRADO 07/10/2014 Office visit Kae Tariq HUMAN RESOURCES VICE PRESIDENT 03/29/2014 Voided Jose Carlos Neal MD 03/12/2014 Office visit Jose Carlos Neal MD 02/08/2014 Office visit Jose Carlos Neal MD 01/30/2014 Office visit Jose Carlos Neal MD 07/20/2013 Voided Conrad Bee HUMAN RESOURCES VICE PRESIDENT 07/13/2013 Office visit Conrad Bee HUMAN RESOURCES VICE PRESIDENT 11/09/2012 Office visit FRANK PRADO 08/15/2012 Office visit FRANK PRADO 05/12/2012 Office visit FRANK PRADO 04/05/2012 Office visit FRANK PRADO 11/06/2010 Office visit Frank Houston PA-C
--- OUTSIDE RECORDS SUMMARY | 2017-12-29 16:19 | XMS REPORT ---
Author Frank Ayers [facility] Address [address] [place], [place] [address] Care Team Providers Care Digital Print Operator Name Role Phone Frank Ingram PCP Unavailable [...] SC/IM Reviewed 11/06/2010 12:00 AM Decadron Inj.1mg-(St.Izaiah) [facility] #[id number] Reviewed 11/06/2010 12:00 AM Depo-Medrol 80 Mg Im/St Izaiah [facility] [id number] Reviewed 01/29/2015 12:00 AM OB US >/=14 [...] 12:00 AM Benadryl, Up to 50 Mg [facility]# [id number] Reviewed 11/01/2014 12:00 AM OB US < [...] Value 0.0328 ug/mLAFP MoM 0.62 hCG Value 04203.0 mIU/ mLhCG MoM 1.51 uE3 Value 1.230 ng/mLuE3 MoM 0.74 SARA Value 203.190 pg/mLDIA MoM 0.99 OSBR [place] 1 [place] [address] DSR (Second Trimester) 1IN 1082 DSR (By [...] 3.72 HGB 11.70 g/dLHCT 34.50 %MCV 93.0 [facility] 31.50 pgHC 33.90 g/dLRDW CV 12.0 [...] Vis Given Vis Pub CVX Tdap 05/30/2015 [employer] SKB BOOSTRIX 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 05/30/2015 [...] Number Policy Group Number Start Date Amerigroup [place] State Plan Amerigroup [place] State Plan [id number] N/A Nationwide Health Plans Nationwide Life Insurance Clai [id number] Sunday, 2012 Free Clinic - [place] Community Clinic ONLY Free Clinic [id number] N/A [employer] Life Insurance [employer] Life Insuran [id number] N/A Amerigroup - [place] Amerigroup - [place] Plan [id number] N/A History of Encounters Visit Date Visit [...] Crandall MD 01/23/2015 Office visit Evelina Villanueva NURSING EDUCATOR 12/26/2014 Office visit DEVANTE ANDRADE MD 12/10/2014 Office visit DEVANTE ANDRADE MD 11/26/2014 Office visit DEVANTE ANDRADE MD 10/29/2014 Office visit DEVANTE ANDRADE MD 08/07/2014 Office visit Deloris PRADO 07/10/2014 Office visit Kae Tariq NURSING EDUCATOR 03/29/2014 Voided Jose Carlos Neal MD 03/12/2014 Office visit 03/12/2014 Office visit Jose Carlos Neal MD 02/08/2014 Office visit Jose Carlos Neal MD 01/30/2014 Office visit Jose Carlos Neal MD 07/20/2013 Voided Conrad Bee NURSING EDUCATOR 07/13/2013 Office visit Conrad Bee NURSING EDUCATOR 11/09/2012 Office visit FRANK PRADO 08/15/2012 Office visit FRANK PRADO 05/12/2012 Office visit FRANK PRADO 04/05/2012 Office visit FRANK PRADO 11/06/2010 Office visit Frank Houston PA-C
--- OUTSIDE RECORDS SUMMARY | 2017-12-29 16:19 | XMS REPORT ---
Author Evelina Smalls [facility] Address [address] [place], [place] [id number] Care Team Providers Care Munitions Worker Name Role Phone Evelina Villanueva PCP [...] SC/IM Reviewed 11/06/2010 12:00 AM Decadron Inj.1mg-(StAdelineIzaiah) [facility] [place] #[id number] Reviewed 11/06/2010 12:00 AM Depo-Medrol 80 Mg Im/St Izaiah [facility] [id number] Reviewed 01/29/2015 12:00 AM OB US >/=14 [...] Up to 50 Mg [facility]# [id number] Reviewed 11/01/2014 12:00 AM OB US < [...] Value 0.0328 ug/mLAFP MoM 0.62 hCG Value 93599.0 mIU/mLhCG MoM 1.51 uE3 Value 1.230 ng/mLuE3 MoM 0.74 SARA Value 203.190 pg/mLDIA MoM 0.99 OSBR [place] 1 [place] [address] DSR (Second Trimester) 1IN 1082 DSR (By [...] Vis Given Vis Pub CVX Tdap 05/30/2015 [employer] SKB BOOSTRIX 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 05/30/2015 [...] 3:32PM NEXPLANON Insertion Feb 06 2016 3:32PM Payers Insurance Name Company Name Plan Name Plan Number Policy Number Policy Group Number Start Date Amerigroup [place] State Plan [facility] [place] State Plan [id number] N/A Nationwide Health Plans Nationwide Life Insurance Clai [id number] Sunday, 2012 [facility] [place] [facility] [id number] N/A [employer] Insurance [email or web address] Insuran [id number] N/A Amerigroup - [place] State [place] Amerigroup [place] State [place] [id number] N/A History of Encounters Visit Date Visit Type Provider 02/06/2016 Office visit Evelina Villanueva CONFERENCE SERVICE COORDINATOR 09/16/2015 Office visit Evelina Villanueva CONFERENCE SERVICE COORDINATOR 08/07/2015 Office visit Evelina Villanueva CONFERENCE SERVICE COORDINATOR 08/05/2015 Office visit Evelina Villanueva CONFERENCE SERVICE COORDINATOR 06/20/[address] Stephanie Crandall MD [...] Crandall MD 01/23/2015 Office visit Evelina Villanueva CONFERENCE SERVICE COORDINATOR 12/26/2014 Office visit DEVANTE ANDRADE MD 12/10/2014 Office visit DEVANTE ANDRADE MD 11/26/2014 Office visit DEVANTE ANDRADE MD 10/29/2014 Office visit DEVANTE ANDRADE MD 08/07/2014 Office visit Deloris PRADO 07/10/2014 Office visit Kae Tariq CONFERENCE SERVICE COORDINATOR 03/29/2014 Voided Jose Carlos Neal MD 03/12/2014 Office visit 03/12/2014 Office visit Jose Carlos Neal MD 02/08/2014 Office visit Jose Carlos Neal MD 01/30/2014 Office visit Jose Carlos Neal MD 07/20/2013 Voided Conrad Bee CONFERENCE SERVICE COORDINATOR 07/13/2013 Office visit Conrad Bee CONFERENCE SERVICE COORDINATOR 11/09/2012 Office visit FRANK PRADO 08/15/2012 Office visit FRANK PRADO 05/12/2012 Office visit FRANK PRADO 04/05/2012 Office visit FRANK PRADO 11/06/2010 Office visit Frank Houston PA-C
--- OUTSIDE RECORDS SUMMARY | 2017-12-29 16:20 | XMS REPORT ---
Author Author Evelina Villanueva [facility] Address [address] [place], [place] [phone] Care Team Providers Care Outbound Sales Executive Name Role Phone Evelina Villanueva PCP Unavailable [...] Reviewed 11/06/2010 12:00 AM Decadron Inj.1mg-(St.Izaiah) [facility] #[id number] Reviewed 11/06/2010 12:00 AM Depo-Medrol 80 Mg Im/St Izaiah [facility] [id number] Reviewed 05/12/2012 12:00 AM SPECIMEN HANDLING OFFICE-LAB [...] AM Benadryl, Up to [address] [facility]# [id number] Reviewed 11/01/2014 12:00 AM OB US < [...] Number Policy Group Number Start Date Amer[place] [id number] N/A Nationwide Health Plans Nationwide Life Insurance Clai [id number] Sunday, 2012 [place] Clinic - [place] [facility] ONLY Free Clinic [id number] N/A [employer] Insurance [employer] Insuran [id number] N/A Amerigroup [place] Amerigroup [place] [id number] N/A History of Encounters Visit Date Visit Type Provider 01/23/2015 Office visit Evelina Villanueva SAP PI ARCHITECT 12/26/2014 Office visit DEVANTE ANDRADE MD 12/10/2014 Office visit DEVANTE ANDRADE MD 11/26/2014 Office visit DEVANTE ANDRADE MD 10/29/2014 Office visit DEVANTE ANDRADE MD 08/07/2014 Office visit Deloris PRADO 07/10/2014 Office visit Kae Tariq SAP PI ARCHITECT 03/29/2014 Voided Jose Carlos Neal MD 03/12/2014 Office visit Jose Carlos Neal MD 02/08/2014 Office visit Jose Carlos Neal MD 01/30/2014 Office visit Jose Carlos Neal MD 07/20/2013 Voided Conrad Bee SAP PI ARCHITECT 07/13/2013 Office visit Conrad Bee SAP PI ARCHITECT 11/09/2012 Office visit FRANK PRADO 08/15/2012 Office visit FRANK PRADO 05/12/2012 Office visit FRANK PRADO 04/05/2012 Office visit FRANK PRADO 11/06/2010 Office visit Frank Houston PA-C
--- OUTSIDE RECORDS SUMMARY | 2017-12-29 16:22 | XMS REPORT ---
Author Author Stephanie Crandall [facility] Address [address] [place], [place] [phone] Care Team Providers Care Roof Bolter Name Role Phone Stephanie Crandall PCP Unavailable [...] AM Decadron Inj.1mg-(St.Izaiah) [facility] #[id number] Reviewed 11/06/2010 12:00 AM Depo-Medrol 80 Mg Im/St Izaiah [facility] [id number] Reviewed 01/29/2015 12:00 AM OB US >/=14 [...] 12:00 AM Benadryl, Up to 50 Mg [facility]# [id number] Reviewed 11/01/2014 12:00 AM OB US < [...] Value 0.0328 ug/mLAFP MoM 0.62 hCG Value 82567.0 mIU/ mLhCG MoM 1.51 uE3 Value 1.230 ng/mLuE3 MoM 0.74 SARA Value 203.190 pg/mLDIA MoM 0.99 OSBR [place] 1 [place] [address] DSR (Second Trimester) 1IN 1082 DSR (By [...] Policy Number Policy Group Number Start Date [facility] State Plan [id number] N/A Nationwide Health Plans Nationwide Life Insurance [facility] [id number] Sunday, 2012 [place] - [place] [facility] [place] Free Clinic [id number] N/A [employer] Life Insurance [employer] Insuran [id number] N/A Amerigroup [place] Amer[employer] [place] [id number] N/A History of Encounters Visit Date Visit Type Provider 04/03/[address] Stephanie Crandall MD 03/20/[address] Stephanie Crandall MD 02/20/[address] Stephanie Crandall MD 01/23/2015 Office visit Evelina Villanueva CUT OFF SAW OPERATOR 12/26/2014 Office visit DEVANTE ANDRADE MD 12/10/2014 Office visit DEVANTE ANDRADE MD 11/26/2014 Office visit DEVANTE ANDRADE MD 10/29/2014 Office visit DEVANTE ANDRADE MD 08/07/2014 Office visit Deloris PRADO 07/10/2014 Office visit Kae Tariq CUT OFF SAW OPERATOR 03/29/2014 Voided Jose Carlos Neal MD 03/12/2014 Office visit 03/12/2014 Office visit Jose Carlos Neal MD 02/08/2014 Office visit Jose Carlos Neal MD 01/30/2014 Office visit Jose Carlos Neal MD 07/20/2013 Voided Conrad Bee CUT OFF SAW OPERATOR 07/13/2013 Office visit Conrad Bee CUT OFF SAW OPERATOR 11/09/2012 Office visit FRANK PRADO 08/15/2012 Office visit FRANK PRADO 05/12/2012 Office visit FRANK PRADO 04/05/2012 Office visit FRANK PRADO 11/06/2010 Office visit Frank Houston PA-C
--- OUTSIDE RECORDS SUMMARY | 2017-12-29 16:23 | XMS REPORT ---
Author Author Minnie Gutierrez [facility] Address [address] [place], [place] [phone] Care Team Providers Care Tracer Clerk Name Role Phone Minnie Gutierrez PCP Unavailable Allergies and Adverse Reactions Name Reaction Notes NO KNOWN DRUG ALLERGIES Plan of Treatment Planned Activity Comments Planned Date Planned Time Plan/Goal OB US < 14 WKS SINGLE FETUS 11/01/2014 12:00 AM N.GONORRHOEAE DNA AMP PROB 10/29/2014 12:00 AM CHLAMYDIA CULTURE 10/29/2014 12:00 AM HIV-1ANTIBODY 10/29/2014 12:00 AM URINALYSIS AUTO W/SCOPE 10/29/2014 12:00 AM OBSTETRIC PANEL 10/29/2014 12:00 AM Medications Active Name Start Date [...] AM Decadron Inj.1mg-(St.Izaiah) [facility] #[id number] Reviewed 11/06/2010 12:00 AM Depo-Medrol 80 Mg Im/St Izaiah [facility] [id number] Reviewed 05/12/2012 12:00 AM SPECIMEN HANDLING OFFICE-LAB Reviewed 01/30/2014 12:00 AM CHORIONIC GONADOTROPIN TEST Returned 01/30/2014 12:00 AM US PREG UTERUS REAL TIME W/IMAGE DCMTN TRANSVAG Reviewed 01/30/2014 12:00 AM CHORIONIC GONADOTROPIN TEST Returned 02/12/2014 12:00 AM URINALYSIS AUTO W/SCOPE Returned 03/12/2014 12:00 AM URINALYSIS AUTO W/SCOPE Returned 03/12/2014 12:00 AM URINALYSIS AUTO W/SCOPE Returned 08/07/2014 12:00 AM Benadryl, Up to 50 Mg [facility]# [id number] Reviewed Results Summary Data and Description Results [...] Number Policy Group Number Start Date Amerigroup [place] State Plan [facility] State Plan [id number] N/A Nationwide Health Plans Nationwide Life Insurance Clai [id number] Sunday, 2012 Free Clinic - [place] [facility] ONLY Free Clinic [id number] N/A [employer] Life Insurance [employer] Insuran [id number] N/A Amerigroup - [place] State [place] Amerigroup [place] State Plan [id number] N/A History of Encounters Visit Date Visit Type Provider 10/29/2014 Office visit Minnie Gutierrez MD 08/07/2014 Office visit Deloris PRADO 07/10/2014 Office visit Kae Tariq CHAR DUST CLEANER AND SALVAGER 03/29/2014 Voided Jose Carlos Neal MD 03/12/2014 Office visit Jose Carlos Neal MD 02/08/2014 Office visit Jose Carlos Neal MD 01/30/2014 Office visit Jose Carlos Neal MD 07/20/2013 Voided Conrad Bee CHAR DUST CLEANER AND SALVAGER 07/13/2013 Office visit Conrad Bee APRN 11/09/2012 Office visit FRANK PRADO 08/15/2012 Office visit FRANK PRADO 05/12/2012 Office visit FRANK PRADO 04/05/2012 Office visit FRANK PRADO 11/06/2010 Office visit Frank Houston PA-C
--- OUTSIDE RECORDS SUMMARY | 2017-12-29 16:23 | XMS REPORT ---
Author Author Stephanie Crandall [facility] Address [address] [place], [place] [address] Care Team Providers Care Account Underwriter Name Role Phone Stephanie Crandall PCP Unavailable [...] SC/IM Reviewed 11/06/2010 12:00 AM Decadron Inj.1mg-(St.Izaiah) [facility] #[id number] Reviewed 11/06/2010 12:00 AM Depo-Medrol 80 Mg Im/St Izaiah [facility] [id number] Reviewed 01/29/2015 12:00 AM OB US >/=14 [...] Mg [facility]# [id number] Reviewed 11/01/2014 12:00 AM OB US < [...] Value 0.0328 ug/mLAFP MoM 0.62 hCG Value 95559.0 mIU/ mLhCG MoM 1.51 uE3 Value 1.230 ng/mLuE3 MoM 0.74 SARA Value 203.190 pg/mLDIA MoM 0.99 OSBR Risk 1 [place] [address] DSR (Second Trimester) 1IN 1082 DSR (By [...] [place] Amerigroup [place] [id number] N/A Nationwide Health Plans Nationwide Life Insurance Clai [id number] Sunday, 2012 [place] - [place] [facility] [place] Free Clinic [id number] N/A [employer] Insuran [id number] N/A Amerigroup [place] Amer[employer] [place] [id number] N/A History of Encounters Visit Date Visit Type Provider 02/20/[address] Stephanie Crandall MD 01/23/2015 Office visit Evelina Villanueva HYDRO SPRAYER OPERATOR 12/26/2014 Office visit DEVANTE ANDRADE MD 12/10/2014 Office visit DEVANTE ANDRADE MD 11/26/2014 Office visit DEVANTE ANDRADE MD 10/29/2014 Office visit DEVANTE ANDRADE MD 08/07/2014 Office visit Deloris PRADO 07/10/2014 Office visit Kae Tariq HYDRO SPRAYER OPERATOR 03/29/2014 Voided Jose Carlos Neal MD [...]
--- OUTSIDE RECORDS SUMMARY | 2017-12-29 16:24 | XMS REPORT ---
Author Author Stephanie Crandall [facility] Address [address] [place], [place] [address] Care Team Providers Care Regional Retail Sales Manager Name Role Phone Stephanie Crandall PCP FRANK [...] SC/IM Reviewed 11/06/2010 12:00 AM Decadron Inj.1mg-(St.Izaiah) [facility] #[id number] Reviewed 11/06/2010 12:00 AM Depo-Medrol 80 Mg Im/St Izaiah [facility] [id number] Reviewed 01/29/2015 12:00 AM OB US >/=14 [...] Reviewed 02/06/2016 12:00 AM NEXPLANON (Etonogestrel implant) [facility] #[id number] Reviewed 11/03/2016 12:00 AM REMOVE CONTRACEPTIVE CAPSULE [...] Benadryl, Up to 50 Mg [facility]# [id number] Reviewed 11/01/2014 12:00 AM OB US < [...] Value 0.0328 ug/mLAFP MoM 0.62 hCG Value 11347.0 mIU/mLhCG MoM 1.51 uE3 Value 1.230 ng/mLuE3 MoM 0.74 SARA Value 203.190 pg/mLDIA MoM 0.99 OSBR [place] 1 [place] [address] DSR (Second Trimester) 1IN 1082 DSR (By [...] Vis Given Vis Pub CVX Tdap 05/30/2015 [employer] SKB BOOSTRIX 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 [...] Plan Amer[employer] [place] [id number] N/A Amer[place] Amerigroup [place] State Plan [id number] N/A Nationwide Health Plans Nationwide Life Insurance Clai [id number] Sunday, 2012 [place] [facility] [place] Free Clinic [id number] N/A [employer] Insuran [id number] N/A History of Encounters Visit Date Visit Type Provider 07/22/[address] Stephanie Crandall MD 07/04/2017 Office visit Chuck Tai NP 06/24/[address] Stephanie Crandall MD 05/27/[address] Stephanie Crandall MD 05/18/2017 Office visit Evelina Villanueva METAL CANS SUPERVISOR 05/11/2017 Office visit FRANK PRADO 02/09/2017 Office visit Evelina Villanueva METAL CANS SUPERVISOR 01/20/2017 Office visit Eunice Cox METAL CANS SUPERVISOR 11/03/2016 Procedures Evelina Villanueva METAL CANS SUPERVISOR 10/06/2016 Office visit Evelina Villanueva METAL CANS SUPERVISOR 02/06/2016 Office visit Evelina Villanueva METAL CANS SUPERVISOR 09/16/2015 Office visit Evelina Villanueva METAL CANS SUPERVISOR 08/07/2015 Office visit Evelina Villanueva METAL CANS SUPERVISOR 08/05/2015 Office visit Evelina Villanueva METAL CANS SUPERVISOR 06/20/[address] Stephanie Crandall MD 06/12/[address] [facility] [address] Stephanie Crandall MD 06/11/2015 Office visit [...] Crandall MD 01/23/2015 Office visit Evelina Villanueva METAL CANS SUPERVISOR 12/26/2014 Office visit DEVANTE ANDRADE MD 12/10/2014 Office visit DEVANTE ANDRADE MD 11/26/2014 Office visit DEVANTE ANDRADE MD 10/29/2014 Office visit DEVANTE ANDRADE MD 08/07/2014 Office visit Deloris PRADO 07/10/2014 Office visit Kae Tariq METAL CANS SUPERVISOR 03/29/2014 Voided Jose Carlos Neal MD 03/12/2014 Office visit 03/12/2014 Office visit Jose Carlos Neal MD 02/08/2014 Office visit Jose Carlos Neal MD 01/30/2014 Office visit Jose Carlos Neal MD 07/20/2013 Voided Conrad Bee METAL CANS SUPERVISOR 07/13/2013 Office visit Conrad Bee METAL CANS SUPERVISOR 11/09/2012 Office visit FRANK PRADO 08/15/2012 Office visit FRANK PRADO 05/12/2012 Office visit FRANK PRADO 04/05/2012 Office visit FRANK PRADO 11/06/2010 Office visit Frank Houston PA-C
--- OUTSIDE RECORDS SUMMARY | 2017-12-29 16:25 | XMS REPORT | Clinical Summary ---
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 Supervision of normal first , adolescent 659.83 Resolved Mari Yokum [employer] CASE H[employer]ENER Other specified indications for care or intervention related to labor and delivery, antepartum condition or complication NEED FOR PROPHYLACTIC VACCINATION WITH STREPTOCOCCUS PNEUMONIAE (PNEUMOCOCCUS) AND INFLUENZA V06.6 Resolved Mari Yokum [employer] Need for prophylactic vaccination and inoculation against Streptococcus pneumoniae [pneumococcus] and influenza UTI 599.0 Resolved Mari Yokum [employer] H[employer] Urinary tract infection, site not specified Contraceptive management V25.9 Active Mari Yokum [employer] H[employer] Encounter for unspecified contraceptive management Depression 311 Active Mari Yokum [employer] H[employer]ENER Depressive disorder, not elsewhere classified Tonsillar hypertrophy 474.11 Active Mari Yokum [employer] H[employer] Hypertrophy of tonsils alone Headache 784.0 Active Michelle Smith MD PhD Headache Sinusitis, acute 461.9 Active Michelle Smith MD PhD Acute sinusitis, unspecified Low back pain ICD-724.2 Inactive Mari Romo [employer] Supervision of normal first ICD-V22.0 Inactive Mari Romo [employer]IDE [employer] HARD[employer] , adolescent ICD-659.83 Inactive Mari Romo [employer]IDE CASE HARDENER NEED FOR PROPHYLACTIC VACCINATION WITH STREPTOCOCCUS PNEUMONIAE (PNEUMOCOCCUS) AND INFLUENZA ICD-V06.6 Inactive Mari Romo [employer] H[employer] UTI ICD-599.0 Inactive Mari Romo [employer]IDE CASE H[employer] Hand pain, right ICD-729.5 Inactive Mari Romo [employer] Medication List Medication Instructions Start Date Stop Date Generic Name NDC Status Provider Patient Instruction DEPO-PROVERA 150 MG/ML SUPENSION MEDROXYPROGEST RIK (CONTRACEP) 37970195708 No Longer Active Mari Romo APRN Active TRI-SPRINTEC 0.18/0.215/0.25 MG-35 MCG TABS 1 po qd as directed NORGESTIM-ETH ESTRAD TRIPHASIC 96056267759 Active Mari Romo APRN Active AUGMENTIN 875-125 MG TABS 1 pill by mouth twice daily AMOXICILLIN-POT CLAVULANATE 40592995972 No Longer Active Michelle Smith MD PhD Active PAROXETINE HCL 10 MG TABS 1 pill by mouth daily, for depression PAROXETINE HCL 61771768397 Active Mari Romo APRN Active PROZAC 10 MG CAP Take one tablet daily for depression FLUOXETINE HCL 58639108230 No Longer Active Michelle Smith MD PhD Active CONCEPT DHA 53.5-38-1 MG CAPS one tab PO daily PRENAT -[id number]-WT-OMEGA 3 10349412555 No Longer Active Michelle Smith MD PhD Active MACROBID 100 MG CAPS one tab PO BID x 7 days NITROFURANTOIN MONOHYD MACRO 47425704269 No Longer Active Traci Tinsley MD Active TRAMADOL HCL 50 MG TABS 1 tab po tid prn back pain TRAMADOL HCL 06535012671 No Longer Active Traci Tinsley MD Active PREDNISONE 20 MG TAB Take 3 tabs daily for 3 days, then 2 tabs daily for 3 days, then 1 tab daily for 3 days, then 1/2 tab daily for 3 days. PREDNISONE 39306156109 No Longer Active Peter Sung MD Active TRAMADOL HCL 50 MG TABS 1 tab po tid prn back pain TRAMADOL HCL 50 MG TABS 295954 TRAMADOL HCL Inactive CONCEPT DHA 53.5-38-1 MG CAPS one tab PO daily CONCEPT DHA 53.5-38-1 MG CAPS [id number]-OMEGA 3 Inactive PROZAC 10 MG CAP Take one tablet daily for depression PROZAC 10 MG CAP 380144 FLUOXETINE HCL Inactive DEPO-PROVERA 150 MG/ML SUPENSION DEPO-PROVERA 150 MG/ML SUPENSION 5564549 MEDROXYPROGEST RIK (CONTRACEP) Inactive PREDNISONE 20 MG TAB Take 3 tabs daily for 3 days, then 2 tabs daily for 3 days, then 1 tab daily for 3 days, then 1/2 tab daily for 3 days. PREDNISONE 20 MG TAB 683718 PREDNISONE Inactive MACROBID 100 MG CAPS one tab PO BID x 7 days MACROBID 100 MG CAPS 434223 NITROFURANTOIN MONOHYD MACRO Inactive AUGMENTIN 875-125 MG TABS 1 pill by mouth twice daily AUGMENTIN 875-125 MG TABS 688962 AMOXICILLIN-POT CLAVULANATE Inactive Advance Directives Directive Description Start Date CONSENT FOR MINOR CARE Immunizations Vaccine Administration Date Value Standard Description hepatitis B vaccine series no hepatitis B vaccine, unspecified formulation Vital Signs Date Name Value Unit Range Description blood pressure, diastolic - 8462-4 63 mm[Hg] BP ogden blood pressure, systolic - 8480-6 105 mm[Hg] BP sys height E&M - 8302-2 66 [in_us] Bdy height pulse rate E&M - 8867-4 76 /min Heart rate temperature E&M 99.9 [degF] Body temperature weight E&M - 3141-9 137 [lb_av] Weight Measured blood pressure, diastolic - 8462-4 78 mm[Hg] BP ogden blood pressure, systolic - 8480-6 123 mm[Hg] BP sys pulse rate E&M - 8867-4 63 /min Heart rate temperature E&M 99.8 [degF] Body temperature weight E&M - 3141-9 139 [lb_av] Weight Measured blood pressure, diastolic - 8462-4 69 mm[Hg] BP ogden blood pressure, systolic - 8480-6 103 mm[Hg] BP sys pulse rate E&M - 8867-4 150 /min Heart rate temperature E&M 97.9 [degF] Body temperature weight E&M - 3141-9 138 [lb_av] Weight Measured blood pressure, diastolic - 8462-4 81 mm[Hg] BP ogden blood pressure, systolic - 8480-6 123 mm[Hg] BP sys pulse rate E&M - 8867-4 87 /min Heart rate temperature E&M 96.9 [degF] Body temperature weight E&M - 3141-9 145 [lb_av] Weight Measured blood pressure, diastolic - 8462-4 76 mm[Hg] BP ogden blood pressure, systolic - 8480-6 115 mm[Hg] BP sys pulse rate E&M - 8867-4 66 /min Heart rate temperature E&M 98.8 [degF] Body temperature weight E&M - 3141-9 137 [lb_av] Weight Measured blood pressure, diastolic - 8462-4 73 mm[Hg] BP ogden blood pressure, systolic - 8480-6 121 mm[Hg] BP sys height E&M - 8302-2 66.25 [in_us] Bdy height pulse rate E&M - 8867-4 73 /min Heart rate temperature E&M 98.4 [degF] Body temperature weight E&M - 3141-9 134 [lb_av] Weight Measured Diagnostic Results Date Name Value Unit Range Description Lab Report: ABO GROUP & RH TYPE, ANTIBODY SCREEN, RBCW/REFL I, CBC (IN ... - Blood bank Rh antigen RH(D) POSITIVE antibody screen, serum NO ANTIBODIES DETECTED Lab Report: ABO GROUP & RH TYPE, ANTIBODY SCREEN, RBCW/REFL I, CBC (IN ... - Chemistry hepatitis B surface antigen NON-REACTIVE NON-REACTIVE Lab Report: ABO GROUP & RH TYPE, ANTIBODY SCREEN, RBCW/REFL I, CBC (IN ... - Hematology leukocyte count, blood 8.5 THOUSAND/UL 10*3/mm3 4.5-13.0 erythrocyte (RBC) count 4.48 MILLION/UL 10*6/mm3 3.80-5.10 hemoglobin, blood 13.6 g/dL 11.5-15.3 hematocrit, blood 41.7 % 34.0-46.0 mean corpuscular volume, RBC 93.0 fL 78.0-98.0 mean corpuscular hemoglobin, RBC 30.4 pg 25.0-35.0 mean corpuscular hemoglobin concentration, RBC 32.7 G/DL % 31.0- 36.0 red blood cell distribution width 12.5 % 11.0-15.0 platelet count 230 THOUSAND/UL 10*3/mm3 843-192 6839/11/20 Blood type A Lab Report: ABO GROUP & RH TYPE, ANTIBODY SCREEN, RBCW/REFL I, CBC (IN ... - Lab chlamydia DNA probe NOT DETECTED NOT DETECTED Lab Report: ABO GROUP & RH TYPE, ANTIBODY SCREEN, RBCW/REFL I, CBC (IN ... - Microbiology Neisseria gonorrhoeae DNA probe NOT DETECTED NOT DETECTED Lab Report: ABO GROUP & RH TYPE, ANTIBODY SCREEN, RBCW/REFL I, CBC (IN ... - Serology rapid plasma reagin antibody titer NON-REACTIVE NON-REACTIVE rubella antibody, serum, IgG 2.86 Office Visit: Initial OB Visit - Blood bank antibody screen, serum negative Rh antigen pos blood type with RH factor A Office Visit: Initial OB Visit - Chemistry Neisseria gonorrhoeae, genital culture negative hepatitis B surface antigen negative protein, total urine random UC mg/dL Office Visit: Initial OB Visit - Genetics/fertility test, date 12/29/2013 Office Visit: Initial OB Visit - Hematology hemoglobin, blood 13.6 g/dL Office Visit: Initial OB Visit - Lab chlamydia DNA probe negative Office Visit: Initial OB Visit - Microbiology urine culture (with units of CFunits/mL) E.coli {cfu}/mL Herpes Simplex Virus Genital no Office Visit: Initial OB Visit - Serology VDRL, serum negative rubella antibody, serum, titer immune Office Visit: Initial OB Visit - Urinalysis glucose, urine, semiquantitative UC nitrite, urine, semiquantitative UC Encounters Code Encounter Date Provider Facility CPT-69742 Level 3 Est. Patient 11:17:39 CDT Mari Romo APRN [facility] CPT-03323 Level 3 Est. Patient 08:42:18 CDT Michelle Smith MD PhD [facility] CPT-04337 Level 3 Est. Patient 16:24:24 [employer] Mari Romo [facility] CPT-88799 Level 3 Est. Patient 20:39:13 [employer] Mari Romo [facility] CPT-58604 Level 3 Est. Patient 11:07:33 [employer]IM[employer] Mari Romo [facility] CPT-64122 Level 3 Est. Patient 10:33:19 CDT Peter Sung MD [facility] CPT-68879 Level 3 Est. Patient 18:10:34 CDT Peter Sung MD [facility] Procedures Code Procedure Name Date Entry Date Standard Description CPT-J1885 Toradol 30 mg (Ketorolac) 17:01:40 CDT CPT-39423 Abx/Therapy Injection 17:01:40 CDT CPT-J1885 Toradol 60 mg (Ketorolac) 15:41:36 CDT CPT-J1050 Depo Provera 150 mg (Medroxyprogesterone) 13:48:38 [employer] CPT-80165 Abx/Therapy Injection 13:48:38 [employer] CPT-39550 Venipuncture Draw Fee 11:24:44 [employer] CPT-J1050 Depo Provera 150 mg (Medroxyprogesterone) 11:07:33 [employer] CPT-80322 Immunization Single Admin 13:12:44 [employer] CPT-65078 Fluzone Quadrivalent Intramuscular Suspension 0.5 ML 13: 12:44 [employer] CPT-39283 Fluzone 11:12:18 [employer] CPT-83242 Spec Collection and Handling Fee 11:12:18 [employer] CPT-94762 Visit 11:12:18 [employer]
--- OUTSIDE RECORDS SUMMARY | 2017-12-29 16:26 | XMS REPORT | Clinical Summary ---
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 Pain in limb Low back pain 724.2 Resolved Mari Yosurajum [employer]ATCH MAK[employer] Lumbago Supervision of normal first V22.0 Resolved Mari Yosurajum BATCH MAKER Supervision of normal first , adolescent 659.83 Resolved Mari Jarvisum BATCH MAKER Other specified indications for care or intervention related to labor and delivery, antepartum condition or complication NEED FOR PROPHYLACTIC VACCINATION WITH STREPTOCOCCUS PNEUMONIAE (PNEUMOCOCCUS) AND INFLUENZA V06.6 Resolved Mari Yokum [employer]ATCH [employer] Need for prophylactic vaccination and inoculation against Streptococcus pneumoniae [pneumococcus] and influenza UTI 599.0 Resolved Mari Yokum [employer]ATCH [employer] Urinary tract infection, site not specified Contraceptive management V25.9 Active Mari Yokum BATCH [employer] Encounter for unspecified contraceptive management Depression 311 Active Mari Yosurajum BATCH MAKER Depressive disorder, not elsewhere classified Tonsillar hypertrophy 474.11 Active Mari Yokum [employer]ATCH MA[employer] Hypertrophy of tonsils alone Headache 784.0 Resolved Mari Yokum [employer]ATCH [employer] Headache Sinusitis, acute 461.9 Resolved Mari Yokum [employer]ATCH [employer] Acute sinusitis, unspecified Abdominal pain 789.00 Resolved Mari Yokum [employer]ATCH [employer] Abdominal pain, unspecified site Abdominal pain, RLQ 789.03 Resolved Mari Yokum [employer]ATCH [employer] Abdominal pain, right lower quadrant Contact dermatitis due to poison julia 692.6 Active Mari Yokum BATCH MAK[employer] Contact dermatitis and other eczema due to plants [except food] Eczema 692.9 Active Mari Yokum BATCH MAK[employer] Contact dermatitis and other eczema, unspecified cause Headache 784.0 Active Peter Sung MD Headache Nausea and vomiting 787.01 Active Peter Sung MD Nausea with vomiting Hand pain, right ICD-729.5 Inactive Mari Yokum [employer]ATCH MA[employer] Low back pain ICD-724.2 Inactive Mari Yokum BATCH [employer] Supervision of normal first ICD-V22.0 Inactive Mari Yokum BATCH 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 , adolescent ICD-659.83 Inactive 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 NEED FOR PROPHYLACTIC VACCINATION WITH STREPTOCOCCUS PNEUMONIAE (PNEUMOCOCCUS) AND INFLUENZA ICD-V06.6 Inactive Mari Yokum BATCH MAKER UTI ICD-599.0 Inactive Mari Yokum BATCH [employer] Headache ICD-784.0 Inactive Mari Yokum BATCH MAKER 08/17 Sinusitis, acute ICD-461.9 Inactive Mari Yokum [employer]ATCH [employer] Abdominal pain ICD-789.00 Inactive Mari Yokum [employer]ATCH [employer] Abdominal pain, RLQ ICD-789.03 Inactive Mari Yokum BATCH MAK[employer] Medication List Medication Instructions Start Date Stop Date Generic Name [facility] Status Provider Patient Instruction RANITIDINE HCL 300 MG CAPS 1 tablet by mouth daily RANITIDINE HCL 38779822614 Active Amaris Orr Active TRIAMCINOLONE ACETONIDE 0.1 % CREA apply bid sparingly to rash TRIAMCINOLONE ACETONIDE 88992387979 Active Mari Romo APRN Active TRI-SPRINTEC 0.18/0.215/0.25 MG-35 MCG TABS 1 po qd as directed NORGESTIM-ETH ESTRAD TRIPHASIC 06327982602 No Longer Active Mari Romo BATCH MAKER Active MEDROL (MICHELLE) 4 MG TABS 6 tabs on day 1, 5 tabs on day 2, 4 tabs on day 3, 3 tabs on day 4, 2 tabs on day 5, 1 tab on day 6 METHYLPREDNISOLONE 26540079500 No Longer Active Mari Romo APRN Active DEPO-PROVERA 150 MG/ML SUPENSION MEDROXYPROGEST RIK (CONTRACEP) 39960389067 No Longer Active Mari Romo BATCH MAKER Active AUGMENTIN 875-125 MG TABS 1 pill by mouth twice daily AMOXICILLIN-POT CLAVULANATE 89873530514 No Longer Active Michelle Smith MD PhD Active PAROXETINE HCL 10 MG TABS 1 pill by mouth daily, for depression PAROXETINE HCL 03885107380 Active Mari Romo BATCH MAK[employer] Active PROZAC 10 MG CAP Take one tablet daily for depression FLUOXETINE HCL 06619078523 No Longer Active Michelle Smith MD PhD Active CONCEPT DHA 53.5-38-1 MG CAPS one tab PO daily PRENAT -[id number]-ONSU-LI-OMEGA 3 25123099251 No Longer Active Michelle Smith MD PhD Active MACROBID 100 MG CAPS one tab PO BID x 7 days NITROFURANTOIN MONOHYD MACRO 39071874400 No Longer Active Traci Tinsley MD Active TRAMADOL HCL 50 MG TABS 1 tab po tid prn back pain TRAMADOL HCL 75826514953 No Longer Active Traci Tinsley MD Active PREDNISONE 20 MG TAB Take 3 tabs daily for 3 days, then 2 tabs daily for 3 days, then 1 tab daily for 3 days, then 1/2 tab daily for 3 days. PREDNISONE 19056005686 No Longer Active Peter Sung MD Active TRAMADOL HCL 50 MG TABS 1 tab po tid prn back pain TRAMADOL HCL 50 MG TABS 778217 TRAMADOL HCL Inactive CONCEPT DHA 53.5-38-1 MG CAPS one tab PO daily CONCEPT DHA 53.5-38-1 MG CAPS [id number]-FA-OMEGA 3 Inactive PROZAC 10 MG CAP Take one tablet daily for depression PROZAC 10 MG CAP 888908 FLUOXETINE HCL Inactive DEPO-PROVERA 150 MG/ML SUPENSION DEPO-PROVERA 150 MG/ML SUPENSION 0790043 MEDROXYPROGEST RIK (CONTRACEP) Inactive TRI-SPRINTEC 0.18/0.215/0.25 MG-35 MCG TABS 1 po qd as directed TRI-SPRINTEC 0.18/0.215/0.25 MG-35 MCG TABS 191081 NORGESTIM-ETH ESTRAD TRIPHASIC Inactive PREDNISONE 20 MG TAB Take 3 tabs daily for 3 days, then 2 tabs daily for 3 days, then 1 tab daily for 3 days, then 1/2 tab daily for 3 days. PREDNISONE 20 MG TAB 414430 PREDNISONE Inactive MACROBID 100 MG CAPS one tab PO BID x 7 days MACROBID 100 MG CAPS 793098 NITROFURANTOIN MONOHYD MACRO Inactive AUGMENTIN 875-125 MG TABS 1 pill by mouth twice daily AUGMENTIN 875-125 MG TABS 507165 AMOXICILLIN-POT CLAVULANATE Inactive MEDROL (MICHELLE) 4 MG TABS 6 tabs on day 1, 5 tabs on day 2, 4 tabs on day 3, 3 tabs on day 4, 2 tabs on day 5, 1 tab on day 6 MEDROL ( MICHELLE) 4 MG TABS METHYLPREDNISOLONE Inactive Advance Directives Directive Description Start Date CONSENT FOR MINOR CARE Immunizations Vaccine Administration Date Value Standard Description hepatitis B vaccine series no hepatitis B vaccine, unspecified formulation Vital Signs Date Name Value Unit Range Description blood pressure, diastolic - 8462-4 68 mm[Hg] BP ogden blood pressure, systolic - 8480-6 106 mm[Hg] BP sys pulse rate E&M - 8867-4 71 /min Heart rate temperature E&M 98.8 [degF] Body temperature weight E&M - 3141-9 123 [lb_av] Weight Measured blood pressure, diastolic - 8462-4 74 mm[Hg] BP ogden blood pressure, systolic - 8480-6 113 mm[Hg] BP sys pulse rate E&M - 8867-4 49 /min Heart rate temperature E&M 97.6 [degF] Body temperature weight E&M - 3141-9 130.0 [lb_av] Weight Measured blood pressure, diastolic - 8462-4 62 mm[Hg] BP ogden blood pressure, systolic - 8480-6 100 mm[Hg] BP sys pulse rate E&M - 8867-4 71 /min Heart rate temperature E&M 96.7 [degF] Body temperature weight E&M - 3141-9 131.4 [lb_av] Weight Measured blood pressure, diastolic - 8462-4 74 mm[Hg] BP ogden blood pressure, systolic - 8480-6 146 mm[Hg] BP sys pulse rate E&M - 8867-4 86 /min Heart rate temperature E&M 99.3 [degF] Body temperature weight E&M - 3141-9 139.6 [lb_av] Weight Measured blood pressure, diastolic - 8462-4 77 mm[Hg] BP ogden blood pressure, systolic - 8480-6 119 mm[Hg] BP sys pulse rate E&M - 8867-4 75 /min Heart rate temperature E&M 98.3 [degF] Body temperature weight E&M - 3141-9 136 [lb_av] Weight Measured blood pressure, diastolic - 8462-4 63 mm[Hg] [...] E&M - 3141-9 137 [lb_av] Weight Measured Diagnostic Results Date Name [...] % 11.0-15.0 platelet count 230 THOUSAND/UL 10*3/mm3 554-805 8070/11/20 Blood type A Lab Report: ABO GROUP [...] NON-REACTIVE NON-REACTIVE rubella antibody, serum, IgG 2.86 Lab Report: CBC W/DIFF - Hematology leukocyte count, blood 7.4 10^3/MM^3 10*3/mm3 4.6-10.2 neutrophils as percent of blood leukocytes 50.5 % 42.2-75.2 monocytes as percent of blood leukocytes 8.5 % 1.7-9.3 lymphocytes as percent of blood leukocytes 38.4 % 20.5-51.1 erythrocyte (RBC) count 4.44 10^6/MM^3 10*6/mm3 4.04-5.48 hemoglobin, blood 13.6 g/dL 12.0-16.0 hematocrit, blood 39.9 % 36.0-46.0 mean corpuscular volume, RBC 90 fL 80-97 mean corpuscular hemoglobin, RBC 30.6 pg 27.0-31.2 mean corpuscular hemoglobin concentration, RBC 34.1 G/DL % 31.8- 35.4 red blood cell distribution width 13.1 % 11.6-14.8 platelet count 233 10^3/MM^3 10*3/mm3 142-424 Lab Report: CBC W/DIFF, Comp. Metabolic Panel - Chemistry sodium, serum 143 mmol/L 778-245 0216/07/23 potassium, serum 3.8 mmol/L 3.5-5.2 chloride, serum 105 mmol/L 98-107 carbon dioxide, venous blood 29.1 mmol/L 21.0-32.0 blood glucose 83 mg/dL 65-110 urea nitrogen, blood 5 mg/dL 7-18 creatinine, serum 0.70 mg/dL 0.60-1.30 alanine aminotransferase (SGPT), serum 15 U/L 12-78 aspartate aminotransferase (SGOT), serum 13 U/L 15-37 calcium, serum 9.0 mg/dL 8.5-10.1 bilirubin, serum, total 0.40 mg/dL 0.00-1.00 Lab Report: CBC W/DIFF, Comp. Metabolic Panel - Hematology leukocyte count, blood 5.5 10^3/MM^3 10*3/mm3 4.6-10.2 neutrophils as percent of blood leukocytes 50.2 % 42.2-75.2 monocytes as percent of blood leukocytes 6.4 % 1.7-9.3 lymphocytes as percent of blood leukocytes 41.4 % 20.5-51.1 erythrocyte (RBC) count 4.22 10^6/MM^3 10*6/mm3 4.04-5.48 hemoglobin, blood 13.0 g/dL 12.0-16.0 hematocrit, blood 37.6 % 36.0-46.0 mean corpuscular volume, RBC 89 fL 80-97 mean corpuscular hemoglobin, RBC 30.8 pg 27.0-31.2 mean corpuscular hemoglobin concentration, RBC 34.6 G/DL % 31.8- 35.4 red blood cell distribution width 14.2 % 11.6-14.8 platelet count 186 10^3/MM^3 10*3/mm3 142-424 Lab Report: Comp. Metabolic Panel - Chemistry sodium, serum 142 mmol/L 811-475 8127/04/22 potassium, serum 3.9 mmol/L 3.5-5.2 chloride, serum 103 mmol/L 98-107 carbon dioxide, venous blood 34.6 mmol/L 21.0-32.0 blood glucose 94 mg/dL 65-110 urea nitrogen, blood 12 mg/dL 7-18 creatinine, serum 0.80 mg/dL 0.60-1.30 alanine aminotransferase (SGPT), serum 21 U/L 12-78 aspartate aminotransferase (SGOT), serum 12 U/L 15-37 calcium, serum 8.4 mg/dL 8.5-10.1 bilirubin, serum, total 0.30 mg/dL 0.00-1.00 Office Visit: Initial OB Visit - Blood [...] UC Encounters Code Encounter Date Provider Facility CPT-45568 Level 4 Est. Patient 19:00:30 CDT Peter Sung MD [facility] CPT-44839 Level 3 Est. Patient 12:00:28 CDT Mari Romo [facility] CPT-38883 Level 3 Est. Patient 19:08:16 CDT Mari Romo [facility] CPT-45494 Level 3 Est. Patient 19:07:22 CDT Mari Romo [facility] CPT-96105 Level 3 Est. Patient 09:13:25 CDT Mari Romo [facility] CPT-70029 Level 3 Est. Patient 11:17:39 CDT Mari Romo [facility] CPT-60296 Level 3 Est. Patient 08:42:18 CDT Michelle Smith MD [facility] CPT-25187 Level 3 Est. Patient 16:24:24 [employer] Mari Romo [facility] CPT-53627 Level 3 Est. Patient 20:39:13 [employer] Mari Romo [facility] CPT-36825 Level 3 Est. Patient 11:07:33 [employer] Mari Romo [facility] CPT-24237 Level 3 Est. Patient 10:33:19 CDT Peter Sung MD [facility] CPT-27547 Level 3 Est. Patient 18:10:34 CDT Peter Sung MD [facility] Procedures Code Procedure Name Date Entry Date Standard Description CPT-95229 Sono pelvis non OB uterus ovaries cervix 13:02:35 CDT CPT-J1885 Toradol 30 mg (Ketorolac) 17:01:40 CDT CPT-86629 Abx/Therapy Injection 17:01:40 CDT CPT-J1885 Toradol 60 mg (Ketorolac) 15:41:36 CDT CPT-J1050 Depo Provera 150 mg (Medroxyprogesterone) 13:48:38 [employer] CPT-14029 Abx/Therapy Injection 13:48:38 [employer] CPT-82116 Venipuncture Draw Fee 11:24:44 [employer] CPT-J1050 Depo Provera 150 mg (Medroxyprogesterone) 11:07:33 [employer] CPT-89271 Immunization Single Admin 13:12:44 [employer] CPT-76082 Fluzone Quadrivalent Intramuscular Suspension 0.5 ML 13: 12:44 [employer] CPT-25705 Fluzone 11:12:18 [employer] CPT-88687 Spec Collection and Handling Fee 11:12:18 [employer] CPT-06185 Visit 11:12:18 [employer]
--- OUTSIDE RECORDS SUMMARY | 2017-12-29 16:26 | XMS REPORT | Clinical Summary ---
Author Author Admin, Jose Miguel Organization [facility] Address Unknown Phone Unavailable Allergies, Adverse Reactions, Alerts Allergy Name Reaction Description Start Date Severity Status Provider No Known Allergies Abril Shipman Conditions or Problems Problem Name Problem Code Onset Date Status Entry Date Provider Comment Standard Description Annotate Hand pain, right 729.5 Resolved Mari Yokum SELLING SPECIALIST Pain in limb Low back pain 724.2 Resolved Mari Yokum SELLING SPECIALIST Lumbago Supervision of normal first V22.0 Resolved Mari Yokum SELLING SPECIALIST Supervision of normal first , adolescent 659.83 Resolved Mari Yokum SELLING SPECIALIST Other specified indications for care or intervention related to labor and delivery, antepartum condition or complication NEED FOR PROPHYLACTIC VACCINATION WITH STREPTOCOCCUS PNEUMONIAE (PNEUMOCOCCUS) AND INFLUENZA V06.6 Resolved Mari Yokum SELLING SPECIALIST Need for prophylactic vaccination and inoculation against Streptococcus pneumoniae [pneumococcus] and influenza UTI 599.0 Resolved Mari Yokum SELLING SPECIALIST Urinary tract infection, site not specified Contraceptive management V25.9 Active Mari Yokum SELLING SPECIALIST Encounter for unspecified contraceptive management Depression 311 Active Mari Yokum SELLING SPECIALIST Depressive disorder, not elsewhere classified Tonsillar hypertrophy 474.11 Active Mari Yokum SELLING SPECIALIST Hypertrophy of tonsils alone Headache 784.0 Active Michelle Smith MD PhD Headache Sinusitis, acute 461.9 Active Michelle Smith MD PhD Acute sinusitis, unspecified Abdominal pain 789.00 Active Mari Romo APRN Abdominal pain, unspecified site Abdominal pain, RLQ 789.03 Active Medina Pulliam Abdominal pain, right lower quadrant Hand pain, right ICD-729.5 Inactive Mari Romo SELLING SPECIALIST Low back pain ICD-724.2 Inactive Mari Romo SELLING SPECIALIST Supervision of normal first ICD-V22.0 Inactive Mari Romo SELLING SPECIALIST , adolescent ICD-659.83 Inactive Mari Romo SELLING SPECIALIST NEED FOR PROPHYLACTIC VACCINATION WITH STREPTOCOCCUS PNEUMONIAE (PNEUMOCOCCUS) AND INFLUENZA ICD-V06.6 Inactive Mari Romo SELLING SPECIALIST UTI ICD-599.0 Inactive Mari Romo SELLING SPECIALIST Medication List Medication Instructions Start Date Stop Date Generic Name NDC Status Provider Patient Instruction DEPO-PROVERA 150 MG/ML SUPENSION MEDROXYPROGEST RIK (CONTRACEP) 65093105743 No Longer Active Mari Romo APRN Active TRI-SPRINTEC 0.18/0.215/0.25 MG-35 MCG TABS 1 po qd as directed NORGESTIM-ETH ESTRAD TRIPHASIC 15697774018 Active Mari Romo APRN Active AUGMENTIN 875-125 MG TABS 1 pill by mouth twice daily AMOXICILLIN-POT CLAVULANATE 49099148699 No Longer Active Michelle Smith MD PhD Active PAROXETINE HCL 10 MG TABS 1 pill by mouth daily, for depression PAROXETINE HCL 91671630182 Active Mari Romo APRN Active PROZAC 10 MG CAP Take one tablet daily for depression FLUOXETINE HCL 53768130309 No Longer Active Michelle Smith MD PhD Active CONCEPT DHA 53.5-38-1 MG CAPS one tab PO daily PRENAT -[id number]-ZC-OMEGA 3 38450824872 No Longer Active Michelle Smith MD PhD Active MACROBID 100 MG CAPS one tab PO BID x 7 days NITROFURANTOIN MONOHYD MACRO 32536033463 No Longer Active Traci Tinsley MD Active TRAMADOL HCL 50 MG TABS 1 tab po tid prn back pain TRAMADOL HCL 31624318252 No Longer Active Traci Tinsley MD Active PREDNISONE 20 MG TAB Take 3 tabs daily for 3 days, then 2 tabs daily for 3 days, then 1 tab daily for 3 days, then 1/2 tab daily for 3 days. PREDNISONE 25980320309 No Longer Active Peter Sung MD Active TRAMADOL HCL 50 MG TABS 1 tab po tid prn back pain TRAMADOL HCL 50 MG TABS 399107 TRAMADOL HCL Inactive CONCEPT DHA 53.5-38-1 MG CAPS one tab PO daily CONCEPT DHA 53.5-38-1 MG CAPS [id number]-FA-OMEGA 3 Inactive PROZAC 10 MG CAP Take one tablet daily for depression PROZAC 10 MG CAP 582790 FLUOXETINE HCL Inactive DEPO-PROVERA 150 MG/ML SUPENSION DEPO-PROVERA 150 MG/ML SUPENSION 0974287 MEDROXYPROGEST RIK (CONTRACEP) Inactive PREDNISONE 20 MG TAB Take 3 tabs daily for 3 days, then 2 tabs daily for 3 days, then 1 tab daily for 3 days, then 1/2 tab daily for 3 days. PREDNISONE 20 MG TAB 114025 PREDNISONE Inactive MACROBID 100 MG CAPS one tab PO BID x 7 days MACROBID 100 MG CAPS 868511 NITROFURANTOIN MONOHYD MACRO Inactive AUGMENTIN 875-125 MG TABS 1 pill by mouth twice daily AUGMENTIN 875-125 MG TABS 187444 AMOXICILLIN-POT CLAVULANATE Inactive Advance Directives Directive Description Start Date CONSENT FOR MINOR CARE Immunizations Vaccine Administration Date Value Standard Description hepatitis B vaccine series no hepatitis B vaccine, unspecified formulation Vital Signs Date Name Value Unit Range Description blood pressure, diastolic - 8462-4 74 mm[Hg] [...] % 11.0-15.0 platelet count 230 THOUSAND/UL 10*3/mm3 290-688 9429/11/20 Blood type A Lab Report: ABO GROUP [...] count 233 10^3/MM^3 10*3/mm3 142-424 Lab Report: Comp. Metabolic Panel - Chemistry sodium, serum 142 mmol/L 196-346 1927/04/22 potassium, serum 3.9 mmol/L 3.5-5.2 chloride, serum [...] UC Encounters Code Encounter Date Provider Facility CPT-92734 Level 3 Est. Patient 09:13:25 CDT Mari Romo [facility] CPT-51192 Level 3 Est. Patient 11:17:39 CDT Mari Romo [facility] CPT-16003 Level 3 Est. Patient 08:42:18 CDT Michelle Smith MD PhD [facility] CPT-68740 Level 3 Est. Patient 16:24:24 AGRONOMIST Mari Romo [facility] CPT-76045 Level 3 Est. Patient 20:39:13 AGRONOMIST Mari Romo [facility] CPT-98055 Level 3 Est. Patient 11:07:33 AGRONOMIST Mari Romo [facility] CPT-11648 Level 3 Est. Patient 10:33:19 CDT Peter Sung MD [facility] CPT-13685 Level 3 Est. Patient 18:10:34 CDT Peter Sung MD [facility] Procedures Code Procedure Name Date Entry Date Standard Description CPT-83476 Sono pelvis non OB uterus ovaries cervix 13:02:35 CDT CPT-J1885 Toradol 30 mg (Ketorolac) 17:01:40 CDT CPT-98288 Abx/Therapy Injection 17:01:40 CDT CPT-J1885 Toradol 60 mg (Ketorolac) 15:41:36 CDT CPT-J1050 Depo Provera 150 mg (Medroxyprogesterone) 13:48:38 AGRONOMIST CPT-05529 Abx/Therapy Injection 13:48:38 AGRONOMIST CPT-83274 Venipuncture Draw Fee 11:24:44 AGRONOMIST CPT-J1050 Depo Provera 150 mg (Medroxyprogesterone) 11:07:33 AGRONOMIST CPT-15121 Immunization Single Admin 13:12:44 AGRONOMIST CPT-12667 Fluzone Quadrivalent Intramuscular Suspension 0.5 ML 13: 12:44 AGRONOMIST CPT-27468 Fluzone 11:12:18 AGRONOMIST CPT-85641 Spec Collection and Handling Fee 11:12:18 AGRONOMIST CPT-55004 Visit 11:12:18 AGRONOMIST
--- OUTSIDE RECORDS SUMMARY | 2017-12-29 16:27 | XMS REPORT | Clinical Summary ---
Author Author Admin, Jose Miguel Organization [facility] Address Unknown Phone Unavailable Allergies, Adverse Reactions, Alerts Allergy Name Reaction Description Start Date Severity Status Provider No Known Allergies Abrilkailee Shipman Conditions or Problems Problem Name Problem Code Onset Date Status Entry Date Provider Comment Standard Description Annotate Hand pain, right 729.5 Resolved Mari Yokum CLINICAL PROVIDER TRAINER Pain in limb Low back pain 724.2 Resolved Mrai Yokum CLINICAL PROVIDER TRAINER Lumbago Supervision of normal first V22.0 Resolved Mari Yokum CLINICAL PROVIDER TRAINER Supervision of normal first , adolescent 659.83 Resolved Mari Yokum CLINICAL PROVIDER TRAINER Other specified indications for care or intervention related to labor and delivery, antepartum condition or complication NEED FOR PROPHYLACTIC VACCINATION WITH STREPTOCOCCUS PNEUMONIAE (PNEUMOCOCCUS) AND INFLUENZA V06.6 Resolved Mari Yokum CLINICAL PROVIDER TRAINER Need for prophylactic vaccination and inoculation against Streptococcus pneumoniae [pneumococcus] and influenza UTI 599.0 Resolved Mari Yokum CLINICAL PROVIDER TRAINER Urinary tract infection, site not specified Contraceptive management V25.9 Active Mari Yokum CLINICAL PROVIDER TRAINER Encounter for unspecified contraceptive management Depression 311 Active Mari Yokum CLINICAL PROVIDER TRAINER Depressive disorder, not elsewhere classified Tonsillar hypertrophy 474.11 Active Mari Yokum CLINICAL PROVIDER TRAINER Hypertrophy of tonsils alone Headache 784.0 Active Michelle Smith MD PhD Headache Sinusitis, acute 461.9 Active Michelle Smith MD PhD Acute sinusitis, unspecified Abdominal pain 789.00 Active Mari Romo APRN Abdominal pain, unspecified site Abdominal pain, RLQ 789.03 Active Medina Pulliam Abdominal pain, right lower quadrant Contact dermatitis due to poison julia 692.6 Active Mari Romo APRN Contact dermatitis and other eczema due to plants [except food] Hand pain, right ICD-729.5 Inactive Mari Romo CLINICAL PROVIDER TRAINER Low back pain ICD-724.2 Inactive Mari Romo CLINICAL PROVIDER TRAINER Supervision of normal first ICD-V22.0 Inactive Mari Romo CLINICAL PROVIDER TRAINER , adolescent ICD-659.83 Inactive Mari Romo CLINICAL PROVIDER TRAINER NEED FOR PROPHYLACTIC VACCINATION WITH STREPTOCOCCUS PNEUMONIAE (PNEUMOCOCCUS) AND INFLUENZA ICD-V06.6 Inactive Mari Romo CLINICAL PROVIDER TRAINER UTI ICD-599.0 Inactive Mari Romo CLINICAL PROVIDER TRAINER Medication List Medication Instructions Start Date Stop Date Generic Name NDC Status Provider Patient Instruction TRIAMCINOLONE ACETONIDE 0.1 % CREA apply bid sparingly to rash TRIAMCINOLONE ACETONIDE 11831480074 Active Mari Romo APRN Active TRI-SPRINTEC 0.18/0.215/0.25 MG-35 MCG TABS 1 po qd as directed NORGESTIM-ETH ESTRAD TRIPHASIC 20287899742 No Longer Active Mari Romo APRN Active MEDROL (MICHELLE) 4 MG TABS 6 tabs on day 1, 5 tabs on day 2, 4 tabs on day 3, 3 tabs on day 4, 2 tabs on day 5, 1 tab on day 6 METHYLPREDNISOLONE 68549059887 No Longer Active Mari Romo CLINICAL PROVIDER TRAINER Active DEPO-PROVERA 150 MG/ML SUPENSION MEDROXYPROGEST RIK (CONTRACEP) 61809724296 No Longer Active Mari Powerjohan RAMIREZ Active AUGMENTIN 875-125 MG TABS 1 pill by mouth twice daily AMOXICILLIN-POT CLAVULANATE 45029335064 No Longer Active Michelle Smith MD PhD Active PAROXETINE HCL 10 MG TABS 1 pill by mouth daily, for depression PAROXETINE HCL 44189915609 Active Mari Powerjohan RAMIREZ Active PROZAC 10 MG CAP Take one tablet daily for depression FLUOXETINE HCL 53576152447 No Longer Active Michelle Smith MD PhD Active CONCEPT DHA 53.5-38-1 MG CAPS one tab PO daily PRENAT -[id number]-KYPO-DJ-OMEGA 3 75206896983 No Longer Active Michelle Smith MD PhD Active MACROBID 100 MG CAPS one tab PO BID x 7 days NITROFURANTOIN MONOHYD MACRO 76955237977 No Longer Active Traci Tinsley MD Active TRAMADOL HCL 50 MG TABS 1 tab po tid prn back pain TRAMADOL HCL 80161473176 No Longer Active Traci Tinsley MD Active PREDNISONE 20 MG TAB Take 3 tabs daily for 3 days, then 2 tabs daily for 3 days, then 1 tab daily for 3 days, then 1/2 tab daily for 3 days. PREDNISONE 83353563457 No Longer Active Peter Sung MD Active TRAMADOL HCL 50 MG TABS 1 tab po tid prn back pain TRAMADOL HCL 50 MG TABS 955827 TRAMADOL HCL Inactive CONCEPT DHA 53.5-38-1 MG CAPS one tab PO daily CONCEPT DHA 53.5-38-1 MG CAPS [id number]-RZNR-FA-OMEGA 3 Inactive PROZAC 10 MG CAP Take one tablet daily for depression PROZAC 10 MG CAP 468205 FLUOXETINE HCL Inactive DEPO-PROVERA 150 MG/ML SUPENSION DEPO-PROVERA 150 MG/ML SUPENSION 1424407 MEDROXYPROGEST RIK (CONTRACEP) Inactive TRI-SPRINTEC 0.18/0.215/0.25 MG-35 MCG TABS 1 po qd as directed TRI-SPRINTEC 0.18/0.215/0.25 MG-35 MCG TABS 973309 NORGESTIM-ETH ESTRAD TRIPHASIC Inactive PREDNISONE 20 MG TAB Take 3 tabs daily for 3 days, then 2 tabs daily for 3 days, then 1 tab daily for 3 days, then 1/2 tab daily for 3 days. PREDNISONE 20 MG TAB 708174 PREDNISONE Inactive MACROBID 100 MG CAPS one tab PO BID x 7 days MACROBID 100 MG CAPS 122547 NITROFURANTOIN MONOHYD MACRO Inactive AUGMENTIN 875-125 MG TABS 1 pill by mouth twice daily AUGMENTIN 875-125 MG TABS 381928 AMOXICILLIN-POT CLAVULANATE Inactive MEDROL (MICHELLE) 4 MG [...] Range Description blood pressure, diastolic - 8462-4 62 mm[Hg] [...] % 11.0-15.0 platelet count 230 THOUSAND/UL 10*3/mm3 662-061 8123/11/20 Blood type A Lab Report: ABO GROUP [...] Panel - Chemistry sodium, serum 142 mmol/L 965-162 0121/04/22 potassium, serum 3.9 mmol/L 3.5-5.2 chloride, serum [...] UC Encounters Code Encounter Date Provider Facility CPT-31624 Level 3 Est. [facility]08[facility] 19:07[facility]:13[facility] 3 Est. Patient 11:17:39 CDT Mari Clarissa [facility] CPT-66432 Level 3 Est. Patient 08:42:18 CDT Michelle Smith MD PhD [facility] CPT-20531 Level 3 Est. Patient 16:24:24 POPCORN VENDOR Mari Clarissa [facility] [place] CPT-08011 Level 3 Est. Patient 20:39:13 POPCORN VENDOR Mari Clarissa [facility] [place] CPT-08730 Level 3 Est. Patient 11:07:33 POPCORN VENDOR Mari Clarissa [facility] [place] CPT-88573 Level 3 Est. Patient 10:33:19 CDT Peter Sung MD [facility] CPT-93515 Level 3 Est. Patient 18:10:34 CDT Peter Sung MD [facility] Procedures Code Procedure Name Date Entry Date Standard Description CPT-28713 Sono pelvis non OB uterus ovaries cervix 13:02:35 CDT CPT-J1885 Toradol 30 mg (Ketorolac) 17:01:40 CDT CPT-39865 Abx/Therapy Injection 17:01:40 CDT CPT-J1885 Toradol 60 mg (Ketorolac) 15:41:36 CDT CPT-J1050 Depo Provera 150 mg (Medroxyprogesterone) 13:48:38 POPCORN VENDOR CPT-34955 Abx/Therapy Injection 13:48:38 POPCORN VENDOR CPT-84108 Venipuncture Draw Fee 11:24:44 POPCORN VENDOR CPT-J1050 Depo Provera 150 mg (Medroxyprogesterone) 11:07:33 POPCORN VENDOR CPT-68733 Immunization Single Admin 13:12:44 POPCORN VENDOR CPT-27721 Fluzone Quadrivalent Intramuscular Suspension 0.5 ML 13: 12:44 POPCORN VENDOR CPT-39582 Fluzone 11:12:18 POPCORN VENDOR CPT-88534 Spec Collection and Handling Fee 11:12:18 POPCORN VENDOR CPT-88773 Visit 11:12:18 POPCORN VENDOR
--- OUTSIDE RECORDS SUMMARY | 2017-12-29 16:27 | XMS REPORT | Clinical Summary ---
Author Author Admin, E Organization [facility] Address Unknown Phone Unavailable Allergies, Adverse Reactions, Alerts Allergy Name Reaction Description Start Date Severity Status Provider No Known Allergies Jessi Elder Conditions or Problems Problem Name Problem Code Onset Date Status Entry Date Provider Comment Standard Description Annotate Hand pain, right 729.5 Resolved Mari Yojohan LAY UP OPERATOR Pain in limb Low back pain 724.2 Resolved Mari Yojohan PERALTAN Lumbago Supervision of normal first V22.0 Resolved Mari Yojohan PERALTAN Supervision of normal first , adolescent 659.83 Resolved Mari Romo LAY UP OPERATOR Other specified indications for care or intervention related to labor and delivery, antepartum condition or complication NEED FOR PROPHYLACTIC VACCINATION WITH STREPTOCOCCUS PNEUMONIAE (PNEUMOCOCCUS) AND INFLUENZA V06.6 Resolved Mari Yokum LAY UP OPERATOR Need for prophylactic vaccination and inoculation against Streptococcus pneumoniae [pneumococcus] and influenza UTI 599.0 Resolved Mari Yokum LAY UP OPERATOR Urinary tract infection, site not specified Contraceptive management V25.9 Active Mari Yokcaitlyn LAY UP OPERATOR Encounter for unspecified contraceptive management Depression 311 Active Mari Yokum LAY UP OPERATOR Depressive disorder, not elsewhere classified Tonsillar hypertrophy 474.11 Active Mari Yokum LAY UP OPERATOR Hypertrophy of tonsils alone Headache 784.0 Resolved Mari Yokum LAY UP OPERATOR Headache Sinusitis, acute 461.9 Resolved Mari Yokum LAY UP OPERATOR Acute sinusitis, unspecified Abdominal pain 789.00 Resolved Mari Yokum LAY UP OPERATOR Abdominal pain, unspecified site Abdominal pain, RLQ 789.03 Resolved Mari Yokum LAY UP OPERATOR Abdominal pain, right lower quadrant Contact dermatitis due to poison julia 692.6 Active Mari Yokum LAY UP OPERATOR Contact dermatitis and other eczema due to plants [except food] Eczema 692.9 Active Mari Yokum LAY UP OPERATOR Contact dermatitis and other eczema, unspecified cause Headache 784.0 Active Peter Sung MD Headache Nausea and vomiting 787.01 Active Peter Sung MD Nausea with vomiting Hand pain, right ICD-729.5 Inactive Mari Yokum LAY UP OPERATOR Low back pain ICD-724.2 Inactive Mari Yokum LAY UP OPERATOR Supervision of normal first ICD-V22.0 Inactive Mari Yokum LAY UP OPERATOR , adolescent ICD-659.83 Inactive Mari Yokum LAY UP OPERATOR NEED FOR PROPHYLACTIC VACCINATION WITH STREPTOCOCCUS PNEUMONIAE (PNEUMOCOCCUS) AND INFLUENZA ICD-V06.6 Inactive Mari Yokum LAY UP OPERATOR UTI ICD-599.0 Inactive Mari Yokum LAY UP OPERATOR Headache ICD-784.0 Inactive Mari Yokum LAY UP OPERATOR 08/17 Sinusitis, acute ICD-461.9 Inactive Mari Yokum LAY UP OPERATOR Abdominal pain ICD-789.00 Inactive Mari Yokum LAY UP OPERATOR Abdominal pain, RLQ ICD-789.03 Inactive Mari Yokum LAY UP OPERATOR Medication List Medication Instructions Start Date Stop Date Generic Name NDC Status Provider Patient Instruction TRIAMCINOLONE ACETONIDE 0.1 % CREA apply bid sparingly to rash TRIAMCINOLONE ACETONIDE 46638546411 Active Mari Yokum LAY UP OPERATOR Active TRI-SPRINTEC 0.18/0.215/0.25 MG-35 MCG TABS 1 po qd as directed NORGESTIM-ETH ESTRAD TRIPHASIC 93542234647 No Longer Active Mari Yokum LAY UP OPERATOR Active MEDROL (MICHELLE) 4 MG TABS 6 tabs on day 1, 5 tabs on day 2, 4 tabs on day 3, 3 tabs on day 4, 2 tabs on day 5, 1 tab on day 6 METHYLPREDNISOLONE 86383633012 No Longer Active Maricarlton Jarvisum LAY UP OPERATOR Active DEPO-PROVERA 150 MG/ML SUPENSION MEDROXYPROGEST RIK (CONTRACEP) 66738489043 No Longer Active Mari Matheusum LAY UP OPERATOR Active AUGMENTIN 875-125 MG TABS 1 pill by mouth twice daily AMOXICILLIN-POT CLAVULANATE 06337950395 No Longer Active Michelle Smith MD PhD Active PAROXETINE HCL 10 MG TABS 1 pill by mouth daily, for depression PAROXETINE HCL 47344722716 Active Mari Yokum LAY UP OPERATOR Active PROZAC 10 MG CAP Take one tablet daily for depression FLUOXETINE HCL 52060136240 No Longer Active Michelle Smith MD PhD Active CONCEPT DHA 53.5-38-1 MG CAPS one tab PO daily PRENAT -MVKMQ-PTNS-AW-OMEGA 3 43806183608 No Longer Active Michelle Smith MD PhD Active MACROBID 100 MG CAPS one tab PO BID x 7 days NITROFURANTOIN MONOHYD MACRO 02931500795 No Longer Active Traci Tinsley MD Active TRAMADOL HCL 50 MG TABS 1 tab po tid prn back pain TRAMADOL HCL 78261403755 No Longer Active Traci Tinsley MD Active PREDNISONE 20 MG TAB Take 3 tabs daily for 3 days, then 2 tabs daily for 3 days, then 1 tab daily for 3 days, then 1/2 tab daily for 3 days. PREDNISONE 33806133306 No Longer Active Peter Sung MD Active TRAMADOL HCL 50 MG TABS 1 tab po tid prn back pain TRAMADOL HCL 50 MG TABS 036415 TRAMADOL HCL Inactive CONCEPT DHA 53.5-38-1 MG CAPS one tab PO daily CONCEPT DHA 53.5-38-1 MG CAPS [id number]-FA-OMEGA 3 Inactive PROZAC 10 MG CAP Take one tablet daily for depression PROZAC 10 MG CAP 437750 FLUOXETINE HCL Inactive DEPO-PROVERA 150 MG/ML SUPENSION DEPO-PROVERA 150 MG/ML SUPENSION 3481583 MEDROXYPROGEST RIK (CONTRACEP) Inactive TRI-SPRINTEC 0.18/0.215/0.25 MG-35 MCG TABS 1 po qd as directed TRI-SPRINTEC 0.18/0.215/0.25 MG-35 MCG TABS 531897 NORGESTIM-ETH ESTRAD TRIPHASIC Inactive PREDNISONE 20 MG TAB Take 3 tabs daily for 3 days, then 2 tabs daily for 3 days, then 1 tab daily for 3 days, then 1/2 tab daily for 3 days. PREDNISONE 20 MG TAB 001603 PREDNISONE Inactive MACROBID 100 MG CAPS one tab PO BID x 7 days MACROBID 100 MG CAPS 913725 NITROFURANTOIN MONOHYD MACRO Inactive AUGMENTIN 875-125 MG TABS 1 pill by mouth twice daily AUGMENTIN 875-125 MG TABS 727579 AMOXICILLIN-POT CLAVULANATE Inactive MEDROL (MICHELLE) 4 MG [...] % 11.0-15.0 platelet count 230 THOUSAND/UL 10*3/mm3 269-561 8697/11/20 Blood type A Lab Report: ABO GROUP [...] Panel - Chemistry sodium, serum 143 mmol/L 913-491 2945/07/23 potassium, serum 3.8 mmol/L 3.5-5.2 chloride, serum [...] Panel - Chemistry sodium, serum 142 mmol/L 905-158 1347/04/22 potassium, serum 3.9 mmol/L 3.5-5.2 chloride, serum [...] UC Encounters Code Encounter Date Provider Facility CPT-33446 Level 3 Est. Patient 12:00:28 CDT Mari Romo [facility] CPT-37191 Level 3 Est. Patient 19:08:16 CDT Mari Romo [facility] CPT-21832 Level 3 Est. Patient 19:07:22 CDT Mari Romo [facility] CPT-82534 Level 3 Est. Patient 09:13:25 CDT Mari Romo [facility] CPT-29942 Level 3 Est. Patient 11:17:39 CDT Mari Romo [facility] CPT-31113 Level 3 Est. Patient 08:42:18 CDT Michelle Smith MD [facility] CPT-44562 Level 3 Est. Patient 16:24:24 PRIMING MIXTURE CARRIER Mari Romo [facility] CPT-71936 Level 3 Est. Patient 20:39:13 PRIMING MIXTURE CARRIER Mari Romo [facility] CPT-91850 Level 3 Est. Patient 11:07:33 PRIMING MIXTURE CARRIER Mari Romo [facility] CPT-07831 Level 3 Est. Patient 10:33:19 CDT Peter Sung MD [facility] CPT-35204 Level 3 Est. Patient 18:10:34 CDT Peter Sung MD [facility] Procedures Code Procedure Name Date Entry Date Standard Description CPT-54357 Sono pelvis non OB uterus ovaries cervix 13:02:35 CDT CPT-J1885 Toradol 30 mg (Ketorolac) 17:01:40 CDT CPT-87041 Abx/Therapy Injection 17:01:40 CDT CPT-J1885 Toradol 60 mg (Ketorolac) 15:41:36 CDT CPT-J1050 Depo Provera 150 mg (Medroxyprogesterone) 13:48:38 PRIMING MIXTURE CARRIER CPT-21455 Abx/Therapy Injection 13:48:38 PRIMING MIXTURE CARRIER CPT-27442 Venipuncture Draw Fee 11:24:44 PRIMING MIXTURE CARRIER CPT-J1050 Depo Provera 150 mg (Medroxyprogesterone) 11:07:33 PRIMING MIXTURE CARRIER CPT-95127 Immunization Single Admin 13:12:44 PRIMING MIXTURE CARRIER CPT-48069 Fluzone Quadrivalent Intramuscular Suspension 0.5 ML 13: 12:44 PRIMING MIXTURE CARRIER CPT-91159 Fluzone 11:12:18 PRIMING MIXTURE CARRIER CPT-90187 Spec Collection and Handling Fee 11:12:18 PRIMING MIXTURE CARRIER CPT-73949 Visit 11:12:18 PRIMING MIXTURE CARRIER
--- OUTSIDE RECORDS SUMMARY | 2017-12-29 16:28 | XMS REPORT | Clinical Summary ---
Author Author Admin, E Organization [employer] Address Unknown Phone Unavailable Allergies, Adverse Reactions, Alerts Allergy Name Reaction Description Start Date Severity Status Provider No Known Allergies Sandi Jolleyford RMA Conditions or Problems Problem Name Problem Code Onset Date Status Entry Date Provider Comment Standard Description Annotate Hand pain, right 729.5 Resolved Mari Yokum SOCIAL SERVICES COUNSELOR Pain in limb Low back pain 724.2 Resolved Mari Yokum SOCIAL SERVICES COUNSELOR Lumbago Supervision of normal first V22.0 Resolved Mari Yokum SOCIAL SERVICES COUNSELOR Supervision of normal first , adolescent 659.83 Resolved Mari Yokum SOCIAL SERVICES COUNSELOR Other specified indications for care or intervention related to labor and delivery, antepartum condition or complication NEED FOR PROPHYLACTIC VACCINATION WITH STREPTOCOCCUS PNEUMONIAE (PNEUMOCOCCUS) AND INFLUENZA V06.6 Resolved Mari Yokum SOCIAL SERVICES COUNSELOR Need for prophylactic vaccination and inoculation against Streptococcus pneumoniae [pneumococcus] and influenza UTI 599.0 Resolved Mari Yokum SOCIAL SERVICES COUNSELOR Urinary tract infection, site not specified Contraceptive management V25.9 Active Mari Yokum SOCIAL SERVICES COUNSELOR Encounter for unspecified contraceptive management Depression 311 Active Mari Yokum SOCIAL SERVICES COUNSELOR Depressive disorder, not elsewhere classified Tonsillar hypertrophy 474.11 Active Mari Yokum SOCIAL SERVICES COUNSELOR Hypertrophy of tonsils alone Headache 784.0 Active Micehlle Smith MD PhD Headache Sinusitis, acute 461.9 Active Michelle Smith MD PhD Acute sinusitis, unspecified Abdominal pain 789.00 Active Mari Romo APRN Abdominal pain, unspecified site Low back pain ICD-724.2 Inactive Mari Romo SOCIAL SERVICES COUNSELOR Supervision of normal first ICD-V22.0 Inactive Mari Romo SOCIAL SERVICES COUNSELOR , adolescent ICD-659.83 Inactive Mari Romo SOCIAL SERVICES COUNSELOR NEED FOR PROPHYLACTIC VACCINATION WITH STREPTOCOCCUS PNEUMONIAE (PNEUMOCOCCUS) AND INFLUENZA ICD-V06.6 Inactive Mari Romo SOCIAL SERVICES COUNSELOR UTI ICD-599.0 Inactive Mari Romo SOCIAL SERVICES COUNSELOR Hand pain, right ICD-729.5 Inactive Mari Romo SOCIAL SERVICES COUNSELOR Medication List Medication Instructions Start Date Stop Date Generic Name ND Status Provider Patient Instruction DEPO-PROVERA 150 MG/ML SUPENSION MEDROXYPROGEST RIK (CONTRACEP) 93382438511 No Longer Active Mari Romo APRN Active TRI-SPRINTEC 0.18/0.215/0.25 MG-35 MCG TABS 1 po qd as directed NORGESTIM-ETH ESTRAD TRIPHASIC 74589091082 Active Mari Romo APRN Active AUGMENTIN 875-125 MG TABS 1 pill by mouth twice daily AMOXICILLIN-POT CLAVULANATE 45450928881 No Longer Active Michelle Smith MD PhD Active PAROXETINE HCL 10 MG TABS 1 pill by mouth daily, for depression PAROXETINE HCL 81399214124 Active Mari Romo APRN Active PROZAC 10 MG CAP Take one tablet daily for depression FLUOXETINE HCL 57284202004 No Longer Active Michelle Smith MD PhD Active CONCEPT DHA 53.5-38-1 MG CAPS one tab PO daily PRENAT -[id number]-[id number]-UU-OMEGA 3 60582000610 No Longer Active Michelle Smith MD PhD Active MACROBID 100 MG CAPS one tab PO BID x 7 days NITROFURANTOIN MONOHYD MACRO 43213005340 No Longer Active Traci Tinsley MD Active TRAMADOL HCL 50 MG TABS 1 tab po tid prn back pain TRAMADOL HCL 70801327328 No Longer Active Traci Tinsley MD Active PREDNISONE 20 MG TAB Take 3 tabs daily for 3 days, then 2 tabs daily for 3 days, then 1 tab daily for 3 days, then 1/2 tab daily for 3 days. PREDNISONE 37403792598 No Longer Active Peter Sung MD Active TRAMADOL HCL 50 MG TABS 1 tab po tid prn back pain TRAMADOL HCL 50 MG TABS 624719 TRAMADOL HCL Inactive CONCEPT DHA 53.5-38-1 MG CAPS one tab PO daily CONCEPT DHA 53.5-38-1 MG CAPS [id number]-FA-OMEGA 3 Inactive PROZAC 10 MG CAP Take one tablet daily for depression PROZAC 10 MG CAP 643360 FLUOXETINE HCL Inactive DEPO-PROVERA 150 MG/ML SUPENSION DEPO-PROVERA 150 MG/ML SUPENSION 2575423 MEDROXYPROGEST RIK (CONTRACEP) Inactive PREDNISONE 20 MG TAB Take 3 tabs daily for 3 days, then 2 tabs daily for 3 days, then 1 tab daily for 3 days, then 1/2 tab daily for 3 days. PREDNISONE 20 MG TAB 435864 PREDNISONE Inactive MACROBID 100 MG CAPS one tab PO BID x 7 days MACROBID 100 MG CAPS 875915 NITROFURANTOIN MONOHYD MACRO Inactive AUGMENTIN 875-125 MG TABS 1 pill by mouth twice daily AUGMENTIN 875-125 MG TABS 147124 AMOXICILLIN-POT CLAVULANATE Inactive Advance Directives Directive Description [...] % 11.0-15.0 platelet count 230 THOUSAND/UL 10*3/mm3 175-638 3091/11/20 Blood type A Lab Report: ABO GROUP [...] Panel - Chemistry sodium, serum 142 mmol/L 640-855 7645/04/22 potassium, serum 3.9 mmol/L 3.5-5.2 chloride, serum [...] UC Encounters Code Encounter Date Provider Facility CPT-03597 Level 3 Est. Patient 09:13:25 FROILANT Mari Romo APRN [facility] CPT-85475 Level 3 Est. Patient 11:17:39 CDT Mari Romo [facility] CPT-69852 Level 3 Est. Patient 08:42:18 CDT Michelle Smith MD [facility] CPT-31972 Level 3 Est. Patient 16:24:24 SOFTWARE APPLICATIONS ENGINEER Mari Romo [facility] CPT-72865 Level 3 Est. Patient 20:39:13 SOFTWARE APPLICATIONS ENGINEER Mari Yojohan [facility] CPT-56693 Level 3 Est. Patient 11:07:33 SOFTWARE APPLICATIONS ENGINEER Mari Clarissa [facility] CPT-40868 Level 3 Est. Patient 10:33:19 CDT Peter Sung MD [facility] CPT-01070 Level 3 Est. Patient 18:10:34 CDT Peter Sung MD [facility] Procedures Code Procedure Name Date Entry Date Standard Description CPT-J1885 Toradol 30 mg (Ketorolac) 17:01:40 CDT CPT-19920 Abx/Therapy Injection 17:01:40 CDT CPT-J1885 Toradol 60 mg (Ketorolac) 15:41:36 CDT CPT-J1050 Depo Provera 150 mg (Medroxyprogesterone) 13:48:38 SOFTWARE APPLICATIONS ENGINEER CPT-39962 Abx/Therapy Injection 13:48:38 SOFTWARE APPLICATIONS ENGINEER CPT-07866 Venipuncture Draw Fee 11:24:44 SOFTWARE APPLICATIONS ENGINEER CPT-J1050 Depo Provera 150 mg (Medroxyprogesterone) 11:07:33 SOFTWARE APPLICATIONS ENGINEER CPT-53258 Immunization Single Admin 13:12:44 SOFTWARE APPLICATIONS ENGINEER CPT-12462 Fluzone Quadrivalent Intramuscular Suspension 0.5 ML 13: 12:44 SOFTWARE APPLICATIONS ENGINEER CPT-77603 Fluzone 11:12:18 SOFTWARE APPLICATIONS ENGINEER CPT-90345 Spec Collection and Handling Fee 11:12:18 SOFTWARE APPLICATIONS ENGINEER CPT-98065 Visit 11:12:18 SOFTWARE APPLICATIONS ENGINEER
--- OUTSIDE RECORDS SUMMARY | 2017-12-29 16:28 | XMS REPORT | Clinical Summary ---
Author Author Admin, Jose Miguel Organization [employer] Address Unknown Phone Unavailable Allergies, Adverse Reactions, Alerts Allergy Name Reaction Description Start Date Severity Status Provider No Known Allergies Jessi Elder Conditions or Problems Problem Name Problem Code Onset Date Status Entry Date Provider Comment Standard Description Annotate Hand pain, right 729.5 Resolved Mari Yokum PROCESS IMPROVEMENT MANAGER Pain in limb Low back pain 724.2 Resolved Mari Yokum PROCESS IMPROVEMENT MANAGER Lumbago Supervision of normal first V22.0 Resolved Mari Yokum PROCESS IMPROVEMENT MANAGER Supervision of normal first , adolescent 659.83 Resolved Mari Yokum PROCESS IMPROVEMENT MANAGER Other specified indications for care or intervention related to labor and delivery, antepartum condition or complication NEED FOR PROPHYLACTIC VACCINATION WITH STREPTOCOCCUS PNEUMONIAE (PNEUMOCOCCUS) AND INFLUENZA V06.6 Resolved Mari Yokum PROCESS IMPROVEMENT MANAGER Need for prophylactic vaccination and inoculation against Streptococcus pneumoniae [pneumococcus] and influenza UTI 599.0 Resolved Mari Yokum PROCESS IMPROVEMENT MANAGER Urinary tract infection, site not specified Contraceptive management V25.9 Active Mari Yokum PROCESS IMPROVEMENT MANAGER Encounter for unspecified contraceptive management Depression 311 Active Mari Yokum PROCESS IMPROVEMENT MANAGER Depressive disorder, not elsewhere classified Tonsillar hypertrophy 474.11 Active Mari Yokum PROCESS IMPROVEMENT MANAGER Hypertrophy of tonsils alone Headache 784.0 Resolved Mari Yokum PROCESS IMPROVEMENT MANAGER Headache Sinusitis, acute 461.9 Resolved Mari Yokum PROCESS IMPROVEMENT MANAGER Acute sinusitis, unspecified Abdominal pain 789.00 Resolved Mari Matheusum PROCESS IMPROVEMENT MANAGER Abdominal pain, unspecified site Abdominal pain, RLQ 789.03 Resolved Mari Matheusum PROCESS IMPROVEMENT MANAGER Abdominal pain, right lower quadrant Contact dermatitis due to poison julia 692.6 Active Mari Romo PROCESS IMPROVEMENT MANAGER Contact dermatitis and other eczema due to plants [except food] Eczema 692.9 Active Mari Romo PROCESS IMPROVEMENT MANAGER Contact dermatitis and other eczema, unspecified cause Hand pain, right ICD-729.5 Inactive Mari Yokum PROCESS IMPROVEMENT MANAGER Low back pain ICD-724.2 Inactive Mari Powerkum PROCESS IMPROVEMENT MANAGER Supervision of normal first ICD-V22.0 Inactive Mari Tonokum PROCESS IMPROVEMENT MANAGER , adolescent ICD-659.83 Inactive Mari Tonokum PROCESS IMPROVEMENT MANAGER NEED FOR PROPHYLACTIC VACCINATION WITH STREPTOCOCCUS PNEUMONIAE (PNEUMOCOCCUS) AND INFLUENZA ICD-V06.6 Inactive Mari Yokum PROCESS IMPROVEMENT MANAGER UTI ICD-599.0 Inactive Mari Yokum PROCESS IMPROVEMENT MANAGER Headache ICD-784.0 Inactive Mari Yokum PROCESS IMPROVEMENT MANAGER 08/17 Sinusitis, acute ICD-461.9 Inactive Mari Yokum PROCESS IMPROVEMENT MANAGER Abdominal pain ICD-789.00 Inactive Mari Yokum PROCESS IMPROVEMENT MANAGER Abdominal pain, RLQ ICD-789.03 Inactive Mari Yokum PROCESS IMPROVEMENT MANAGER Medication List Medication Instructions Start Date Stop Date Generic Name NDC Status Provider Patient Instruction TRIAMCINOLONE ACETONIDE 0.1 % CREA apply bid sparingly to rash TRIAMCINOLONE ACETONIDE 56392145458 Active Mari Romo PROCESS IMPROVEMENT MANAGER Active TRI-SPRINTEC 0.18/0.215/0.25 MG-35 MCG TABS 1 po qd as directed NORGESTIM-ETH ESTRAD TRIPHASIC 88927091107 No Longer Active Mari Jarvisum PROCESS IMPROVEMENT MANAGER Active MEDROL (MICHELLE) 4 MG TABS 6 tabs on day 1, 5 tabs on day 2, 4 tabs on day 3, 3 tabs on day 4, 2 tabs on day 5, 1 tab on day 6 METHYLPREDNISOLONE 88192591893 No Longer Active Mari Jarvisum PROCESS IMPROVEMENT MANAGER Active DEPO-PROVERA 150 MG/ML SUPENSION MEDROXYPROGEST RIK (CONTRACEP) 17153635431 No Longer Active Mari Romo PROCESS IMPROVEMENT MANAGER Active AUGMENTIN 875-125 MG TABS 1 pill by mouth twice daily AMOXICILLIN-POT CLAVULANATE 51654421454 No Longer Active Michelle Smith MD PhD Active PAROXETINE HCL 10 MG TABS 1 pill by mouth daily, for depression PAROXETINE HCL 43891577049 Active Mari Romo PROCESS IMPROVEMENT MANAGER Active PROZAC 10 MG CAP Take one tablet daily for depression FLUOXETINE HCL 61390806044 No Longer Active Michelle Smith MD PhD Active CONCEPT DHA 53.5-38-1 MG CAPS one tab PO daily PRENAT -[id number]-[id number]-TL-OMEGA 3 35563156443 No Longer Active Michelle Smith MD PhD Active MACROBID 100 MG CAPS one tab PO BID x 7 days NITROFURANTOIN MONOHYD MACRO 55885184045 No Longer Active Traci Tinsley MD Active TRAMADOL HCL 50 MG TABS 1 tab po tid prn back pain TRAMADOL HCL 58904093966 No Longer Active Traci Tinsley MD Active PREDNISONE 20 MG TAB Take 3 tabs daily for 3 days, then 2 tabs daily for 3 days, then 1 tab daily for 3 days, then 1/2 tab daily for 3 days. PREDNISONE 15437543779 No Longer Active Peter Sung MD Active TRAMADOL HCL 50 MG TABS 1 tab po tid prn back pain TRAMADOL HCL 50 MG TABS 333075 TRAMADOL HCL Inactive CONCEPT DHA 53.5-38-1 MG CAPS one tab PO daily CONCEPT DHA 53.5-38-1 MG CAPS [id number]-[id number]-FA-OMEGA 3 Inactive PROZAC 10 MG CAP Take one tablet daily for depression PROZAC 10 MG CAP 725182 FLUOXETINE HCL Inactive DEPO-PROVERA 150 MG/ML SUPENSION DEPO-PROVERA 150 MG/ML SUPENSION 5424771 MEDROXYPROGEST RIK (CONTRACEP) Inactive TRI-SPRINTEC 0.18/0.215/0.25 MG-35 MCG TABS 1 po qd as directed TRI-SPRINTEC 0.18/0.215/0.25 MG-35 MCG TABS 889939 NORGESTIM-ETH ESTRAD TRIPHASIC Inactive PREDNISONE 20 MG TAB Take 3 tabs daily for 3 days, then 2 tabs daily for 3 days, then 1 tab daily for 3 days, then 1/2 tab daily for 3 days. PREDNISONE 20 MG TAB 832310 PREDNISONE Inactive MACROBID 100 MG CAPS one tab PO BID x 7 days MACROBID 100 MG CAPS 268152 NITROFURANTOIN MONOHYD MACRO Inactive AUGMENTIN 875-125 MG TABS 1 pill by mouth twice daily AUGMENTIN 875-125 MG TABS 082158 AMOXICILLIN-POT CLAVULANATE Inactive MEDROL (MICHELLE) 4 MG [...] % 11.0-15.0 platelet count 230 THOUSAND/UL 10*3/mm3 297-632 7035/11/20 Blood type A Lab Report: ABO GROUP [...] Panel - Chemistry sodium, serum 142 mmol/L 116-661 5435/04/22 potassium, serum 3.9 mmol/L 3.5-5.2 chloride, serum [...] UC Encounters Code Encounter Date Provider Facility CPT-66350 Level 3 Est. Patient 12:00:28 CDT [facility] CPT-33452 Level 3 Est. Patient 19:08:16 CDT [facility] CPT-30107 Level 3 Est. Patient 19:07:22 CDT [facility] CPT-99086 Level 3 Est. Patient 09:13:25 CDT Mari Romo [facility] [place] 2] CPT-36205 Level 3 Est. Patient 11:17:39 CDT Mari Romo [facility] [place][note 2] CPT-12492 Level 3 Est. Patient 08:42:18 CDT Michelle Smith MD [facility] CPT-14357 Level 3 Est. Patient 16:24:24 TRAVELING SECRETARY Mari Romo [facility] [place][note 2] CPT-82448 Level 3 Est. Patient 20:39:13 TRAVELING SECRETARY Maricarlton Romo [facility] [place][note 2] CPT-91250 Level 3 Est. Patient 11:07:33 TRAVELING SECRETARY Mari Romo [facility] [place][note 2] CPT-22047 Level 3 Est. Patient 10:33:19 CDT Peter Sung MD [facility] CPT-86160 Level 3 Est. Patient 18:10:34 CDT Peter Sung MD [facility] Procedures Code Procedure Name Date Entry Date Standard Description CPT-64770 Sono pelvis non OB uterus ovaries cervix 13:02:35 CDT CPT-J1885 Toradol 30 mg (Ketorolac) 17:01:40 CDT CPT-04551 Abx/Therapy Injection 17:01:40 CDT CPT-J1885 Toradol 60 mg (Ketorolac) 15:41:36 CDT CPT-J1050 Depo Provera 150 mg (Medroxyprogesterone) 13:48:38 TRAVELING SECRETARY CPT-92176 Abx/Therapy Injection 13:48:38 TRAVELING SECRETARY CPT-18314 Venipuncture Draw Fee 11:24:44 TRAVELING SECRETARY CPT-J1050 Depo Provera 150 mg (Medroxyprogesterone) 11:07:33 TRAVELING SECRETARY CPT-34953 Immunization Single Admin 13:12:44 TRAVELING SECRETARY CPT-38560 Fluzone Quadrivalent Intramuscular Suspension 0.5 ML 13: 12:44 TRAVELING SECRETARY CPT-32133 Fluzone 11:12:18 TRAVELING SECRETARY CPT-58556 Spec Collection and Handling Fee 11:12:18 TRAVELING SECRETARY CPT-09639 Visit 11:12:18 TRAVELING SECRETARY
--- OUTSIDE RECORDS SUMMARY | 2017-12-29 16:29 | XMS REPORT | Clinical Summary ---
Author Author Admin, E Organization [facility] Address Unknown Phone Unavailable Allergies, Adverse Reactions, Alerts Allergy Name Reaction Description Start Date Severity Status Provider No Known Allergies Jessi Elder Conditions or Problems Problem Name Problem Code Onset Date Status Entry Date Provider Comment Standard Description Annotate Hand pain, right 729.5 Resolved Mari Yosurajum ACCOUNT SERVICE ASSOCIATE Pain in limb Low back pain 724.2 Resolved Mari Yojohan PERALTAN Lumbago Supervision of normal first V22.0 Resolved Mari Yojohan PERALTAN Supervision of normal first , adolescent 659.83 Resolved Mari Jarvisum ACCOUNT SERVICE ASSOCIATE Other specified indications for care or intervention related to labor and delivery, antepartum condition or complication NEED FOR PROPHYLACTIC VACCINATION WITH STREPTOCOCCUS PNEUMONIAE (PNEUMOCOCCUS) AND INFLUENZA V06.6 Resolved Mari Yokum ACCOUNT SERVICE ASSOCIATE Need for prophylactic vaccination and inoculation against Streptococcus pneumoniae [pneumococcus] and influenza UTI 599.0 Resolved Mari Yokum ACCOUNT SERVICE ASSOCIATE Urinary tract infection, site not specified Contraceptive management V25.9 Active Mari Yokum ACCOUNT SERVICE ASSOCIATE Encounter for unspecified contraceptive management Depression 311 Active Mari Yokum ACCOUNT SERVICE ASSOCIATE Depressive disorder, not elsewhere classified Tonsillar hypertrophy 474.11 Active Mari Yokum ACCOUNT SERVICE ASSOCIATE Hypertrophy of tonsils alone Headache 784.0 Resolved Mari Yokum ACCOUNT SERVICE ASSOCIATE Headache Sinusitis, acute 461.9 Resolved Mari Yokum ACCOUNT SERVICE ASSOCIATE Acute sinusitis, unspecified Abdominal pain 789.00 Resolved Mari Yokum ACCOUNT SERVICE ASSOCIATE Abdominal pain, unspecified site Abdominal pain, RLQ 789.03 Resolved Mari Yokum ACCOUNT SERVICE ASSOCIATE Abdominal pain, right lower quadrant Contact dermatitis due to poison julia 692.6 Active Mari Yokum ACCOUNT SERVICE ASSOCIATE Contact dermatitis and other eczema due to plants [except food] Eczema 692.9 Active Mari Yokum ACCOUNT SERVICE ASSOCIATE Contact dermatitis and other eczema, unspecified cause Headache 784.0 Active Peter Sung MD Headache Nausea and vomiting 787.01 Active Peter Sung MD Nausea with vomiting Hand pain, right ICD-729.5 Inactive Mari Yokum ACCOUNT SERVICE ASSOCIATE Low back pain ICD-724.2 Inactive Mari Yokum ACCOUNT SERVICE ASSOCIATE Supervision of normal first ICD-V22.0 Inactive Mari Yokum ACCOUNT SERVICE ASSOCIATE , adolescent ICD-659.83 Inactive Mari Yokum ACCOUNT SERVICE ASSOCIATE NEED FOR PROPHYLACTIC VACCINATION WITH STREPTOCOCCUS PNEUMONIAE (PNEUMOCOCCUS) AND INFLUENZA ICD-V06.6 Inactive Mari Yokum ACCOUNT SERVICE ASSOCIATE UTI ICD-599.0 Inactive Mari Yokum ACCOUNT SERVICE ASSOCIATE Headache ICD-784.0 Inactive Mari Yokum ACCOUNT SERVICE ASSOCIATE 08/17 Sinusitis, acute ICD-461.9 Inactive Mari Yokum ACCOUNT SERVICE ASSOCIATE Abdominal pain ICD-789.00 Inactive Mari Yokum ACCOUNT SERVICE ASSOCIATE Abdominal pain, RLQ ICD-789.03 Inactive Mari Yokum ACCOUNT SERVICE ASSOCIATE Medication List Medication Instructions Start Date Stop Date Generic Name NDC Status Provider Patient Instruction RANITIDINE HCL 300 MG CAPS 1 tablet by mouth daily RANITIDINE HCL 11957036052 Active Amaris Orr Active TRIAMCINOLONE ACETONIDE 0.1 % CREA apply bid sparingly to rash TRIAMCINOLONE ACETONIDE 96983002051 Active Mari Romo APRN Active TRI-SPRINTEC 0.18/0.215/0.25 MG-35 MCG TABS 1 po qd as directed NORGESTIM-ETH ESTRAD TRIPHASIC 24261945315 No Longer Active Mari Romo ACCOUNT SERVICE ASSOCIATE Active MEDROL (MICHELLE) 4 MG TABS 6 tabs on day 1, 5 tabs on day 2, 4 tabs on day 3, 3 tabs on day 4, 2 tabs on day 5, 1 tab on day 6 METHYLPREDNISOLONE 45716467316 No Longer Active Mari Romo APRN Active DEPO-PROVERA 150 MG/ML SUPENSION MEDROXYPROGEST RIK (CONTRACEP) 76693212164 No Longer Active Mari Romo ACCOUNT SERVICE ASSOCIATE Active AUGMENTIN 875-125 MG TABS 1 pill by mouth twice daily AMOXICILLIN-POT CLAVULANATE 24664485487 No Longer Active Michelle Smith MD PhD Active PAROXETINE HCL 10 MG TABS 1 pill by mouth daily, for depression PAROXETINE HCL 04068228453 Active Mari Romo ASHLEY Active PROZAC 10 MG CAP Take one tablet daily for depression FLUOXETINE HCL 22978493941 No Longer Active Michelle Smith MD PhD Active CONCEPT DHA 53.5-38-1 MG CAPS one tab PO daily PRENAT -QTCXT-HJUB-OZ-OMEGA 3 51615398680 No Longer Active Michelle Smith MD PhD Active MACROBID 100 MG CAPS one tab PO BID x 7 days NITROFURANTOIN MONOHYD MACRO 61597038095 No Longer Active Traci Tinsley MD Active TRAMADOL HCL 50 MG TABS 1 tab po tid prn back pain TRAMADOL HCL 86275622192 No Longer Active Traci Tinsley MD Active PREDNISONE 20 MG TAB Take 3 tabs daily for 3 days, then 2 tabs daily for 3 days, then 1 tab daily for 3 days, then 1/2 tab daily for 3 days. PREDNISONE 95836400147 No Longer Active Peter Sung MD Active TRAMADOL HCL 50 MG TABS 1 tab po tid prn back pain TRAMADOL HCL 50 MG TABS 770822 TRAMADOL HCL Inactive CONCEPT DHA 53.5-38-1 MG CAPS one tab PO daily CONCEPT DHA 53.5-38-1 MG CAPS [id number]-FA-OMEGA 3 Inactive PROZAC 10 MG CAP Take one tablet daily for depression PROZAC 10 MG CAP 004195 FLUOXETINE HCL Inactive DEPO-PROVERA 150 MG/ML SUPENSION DEPO-PROVERA 150 MG/ML SUPENSION 3758913 MEDROXYPROGEST RIK (CONTRACEP) Inactive TRI-SPRINTEC 0.18/0.215/0.25 MG-35 MCG TABS 1 po qd as directed TRI-SPRINTEC 0.18/0.215/0.25 MG-35 MCG TABS 746814 NORGESTIM-ETH ESTRAD TRIPHASIC Inactive PREDNISONE 20 MG TAB Take 3 tabs daily for 3 days, then 2 tabs daily for 3 days, then 1 tab daily for 3 days, then 1/2 tab daily for 3 days. PREDNISONE 20 MG TAB 135880 PREDNISONE Inactive MACROBID 100 MG CAPS one tab PO BID x 7 days MACROBID 100 MG CAPS 949429 NITROFURANTOIN MONOHYD MACRO Inactive AUGMENTIN 875-125 MG TABS 1 pill by mouth twice daily AUGMENTIN 875-125 MG TABS 780407 AMOXICILLIN-POT CLAVULANATE Inactive MEDROL (MICHELLE) 4 MG [...] % 11.0-15.0 platelet count 230 THOUSAND/UL 10*3/mm3 345-097 5242/11/20 Blood type A Lab Report: ABO GROUP [...] Panel - Chemistry sodium, serum 143 mmol/L 530-846 0900/07/23 potassium, serum 3.8 mmol/L 3.5-5.2 chloride, serum [...] Panel - Chemistry sodium, serum 142 mmol/L 859-031 1427/04/22 potassium, serum 3.9 mmol/L 3.5-5.2 chloride, serum [...] UC Encounters Code Encounter Date Provider Facility CPT-11539 Level 4 Est. Patient 19:00:30 CDT Peter Sung MD [facility] CPT-24781 Level 3 Est. Patient 12:00:28 CDT Mari Romo [facility] CPT-88339 Level 3 Est. Patient 19:08:16 CDT Mari Romo [facility] CPT-77334 Level 3 Est. Patient 19:07:22 CDT Mari Romo [facility] CPT-67189 Level 3 Est. Patient 09:13:25 CDT Mari Romo [facility] CPT-92933 Level 3 Est. Patient 11:17:39 CDT Mari Romo [facility] CPT-64524 Level 3 Est. Patient 08:42:18 CDT Michelle Smith MD PhD [facility] CPT-99222 Level 3 Est. Patient 16:24:24 GRIP BOSS Mari Romo [facility] CPT-81970 Level 3 Est. Patient 20:39:13 GRIP BOSS Mari Romo [facility] CPT-19952 Level 3 Est. Patient 11:07:33 GRIP BOSS Mari Romo [facility] CPT-61734 Level 3 Est. Patient 10:33:19 CDT Peter Sung MD [facility] CPT-01513 Level 3 Est. Patient 18:10:34 CDT Peter Sung MD [facility] Procedures Code Procedure Name Date Entry Date Standard Description CPT-11560 Sono pelvis non OB uterus ovaries cervix 13:02:35 CDT CPT-J1885 Toradol 30 mg (Ketorolac) 17:01:40 CDT CPT-54192 Abx/Therapy Injection 17:01:40 CDT CPT-J1885 Toradol 60 mg (Ketorolac) 15:41:36 CDT CPT-J1050 Depo Provera 150 mg (Medroxyprogesterone) 13:48:38 GRIP BOSS CPT-24341 Abx/Therapy Injection 13:48:38 GRIP BOSS CPT-38756 Venipuncture Draw Fee 11:24:44 GRIP BOSS CPT-J1050 Depo Provera 150 mg (Medroxyprogesterone) 11:07:33 GRIP BOSS CPT-68823 Immunization Single Admin 13:12:44 GRIP BOSS CPT-65723 Fluzone Quadrivalent Intramuscular Suspension 0.5 ML 13: 12:44 GRIP BOSS CPT-50816 Fluzone 11:12:18 GRIP BOSS CPT-61742 Spec Collection and Handling Fee 11:12:18 GRIP BOSS CPT-82167 Visit 11:12:18 GRIP BOSS
--- OUTSIDE RECORDS SUMMARY | 2017-12-29 16:29 | XMS REPORT | Clinical Summary ---
Author Author Admin, Jose Miguel Organization [employer] Address Unknown Phone Unavailable Allergies, Adverse Reactions, Alerts Allergy Name Reaction Description Start Date Severity Status Provider No Known Allergies Abrilkailee Shipman Conditions or Problems Problem Name Problem Code Onset Date Status Entry Date Provider Comment Standard Description Annotate Hand pain, right 729.5 Resolved Mari Yokum MORTGAGE COORDINATOR Pain in limb Low back pain 724.2 Resolved Mari Yokum MORTGAGE COORDINATOR Lumbago Supervision of normal first V22.0 Resolved Mari Yokum MORTGAGE COORDINATOR Supervision of normal first , adolescent 659.83 Resolved Mari Yokum MORTGAGE COORDINATOR Other specified indications for care or intervention related to labor and delivery, antepartum condition or complication NEED FOR PROPHYLACTIC VACCINATION WITH STREPTOCOCCUS PNEUMONIAE (PNEUMOCOCCUS) AND INFLUENZA V06.6 Resolved Mari Yokum MORTGAGE COORDINATOR Need for prophylactic vaccination and inoculation against Streptococcus pneumoniae [pneumococcus] and influenza UTI 599.0 Resolved Mari Yokum MORTGAGE COORDINATOR Urinary tract infection, site not specified Contraceptive management V25.9 Active Mari Yokum MORTGAGE COORDINATOR Encounter for unspecified contraceptive management Depression 311 Active Mari Yokum MORTGAGE COORDINATOR Depressive disorder, not elsewhere classified Tonsillar hypertrophy 474.11 Active Mari Yokum MORTGAGE COORDINATOR Hypertrophy of tonsils alone Headache 784.0 Active [...] food] Hand pain, right ICD-729.5 Inactive Mari Jarvisum MORTGAGE COORDINATOR Low back pain ICD-724.2 Inactive Mari Romo MORTGAGE COORDINATOR Supervision of normal first ICD-V22.0 Inactive Mari Jarvisum MORTGAGE COORDINATOR , adolescent ICD-659.83 Inactive Mari Jarvisum MORTGAGE COORDINATOR NEED FOR PROPHYLACTIC VACCINATION WITH STREPTOCOCCUS PNEUMONIAE (PNEUMOCOCCUS) AND INFLUENZA ICD-V06.6 Inactive Mari Jarvisum MORTGAGE COORDINATOR UTI ICD-599.0 Inactive Mari Jarvisum MORTGAGE COORDINATOR Medication List Medication Instructions Start Date Stop Date Generic Name NDC Status Provider Patient Instruction MEDROL (MICHELLE) 4 MG TABS 6 tabs on day 1, 5 tabs on day 2, 4 tabs on day 3, 3 tabs on day 4, 2 tabs on day 5, 1 tab on day 6 METHYLPREDNISOLONE 53525388250 No Longer Active Mari Jarvisum MORTGAGE COORDINATOR Active DEPO-PROVERA 150 MG/ML SUPENSION MEDROXYPROGEST RIK (CONTRACEP) 89908939166 No Longer Active Mari Matheusum MORTGAGE COORDINATOR Active TRI-SPRINTEC 0.18/0.215/0.25 MG-35 MCG TABS 1 po qd as directed NORGESTIM-ETH ESTRAD TRIPHASIC 21446396938 Active Mari Matheusum MORTGAGE COORDINATOR Active AUGMENTIN 875-125 MG TABS 1 pill by mouth twice daily AMOXICILLIN-POT CLAVULANATE 61021007210 No Longer Active Michelle Smith MD PhD Active PAROXETINE HCL 10 MG TABS 1 pill by mouth daily, for depression PAROXETINE HCL 77794192139 Active Mari Romo APRN Active PROZAC 10 MG CAP Take one tablet daily for depression FLUOXETINE HCL 02202400164 No Longer Active Michelle Smith MD PhD Active CONCEPT DHA 53.5-38-1 MG CAPS one tab PO daily PRENAT -[id number]-OMEGA 3 42897817573 No Longer Active Michelle Smith MD PhD Active MACROBID 100 MG CAPS one tab PO BID x 7 days NITROFURANTOIN MONOHYD MACRO 12354853093 No Longer Active Traci Tinsley MD Active TRAMADOL HCL 50 MG TABS 1 tab po tid prn back pain TRAMADOL HCL 37270006850 No Longer Active Traci Tinsley MD Active PREDNISONE 20 MG TAB Take 3 tabs daily for 3 days, then 2 tabs daily for 3 days, then 1 tab daily for 3 days, then 1/2 tab daily for 3 days. PREDNISONE 29827922671 No Longer Active Peter Sung MD Active TRAMADOL HCL 50 MG TABS 1 tab po tid prn back pain TRAMADOL HCL 50 MG TABS 447224 TRAMADOL HCL Inactive CONCEPT DHA 53.5-38-1 MG CAPS one tab PO daily CONCEPT DHA 53.5-38-1 MG CAPS [id number]-OMEGA 3 Inactive PROZAC 10 MG CAP Take one tablet daily for depression PROZAC 10 MG CAP 066046 FLUOXETINE HCL Inactive DEPO-PROVERA 150 MG/ML SUPENSION DEPO-PROVERA 150 MG/ML SUPENSION 7008395 MEDROXYPROGEST RIK (CONTRACEP) Inactive PREDNISONE 20 MG TAB Take 3 tabs daily for 3 days, then 2 tabs daily for 3 days, then 1 tab daily for 3 days, then 1/2 tab daily for 3 days. PREDNISONE 20 MG TAB 917492 PREDNISONE Inactive MACROBID 100 MG CAPS one tab PO BID x 7 days MACROBID 100 MG CAPS 605156 NITROFURANTOIN MONOHYD MACRO Inactive AUGMENTIN 875-125 MG TABS 1 pill by mouth twice daily AUGMENTIN 875-125 MG TABS 736500 AMOXICILLIN-POT CLAVULANATE Inactive MEDROL (MICHELLE) 4 MG [...] % 11.0-15.0 platelet count 230 THOUSAND/UL 10*3/mm3 659-132 2947/11/20 Blood type A Lab Report: ABO GROUP [...] Panel - Chemistry sodium, serum 142 mmol/L 100-669 6651/04/22 potassium, serum 3.9 mmol/L 3.5-5.2 chloride, serum [...] UC Encounters Code Encounter Date Provider Facility CPT-76944 Level 3 Est. Patient 19:08:16 CDT Mari Romo [facility] CPT-12817 Level 3 Est. Patient 19:07:22 CDT Mari Romo [facility] CPT-59079 Level 3 Est. Patient 09:13:25 CDT Mari Romo [facility] CPT-27188 Level 3 Est. Patient 11:17:39 CDT Mari Romo [facility] CPT-25414 Level 3 Est. Patient 08:42:18 CDT Michelle Smith MD [facility] CPT-40123 Level 3 Est. Patient 16:24:24 AUTOMOBILE INSPECTOR Mari Romo [facility] CPT-13218 Level 3 Est. Patient 20:39:13 AUTOMOBILE INSPECTOR Mari Romo [facility] CPT-09862 Level 3 Est. Patient 11:07:33 AUTOMOBILE INSPECTOR Mari Romo [facility] CPT-22887 Level 3 Est. Patient 10:33:19 CDT Peter Sung MD [facility] CPT-69410 Level 3 Est. Patient 18:10:34 CDT Peter Sung MD [facility] Procedures Code Procedure Name Date Entry Date Standard Description CPT-73448 Sono pelvis non OB uterus ovaries cervix 13:02:35 CDT CPT-J1885 Toradol 30 mg (Ketorolac) 17:01:40 CDT CPT-91671 Abx/Therapy Injection 17:01:40 CDT CPT-J1885 Toradol 60 mg (Ketorolac) 15:41:36 CDT CPT-J1050 Depo Provera 150 mg (Medroxyprogesterone) 13:48:38 AUTOMOBILE INSPECTOR CPT-90498 Abx/Therapy Injection 13:48:38 AUTOMOBILE INSPECTOR CPT-55021 Venipuncture Draw Fee 11:24:44 AUTOMOBILE INSPECTOR CPT-J1050 Depo Provera 150 mg (Medroxyprogesterone) 11:07:33 AUTOMOBILE INSPECTOR CPT-68817 Immunization Single Admin 13:12:44 AUTOMOBILE INSPECTOR CPT-59501 Fluzone Quadrivalent Intramuscular Suspension 0.5 ML 13: 12:44 AUTOMOBILE INSPECTOR CPT-41973 Fluzone 11:12:18 AUTOMOBILE INSPECTOR CPT-37014 Spec Collection and Handling Fee 11:12:18 AUTOMOBILE INSPECTOR CPT-51389 Visit 11:12:18 AUTOMOBILE INSPECTOR
--- OUTSIDE RECORDS SUMMARY | 2017-12-29 16:30 | XMS REPORT | Clinical Summary ---
Author Author Admin, E Organization [employer] Address Unknown Phone Unavailable Allergies, Adverse Reactions, Alerts Allergy Name Reaction Description Start Date Severity Status Provider No Known Allergies Sandi Jolleyford RMA Conditions or Problems Problem Name Problem Code Onset Date Status Entry Date Provider Comment Standard Description Annotate Hand pain, right 729.5 Resolved Mari Yokum SENIOR COMMUNICATIONS SPECIALIST Pain in limb Low back pain 724.2 Resolved Mari Yokum SENIOR COMMUNICATIONS SPECIALIST Lumbago Supervision of normal first V22.0 Resolved Mari Yokum SENIOR COMMUNICATIONS SPECIALIST Supervision of normal first , adolescent 659.83 Resolved Mari Yokum SENIOR COMMUNICATIONS SPECIALIST Other specified indications for care or intervention related to labor and delivery, antepartum condition or complication NEED FOR PROPHYLACTIC VACCINATION WITH STREPTOCOCCUS PNEUMONIAE (PNEUMOCOCCUS) AND INFLUENZA V06.6 Resolved Mari Yokum SENIOR COMMUNICATIONS SPECIALIST Need for prophylactic vaccination and inoculation against Streptococcus pneumoniae [pneumococcus] and influenza UTI 599.0 Resolved Mari Yokum SENIOR COMMUNICATIONS SPECIALIST Urinary tract infection, site not specified Contraceptive management V25.9 Active Mari Yokum SENIOR COMMUNICATIONS SPECIALIST Encounter for unspecified contraceptive management Depression 311 Active Mari Yokum SENIOR COMMUNICATIONS SPECIALIST Depressive disorder, not elsewhere classified Tonsillar hypertrophy 474.11 Active Mari Yokum SENIOR COMMUNICATIONS SPECIALIST Hypertrophy of tonsils alone Headache 784.0 Active Michelle Smith MD PhD Headache Sinusitis, acute 461.9 Active Michelle Smith MD PhD Acute sinusitis, unspecified Abdominal pain 789.00 Active Mari Romo APRN Abdominal pain, unspecified site Abdominal pain, RLQ 789.03 Active Medina Pulliam Abdominal pain, right lower quadrant Hand pain, right ICD-729.5 Inactive Mari Romo SENIOR COMMUNICATIONS SPECIALIST Low back pain ICD-724.2 Inactive Mari Romo SENIOR COMMUNICATIONS SPECIALIST Supervision of normal first ICD-V22.0 Inactive Mari Romo SENIOR COMMUNICATIONS SPECIALIST , adolescent ICD-659.83 Inactive Mari Romo SENIOR COMMUNICATIONS SPECIALIST NEED FOR PROPHYLACTIC VACCINATION WITH STREPTOCOCCUS PNEUMONIAE (PNEUMOCOCCUS) AND INFLUENZA ICD-V06.6 Inactive Mari Romo SENIOR COMMUNICATIONS SPECIALIST UTI ICD-599.0 Inactive Mari Romo SENIOR COMMUNICATIONS SPECIALIST Medication List Medication Instructions Start Date Stop Date Generic Name NDC Status Provider Patient Instruction DEPO-PROVERA 150 MG/ML SUPENSION MEDROXYPROGEST RIK (CONTRACEP) 45198397203 No Longer Active Mari Romo APRN Active TRI-SPRINTEC 0.18/0.215/0.25 MG-35 MCG TABS 1 po qd as directed NORGESTIM-ETH ESTRAD TRIPHASIC 78179625007 Active Mari Romo APRN Active AUGMENTIN 875-125 MG TABS 1 pill by mouth twice daily AMOXICILLIN-POT CLAVULANATE 32864018608 No Longer Active Michelle Smith MD PhD Active PAROXETINE HCL 10 MG TABS 1 pill by mouth daily, for depression PAROXETINE HCL 48604625407 Active Mari Romo APRN Active PROZAC 10 MG CAP Take one tablet daily for depression FLUOXETINE HCL 89512657305 No Longer Active Michelle Smith MD PhD Active CONCEPT DHA 53.5-38-1 MG CAPS one tab PO daily PRENAT -[id number]-[id number]-NL-OMEGA 3 19495279227 No Longer Active Michelle Smith MD PhD Active MACROBID 100 MG CAPS one tab PO BID x 7 days NITROFURANTOIN MONOHYD MACRO 15270119512 No Longer Active Traci Tinsley MD Active TRAMADOL HCL 50 MG TABS 1 tab po tid prn back pain TRAMADOL HCL 95577415519 No Longer Active Traci Tinsley MD Active PREDNISONE 20 MG TAB Take 3 tabs daily for 3 days, then 2 tabs daily for 3 days, then 1 tab daily for 3 days, then 1/2 tab daily for 3 days. PREDNISONE 27153410551 No Longer Active Peter Sung MD Active TRAMADOL HCL 50 MG TABS 1 tab po tid prn back pain TRAMADOL HCL 50 MG TABS 547288 TRAMADOL HCL Inactive CONCEPT DHA 53.5-38-1 MG CAPS one tab PO daily CONCEPT DHA 53.5-38-1 MG CAPS [id number]-FA-OMEGA 3 Inactive PROZAC 10 MG CAP Take one tablet daily for depression PROZAC 10 MG CAP 170724 FLUOXETINE HCL Inactive DEPO-PROVERA 150 MG/ML SUPENSION DEPO-PROVERA 150 MG/ML SUPENSION 2486782 MEDROXYPROGEST RIK (CONTRACEP) Inactive PREDNISONE 20 MG TAB Take 3 tabs daily for 3 days, then 2 tabs daily for 3 days, then 1 tab daily for 3 days, then 1/2 tab daily for 3 days. PREDNISONE 20 MG TAB 047073 PREDNISONE Inactive MACROBID 100 MG CAPS one tab PO BID x 7 days MACROBID 100 MG CAPS 408812 NITROFURANTOIN MONOHYD MACRO Inactive AUGMENTIN 875-125 MG TABS 1 pill by mouth twice daily AUGMENTIN 875-125 MG TABS 988681 AMOXICILLIN-POT CLAVULANATE Inactive Advance Directives Directive Description [...] % 11.0-15.0 platelet count 230 THOUSAND/UL 10*3/mm3 159-284 1451/11/20 Blood type A Lab Report: ABO GROUP [...] Panel - Chemistry sodium, serum 142 mmol/L 212-218 2511/04/22 potassium, serum 3.9 mmol/L 3.5-5.2 chloride, serum [...] UC Encounters Code Encounter Date Provider Facility CPT-07332 Level 3 Est. Patient 09:13:25 CDT Mari Romo [facility] CPT-27488 Level 3 Est. Patient 11:17:39 CDT Mari Romo [facility] CPT-28134 Level 3 Est. Patient 08:42:18 CDT Michelle Smith MD [facility] CPT-71105 Level 3 Est. Patient 16:24:24 ASSISTANT RESEARCH SCIENTIST Mari Romo [facility] CPT-81096 Level 3 Est. Patient 20:39:13 ASSISTANT RESEARCH SCIENTIST Mari Romo [facility] CPT-06818 Level 3 Est. Patient 11:07:33 ASSISTANT RESEARCH SCIENTIST Mari Romo [facility] CPT-77126 Level 3 Est. Patient 10:33:19 CDT Peter Sung MD [facility] CPT-02322 Level 3 Est. Patient 18:10:34 CDT Peter Sung MD [facility] Procedures Code Procedure Name Date Entry Date Standard Description CPT-27163 Sono pelvis non OB uterus ovaries cervix 13:02:35 CDT CPT-J1885 Toradol 30 mg (Ketorolac) 17:01:40 CDT CPT-84113 Abx/Therapy Injection 17:01:40 CDT CPT-J1885 Toradol 60 mg (Ketorolac) 15:41:36 CDT CPT-J1050 Depo Provera 150 mg (Medroxyprogesterone) 13:48:38 ASSISTANT RESEARCH SCIENTIST CPT-58873 Abx/Therapy Injection 13:48:38 ASSISTANT RESEARCH SCIENTIST CPT-86804 Venipuncture Draw Fee 11:24:44 ASSISTANT RESEARCH SCIENTIST CPT-J1050 Depo Provera 150 mg (Medroxyprogesterone) 11:07:33 ASSISTANT RESEARCH SCIENTIST CPT-60049 Immunization Single Admin 13:12:44 ASSISTANT RESEARCH SCIENTIST CPT-83663 Fluzone Quadrivalent Intramuscular Suspension 0.5 ML 13: 12:44 ASSISTANT RESEARCH SCIENTIST CPT-66177 Fluzone 11:12:18 ASSISTANT RESEARCH SCIENTIST CPT-78224 Spec Collection and Handling Fee 11:12:18 ASSISTANT RESEARCH SCIENTIST CPT-64868 Visit 11:12:18 ASSISTANT RESEARCH SCIENTIST
--- OUTSIDE RECORDS SUMMARY | 2017-12-29 16:30 | XMS REPORT | Clinical Summary ---
Author Author Admin, Jose Miguel Organization [employer] Address Unknown Phone Unavailable Allergies, Adverse Reactions, Alerts Allergy Name Reaction Description Start Date Severity Status Provider No Known Allergies Jessi Elder Conditions or Problems Problem Name Problem Code Onset Date Status Entry Date Provider Comment Standard Description Annotate Hand pain, right 729.5 Resolved Mari Yokum AUTOCAD DETAILER Pain in limb Low back pain 724.2 Resolved Mari Yokum AUTOCAD DETAILER Lumbago Supervision of normal first V22.0 Resolved Mari Yokum AUTOCAD DETAILER Supervision of normal first , adolescent 659.83 Resolved Mari Yokum AUTOCAD DETAILER Other specified indications for care or intervention related to labor and delivery, antepartum condition or complication NEED FOR PROPHYLACTIC VACCINATION WITH STREPTOCOCCUS PNEUMONIAE (PNEUMOCOCCUS) AND INFLUENZA V06.6 Resolved Mari Yokum AUTOCAD DETAILER Need for prophylactic vaccination and inoculation against Streptococcus pneumoniae [pneumococcus] and influenza UTI 599.0 Resolved Mari Yokum AUTOCAD DETAILER Urinary tract infection, site not specified Contraceptive management V25.9 Active Mari Yokum AUTOCAD DETAILER Encounter for unspecified contraceptive management Depression 311 Active Mari Yokum AUTOCAD DETAILER Depressive disorder, not elsewhere classified Tonsillar hypertrophy 474.11 Active Mari Yokum AUTOCAD DETAILER Hypertrophy of tonsils alone Headache 784.0 Resolved Mari Yokum AUTOCAD DETAILER Headache Sinusitis, acute 461.9 Resolved Mari Yokum AUTOCAD DETAILER Acute sinusitis, unspecified Abdominal pain 789.00 Resolved Mari Matheusum AUTOCAD DETAILER Abdominal pain, unspecified site Abdominal pain, RLQ 789.03 Resolved Mari Matheusum AUTOCAD DETAILER Abdominal pain, right lower quadrant Contact dermatitis due to poison julia 692.6 Active aMri Romo AUTOCAD DETAILER Contact dermatitis and other eczema due to plants [except food] Eczema 692.9 Active Mari Romo AUTOCAD DETAILER Contact dermatitis and other eczema, unspecified cause Hand pain, right ICD-729.5 Inactive Mari Yokum AUTOCAD DETAILER Low back pain ICD-724.2 Inactive Mari Powerkum AUTOCAD DETAILER Supervision of normal first ICD-V22.0 Inactive Mari Tonokum AUTOCAD DETAILER , adolescent ICD-659.83 Inactive Mari Tonokum AUTOCAD DETAILER NEED FOR PROPHYLACTIC VACCINATION WITH STREPTOCOCCUS PNEUMONIAE (PNEUMOCOCCUS) AND INFLUENZA ICD-V06.6 Inactive Mari Yokum AUTOCAD DETAILER UTI ICD-599.0 Inactive Mari Yokum AUTOCAD DETAILER Headache ICD-784.0 Inactive Mari Yokum AUTOCAD DETAILER 08/17 Sinusitis, acute ICD-461.9 Inactive Mari Yokum AUTOCAD DETAILER Abdominal pain ICD-789.00 Inactive Mari Yokum AUTOCAD DETAILER Abdominal pain, RLQ ICD-789.03 Inactive Mari Yokum AUTOCAD DETAILER Medication List Medication Instructions Start Date Stop Date Generic Name NDC Status Provider Patient Instruction TRIAMCINOLONE ACETONIDE 0.1 % CREA apply bid sparingly to rash TRIAMCINOLONE ACETONIDE 14054591254 Active Mari Romo AUTOCAD DETAILER Active TRI-SPRINTEC 0.18/0.215/0.25 MG-35 MCG TABS 1 po qd as directed NORGESTIM-ETH ESTRAD TRIPHASIC 75818589804 No Longer Active Mari Jarvisum AUTOCAD DETAILER Active MEDROL (MICHELLE) 4 MG TABS 6 tabs on day 1, 5 tabs on day 2, 4 tabs on day 3, 3 tabs on day 4, 2 tabs on day 5, 1 tab on day 6 METHYLPREDNISOLONE 43971624479 No Longer Active Mari Jarvisum AUTOCAD DETAILER Active DEPO-PROVERA 150 MG/ML SUPENSION MEDROXYPROGEST RIK (CONTRACEP) 30352876524 No Longer Active Mari Romo AUTOCAD DETAILER Active AUGMENTIN 875-125 MG TABS 1 pill by mouth twice daily AMOXICILLIN-POT CLAVULANATE 25294353364 No Longer Active Michelle Smith MD PhD Active PAROXETINE HCL 10 MG TABS 1 pill by mouth daily, for depression PAROXETINE HCL 73236762262 Active Mari Romo AUTOCAD DETAILER Active PROZAC 10 MG CAP Take one tablet daily for depression FLUOXETINE HCL 46768451802 No Longer Active Michelle Smith MD PhD Active CONCEPT DHA 53.5-38-1 MG CAPS one tab PO daily PRENAT -[id number]-AWNP-PZ-OMEGA 3 93078283340 No Longer Active Michelle Smith MD PhD Active MACROBID 100 MG CAPS one tab PO BID x 7 days NITROFURANTOIN MONOHYD MACRO 95014997281 No Longer Active Traci Tinsley MD Active TRAMADOL HCL 50 MG TABS 1 tab po tid prn back pain TRAMADOL HCL 41004573579 No Longer Active Traci Tinsley MD Active PREDNISONE 20 MG TAB Take 3 tabs daily for 3 days, then 2 tabs daily for 3 days, then 1 tab daily for 3 days, then 1/2 tab daily for 3 days. PREDNISONE 78481368245 No Longer Active Peter Sung MD Active TRAMADOL HCL 50 MG TABS 1 tab po tid prn back pain TRAMADOL HCL 50 MG TABS 992970 TRAMADOL HCL Inactive CONCEPT DHA 53.5-38-1 MG CAPS one tab PO daily CONCEPT DHA 53.5-38-1 MG CAPS [id number]-QQLX-FA-OMEGA 3 Inactive PROZAC 10 MG CAP Take one tablet daily for depression PROZAC 10 MG CAP 380021 FLUOXETINE HCL Inactive DEPO-PROVERA 150 MG/ML SUPENSION DEPO-PROVERA 150 MG/ML SUPENSION 7511512 MEDROXYPROGEST RIK (CONTRACEP) Inactive TRI-SPRINTEC 0.18/0.215/0.25 MG-35 MCG TABS 1 po qd as directed TRI-SPRINTEC 0.18/0.215/0.25 MG-35 MCG TABS 007982 NORGESTIM-ETH ESTRAD TRIPHASIC Inactive PREDNISONE 20 MG TAB Take 3 tabs daily for 3 days, then 2 tabs daily for 3 days, then 1 tab daily for 3 days, then 1/2 tab daily for 3 days. PREDNISONE 20 MG TAB 487188 PREDNISONE Inactive MACROBID 100 MG CAPS one tab PO BID x 7 days MACROBID 100 MG CAPS 665613 NITROFURANTOIN MONOHYD MACRO Inactive AUGMENTIN 875-125 MG TABS 1 pill by mouth twice daily AUGMENTIN 875-125 MG TABS 398924 AMOXICILLIN-POT CLAVULANATE Inactive MEDROL (MICHELLE) 4 MG [...] % 11.0-15.0 platelet count 230 THOUSAND/UL 10*3/mm3 191-325 4065/11/20 Blood type A Lab Report: ABO GROUP [...] Panel - Chemistry sodium, serum 142 mmol/L 436-480 0213/04/22 potassium, serum 3.9 mmol/L 3.5-5.2 chloride, serum [...] UC Encounters Code Encounter Date Provider Facility CPT-00657 Level 3 Est. Patient 12:00:28 CDT [facility] CPT-73948 Level 3 Est. Patient 19:08:16 CDT [facility] CPT-18060 Level 3 Est. Patient 19:07:22 CDT [facility] CPT-19190 Level 3 Est. Patient 09:13:25 CDT Mari Romo [facility] CPT-72121 Level 3 Est. Patient 11:17:39 CDT Mari Romo [facility] CPT-07055 Level 3 Est. Patient 08:42:18 CDT Michelle Smith MD [facility] CPT-45090 Level 3 Est. Patient 16:24:24 LOBBY CONCIERGE Mari Romo [facility] CPT-07527 Level 3 Est. Patient 20:39:13 LOBBY CONCIERGE Maricarlton Romo [facility] CPT-40419 Level 3 Est. Patient 11:07:33 LOBBY CONCIERGE Mari Romo [facility] CPT-12967 Level 3 Est. Patient 10:33:19 CDT Peter Sung MD [facility] CPT-39965 Level 3 Est. Patient 18:10:34 CDT Peter Sung MD [facility] Procedures Code Procedure Name Date Entry Date Standard Description CPT-41015 Sono pelvis non OB uterus ovaries cervix 13:02:35 CDT CPT-J1885 Toradol 30 mg (Ketorolac) 17:01:40 CDT CPT-19586 Abx/Therapy Injection 17:01:40 CDT CPT-J1885 Toradol 60 mg (Ketorolac) 15:41:36 CDT CPT-J1050 Depo Provera 150 mg (Medroxyprogesterone) 13:48:38 LOBBY CONCIERGE CPT-42895 Abx/Therapy Injection 13:48:38 LOBBY CONCIERGE CPT-21816 Venipuncture Draw Fee 11:24:44 LOBBY CONCIERGE CPT-J1050 Depo Provera 150 mg (Medroxyprogesterone) 11:07:33 LOBBY CONCIERGE CPT-52359 Immunization Single Admin 13:12:44 LOBBY CONCIERGE CPT-10339 Fluzone Quadrivalent Intramuscular Suspension 0.5 ML 13: 12:44 LOBBY CONCIERGE CPT-35591 Fluzone 11:12:18 LOBBY CONCIERGE CPT-95696 Spec Collection and Handling Fee 11:12:18 LOBBY CONCIERGE CPT-83479 Visit 11:12:18 LOBBY CONCIERGE
--- OUTSIDE RECORDS SUMMARY | 2017-12-29 16:31 | XMS REPORT | Clinical Summary ---
Author Author Admin, Jose Miguel Organization [facility] Address Unknown Phone Unavailable Allergies, Adverse Reactions, Alerts Allergy Name Reaction Description Start Date Severity Status Provider No Known Allergies Abrilkailee Shipman Conditions or Problems Problem Name Problem Code Onset Date Status Entry Date Provider Comment Standard Description Annotate Hand pain, right 729.5 Resolved Mari Yokum ANILINE PRESS WORKER Pain in limb Low back pain 724.2 Resolved Mari Yokum ANILINE PRESS WORKER Lumbago Supervision of normal first V22.0 Resolved Mari Yokum ANILINE PRESS WORKER Supervision of normal first , adolescent 659.83 Resolved Mari Yokum ANILINE PRESS WORKER Other specified indications for care or intervention related to labor and delivery, antepartum condition or complication NEED FOR PROPHYLACTIC VACCINATION WITH STREPTOCOCCUS PNEUMONIAE (PNEUMOCOCCUS) AND INFLUENZA V06.6 Resolved Mari Yokum ANILINE PRESS WORKER Need for prophylactic vaccination and inoculation against Streptococcus pneumoniae [pneumococcus] and influenza UTI 599.0 Resolved Mari Yokum ANILINE PRESS WORKER Urinary tract infection, site not specified Contraceptive management V25.9 Active Mari Yokum ANILINE PRESS WORKER Encounter for unspecified contraceptive management Depression 311 Active Mari Yokum ANILINE PRESS WORKER Depressive disorder, not elsewhere classified Tonsillar hypertrophy 474.11 Active Mari Yokum ANILINE PRESS WORKER Hypertrophy of tonsils alone Headache 784.0 Active [...] Hand pain, right ICD-729.5 Inactive Mari Jarvisum ANILINE PRESS WORKER Low back pain ICD-724.2 Inactive Mari Romo ANILINE PRESS WORKER Supervision of normal first ICD-V22.0 Inactive Mari Jarvisum ANILINE PRESS WORKER , adolescent ICD-659.83 Inactive Mari Jarvisum ANILINE PRESS WORKER NEED FOR PROPHYLACTIC VACCINATION WITH STREPTOCOCCUS PNEUMONIAE (PNEUMOCOCCUS) AND INFLUENZA ICD-V06.6 Inactive Mari Jarvisum ANILINE PRESS WORKER UTI ICD-599.0 Inactive Mari Jarvisum ANILINE PRESS WORKER Medication List Medication Instructions Start Date Stop Date Generic Name NDC Status Provider Patient Instruction MEDROL (MICHELLE) 4 MG TABS 6 tabs on day 1, 5 tabs on day 2, 4 tabs on day 3, 3 tabs on day 4, 2 tabs on day 5, 1 tab on day 6 METHYLPREDNISOLONE 23679869461 No Longer Active Mari Jarvisum ANILINE PRESS WORKER Active DEPO-PROVERA 150 MG/ML SUPENSION MEDROXYPROGEST RIK (CONTRACEP) 83511283596 No Longer Active Mari Matheusum ANILINE PRESS WORKER Active TRI-SPRINTEC 0.18/0.215/0.25 MG-35 MCG TABS 1 po qd as directed NORGESTIM-ETH ESTRAD TRIPHASIC 71315278135 Active Mari Matheusum ANILINE PRESS WORKER Active AUGMENTIN 875-125 MG TABS 1 pill by mouth twice daily AMOXICILLIN-POT CLAVULANATE 12832910491 No Longer Active Michelle Smith MD PhD Active PAROXETINE HCL 10 MG TABS 1 pill by mouth daily, for depression PAROXETINE HCL 72429189411 Active Mari Romo APRN Active PROZAC 10 MG CAP Take one tablet daily for depression FLUOXETINE HCL 41590054475 No Longer Active Michelle Smith MD PhD Active CONCEPT DHA 53.5-38-1 MG CAPS one tab PO daily PRENAT -VEBGU-CFJN-BP-OMEGA 3 53791465298 No Longer Active Michelle Smith MD PhD Active MACROBID 100 MG CAPS one tab PO BID x 7 days NITROFURANTOIN MONOHYD MACRO 33294112986 No Longer Active Traci Tinsley MD Active TRAMADOL HCL 50 MG TABS 1 tab po tid prn back pain TRAMADOL HCL 44114278744 No Longer Active Traci Tinsley MD Active PREDNISONE 20 MG TAB Take 3 tabs daily for 3 days, then 2 tabs daily for 3 days, then 1 tab daily for 3 days, then 1/2 tab daily for 3 days. PREDNISONE 48197626740 No Longer Active Peter Sung MD Active TRAMADOL HCL 50 MG TABS 1 tab po tid prn back pain TRAMADOL HCL 50 MG TABS 075067 TRAMADOL HCL Inactive CONCEPT DHA 53.5-38-1 MG CAPS one tab PO daily CONCEPT DHA 53.5-38-1 MG CAPS [id number]-FA-OMEGA 3 Inactive PROZAC 10 MG CAP Take one tablet daily for depression PROZAC 10 MG CAP 596027 FLUOXETINE HCL Inactive DEPO-PROVERA 150 MG/ML SUPENSION DEPO-PROVERA 150 MG/ML SUPENSION [id number] MEDROXYPROGEST RIK (CONTRACEP) Inactive PREDNISONE 20 MG TAB Take 3 tabs daily for 3 days, then 2 tabs daily for 3 days, then 1 tab daily for 3 days, then 1/2 tab daily for 3 days. PREDNISONE 20 MG TAB 941730 PREDNISONE Inactive MACROBID 100 MG CAPS one tab PO BID x 7 days MACROBID 100 MG CAPS 783580 NITROFURANTOIN MONOHYD MACRO Inactive AUGMENTIN 875-125 MG TABS 1 pill by mouth twice daily AUGMENTIN 875-125 MG TABS 369543 AMOXICILLIN-POT CLAVULANATE Inactive MEDROL (MICHELLE) 4 MG [...] % 11.0-15.0 platelet count 230 THOUSAND/UL 10*3/mm3 942-812 1755/11/20 Blood type A Lab Report: ABO GROUP [...] Panel - Chemistry sodium, serum 142 mmol/L 968-947 4580/04/22 potassium, serum 3.9 mmol/L 3.5-5.2 chloride, serum [...] UC Encounters Code Encounter Date Provider Facility CPT-75923 Level 3 Est. Patient 19:08:16 CDT Mari Romo [facility] CPT-19056 Level 3 Est. Patient 19:07:22 CDT Mari Romo [facility] CPT-23843 Level 3 Est. Patient 09:13:25 CDT Mari Romo [facility] CPT-79692 Level 3 Est. Patient 11:17:39 CDT Mari Romo [facility] CPT-73129 Level 3 Est. Patient 08:42:18 CDT Michelle Smith MD [facility] CPT-60377 Level 3 Est. Patient 16:24:24 ERADICATOR Mari Romo [facility] CPT-54984 Level 3 Est. Patient 20:39:13 ERADICATOR Mari Romo [facility] CPT-73089 Level 3 Est. Patient 11:07:33 ERADICATOR Mari Romo [facility] CPT-36593 Level 3 Est. Patient 10:33:19 CDT Peter Sung MD [facility] CPT-71014 Level 3 Est. Patient 18:10:34 CDT Peter Sung MD [facility] Procedures Code Procedure Name Date Entry Date Standard Description CPT-13284 Sono pelvis non OB uterus ovaries cervix 13:02:35 CDT CPT-J1885 Toradol 30 mg (Ketorolac) 17:01:40 CDT CPT-62981 Abx/Therapy Injection 17:01:40 CDT CPT-J1885 Toradol 60 mg (Ketorolac) 15:41:36 CDT CPT-J1050 Depo Provera 150 mg (Medroxyprogesterone) 13:48:38 ERADICATOR CPT-50238 Abx/Therapy Injection 13:48:38 ERADICATOR CPT-39468 Venipuncture Draw Fee 11:24:44 ERADICATOR CPT-J1050 Depo Provera 150 mg (Medroxyprogesterone) 11:07:33 ERADICATOR CPT-61407 Immunization Single Admin 13:12:44 ERADICATOR CPT-95939 Fluzone Quadrivalent Intramuscular Suspension 0.5 ML 13: 12:44 ERADICATOR CPT-77643 Fluzone 11:12:18 ERADICATOR CPT-44599 Spec Collection and Handling Fee 11:12:18 ERADICATOR CPT-03615 Visit 11:12:18 ERADICATOR
--- OUTSIDE RECORDS SUMMARY | 2017-12-29 16:31 | XMS REPORT | Clinical Summary ---
Author Author Admin, E Organization [facility] Address Unknown Phone Unavailable Allergies, Adverse Reactions, Alerts Allergy Name Reaction Description Start Date Severity Status Provider No Known Allergies Sandi Jolleyford RMA Conditions or Problems Problem Name Problem Code Onset Date Status Entry Date Provider Comment Standard Description Annotate Hand pain, right 729.5 Resolved Mari Yokum CYTOLOGY SUPERVISOR Pain in limb Low back pain 724.2 Resolved Mari Yokum CYTOLOGY SUPERVISOR Lumbago Supervision of normal first V22.0 Resolved Mari Yokum CYTOLOGY SUPERVISOR Supervision of normal first , adolescent 659.83 Resolved Mari Yokum CYTOLOGY SUPERVISOR Other specified indications for care or intervention related to labor and delivery, antepartum condition or complication NEED FOR PROPHYLACTIC VACCINATION WITH STREPTOCOCCUS PNEUMONIAE (PNEUMOCOCCUS) AND INFLUENZA V06.6 Resolved Mari Yokum CYTOLOGY SUPERVISOR Need for prophylactic vaccination and inoculation against Streptococcus pneumoniae [pneumococcus] and influenza UTI 599.0 Resolved Mari Yokum CYTOLOGY SUPERVISOR Urinary tract infection, site not specified Contraceptive management V25.9 Active Mari Yokum CYTOLOGY SUPERVISOR Encounter for unspecified contraceptive management Depression 311 Active Mari Yokum CYTOLOGY SUPERVISOR Depressive disorder, not elsewhere classified Tonsillar hypertrophy 474.11 Active Mari Yokum CYTOLOGY SUPERVISOR Hypertrophy of tonsils alone Headache 784.0 Active Michelle Smith MD PhD Headache Sinusitis, acute 461.9 Active Michelle Smith MD PhD Acute sinusitis, unspecified Abdominal pain 789.00 Active Mari Romo APRN Abdominal pain, unspecified site Hand pain, right ICD-729.5 Inactive Mari Romo CYTOLOGY SUPERVISOR Low back pain ICD-724.2 Inactive Mari Romo CYTOLOGY SUPERVISOR Supervision of normal first ICD-V22.0 Inactive Mari Romo CYTOLOGY SUPERVISOR , adolescent ICD-659.83 Inactive Mari Romo CYTOLOGY SUPERVISOR NEED FOR PROPHYLACTIC VACCINATION WITH STREPTOCOCCUS PNEUMONIAE (PNEUMOCOCCUS) AND INFLUENZA ICD-V06.6 Inactive Mari Romo CYTOLOGY SUPERVISOR UTI ICD-599.0 Inactive Mari Romo CYTOLOGY SUPERVISOR Medication List Medication Instructions Start Date Stop Date Generic Name ND Status Provider Patient Instruction DEPO-PROVERA 150 MG/ML SUPENSION MEDROXYPROGEST RIK (CONTRACEP) 86193467458 No Longer Active Mari Romo APRN Active TRI-SPRINTEC 0.18/0.215/0.25 MG-35 MCG TABS 1 po qd as directed NORGESTIM-ETH ESTRAD TRIPHASIC 99964412192 Active Mari Romo APRN Active AUGMENTIN 875-125 MG TABS 1 pill by mouth twice daily AMOXICILLIN-POT CLAVULANATE 79040498785 No Longer Active Michelle Smith MD PhD Active PAROXETINE HCL 10 MG TABS 1 pill by mouth daily, for depression PAROXETINE HCL 70297713691 Active Mari Romo APRN Active PROZAC 10 MG CAP Take one tablet daily for depression FLUOXETINE HCL 93847755888 No Longer Active Michlele Smith MD PhD Active CONCEPT DHA 53.5-38-1 MG CAPS one tab PO daily PRENAT -RBLBA-ZKJE-XD-OMEGA 3 71493710225 No Longer Active Michelle Smith MD PhD Active MACROBID 100 MG CAPS one tab PO BID x 7 days NITROFURANTOIN MONOHYD MACRO 46880969943 No Longer Active Traci Tinsley MD Active TRAMADOL HCL 50 MG TABS 1 tab po tid prn back pain TRAMADOL HCL 86888150888 No Longer Active Traci Tinsley MD Active PREDNISONE 20 MG TAB Take 3 tabs daily for 3 days, then 2 tabs daily for 3 days, then 1 tab daily for 3 days, then 1/2 tab daily for 3 days. PREDNISONE 64172901089 No Longer Active Peter Sung MD Active TRAMADOL HCL 50 MG TABS 1 tab po tid prn back pain TRAMADOL HCL 50 MG TABS 752129 TRAMADOL HCL Inactive CONCEPT DHA 53.5-38-1 MG CAPS one tab PO daily CONCEPT DHA 53.5-38-1 MG CAPS [id number]-[id number]-SQTF-FA-OMEGA 3 Inactive PROZAC 10 MG CAP Take one tablet daily for depression PROZAC 10 MG CAP 950563 FLUOXETINE HCL Inactive DEPO-PROVERA 150 MG/ML SUPENSION DEPO-PROVERA 150 MG/ML SUPENSION 9383232 MEDROXYPROGEST RIK (CONTRACEP) Inactive PREDNISONE 20 MG TAB Take 3 tabs daily for 3 days, then 2 tabs daily for 3 days, then 1 tab daily for 3 days, then 1/2 tab daily for 3 days. PREDNISONE 20 MG TAB 571382 PREDNISONE Inactive MACROBID 100 MG CAPS one tab PO BID x 7 days MACROBID 100 MG CAPS 903008 NITROFURANTOIN MONOHYD MACRO Inactive AUGMENTIN 875-125 MG TABS 1 pill by mouth twice daily AUGMENTIN 875-125 MG TABS 670466 AMOXICILLIN-POT CLAVULANATE Inactive Advance Directives Directive Description [...] % 11.0-15.0 platelet count 230 THOUSAND/UL 10*3/mm3 154-839 0586/11/20 Blood type A Lab Report: ABO GROUP [...] 11.6-14.8 platelet count 233 10^3/MM^3 10*3/mm3 142-424 Office Visit: Initial OB Visit - Blood [...] UC Encounters Code Encounter Date Provider Facility CPT-28145 Level 3 Est. Patient 11:17:39 CDT Mari Romo [facility] CPT-68939 Level 3 Est. Patient 08:42:18 CDT Michelle Smith MD PhD [facility] CPT-10369 Level 3 Est. Patient 16:24:24 PIE FILLER Mari Romo [facility] CPT-80885 Level 3 Est. Patient 20:39:13 PIE FILLER Mari Romo [facility] CPT-74059 Level 3 Est. Patient 11:07:33 PIE FILLER Mari Romo [facility] CPT-26198 Level 3 Est. Patient 10:33:19 CDT Peter Sung MD [facility] CPT-79763 Level 3 Est. Patient 18:10:34 CDT Peter Sung MD [facility] Procedures Code Procedure Name Date Entry Date Standard Description CPT-J1885 Toradol 30 mg (Ketorolac) 17:01:40 CDT CPT-45850 Abx/Therapy Injection 17:01:40 CDT CPT-J1885 Toradol 60 mg (Ketorolac) 15:41:36 CDT CPT-J1050 Depo Provera 150 mg (Medroxyprogesterone) 13:48:38 PIE FILLER CPT-15113 Abx/Therapy Injection 13:48:38 PIE FILLER CPT-51269 Venipuncture Draw Fee 11:24:44 PIE FILLER CPT-J1050 Depo Provera 150 mg (Medroxyprogesterone) 11:07:33 PIE FILLER CPT-18845 Immunization Single Admin 13:12:44 PIE FILLER CPT-33915 Fluzone Quadrivalent Intramuscular Suspension 0.5 ML 13: 12:44 PIE FILLER CPT-30378 Fluzone 11:12:18 PIE FILLER CPT-71225 Spec Collection and Handling Fee 11:12:18 PIE FILLER CPT-85833 Visit 11:12:18 PIE FILLER
--- OUTSIDE RECORDS SUMMARY | 2017-12-29 16:32 | XMS REPORT | Clinical Summary ---
Author Author Admin, Jose Miguel Organization [facility] Address Unknown Phone Unavailable Allergies, Adverse Reactions, Alerts Allergy Name Reaction Description Start Date Severity Status Provider No Known Allergies Abril Shipman Conditions or Problems Problem Name Problem Code Onset Date Status Entry Date Provider Comment Standard Description Annotate Hand pain, right 729.5 Resolved Mari Yokum CAREER TECHNICAL EDUCATION INSTRUCTOR Pain in limb Low back pain 724.2 Resolved Mari Yokum CAREER TECHNICAL EDUCATION INSTRUCTOR Lumbago Supervision of normal first V22.0 Resolved Mari Yokum CAREER TECHNICAL EDUCATION INSTRUCTOR Supervision of normal first , adolescent 659.83 Resolved Mari Yokum CAREER TECHNICAL EDUCATION INSTRUCTOR Other specified indications for care or intervention related to labor and delivery, antepartum condition or complication NEED FOR PROPHYLACTIC VACCINATION WITH STREPTOCOCCUS PNEUMONIAE (PNEUMOCOCCUS) AND INFLUENZA V06.6 Resolved Mari Yokum CAREER TECHNICAL EDUCATION INSTRUCTOR Need for prophylactic vaccination and inoculation against Streptococcus pneumoniae [pneumococcus] and influenza UTI 599.0 Resolved Mari Yokum CAREER TECHNICAL EDUCATION INSTRUCTOR Urinary tract infection, site not specified Contraceptive management V25.9 Active Mari Yokum CAREER TECHNICAL EDUCATION INSTRUCTOR Encounter for unspecified contraceptive management Depression 311 Active Mari Yokum CAREER TECHNICAL EDUCATION INSTRUCTOR Depressive disorder, not elsewhere classified Tonsillar hypertrophy 474.11 Active Mari Yokum CAREER TECHNICAL EDUCATION INSTRUCTOR Hypertrophy of tonsils alone Headache 784.0 Active [...] Hand pain, right ICD-729.5 Inactive Mari Romo CAREER TECHNICAL EDUCATION INSTRUCTOR Low back pain ICD-724.2 Inactive Mari Romo CAREER TECHNICAL EDUCATION INSTRUCTOR Supervision of normal first ICD-V22.0 Inactive Mari Romo CAREER TECHNICAL EDUCATION INSTRUCTOR , adolescent ICD-659.83 Inactive Mari Romo CAREER TECHNICAL EDUCATION INSTRUCTOR NEED FOR PROPHYLACTIC VACCINATION WITH STREPTOCOCCUS PNEUMONIAE (PNEUMOCOCCUS) AND INFLUENZA ICD-V06.6 Inactive Mari Romo CAREER TECHNICAL EDUCATION INSTRUCTOR UTI ICD-599.0 Inactive Mari Romo CAREER TECHNICAL EDUCATION INSTRUCTOR Medication List Medication Instructions Start Date Stop Date Generic Name NDC Status Provider Patient Instruction MEDROL (MICHELLE) 4 MG TABS 6 tabs on day 1, 5 tabs on day 2, 4 tabs on day 3, 3 tabs on day 4, 2 tabs on day 5, 1 tab on day 6 METHYLPREDNISOLONE 70429764566 Active Mari Romo APRN Active DEPO-PROVERA 150 MG/ML SUPENSION MEDROXYPROGEST RIK (CONTRACEP) 83266532541 No Longer Active Mari Romo APRN Active TRI-SPRINTEC 0.18/0.215/0.25 MG-35 MCG TABS 1 po qd as directed NORGESTIM-ETH ESTRAD TRIPHASIC 82082225690 Active Mari Romo CAREER TECHNICAL EDUCATION INSTRUCTOR Active AUGMENTIN 875-125 MG TABS 1 pill by mouth twice daily AMOXICILLIN-POT CLAVULANATE 64967983212 No Longer Active Michelle Smith MD PhD Active PAROXETINE HCL 10 MG TABS 1 pill by mouth daily, for depression PAROXETINE HCL 37793111672 Active Mari oRmo APRN Active PROZAC 10 MG CAP Take one tablet daily for depression FLUOXETINE HCL 40826357443 No Longer Active Michelle Smith MD PhD Active CONCEPT DHA 53.5-38-1 MG CAPS one tab PO daily PRENAT -ACRRM-RUVY-PN-OMEGA 3 78314640838 No Longer Active Michelle Smith MD PhD Active MACROBID 100 MG CAPS one tab PO BID x 7 days NITROFURANTOIN MONOHYD MACRO 57856765836 No Longer Active Traci Tinsley MD Active TRAMADOL HCL 50 MG TABS 1 tab po tid prn back pain TRAMADOL HCL 89003925839 No Longer Active Traci Tinsley MD Active PREDNISONE 20 MG TAB Take 3 tabs daily for 3 days, then 2 tabs daily for 3 days, then 1 tab daily for 3 days, then 1/2 tab daily for 3 days. PREDNISONE 56518349831 No Longer Active Peter Sung MD Active TRAMADOL HCL 50 MG TABS 1 tab po tid prn back pain TRAMADOL HCL 50 MG TABS 416919 TRAMADOL HCL Inactive CONCEPT DHA 53.5-38-1 MG CAPS one tab PO daily CONCEPT DHA 53.5-38-1 MG CAPS [id number]-NSBDU-FCXE-FA-OMEGA 3 Inactive PROZAC 10 MG CAP Take one tablet daily for depression PROZAC 10 MG CAP 192602 FLUOXETINE HCL Inactive DEPO-PROVERA 150 MG/ML SUPENSION DEPO-PROVERA 150 MG/ML SUPENSION 8041821 MEDROXYPROGEST RIK (CONTRACEP) Inactive PREDNISONE 20 MG TAB Take 3 tabs daily for 3 days, then 2 tabs daily for 3 days, then 1 tab daily for 3 days, then 1/2 tab daily for 3 days. PREDNISONE 20 MG TAB 698480 PREDNISONE Inactive MACROBID 100 MG CAPS one tab PO BID x 7 days MACROBID 100 MG CAPS 922008 NITROFURANTOIN MONOHYD MACRO Inactive AUGMENTIN 875-125 MG TABS 1 pill by mouth twice daily AUGMENTIN 875-125 MG TABS 843594 AMOXICILLIN-POT CLAVULANATE Inactive Advance Directives Directive Description [...] % 11.0-15.0 platelet count 230 THOUSAND/UL 10*3/mm3 155-124 1909/11/20 Blood type A Lab Report: ABO GROUP [...] Panel - Chemistry sodium, serum 142 mmol/L 306-494 7140/04/22 potassium, serum 3.9 mmol/L 3.5-5.2 chloride, serum [...] UC Encounters Code Encounter Date Provider Facility CPT-26540 Level 3 Est. Patient 09:13:25 CDT Mari Romo [facility] CPT-20529 Level 3 Est. Patient 11:17:39 CDT Mari Romo [facility] CPT-42413 Level 3 Est. Patient 08:42:18 CDT Michelle Smith MD PhD [facility] CPT-71027 Level 3 Est. Patient 16:24:24 DISTRICT SUPERVISOR Mari Romo [facility] CPT-15413 Level 3 Est. Patient 20:39:13 DISTRICT SUPERVISOR Mari Romo [facility] CPT-08413 Level 3 Est. Patient 11:07:33 DISTRICT SUPERVISOR Mari Romo APRN [facility] CPT-35719 Level 3 Est. Patient 10:33:19 CDT Peter Sung MD [facility] CPT-49420 Level 3 Est. Patient 18:10:34 CDT Peter Sung MD [facility] Procedures Code Procedure Name Date Entry Date Standard Description CPT-32656 Sono pelvis non OB uterus ovaries cervix 13:02:35 CDT CPT-J1885 Toradol 30 mg (Ketorolac) 17:01:40 CDT CPT-86010 Abx/Therapy Injection 17:01:40 CDT CPT-J1885 Toradol 60 mg (Ketorolac) 15:41:36 CDT CPT-J1050 Depo Provera 150 mg (Medroxyprogesterone) 13:48:38 DISTRICT SUPERVISOR CPT-27763 Abx/Therapy Injection 13:48:38 DISTRICT SUPERVISOR CPT-22986 Venipuncture Draw Fee 11:24:44 DISTRICT SUPERVISOR CPT-J1050 Depo Provera 150 mg (Medroxyprogesterone) 11:07:33 DISTRICT SUPERVISOR CPT-03132 Immunization Single Admin 13:12:44 DISTRICT SUPERVISOR CPT-98517 Fluzone Quadrivalent Intramuscular Suspension 0.5 ML 13: 12:44 DISTRICT SUPERVISOR CPT-35306 Fluzone 11:12:18 DISTRICT SUPERVISOR CPT-46672 Spec Collection and Handling Fee 11:12:18 DISTRICT SUPERVISOR CPT-29301 Visit 11:12:18 DISTRICT SUPERVISOR
--- OUTSIDE RECORDS SUMMARY | 2017-12-29 16:32 | XMS REPORT | Clinical Summary ---
Author Author Admin, Jose Miguel Organization [employer] Address Unknown Phone Unavailable Allergies, Adverse Reactions, Alerts Allergy Name Reaction Description Start Date Severity Status Provider No Known Allergies Abril Shipman Conditions or Problems Problem Name Problem Code Onset Date Status Entry Date Provider Comment Standard Description Annotate Hand pain, right 729.5 Resolved Mari Yokum FRETTED INSTRUMENT REPAIRER Pain in limb Low back pain 724.2 Resolved Mari Yokum FRETTED INSTRUMENT REPAIRER Lumbago Supervision of normal first V22.0 Resolved Mari Yokum FRETTED INSTRUMENT REPAIRER Supervision of normal first , adolescent 659.83 Resolved Mari Yokum FRETTED INSTRUMENT REPAIRER Other specified indications for care or intervention related to labor and delivery, antepartum condition or complication NEED FOR PROPHYLACTIC VACCINATION WITH STREPTOCOCCUS PNEUMONIAE (PNEUMOCOCCUS) AND INFLUENZA V06.6 Resolved Mari Yokum FRETTED INSTRUMENT REPAIRER Need for prophylactic vaccination and inoculation against Streptococcus pneumoniae [pneumococcus] and influenza UTI 599.0 Resolved Mari Yokum FRETTED INSTRUMENT REPAIRER Urinary tract infection, site not specified Contraceptive management V25.9 Active Mari Yokum FRETTED INSTRUMENT REPAIRER Encounter for unspecified contraceptive management Depression 311 Active Mari Yokum FRETTED INSTRUMENT REPAIRER Depressive disorder, not elsewhere classified Tonsillar hypertrophy 474.11 Active Mari Yokum FRETTED INSTRUMENT REPAIRER Hypertrophy of tonsils alone Headache 784.0 Active Michelle Smith MD PhD Headache Sinusitis, acute 461.9 Active Michelle Smith MD PhD Acute sinusitis, unspecified Abdominal pain 789.00 Active Mari Romo APRN Abdominal pain, unspecified site Abdominal pain, RLQ 789.03 Active Medina Pulliam Abdominal pain, right lower quadrant Hand pain, right ICD-729.5 Inactive Mari Romo FRETTED INSTRUMENT REPAIRER Low back pain ICD-724.2 Inactive Mari Romo FRETTED INSTRUMENT REPAIRER Supervision of normal first ICD-V22.0 Inactive Mari Romo FRETTED INSTRUMENT REPAIRER , adolescent ICD-659.83 Inactive Mari Romo FRETTED INSTRUMENT REPAIRER NEED FOR PROPHYLACTIC VACCINATION WITH STREPTOCOCCUS PNEUMONIAE (PNEUMOCOCCUS) AND INFLUENZA ICD-V06.6 Inactive Mari Romo FRETTED INSTRUMENT REPAIRER UTI ICD-599.0 Inactive Mari Romo FRETTED INSTRUMENT REPAIRER Medication List Medication Instructions Start Date Stop Date Generic Name NDC Status Provider Patient Instruction DEPO-PROVERA 150 MG/ML SUPENSION MEDROXYPROGEST RIK (CONTRACEP) 48082479953 No Longer Active Mari Romo APRN Active TRI-SPRINTEC 0.18/0.215/0.25 MG-35 MCG TABS 1 po qd as directed NORGESTIM-ETH ESTRAD TRIPHASIC 64575820757 Active Mari Romo APRN Active AUGMENTIN 875-125 MG TABS 1 pill by mouth twice daily AMOXICILLIN-POT CLAVULANATE 45157414474 No Longer Active Michelle Smith MD PhD Active PAROXETINE HCL 10 MG TABS 1 pill by mouth daily, for depression PAROXETINE HCL 72272858745 Active Mari Romo APRN Active PROZAC 10 MG CAP Take one tablet daily for depression FLUOXETINE HCL 39459233986 No Longer Active Michelle Smith MD PhD Active CONCEPT DHA 53.5-38-1 MG CAPS one tab PO daily PRENAT -GQHDG-KJJV-UT-OMEGA 3 00452823234 No Longer Active Michelle Smith MD PhD Active MACROBID 100 MG CAPS one tab PO BID x 7 days NITROFURANTOIN MONOHYD MACRO 16094036920 No Longer Active Traci Tinsley MD Active TRAMADOL HCL 50 MG TABS 1 tab po tid prn back pain TRAMADOL HCL 66224180516 No Longer Active Traci Tinsley MD Active PREDNISONE 20 MG TAB Take 3 tabs daily for 3 days, then 2 tabs daily for 3 days, then 1 tab daily for 3 days, then 1/2 tab daily for 3 days. PREDNISONE 33222582379 No Longer Active Peter Sung MD Active TRAMADOL HCL 50 MG TABS 1 tab po tid prn back pain TRAMADOL HCL 50 MG TABS 171924 TRAMADOL HCL Inactive CONCEPT DHA 53.5-38-1 MG CAPS one tab PO daily CONCEPT DHA 53.5-38-1 MG CAPS [id number]-MECG-FA-OMEGA 3 Inactive PROZAC 10 MG CAP Take one tablet daily for depression PROZAC 10 MG CAP 798412 FLUOXETINE HCL Inactive DEPO-PROVERA 150 MG/ML SUPENSION DEPO-PROVERA 150 MG/ML SUPENSION 8859828 MEDROXYPROGEST RIK (CONTRACEP) Inactive PREDNISONE 20 MG TAB Take 3 tabs daily for 3 days, then 2 tabs daily for 3 days, then 1 tab daily for 3 days, then 1/2 tab daily for 3 days. PREDNISONE 20 MG TAB 560233 PREDNISONE Inactive MACROBID 100 MG CAPS one tab PO BID x 7 days MACROBID 100 MG CAPS 223302 NITROFURANTOIN MONOHYD MACRO Inactive AUGMENTIN 875-125 MG TABS 1 pill by mouth twice daily AUGMENTIN 875-125 MG TABS 363554 AMOXICILLIN-POT CLAVULANATE Inactive Advance Directives Directive Description [...] % 11.0-15.0 platelet count 230 THOUSAND/UL 10*3/mm3 064-489 9924/11/20 Blood type A Lab Report: ABO GROUP [...] Panel - Chemistry sodium, serum 142 mmol/L 393-341 5728/04/22 potassium, serum 3.9 mmol/L 3.5-5.2 chloride, serum [...] UC Encounters Code Encounter Date Provider Facility CPT-45626 Level 3 Est. Patient 09:13:25 CDT Mari Romo [facility] CPT-05488 Level 3 Est. Patient 11:17:39 CDT Mari Romo [facility] CPT-24917 Level 3 Est. Patient 08:42:18 CDT Michelle Smith MD PhD [facility] CPT-62289 Level 3 Est. Patient 16:24:24 CORSET FITTER Mari Romo [facility] CPT-09105 Level 3 Est. Patient 20:39:13 CORSET FITTER Mari Romo [facility] CPT-75919 Level 3 Est. Patient 11:07:33 CORSET FITTER Mari Romo [facility] CPT-17011 Level 3 Est. Patient 10:33:19 CDT Peter Sung MD [facility] CPT-78781 Level 3 Est. Patient 18:10:34 CDT Peter Sung MD [facility] Procedures Code Procedure Name Date Entry Date Standard Description CPT-70089 Sono pelvis non OB uterus ovaries cervix 13:02:35 CDT CPT-J1885 Toradol 30 mg (Ketorolac) 17:01:40 CDT CPT-64863 Abx/Therapy Injection 17:01:40 CDT CPT-J1885 Toradol 60 mg (Ketorolac) 15:41:36 CDT CPT-J1050 Depo Provera 150 mg (Medroxyprogesterone) 13:48:38 CORSET FITTER CPT-95653 Abx/Therapy Injection 13:48:38 CORSET FITTER CPT-77163 Venipuncture Draw Fee 11:24:44 CORSET FITTER CPT-J1050 Depo Provera 150 mg (Medroxyprogesterone) 11:07:33 CORSET FITTER CPT-44150 Immunization Single Admin 13:12:44 CORSET FITTER CPT-42322 Fluzone Quadrivalent Intramuscular Suspension 0.5 ML 13: 12:44 CORSET FITTER CPT-75750 Fluzone 11:12:18 CORSET FITTER CPT-32609 Spec Collection and Handling Fee 11:12:18 CORSET FITTER CPT-04880 Visit 11:12:18 CORSET FITTER
--- OUTSIDE RECORDS SUMMARY | 2017-12-29 16:33 | XMS REPORT | Clinical Summary ---
Author Author Admin, E Organization [employer] Address Unknown Phone Unavailable Allergies, Adverse Reactions, Alerts Allergy Name Reaction Description Start Date Severity Status Provider No Known Allergies Sandi Jolleyford RMA Conditions or Problems Problem Name Problem Code Onset Date Status Entry Date Provider Comment Standard Description Annotate Hand pain, right 729.5 Resolved Mari Yokum LEACHER Pain in limb Low back pain 724.2 Resolved Mari Yokum LEACHER Lumbago Supervision of normal first V22.0 Resolved Mari Yokum LEACHER Supervision of normal first , adolescent 659.83 Resolved Mari Yokum LEACHER Other specified indications for care or intervention related to labor and delivery, antepartum condition or complication NEED FOR PROPHYLACTIC VACCINATION WITH STREPTOCOCCUS PNEUMONIAE (PNEUMOCOCCUS) AND INFLUENZA V06.6 Resolved Mari Yokum LEACHER Need for prophylactic vaccination and inoculation against Streptococcus pneumoniae [pneumococcus] and influenza UTI 599.0 Resolved Mari Yokum LEACHER Urinary tract infection, site not specified Contraceptive management V25.9 Active Mari Yokum LEACHER Encounter for unspecified contraceptive management Depression 311 Active Mari Yokum LEACHER Depressive disorder, not elsewhere classified Tonsillar hypertrophy 474.11 Active Mari Yokum LEACHER Hypertrophy of tonsils alone Headache 784.0 Active Michelle Smith MD PhD Headache Sinusitis, acute 461.9 Active Michelle Smith MD PhD Acute sinusitis, unspecified Abdominal pain 789.00 Active Mari Romo APRN Abdominal pain, unspecified site Abdominal pain, RLQ 789.03 Active Medina Pulliam Abdominal pain, right lower quadrant Hand pain, right ICD-729.5 Inactive Mari Romo LEACHER Low back pain ICD-724.2 Inactive Mari Romo LEACHER Supervision of normal first ICD-V22.0 Inactive Mari Romo LEACHER , adolescent ICD-659.83 Inactive Mari Romo LEACHER NEED FOR PROPHYLACTIC VACCINATION WITH STREPTOCOCCUS PNEUMONIAE (PNEUMOCOCCUS) AND INFLUENZA ICD-V06.6 Inactive Mari Romo LEACHER UTI ICD-599.0 Inactive Mari Romo LEACHER Medication List Medication Instructions Start Date Stop Date Generic Name NDC Status Provider Patient Instruction DEPO-PROVERA 150 MG/ML SUPENSION MEDROXYPROGEST RIK (CONTRACEP) [id number] No Longer Active Mari Romo APRN Active TRI-SPRINTEC 0.18/0.215/0.25 MG-35 MCG TABS 1 po qd as directed NORGESTIM-ETH ESTRAD TRIPHASIC 52802822184 Active Mari Romo APRN Active AUGMENTIN 875-125 MG TABS 1 pill by mouth twice daily AMOXICILLIN-POT CLAVULANATE 35930661446 No Longer Active Michelle Smith MD PhD Active PAROXETINE HCL 10 MG TABS 1 pill by mouth daily, for depression PAROXETINE HCL 47684718996 Active Mari Romo APRN Active PROZAC 10 MG CAP Take one tablet daily for depression FLUOXETINE HCL 98331610628 No Longer Active Michelle Smith MD PhD Active CONCEPT DHA 53.5-38-1 MG CAPS one tab PO daily PRENAT -YWHIL-EFRW-FL-OMEGA 3 52550275987 No Longer Active Michelle Smith MD PhD Active MACROBID 100 MG CAPS one tab PO BID x 7 days NITROFURANTOIN MONOHYD MACRO 83507987046 No Longer Active Traci Tinsley MD Active TRAMADOL HCL 50 MG TABS 1 tab po tid prn back pain TRAMADOL HCL 32130760890 No Longer Active Traci Tinsley MD Active PREDNISONE 20 MG TAB Take 3 tabs daily for 3 days, then 2 tabs daily for 3 days, then 1 tab daily for 3 days, then 1/2 tab daily for 3 days. PREDNISONE 65449703862 No Longer Active Peter Sung MD Active TRAMADOL HCL 50 MG TABS 1 tab po tid prn back pain TRAMADOL HCL 50 MG TABS 155777 TRAMADOL HCL Inactive CONCEPT DHA 53.5-38-1 MG CAPS one tab PO daily CONCEPT DHA 53.5-38-1 MG CAPS IAXVFC-IVVHJ-ESOU-FA-OMEGA 3 Inactive PROZAC 10 MG CAP Take one tablet daily for depression PROZAC 10 MG CAP 091232 FLUOXETINE HCL Inactive DEPO-PROVERA 150 MG/ML SUPENSION DEPO-PROVERA 150 MG/ML SUPENSION 4558313 MEDROXYPROGEST RIK (CONTRACEP) Inactive PREDNISONE 20 MG TAB Take 3 tabs daily for 3 days, then 2 tabs daily for 3 days, then 1 tab daily for 3 days, then 1/2 tab daily for 3 days. PREDNISONE 20 MG TAB 214388 PREDNISONE Inactive MACROBID 100 MG CAPS one tab PO BID x 7 days MACROBID 100 MG CAPS 735612 NITROFURANTOIN MONOHYD MACRO Inactive AUGMENTIN 875-125 MG TABS 1 pill by mouth twice daily AUGMENTIN 875-125 MG TABS 351035 AMOXICILLIN-POT CLAVULANATE Inactive Advance Directives Directive Description [...] % 11.0-15.0 platelet count 230 THOUSAND/UL 10*3/mm3 145-665 4020/11/20 Blood type A Lab Report: ABO GROUP [...] Panel - Chemistry sodium, serum 142 mmol/L 752-643 1270/04/22 potassium, serum 3.9 mmol/L 3.5-5.2 chloride, serum [...] UC Encounters Code Encounter Date Provider Facility CPT-12359 Level 3 Est. Patient 09:13:25 CDT Mari Romo [facility] CPT-98347 Level 3 Est. Patient 11:17:39 CDT Mari Romo [facility] CPT-70508 Level 3 Est. Patient 08:42:18 CDT Michelle Smith MD [facility] CPT-00649 Level 3 Est. Patient 16:24:24 CORPORATE QUALITY ASSURANCE MANAGER Mari Romo [facility] CPT-65249 Level 3 Est. Patient 20:39:13 CORPORATE QUALITY ASSURANCE MANAGER Mari Romo [facility] CPT-68596 Level 3 Est. Patient 11:07:33 CORPORATE QUALITY ASSURANCE MANAGER Mari Romo [facility] CPT-63380 Level 3 Est. Patient 10:33:19 CDT Peter Sung MD [facility] CPT-25220 Level 3 Est. Patient 18:10:34 CDT Peter Sung MD [facility] Procedures Code Procedure Name Date Entry Date Standard Description CPT-41073 Sono pelvis non OB uterus ovaries cervix 13:02:35 CDT CPT-J1885 Toradol 30 mg (Ketorolac) 17:01:40 CDT CPT-65664 Abx/Therapy Injection 17:01:40 CDT CPT-J1885 Toradol 60 mg (Ketorolac) 15:41:36 CDT CPT-J1050 Depo Provera 150 mg (Medroxyprogesterone) 13:48:38 CORPORATE QUALITY ASSURANCE MANAGER CPT-34806 Abx/Therapy Injection 13:48:38 CORPORATE QUALITY ASSURANCE MANAGER CPT-03161 Venipuncture Draw Fee 11:24:44 CORPORATE QUALITY ASSURANCE MANAGER CPT-J1050 Depo Provera 150 mg (Medroxyprogesterone) 11:07:33 CORPORATE QUALITY ASSURANCE MANAGER CPT-99930 Immunization Single Admin 13:12:44 CORPORATE QUALITY ASSURANCE MANAGER CPT-91668 Fluzone Quadrivalent Intramuscular Suspension 0.5 ML 13: 12:44 CORPORATE QUALITY ASSURANCE MANAGER CPT-96253 Fluzone 11:12:18 CORPORATE QUALITY ASSURANCE MANAGER CPT-88315 Spec Collection and Handling Fee 11:12:18 CORPORATE QUALITY ASSURANCE MANAGER CPT-93376 Visit 11:12:18 CORPORATE QUALITY ASSURANCE MANAGER
--- OUTSIDE RECORDS SUMMARY | 2017-12-29 16:33 | XMS REPORT | Clinical Summary ---
Author Author Admin, Jose Miguel Organization [employer] Address Unknown Phone Unavailable Allergies, Adverse Reactions, Alerts Allergy Name Reaction Description Start Date Severity Status Provider No Known Allergies Abrilkailee Shipman Conditions or Problems Problem Name Problem Code Onset Date Status Entry Date Provider Comment Standard Description Annotate Hand pain, right 729.5 Resolved Mari Yokum SLAT GRADER Pain in limb Low back pain 724.2 Resolved Mari Yokum SLAT GRADER Lumbago Supervision of normal first V22.0 Resolved Mari Yokum SLAT GRADER Supervision of normal first , adolescent 659.83 Resolved Mari Yokum SLAT GRADER Other specified indications for care or intervention related to labor and delivery, antepartum condition or complication NEED FOR PROPHYLACTIC VACCINATION WITH STREPTOCOCCUS PNEUMONIAE (PNEUMOCOCCUS) AND INFLUENZA V06.6 Resolved Mari Yokum SLAT GRADER Need for prophylactic vaccination and inoculation against Streptococcus pneumoniae [pneumococcus] and influenza UTI 599.0 Resolved Mari Yokum SLAT GRADER Urinary tract infection, site not specified Contraceptive management V25.9 Active Mari Yokum SLAT GRADER Encounter for unspecified contraceptive management Depression 311 Active Mari Yokum SLAT GRADER Depressive disorder, not elsewhere classified Tonsillar hypertrophy 474.11 Active Mari Yokum SLAT GRADER Hypertrophy of tonsils alone Headache 784.0 Active [...] Hand pain, right ICD-729.5 Inactive Mari Jarvisum SLAT GRADER Low back pain ICD-724.2 Inactive Mari Romo SLAT GRADER Supervision of normal first ICD-V22.0 Inactive Mari Jarvisum SLAT GRADER , adolescent ICD-659.83 Inactive Mari Jarvisum SLAT GRADER NEED FOR PROPHYLACTIC VACCINATION WITH STREPTOCOCCUS PNEUMONIAE (PNEUMOCOCCUS) AND INFLUENZA ICD-V06.6 Inactive Mari Jarvisum SLAT GRADER UTI ICD-599.0 Inactive Mari Jarvisum SLAT GRADER Medication List Medication Instructions Start Date Stop Date Generic Name NDC Status Provider Patient Instruction MEDROL (MICHELLE) 4 MG TABS 6 tabs on day 1, 5 tabs on day 2, 4 tabs on day 3, 3 tabs on day 4, 2 tabs on day 5, 1 tab on day 6 METHYLPREDNISOLONE 64895148420 No Longer Active Mari Jarvisum SLAT GRADER Active DEPO-PROVERA 150 MG/ML SUPENSION MEDROXYPROGEST RIK (CONTRACEP) 53116073681 No Longer Active Mari Matheusum SLAT GRADER Active TRI-SPRINTEC 0.18/0.215/0.25 MG-35 MCG TABS 1 po qd as directed NORGESTIM-ETH ESTRAD TRIPHASIC 88838728416 Active Mari Matheusum SLAT GRADER Active AUGMENTIN 875-125 MG TABS 1 pill by mouth twice daily AMOXICILLIN-POT CLAVULANATE 41441420403 No Longer Active Michelle Smith MD PhD Active PAROXETINE HCL 10 MG TABS 1 pill by mouth daily, for depression PAROXETINE HCL 27308704199 Active Mari Romo APRN Active PROZAC 10 MG CAP Take one tablet daily for depression FLUOXETINE HCL 75804192472 No Longer Active Michelle Smith MD PhD Active CONCEPT DHA 53.5-38-1 MG CAPS one tab PO daily PRENAT -ZUUSK-RFWY-CR-OMEGA 3 67172863337 No Longer Active Michelle Smith MD PhD Active MACROBID 100 MG CAPS one tab PO BID x 7 days NITROFURANTOIN MONOHYD MACRO 13696612392 No Longer Active Traci Tinsley MD Active TRAMADOL HCL 50 MG TABS 1 tab po tid prn back pain TRAMADOL HCL 78168933978 No Longer Active Traci Tinsley MD Active PREDNISONE 20 MG TAB Take 3 tabs daily for 3 days, then 2 tabs daily for 3 days, then 1 tab daily for 3 days, then 1/2 tab daily for 3 days. PREDNISONE 13229910815 No Longer Active Peter Sung MD Active TRAMADOL HCL 50 MG TABS 1 tab po tid prn back pain TRAMADOL HCL 50 MG TABS 777385 TRAMADOL HCL Inactive CONCEPT DHA 53.5-38-1 MG CAPS one tab PO daily CONCEPT DHA 53.5-38-1 MG CAPS [id number]-YNYA-FA-OMEGA 3 Inactive PROZAC 10 MG CAP Take one tablet daily for depression PROZAC 10 MG CAP 739543 FLUOXETINE HCL Inactive DEPO-PROVERA 150 MG/ML SUPENSION DEPO-PROVERA 150 MG/ML SUPENSION 3287107 MEDROXYPROGEST RIK (CONTRACEP) Inactive PREDNISONE 20 MG TAB Take 3 tabs daily for 3 days, then 2 tabs daily for 3 days, then 1 tab daily for 3 days, then 1/2 tab daily for 3 days. PREDNISONE 20 MG TAB 293718 PREDNISONE Inactive MACROBID 100 MG CAPS one tab PO BID x 7 days MACROBID 100 MG CAPS 248396 NITROFURANTOIN MONOHYD MACRO Inactive AUGMENTIN 875-125 MG TABS 1 pill by mouth twice daily AUGMENTIN 875-125 MG TABS 869683 AMOXICILLIN-POT CLAVULANATE Inactive MEDROL (MICHELLE) 4 MG [...] % 11.0-15.0 platelet count 230 THOUSAND/UL 10*3/mm3 683-119 6365/11/20 Blood type A Lab Report: ABO GROUP [...] Panel - Chemistry sodium, serum 142 mmol/L 765-981 0396/04/22 potassium, serum 3.9 mmol/L 3.5-5.2 chloride, serum [...] UC Encounters Code Encounter Date Provider Facility CPT-06752 Level 3 Est. Patient 19:08:16 CDT Mari Romo [facility] CPT-16148 Level 3 Est. Patient 19:07:22 CDT Mari Romo [facility] CPT-87502 Level 3 Est. Patient 09:13:25 CDT Mari Romo [facility] CPT-35827 Level 3 Est. Patient 11:17:39 CDT Mari Romo [facility] CPT-36300 Level 3 Est. Patient 08:42:18 CDT Michelle Smith MD [facility] CPT-22141 Level 3 Est. Patient 16:24:24 MACHINE MAINTENANCE MECHANIC Mari Romo [facility] CPT-81943 Level 3 Est. Patient 20:39:13 MACHINE MAINTENANCE MECHANIC Mari Romo [facility] CPT-77236 Level 3 Est. Patient 11:07:33 MACHINE MAINTENANCE MECHANIC Mari Romo [facility] CPT-25064 Level 3 Est. Patient 10:33:19 CDT Peter Sung MD [facility] CPT-95900 Level 3 Est. Patient 18:10:34 CDT Peter Sung MD [facility] Procedures Code Procedure Name Date Entry Date Standard Description CPT-06641 Sono pelvis non OB uterus ovaries cervix 13:02:35 CDT CPT-J1885 Toradol 30 mg (Ketorolac) 17:01:40 CDT CPT-13164 Abx/Therapy Injection 17:01:40 CDT CPT-J1885 Toradol 60 mg (Ketorolac) 15:41:36 CDT CPT-J1050 Depo Provera 150 mg (Medroxyprogesterone) 13:48:38 MACHINE MAINTENANCE MECHANIC CPT-36352 Abx/Therapy Injection 13:48:38 MACHINE MAINTENANCE MECHANIC CPT-26734 Venipuncture Draw Fee 11:24:44 MACHINE MAINTENANCE MECHANIC CPT-J1050 Depo Provera 150 mg (Medroxyprogesterone) 11:07:33 MACHINE MAINTENANCE MECHANIC CPT-41042 Immunization Single Admin 13:12:44 MACHINE MAINTENANCE MECHANIC CPT-11207 Fluzone Quadrivalent Intramuscular Suspension 0.5 ML 13: 12:44 MACHINE MAINTENANCE MECHANIC CPT-26351 Fluzone 11:12:18 MACHINE MAINTENANCE MECHANIC CPT-65265 Spec Collection and Handling Fee 11:12:18 MACHINE MAINTENANCE MECHANIC CPT-91564 Visit 11:12:18 MACHINE MAINTENANCE MECHANIC
--- OUTSIDE RECORDS SUMMARY | 2017-12-29 16:34 | XMS REPORT | Clinical Summary ---
Author Author Admin, E Organization [facility] Address Unknown Phone Unavailable Allergies, Adverse Reactions, Alerts Allergy Name Reaction Description Start Date Severity Status Provider No Known Allergies Sandi Jolleyford RMA Conditions or Problems Problem Name Problem Code Onset Date Status Entry Date Provider Comment Standard Description Annotate Hand pain, right 729.5 Resolved Mari Yokum DENTAL PATIENT COORDINATOR Pain in limb Low back pain 724.2 Resolved Mari Yokum DENTAL PATIENT COORDINATOR Lumbago Supervision of normal first V22.0 Resolved Mari Yokum DENTAL PATIENT COORDINATOR Supervision of normal first , adolescent 659.83 Resolved Mari Yokum DENTAL PATIENT COORDINATOR Other specified indications for care or intervention related to labor and delivery, antepartum condition or complication NEED FOR PROPHYLACTIC VACCINATION WITH STREPTOCOCCUS PNEUMONIAE (PNEUMOCOCCUS) AND INFLUENZA V06.6 Resolved Mari Yokum DENTAL PATIENT COORDINATOR Need for prophylactic vaccination and inoculation against Streptococcus pneumoniae [pneumococcus] and influenza UTI 599.0 Resolved Mari Yokum DENTAL PATIENT COORDINATOR Urinary tract infection, site not specified Contraceptive management V25.9 Active Mari Yokum DENTAL PATIENT COORDINATOR Encounter for unspecified contraceptive management Depression 311 Active Mari Yokum DENTAL PATIENT COORDINATOR Depressive disorder, not elsewhere classified Tonsillar hypertrophy 474.11 Active Mari Yokum DENTAL PATIENT COORDINATOR Hypertrophy of tonsils alone Headache 784.0 Active Michelle Smith MD PhD Headache Sinusitis, acute 461.9 Active Michelle Smith MD PhD Acute sinusitis, unspecified Abdominal pain 789.00 Active Mari Romo APRN Abdominal pain, unspecified site Hand pain, right ICD-729.5 Inactive Mari Romo DENTAL PATIENT COORDINATOR Low back pain ICD-724.2 Inactive Mari Romo DENTAL PATIENT COORDINATOR Supervision of normal first ICD-V22.0 Inactive Mari Romo DENTAL PATIENT COORDINATOR , adolescent ICD-659.83 Inactive Mari Romo DENTAL PATIENT COORDINATOR NEED FOR PROPHYLACTIC VACCINATION WITH STREPTOCOCCUS PNEUMONIAE (PNEUMOCOCCUS) AND INFLUENZA ICD-V06.6 Inactive Mari Romo DENTAL PATIENT COORDINATOR UTI ICD-599.0 Inactive Mari Romo DENTAL PATIENT COORDINATOR Medication List Medication Instructions Start Date Stop Date Generic Name ND Status Provider Patient Instruction DEPO-PROVERA 150 MG/ML SUPENSION MEDROXYPROGEST RIK (CONTRACEP) [id number] No Longer Active Mari Romo APRN Active TRI-SPRINTEC 0.18/0.215/0.25 MG-35 MCG TABS 1 po qd as directed NORGESTIM-ETH ESTRAD TRIPHASIC [id number] Active Mari Romo APRN Active AUGMENTIN 875-125 MG TABS 1 pill by mouth twice daily AMOXICILLIN-POT CLAVULANATE 07899216071 No Longer Active Michelle Smith MD PhD Active PAROXETINE HCL 10 MG TABS 1 pill by mouth daily, for depression PAROXETINE HCL 94261087666 Active Mari Romo APRN Active PROZAC 10 MG CAP Take one tablet daily for depression FLUOXETINE HCL 00497715937 No Longer Active Michelle Smith MD PhD Active CONCEPT DHA 53.5-38-1 MG CAPS one tab PO daily PRENAT -[id number]-OMEGA 3 07410989760 No Longer Active Michelle Smith MD PhD Active MACROBID 100 MG CAPS one tab PO BID x 7 days NITROFURANTOIN MONOHYD MACRO 96769673362 No Longer Active Traci Tinsley MD Active TRAMADOL HCL 50 MG TABS 1 tab po tid prn back pain TRAMADOL HCL 81403604630 No Longer Active Traci Tinsley MD Active PREDNISONE 20 MG TAB Take 3 tabs daily for 3 days, then 2 tabs daily for 3 days, then 1 tab daily for 3 days, then 1/2 tab daily for 3 days. PREDNISONE 92903937555 No Longer Active Peter Sung MD Active TRAMADOL HCL 50 MG TABS 1 tab po tid prn back pain TRAMADOL HCL 50 MG TABS [id number] TRAMADOL HCL Inactive CONCEPT DHA 53.5-38-1 MG CAPS one tab PO daily CONCEPT DHA 53.5-38-1 MG CAPS [id number] 3 Inactive PROZAC 10 MG CAP Take one tablet daily for depression PROZAC 10 MG CAP [id number] FLUOXETINE HCL Inactive DEPO-PROVERA 150 MG/ML SUPENSION DEPO-PROVERA 150 MG/ML SUPENSION [id number] MEDROXYPROGEST RIK (CONTRACEP) Inactive PREDNISONE 20 MG TAB Take 3 tabs daily for 3 days, then 2 tabs daily for 3 days, then 1 tab daily for 3 days, then 1/2 tab daily for 3 days. PREDNISONE 20 MG TAB 586884 PREDNISONE Inactive MACROBID 100 MG CAPS one tab PO BID x 7 days MACROBID 100 MG CAPS 539390 NITROFURANTOIN MONOHYD MACRO Inactive AUGMENTIN 875-125 MG TABS 1 pill by mouth twice daily AUGMENTIN 875-125 MG TABS 697497 AMOXICILLIN-POT CLAVULANATE Inactive Advance Directives Directive Description [...] % 11.0-15.0 platelet count 230 THOUSAND/UL 10*3/mm3 632-023 0239/11/20 Blood type A Lab Report: ABO GROUP [...] UC Encounters Code Encounter Date Provider Facility CPT-31923 Level 3 Est. Patient 11:17:39 CDT Mari Romo [facility] CPT-65536 Level 3 Est. Patient 08:42:18 CDT Michelle Smith MD PhD [facility] CPT-44443 Level 3 Est. Patient 16:24:24 DENTAL COORDINATOR Mari Romo [facility] CPT-17080 Level 3 Est. Patient 20:39:13 DENTAL COORDINATOR Mari Romo [facility] CPT-25900 Level 3 Est. Patient 11:07:33 DENTAL COORDINATOR Mari Romo [facility] CPT-85906 Level 3 Est. Patient 10:33:19 CDT Peter Sung MD [facility] CPT-87027 Level 3 Est. Patient 18:10:34 CDT Peter Sung MD [facility] Procedures Code Procedure Name Date Entry Date Standard Description CPT-J1885 Toradol 30 mg (Ketorolac) 17:01:40 CDT CPT-27668 Abx/Therapy Injection 17:01:40 CDT CPT-J1885 Toradol 60 mg (Ketorolac) 15:41:36 CDT CPT-J1050 Depo Provera 150 mg (Medroxyprogesterone) 13:48:38 DENTAL COORDINATOR CPT-26082 Abx/Therapy Injection 13:48:38 DENTAL COORDINATOR CPT-51890 Venipuncture Draw Fee 11:24:44 DENTAL COORDINATOR CPT-J1050 Depo Provera 150 mg (Medroxyprogesterone) 11:07:33 DENTAL COORDINATOR CPT-55641 Immunization Single Admin 13:12:44 DENTAL COORDINATOR CPT-54556 Fluzone Quadrivalent Intramuscular Suspension 0.5 ML 13: 12:44 DENTAL COORDINATOR CPT-72999 Fluzone 11:12:18 DENTAL COORDINATOR CPT-33375 Spec Collection and Handling Fee 11:12:18 DENTAL COORDINATOR CPT-33144 Visit 11:12:18 DENTAL COORDINATOR
--- OUTSIDE RECORDS SUMMARY | 2017-12-29 16:34 | XMS REPORT | Clinical Summary ---
Author Author Admin, E Organization [email or web address] Address Unknown Phone Unavailable Allergies, Adverse Reactions, Alerts Allergy Name Reaction Description Start Date Severity Status Provider No Known Allergies Milli Hamilton MA Conditions or Problems Problem Name Problem Code Onset Date Status Entry Date Provider Comment Standard Description Annotate Hand pain, right 729.5 Resolved Maricarlton Romo MANAGER CARDIOVASCULAR Pain in limb Low back pain 724.2 Resolved Mari Yokum MANAGER CARDIOVASCULAR Lumbago Supervision of normal first V22.0 Resolved Mari Yosurajum MANAGER CARDIOVASCULAR Supervision of normal first , adolescent 659.83 Resolved Mari Yokum MANAGER CARDIOVASCULAR Other specified indications for care or intervention related to labor and delivery, antepartum condition or complication NEED FOR PROPHYLACTIC VACCINATION WITH STREPTOCOCCUS PNEUMONIAE (PNEUMOCOCCUS) AND INFLUENZA V06.6 Resolved Mari Yokum MANAGER CARDIOVASCULAR Need for prophylactic vaccination and inoculation against Streptococcus pneumoniae [pneumococcus] and influenza UTI 599.0 Resolved Mari Yokum MANAGER CARDIOVASCULAR Urinary tract infection, site not specified Contraceptive management V25.9 Active Mari Yosurajum MANAGER CARDIOVASCULAR Encounter for unspecified contraceptive management Depression 311 Active Mari Yokum MANAGER CARDIOVASCULAR Depressive disorder, not elsewhere classified Tonsillar hypertrophy 474.11 Active Mari Yokum MANAGER CARDIOVASCULAR Hypertrophy of tonsils alone Headache 784.0 Active Michelle Smith MD PhD Headache Sinusitis, acute 461.9 Active Michelle Smith MD PhD Acute sinusitis, unspecified Abdominal pain 789.00 Active Mari Romo APRN Abdominal pain, unspecified site Abdominal pain, RLQ 789.03 Active Medina Pulliam Abdominal pain, right lower quadrant Hand pain, right ICD-729.5 Inactive Mari Romo MANAGER CARDIOVASCULAR Low back pain ICD-724.2 Inactive Mari Romo MANAGER CARDIOVASCULAR Supervision of normal first ICD-V22.0 Inactive Mari Romo MANAGER CARDIOVASCULAR , adolescent ICD-659.83 Inactive Mari Romo MANAGER CARDIOVASCULAR NEED FOR PROPHYLACTIC VACCINATION WITH STREPTOCOCCUS PNEUMONIAE (PNEUMOCOCCUS) AND INFLUENZA ICD-V06.6 Inactive Mari Romo MANAGER CARDIOVASCULAR UTI ICD-599.0 Inactive Mari Romo MANAGER CARDIOVASCULAR Medication List Medication Instructions Start Date Stop Date Generic Name NDC Status Provider Patient Instruction DEPO-PROVERA 150 MG/ML SUPENSION MEDROXYPROGEST RIK (CONTRACEP) [id number] No Longer Active Mari Romo APRN Active TRI-SPRINTEC 0.18/0.215/0.25 MG-35 MCG TABS 1 po qd as directed NORGESTIM-ETH ESTRAD TRIPHASIC 87941529078 Active Mari Romo APRN Active AUGMENTIN 875-125 MG TABS 1 pill by mouth twice daily AMOXICILLIN-POT CLAVULANATE 10219663420 No Longer Active Michelle Smith MD PhD Active PAROXETINE HCL 10 MG TABS 1 pill by mouth daily, for depression PAROXETINE HCL 93179276726 Active Mari Romo APRN Active PROZAC 10 MG CAP Take one tablet daily for depression FLUOXETINE HCL 83836965042 No Longer Active Michelle Smith MD PhD Active CONCEPT DHA 53.5-38-1 MG CAPS one tab PO daily PRENAT -[id number]-SB-OMEGA 3 65737448144 No Longer Active Michelle Smith MD PhD Active MACROBID 100 MG CAPS one tab PO BID x 7 days NITROFURANTOIN MONOHYD MACRO 39524221668 No Longer Active Traci Tinsley MD Active TRAMADOL HCL 50 MG TABS 1 tab po tid prn back pain TRAMADOL HCL 29976344771 No Longer Active Traci Tinsley MD Active PREDNISONE 20 MG TAB Take 3 tabs daily for 3 days, then 2 tabs daily for 3 days, then 1 tab daily for 3 days, then 1/2 tab daily for 3 days. PREDNISONE 86656758807 No Longer Active Peter Sung MD Active TRAMADOL HCL 50 MG TABS 1 tab po tid prn back pain TRAMADOL HCL 50 MG TABS 263195 TRAMADOL HCL Inactive CONCEPT DHA 53.5-38-1 MG CAPS one tab PO daily CONCEPT DHA 53.5-38-1 MG CAPS [id number]-OMEGA 3 Inactive PROZAC 10 MG CAP Take one tablet daily for depression PROZAC 10 MG CAP 126370 FLUOXETINE HCL Inactive DEPO-PROVERA 150 MG/ML SUPENSION DEPO-PROVERA 150 MG/ML SUPENSION 5128718 MEDROXYPROGEST RIK (CONTRACEP) Inactive PREDNISONE 20 MG TAB Take 3 tabs daily for 3 days, then 2 tabs daily for 3 days, then 1 tab daily for 3 days, then 1/2 tab daily for 3 days. PREDNISONE 20 MG TAB 410811 PREDNISONE Inactive MACROBID 100 MG CAPS one tab PO BID x 7 days MACROBID 100 MG CAPS 582890 NITROFURANTOIN MONOHYD MACRO Inactive AUGMENTIN 875-125 MG TABS 1 pill by mouth twice daily AUGMENTIN 875-125 MG TABS 284300 AMOXICILLIN-POT CLAVULANATE Inactive Advance Directives Directive Description Start Date CONSENT FOR MINOR CARE Immunizations Vaccine Administration Date Value Standard Description hepatitis B vaccine series no hepatitis B vaccine, unspecified formulation Vital Signs Date Name Value Unit Range Description blood pressure, diastolic - 8462-4 77 mm[Hg] [...] % 11.0-15.0 platelet count 230 THOUSAND/UL 10*3/mm3 847-995 9425/11/20 Blood type A Lab Report: ABO GROUP [...] Panel - Chemistry sodium, serum 142 mmol/L 026-652 3170/04/22 potassium, serum 3.9 mmol/L 3.5-5.2 chloride, serum [...] UC Encounters Code Encounter Date Provider Facility CPT-66798 Level 3 Est. Patient 09:13:25 CDT Mari Romo [facility] CPT-08333 Level 3 Est. Patient 11:17:39 CDT [facility] CPT-23481 Level 3 Est. Patient 08:42:18 CDT Michelle Smith MD PhD [facility] CPT-69454 Level 3 Est. Patient 16:24:24 SERVER SERVICE ASSISTANT Mari Clarissa [facility] CPT-68505 Level 3 Est. Patient 20:39:13 SERVER SERVICE ASSISTANT [facility] Clarissa [facility] CPT-20729 Level 3 Est. Patient 11:07:33 SERVER SERVICE ASSISTANT [facility] Clarissa [facility] CPT-03869 Level 3 Est. Patient 10:33:19 CDT Peter Sung MD [facility] CPT-45788 Level 3 Est. Patient 18:10:34 CDT Peter Sung MD [facility] Procedures Code Procedure Name Date Entry Date Standard Description CPT-19404 Sono pelvis non OB uterus ovaries cervix 13:02:35 CDT CPT-J1885 Toradol 30 mg (Ketorolac) 17:01:40 CDT CPT-27830 Abx/Therapy Injection 17:01:40 CDT CPT-J1885 Toradol 60 mg (Ketorolac) 15:41:36 CDT CPT-J1050 Depo Provera 150 mg (Medroxyprogesterone) 13:48:38 SERVER SERVICE ASSISTANT CPT-91057 Abx/Therapy Injection 13:48:38 SERVER SERVICE ASSISTANT CPT-61366 Venipuncture Draw Fee 11:24:44 SERVER SERVICE ASSISTANT CPT-J1050 Depo Provera 150 mg (Medroxyprogesterone) 11:07:33 SERVER SERVICE ASSISTANT CPT-17071 Immunization Single Admin 13:12:44 SERVER SERVICE ASSISTANT CPT-29511 Fluzone Quadrivalent Intramuscular Suspension 0.5 ML 13: 12:44 SERVER SERVICE ASSISTANT CPT-62088 Fluzone 11:12:18 SERVER SERVICE ASSISTANT CPT-77004 Spec Collection and Handling Fee 11:12:18 SERVER SERVICE ASSISTANT CPT-22290 Visit 11:12:18 SERVER SERVICE ASSISTANT
--- OUTSIDE RECORDS SUMMARY | 2017-12-29 16:35 | XMS REPORT | Clinical Summary ---
Author Author Admin, E Organization [facility] Address Unknown Phone Unavailable Allergies, Adverse Reactions, Alerts Allergy Name Reaction Description Start Date Severity Status Provider No Known Allergies Sandi Jolleyford RMA Conditions or Problems Problem Name Problem Code Onset Date Status Entry Date Provider Comment Standard Description Annotate Hand pain, right 729.5 Resolved Mari Yokum HOGSHEAD STRIPPER Pain in limb Low back pain 724.2 Resolved Mari Yokum HOGSHEAD STRIPPER Lumbago Supervision of normal first V22.0 Resolved Mari Yokum HOGSHEAD STRIPPER Supervision of normal first , adolescent 659.83 Resolved Mari Yokum HOGSHEAD STRIPPER Other specified indications for care or intervention related to labor and delivery, antepartum condition or complication NEED FOR PROPHYLACTIC VACCINATION WITH STREPTOCOCCUS PNEUMONIAE (PNEUMOCOCCUS) AND INFLUENZA V06.6 Resolved Mari Yokum HOGSHEAD STRIPPER Need for prophylactic vaccination and inoculation against Streptococcus pneumoniae [pneumococcus] and influenza UTI 599.0 Resolved Mari Yokum HOGSHEAD STRIPPER Urinary tract infection, site not specified Contraceptive management V25.9 Active Mari Yokum HOGSHEAD STRIPPER Encounter for unspecified contraceptive management Depression 311 Active Mari Yokum HOGSHEAD STRIPPER Depressive disorder, not elsewhere classified Tonsillar hypertrophy 474.11 Active Mari Yokum HOGSHEAD STRIPPER Hypertrophy of tonsils alone Headache 784.0 Active Michelle Smith MD PhD Headache Sinusitis, acute 461.9 Active Michelle Smith MD PhD Acute sinusitis, unspecified Abdominal pain 789.00 Active Mari Romo APRN Abdominal pain, unspecified site Hand pain, right ICD-729.5 Inactive Mari Romo HOGSHEAD STRIPPER Low back pain ICD-724.2 Inactive Mari Romo HOGSHEAD STRIPPER Supervision of normal first ICD-V22.0 Inactive Mari Romo HOGSHEAD STRIPPER , adolescent ICD-659.83 Inactive Mari Romo HOGSHEAD STRIPPER NEED FOR PROPHYLACTIC VACCINATION WITH STREPTOCOCCUS PNEUMONIAE (PNEUMOCOCCUS) AND INFLUENZA ICD-V06.6 Inactive Mari Romo HOGSHEAD STRIPPER UTI ICD-599.0 Inactive Mari Romo HOGSHEAD STRIPPER Medication List Medication Instructions Start Date Stop Date Generic Name ND Status Provider Patient Instruction DEPO-PROVERA 150 MG/ML SUPENSION MEDROXYPROGEST RIK (CONTRACEP) [id number] No Longer Active Mari Romo APRN Active TRI-SPRINTEC 0.18/0.215/0.25 MG-35 MCG TABS 1 po qd as directed NORGESTIM-ETH ESTRAD TRIPHASIC 55436009445 Active Mari Romo APRN Active AUGMENTIN 875-125 MG TABS 1 pill by mouth twice daily AMOXICILLIN-POT CLAVULANATE 64927166955 No Longer Active Michelle Smith MD PhD Active PAROXETINE HCL 10 MG TABS 1 pill by mouth daily, for depression PAROXETINE HCL 06539674803 Active Mari Romo APRN Active PROZAC 10 MG CAP Take one tablet daily for depression FLUOXETINE HCL 98611183822 No Longer Active Michelle Smith MD PhD Active CONCEPT DHA 53.5-38-1 MG CAPS one tab PO daily PRENAT -[id number]-YB-OMEGA 3 40677441673 No Longer Active Michelle Smith MD PhD Active MACROBID 100 MG CAPS one tab PO BID x 7 days NITROFURANTOIN MONOHYD MACRO 19360116443 No Longer Active Traci Tinsley MD Active TRAMADOL HCL 50 MG TABS 1 tab po tid prn back pain TRAMADOL HCL 74310454224 No Longer Active Traci Tinsley MD Active PREDNISONE 20 MG TAB Take 3 tabs daily for 3 days, then 2 tabs daily for 3 days, then 1 tab daily for 3 days, then 1/2 tab daily for 3 days. PREDNISONE 31237685447 No Longer Active Peter Sung MD Active TRAMADOL HCL 50 MG TABS 1 tab po tid prn back pain TRAMADOL HCL 50 MG TABS 309424 TRAMADOL HCL Inactive CONCEPT DHA 53.5-38-1 MG CAPS one tab PO daily CONCEPT DHA 53.5-38-1 MG CAPS [id number]-OMEGA 3 Inactive PROZAC 10 MG CAP Take one tablet daily for depression PROZAC 10 MG CAP 395561 FLUOXETINE HCL Inactive DEPO-PROVERA 150 MG/ML SUPENSION DEPO-PROVERA 150 MG/ML SUPENSION 5362213 MEDROXYPROGEST RIK (CONTRACEP) Inactive PREDNISONE 20 MG TAB Take 3 tabs daily for 3 days, then 2 tabs daily for 3 days, then 1 tab daily for 3 days, then 1/2 tab daily for 3 days. PREDNISONE 20 MG TAB 210457 PREDNISONE Inactive MACROBID 100 MG CAPS one tab PO BID x 7 days MACROBID 100 MG CAPS 170397 NITROFURANTOIN MONOHYD MACRO Inactive AUGMENTIN 875-125 MG TABS 1 pill by mouth twice daily AUGMENTIN 875-125 MG TABS 468862 AMOXICILLIN-POT CLAVULANATE Inactive Advance Directives Directive Description [...] % 11.0-15.0 platelet count 230 THOUSAND/UL 10*3/mm3 702-599 4454/11/20 Blood type A Lab Report: ABO GROUP [...] Panel - Chemistry sodium, serum 142 mmol/L 978-859 2267/04/22 potassium, serum 3.9 mmol/L 3.5-5.2 chloride, serum [...] UC Encounters Code Encounter Date Provider Facility CPT-05251 Level 3 Est. Patient 11:17:39 FROILANT Mari Romo APRN [facility] CPT-03078 Level 3 Est. Patient 08:42:18 CDT Michelle Smith MD PhD [facility] CPT-70032 Level 3 Est. Patient 16:24:24 FARM LOAN INSPECTOR Mari Romo [facility] CPT-03470 Level 3 Est. Patient 20:39:13 FARM LOAN INSPECTOR Mari Clarsisa [facility] CPT-16571 Level 3 Est. Patient 11:07:33 FARM LOAN INSPECTOR Mari Romo [facility] CPT-97956 Level 3 Est. Patient 10:33:19 CDT Peter Sung MD [facility] CPT-37155 Level 3 Est. Patient 18:10:34 CDT Peter Sung MD [facility] Procedures Code Procedure Name Date Entry Date Standard Description CPT-J1885 Toradol 30 mg (Ketorolac) 17:01:40 CDT CPT-31677 Abx/Therapy Injection 17:01:40 CDT CPT-J1885 Toradol 60 mg (Ketorolac) 15:41:36 CDT CPT-J1050 Depo Provera 150 mg (Medroxyprogesterone) 13:48:38 FARM LOAN INSPECTOR CPT-69618 Abx/Therapy Injection 13:48:38 FARM LOAN INSPECTOR CPT-68474 Venipuncture Draw Fee 11:24:44 FARM LOAN INSPECTOR CPT-J1050 Depo Provera 150 mg (Medroxyprogesterone) 11:07:33 FARM LOAN INSPECTOR CPT-29260 Immunization Single Admin 13:12:44 FARM LOAN INSPECTOR CPT-61793 Fluzone Quadrivalent Intramuscular Suspension 0.5 ML 13: 12:44 FARM LOAN INSPECTOR CPT-59362 Fluzone 11:12:18 FARM LOAN INSPECTOR CPT-01067 Spec Collection and Handling Fee 11:12:18 FARM LOAN INSPECTOR CPT-88396 Visit 11:12:18 FARM LOAN INSPECTOR
--- OUTSIDE RECORDS SUMMARY | 2017-12-29 16:35 | XMS REPORT | Clinical Summary ---
Author Author Admin, Jose Miguel Organization [employer] Address Unknown Phone Unavailable Allergies, Adverse Reactions, Alerts Allergy Name Reaction Description Start Date Severity Status Provider No Known Allergies Abrilkailee Shipman Conditions or Problems Problem Name Problem Code Onset Date Status Entry Date Provider Comment Standard Description Annotate Hand pain, right 729.5 Resolved Mari Yokum FLASK CARRIER Pain in limb Low back pain 724.2 Resolved Mari Yokum FLASK CARRIER Lumbago Supervision of normal first V22.0 Resolved Mari Yokum FLASK CARRIER Supervision of normal first , adolescent 659.83 Resolved Mari Yokum FLASK CARRIER Other specified indications for care or intervention related to labor and delivery, antepartum condition or complication NEED FOR PROPHYLACTIC VACCINATION WITH STREPTOCOCCUS PNEUMONIAE (PNEUMOCOCCUS) AND INFLUENZA V06.6 Resolved Mari Yokum FLASK CARRIER Need for prophylactic vaccination and inoculation against Streptococcus pneumoniae [pneumococcus] and influenza UTI 599.0 Resolved Mari Yokum FLASK CARRIER Urinary tract infection, site not specified Contraceptive management V25.9 Active Mari Yokum FLASK CARRIER Encounter for unspecified contraceptive management Depression 311 Active Mari Yokum FLASK CARRIER Depressive disorder, not elsewhere classified Tonsillar hypertrophy 474.11 Active Mari Yokum FLASK CARRIER Hypertrophy of tonsils alone Headache 784.0 Active [...] Hand pain, right ICD-729.5 Inactive Mari Jarvisum FLASK CARRIER Low back pain ICD-724.2 Inactive Mari Romo FLASK CARRIER Supervision of normal first ICD-V22.0 Inactive Mari Jarvisum FLASK CARRIER , adolescent ICD-659.83 Inactive Mari Jarvisum FLASK CARRIER NEED FOR PROPHYLACTIC VACCINATION WITH STREPTOCOCCUS PNEUMONIAE (PNEUMOCOCCUS) AND INFLUENZA ICD-V06.6 Inactive Mari Jarvisum FLASK CARRIER UTI ICD-599.0 Inactive Mari Jarvisum FLASK CARRIER Medication List Medication Instructions Start Date Stop Date Generic Name NDC Status Provider Patient Instruction MEDROL (MICHELLE) 4 MG TABS 6 tabs on day 1, 5 tabs on day 2, 4 tabs on day 3, 3 tabs on day 4, 2 tabs on day 5, 1 tab on day 6 METHYLPREDNISOLONE 85460632184 No Longer Active Mari Jarvisum FLASK CARRIER Active DEPO-PROVERA 150 MG/ML SUPENSION MEDROXYPROGEST RIK (CONTRACEP) 27363926374 No Longer Active Mari Matheusum FLASK CARRIER Active TRI-SPRINTEC 0.18/0.215/0.25 MG-35 MCG TABS 1 po qd as directed NORGESTIM-ETH ESTRAD TRIPHASIC 00743373293 Active Mari Matheusum FLASK CARRIER Active AUGMENTIN 875-125 MG TABS 1 pill by mouth twice daily AMOXICILLIN-POT CLAVULANATE 94501102197 No Longer Active Michelle Smith MD PhD Active PAROXETINE HCL 10 MG TABS 1 pill by mouth daily, for depression PAROXETINE HCL 54757935873 Active Mari Romo APRN Active PROZAC 10 MG CAP Take one tablet daily for depression FLUOXETINE HCL 88365174111 No Longer Active Michelle Smith MD PhD Active CONCEPT DHA 53.5-38-1 MG CAPS one tab PO daily PRENAT -FHIIT-UFPT-MI-OMEGA 3 59098353913 No Longer Active Michelle Smith MD PhD Active MACROBID 100 MG CAPS one tab PO BID x 7 days NITROFURANTOIN MONOHYD MACRO 09703306289 No Longer Active Traci Tinsley MD Active TRAMADOL HCL 50 MG TABS 1 tab po tid prn back pain TRAMADOL HCL 25354747589 No Longer Active Traci Tinsley MD Active PREDNISONE 20 MG TAB Take 3 tabs daily for 3 days, then 2 tabs daily for 3 days, then 1 tab daily for 3 days, then 1/2 tab daily for 3 days. PREDNISONE 40906740920 No Longer Active Peter Sung MD Active TRAMADOL HCL 50 MG TABS 1 tab po tid prn back pain TRAMADOL HCL 50 MG TABS 436724 TRAMADOL HCL Inactive CONCEPT DHA 53.5-38-1 MG CAPS one tab PO daily CONCEPT DHA 53.5-38-1 MG CAPS [id number]-FA-OMEGA 3 Inactive PROZAC 10 MG CAP Take one tablet daily for depression PROZAC 10 MG CAP 840132 FLUOXETINE HCL Inactive DEPO-PROVERA 150 MG/ML SUPENSION DEPO-PROVERA 150 MG/ML SUPENSION 0143103 MEDROXYPROGEST RIK (CONTRACEP) Inactive PREDNISONE 20 MG TAB Take 3 tabs daily for 3 days, then 2 tabs daily for 3 days, then 1 tab daily for 3 days, then 1/2 tab daily for 3 days. PREDNISONE 20 MG TAB 586681 PREDNISONE Inactive MACROBID 100 MG CAPS one tab PO BID x 7 days MACROBID 100 MG CAPS 116869 NITROFURANTOIN MONOHYD MACRO Inactive AUGMENTIN 875-125 MG TABS 1 pill by mouth twice daily AUGMENTIN 875-125 MG TABS 772137 AMOXICILLIN-POT CLAVULANATE Inactive MEDROL (MICHELLE) 4 MG [...] % 11.0-15.0 platelet count 230 THOUSAND/UL 10*3/mm3 842-509 0503/11/20 Blood type A Lab Report: ABO GROUP [...] Panel - Chemistry sodium, serum 142 mmol/L 326-073 1984/04/22 potassium, serum 3.9 mmol/L 3.5-5.2 chloride, serum [...] UC Encounters Code Encounter Date Provider Facility CPT-48257 Level 3 Est. Patient 19:08:16 CDT Mari Romo [facility] CPT-02213 Level 3 Est. Patient 19:07:22 CDT Mari Romo [facility] CPT-32512 Level 3 Est. Patient 09:13:25 CDT Mari Romo [facility] CPT-10136 Level 3 Est. Patient 11:17:39 CDT Mari Romo [facility] CPT-86571 Level 3 Est. Patient 08:42:18 CDT Michelle Smith MD [facility] CPT-70000 Level 3 Est. Patient 16:24:24 LICENSED LOAN OFFICER ASSISTANT Mari Romo [facility] CPT-64462 Level 3 Est. Patient 20:39:13 LICENSED LOAN OFFICER ASSISTANT Mari Romo [facility] CPT-08705 Level 3 Est. Patient 11:07:33 LICENSED LOAN OFFICER ASSISTANT Mari Romo [facility] CPT-64410 Level 3 Est. Patient 10:33:19 CDT Peter Sung MD [facility] CPT-76986 Level 3 Est. Patient 18:10:34 CDT Peter Sung MD [facility] Procedures Code Procedure Name Date Entry Date Standard Description CPT-73970 Sono pelvis non OB uterus ovaries cervix 13:02:35 CDT CPT-J1885 Toradol 30 mg (Ketorolac) 17:01:40 CDT CPT-62309 Abx/Therapy Injection 17:01:40 CDT CPT-J1885 Toradol 60 mg (Ketorolac) 15:41:36 CDT CPT-J1050 Depo Provera 150 mg (Medroxyprogesterone) 13:48:38 LICENSED LOAN OFFICER ASSISTANT CPT-80183 Abx/Therapy Injection 13:48:38 LICENSED LOAN OFFICER ASSISTANT CPT-25224 Venipuncture Draw Fee 11:24:44 LICENSED LOAN OFFICER ASSISTANT CPT-J1050 Depo Provera 150 mg (Medroxyprogesterone) 11:07:33 LICENSED LOAN OFFICER ASSISTANT CPT-70280 Immunization Single Admin 13:12:44 LICENSED LOAN OFFICER ASSISTANT CPT-60684 Fluzone Quadrivalent Intramuscular Suspension 0.5 ML 13: 12:44 LICENSED LOAN OFFICER ASSISTANT CPT-85106 Fluzone 11:12:18 LICENSED LOAN OFFICER ASSISTANT CPT-34424 Spec Collection and Handling Fee 11:12:18 LICENSED LOAN OFFICER ASSISTANT CPT-71852 Visit 11:12:18 LICENSED LOAN OFFICER ASSISTANT
--- OUTSIDE RECORDS SUMMARY | 2017-12-29 16:37 | XMS REPORT | Clinical Summary ---
Author Author Admin, Jose Miguel Organization [employer] Address Unknown Phone Unavailable Allergies, Adverse Reactions, Alerts Allergy Name Reaction Description Start Date Severity Status Provider No Known Allergies Abril Shipman Conditions or Problems Problem Name Problem Code Onset Date Status Entry Date Provider Comment Standard Description Annotate Hand pain, right 729.5 Resolved Mari Yokum FIRE SAFETY MANAGER Pain in limb Low back pain 724.2 Resolved Mari Yokum FIRE SAFETY MANAGER Lumbago Supervision of normal first V22.0 Resolved Mari Yokum FIRE SAFETY MANAGER Supervision of normal first , adolescent 659.83 Resolved Mari Yokum FIRE SAFETY MANAGER Other specified indications for care or intervention related to labor and delivery, antepartum condition or complication NEED FOR PROPHYLACTIC VACCINATION WITH STREPTOCOCCUS PNEUMONIAE (PNEUMOCOCCUS) AND INFLUENZA V06.6 Resolved Mari Yokum FIRE SAFETY MANAGER Need for prophylactic vaccination and inoculation against Streptococcus pneumoniae [pneumococcus] and influenza UTI 599.0 Resolved Mari Yokum FIRE SAFETY MANAGER Urinary tract infection, site not specified Contraceptive management V25.9 Active Mari Yokum FIRE SAFETY MANAGER Encounter for unspecified contraceptive management Depression 311 Active Mari Yokum FIRE SAFETY MANAGER Depressive disorder, not elsewhere classified Tonsillar hypertrophy 474.11 Active Mari Yokum FIRE SAFETY MANAGER Hypertrophy of tonsils alone Headache 784.0 Active [...] Hand pain, right ICD-729.5 Inactive Mari Romo FIRE SAFETY MANAGER Low back pain ICD-724.2 Inactive Mari Romo FIRE SAFETY MANAGER Supervision of normal first ICD-V22.0 Inactive Mari Romo FIRE SAFETY MANAGER , adolescent ICD-659.83 Inactive Mari Romo FIRE SAFETY MANAGER NEED FOR PROPHYLACTIC VACCINATION WITH STREPTOCOCCUS PNEUMONIAE (PNEUMOCOCCUS) AND INFLUENZA ICD-V06.6 Inactive Mari Romo FIRE SAFETY MANAGER UTI ICD-599.0 Inactive Mari Romo FIRE SAFETY MANAGER Medication List Medication Instructions Start Date Stop Date Generic Name NDC Status Provider Patient Instruction MEDROL (MICHELLE) 4 MG TABS 6 tabs on day 1, 5 tabs on day 2, 4 tabs on day 3, 3 tabs on day 4, 2 tabs on day 5, 1 tab on day 6 METHYLPREDNISOLONE 59703707723 Active Mari Romo APRN Active DEPO-PROVERA 150 MG/ML SUPENSION MEDROXYPROGEST RIK (CONTRACEP) 84209781167 No Longer Active Mari Romo APRN Active TRI-SPRINTEC 0.18/0.215/0.25 MG-35 MCG TABS 1 po qd as directed NORGESTIM-ETH ESTRAD TRIPHASIC 07758864045 Active Mari Romo FIRE SAFETY MANAGER Active AUGMENTIN 875-125 MG TABS 1 pill by mouth twice daily AMOXICILLIN-POT CLAVULANATE 03805497403 No Longer Active Michelle Smith MD PhD Active PAROXETINE HCL 10 MG TABS 1 pill by mouth daily, for depression PAROXETINE HCL 06433292381 Active Mari Romo APRN Active PROZAC 10 MG CAP Take one tablet daily for depression FLUOXETINE HCL 23065539860 No Longer Active Michelle Smith MD PhD Active CONCEPT DHA 53.5-38-1 MG CAPS one tab PO daily PRENAT -ATKOY-ANWA-GC-OMEGA 3 35094048694 No Longer Active Michelle Smith MD PhD Active MACROBID 100 MG CAPS one tab PO BID x 7 days NITROFURANTOIN MONOHYD MACRO 50246556532 No Longer Active Traci Tinsley MD Active TRAMADOL HCL 50 MG TABS 1 tab po tid prn back pain TRAMADOL HCL 69420374128 No Longer Active Traci Tinsley MD Active PREDNISONE 20 MG TAB Take 3 tabs daily for 3 days, then 2 tabs daily for 3 days, then 1 tab daily for 3 days, then 1/2 tab daily for 3 days. PREDNISONE 08468782637 No Longer Active Peter Sung MD Active TRAMADOL HCL 50 MG TABS 1 tab po tid prn back pain TRAMADOL HCL 50 MG TABS 636659 TRAMADOL HCL Inactive CONCEPT DHA 53.5-38-1 MG CAPS one tab PO daily CONCEPT DHA 53.5-38-1 MG CAPS [id number]-FA-OMEGA 3 Inactive PROZAC 10 MG CAP Take one tablet daily for depression PROZAC 10 MG CAP 708225 FLUOXETINE HCL Inactive DEPO-PROVERA 150 MG/ML SUPENSION DEPO-PROVERA 150 MG/ML SUPENSION 9070056 MEDROXYPROGEST RIK (CONTRACEP) Inactive PREDNISONE 20 MG TAB Take 3 tabs daily for 3 days, then 2 tabs daily for 3 days, then 1 tab daily for 3 days, then 1/2 tab daily for 3 days. PREDNISONE 20 MG TAB 660284 PREDNISONE Inactive MACROBID 100 MG CAPS one tab PO BID x 7 days MACROBID 100 MG CAPS 025708 NITROFURANTOIN MONOHYD MACRO Inactive AUGMENTIN 875-125 MG TABS 1 pill by mouth twice daily AUGMENTIN 875-125 MG TABS 534686 AMOXICILLIN-POT CLAVULANATE Inactive Advance Directives Directive Description [...] % 11.0-15.0 platelet count 230 THOUSAND/UL 10*3/mm3 949-102 4154/11/20 Blood type A Lab Report: ABO GROUP [...] Panel - Chemistry sodium, serum 142 mmol/L 262-637 1730/04/22 potassium, serum 3.9 mmol/L 3.5-5.2 chloride, serum [...] UC Encounters Code Encounter Date Provider Facility CPT-05404 Level 3 Est. Patient 09:13:25 CDT Mari Romo [facility] CPT-15068 Level 3 Est. Patient 11:17:39 CDT Mari Romo [facility] CPT-32633 Level 3 Est. Patient 08:42:18 CDT Michelle Smith MD PhD [facility] CPT-75793 Level 3 Est. Patient 16:24:24 MECHANICAL HANDYMAN Mari Romo [facility] [place] CPT-33577 Level 3 Est. Patient 20:39:13 MECHANICAL HANDYMAN Mari Romo [facility] [place] CPT-29558 Level 3 Est. Patient 11:07:33 MECHANICAL HANDYMAN Mari Romo APRN [facility] CPT-94144 Level 3 Est. Patient 10:33:19 CDT Peter Sung MD [facility] CPT-67207 Level 3 Est. Patient 18:10:34 CDT Peter Sung MD [facility] Procedures Code Procedure Name Date Entry Date Standard Description CPT-04922 Sono pelvis non OB uterus ovaries cervix 13:02:35 CDT CPT-J1885 Toradol 30 mg (Ketorolac) 17:01:40 CDT CPT-16152 Abx/Therapy Injection 17:01:40 CDT CPT-J1885 Toradol 60 mg (Ketorolac) 15:41:36 CDT CPT-J1050 Depo Provera 150 mg (Medroxyprogesterone) 13:48:38 MECHANICAL HANDYMAN CPT-16116 Abx/Therapy Injection 13:48:38 MECHANICAL HANDYMAN CPT-92863 Venipuncture Draw Fee 11:24:44 MECHANICAL HANDYMAN CPT-J1050 Depo Provera 150 mg (Medroxyprogesterone) 11:07:33 MECHANICAL HANDYMAN CPT-45529 Immunization Single Admin 13:12:44 MECHANICAL HANDYMAN CPT-46810 Fluzone Quadrivalent Intramuscular Suspension 0.5 ML 13: 12:44 MECHANICAL HANDYMAN CPT-08982 Fluzone 11:12:18 MECHANICAL HANDYMAN CPT-48639 Spec Collection and Handling Fee 11:12:18 MECHANICAL HANDYMAN CPT-10115 Visit 11:12:18 MECHANICAL HANDYMAN
--- OUTSIDE RECORDS SUMMARY | 2017-12-29 16:38 | XMS REPORT | Clinical Summary ---
Author Author Admin, E Organization [employer] Address Unknown Phone Unavailable Allergies, Adverse Reactions, Alerts Allergy Name Reaction Description Start Date Severity Status Provider No Known Allergies Sandi Jolleyford RMA Conditions or Problems Problem Name Problem Code Onset Date Status Entry Date Provider Comment Standard Description Annotate Hand pain, right 729.5 Resolved Mari Yokum SHIPWRIGHT HELPER Pain in limb Low back pain 724.2 Resolved Mari Yokum SHIPWRIGHT HELPER Lumbago Supervision of normal first V22.0 Resolved Mari Yokum SHIPWRIGHT HELPER Supervision of normal first , adolescent 659.83 Resolved Mari Yokum SHIPWRIGHT HELPER Other specified indications for care or intervention related to labor and delivery, antepartum condition or complication NEED FOR PROPHYLACTIC VACCINATION WITH STREPTOCOCCUS PNEUMONIAE (PNEUMOCOCCUS) AND INFLUENZA V06.6 Resolved Mari Yokum SHIPWRIGHT HELPER Need for prophylactic vaccination and inoculation against Streptococcus pneumoniae [pneumococcus] and influenza UTI 599.0 Resolved Mari Yokum SHIPWRIGHT HELPER Urinary tract infection, site not specified Contraceptive management V25.9 Active Mari Yokum SHIPWRIGHT HELPER Encounter for unspecified contraceptive management Depression 311 Active Mari Yokum SHIPWRIGHT HELPER Depressive disorder, not elsewhere classified Tonsillar hypertrophy 474.11 Active Mari Yokum SHIPWRIGHT HELPER Hypertrophy of tonsils alone Headache 784.0 Active Michelle Smith MD PhD Headache Sinusitis, acute 461.9 Active Michelle Smith MD PhD Acute sinusitis, unspecified Abdominal pain 789.00 Active Mari Romo APRN Abdominal pain, unspecified site Hand pain, right ICD-729.5 Inactive Mari Romo SHIPWRIGHT HELPER Low back pain ICD-724.2 Inactive Mari Romo SHIPWRIGHT HELPER Supervision of normal first ICD-V22.0 Inactive Mari Romo SHIPWRIGHT HELPER , adolescent ICD-659.83 Inactive Mari Romo SHIPWRIGHT HELPER NEED FOR PROPHYLACTIC VACCINATION WITH STREPTOCOCCUS PNEUMONIAE (PNEUMOCOCCUS) AND INFLUENZA ICD-V06.6 Inactive Mari Romo SHIPWRIGHT HELPER UTI ICD-599.0 Inactive Mari Romo SHIPWRIGHT HELPER Medication List Medication Instructions Start Date Stop Date Generic Name ND Status Provider Patient Instruction DEPO-PROVERA 150 MG/ML SUPENSION MEDROXYPROGEST RIK (CONTRACEP) 61211574802 No Longer Active Mari Romo APRN Active TRI-SPRINTEC 0.18/0.215/0.25 MG-35 MCG TABS 1 po qd as directed NORGESTIM-ETH ESTRAD TRIPHASIC 63910086281 Active Mari Romo APRN Active AUGMENTIN 875-125 MG TABS 1 pill by mouth twice daily AMOXICILLIN-POT CLAVULANATE 84928112516 No Longer Active Michelle Smith MD PhD Active PAROXETINE HCL 10 MG TABS 1 pill by mouth daily, for depression PAROXETINE HCL 73715815900 Active Mari Romo APRN Active PROZAC 10 MG CAP Take one tablet daily for depression FLUOXETINE HCL 61215982923 No Longer Active Michelle Smith MD PhD Active CONCEPT DHA 53.5-38-1 MG CAPS one tab PO daily PRENAT -RCCHK-AGSI-GN-OMEGA 3 31029254201 No Longer Active Michelle Smith MD PhD Active MACROBID 100 MG CAPS one tab PO BID x 7 days NITROFURANTOIN MONOHYD MACRO 91186655655 No Longer Active Traci Tinsley MD Active TRAMADOL HCL 50 MG TABS 1 tab po tid prn back pain TRAMADOL HCL 97761530645 No Longer Active Traci Tinsley MD Active PREDNISONE 20 MG TAB Take 3 tabs daily for 3 days, then 2 tabs daily for 3 days, then 1 tab daily for 3 days, then 1/2 tab daily for 3 days. PREDNISONE 60902241453 No Longer Active Peter Sung MD Active TRAMADOL HCL 50 MG TABS 1 tab po tid prn back pain TRAMADOL HCL 50 MG TABS 315901 TRAMADOL HCL Inactive CONCEPT DHA 53.5-38-1 MG CAPS one tab PO daily CONCEPT DHA 53.5-38-1 MG CAPS [id number]-[id number]-EIFC-FA-OMEGA 3 Inactive PROZAC 10 MG CAP Take one tablet daily for depression PROZAC 10 MG CAP 210453 FLUOXETINE HCL Inactive DEPO-PROVERA 150 MG/ML SUPENSION DEPO-PROVERA 150 MG/ML SUPENSION 7159408 MEDROXYPROGEST RIK (CONTRACEP) Inactive PREDNISONE 20 MG TAB Take 3 tabs daily for 3 days, then 2 tabs daily for 3 days, then 1 tab daily for 3 days, then 1/2 tab daily for 3 days. PREDNISONE 20 MG TAB 758885 PREDNISONE Inactive MACROBID 100 MG CAPS one tab PO BID x 7 days MACROBID 100 MG CAPS 494643 NITROFURANTOIN MONOHYD MACRO Inactive AUGMENTIN 875-125 MG TABS 1 pill by mouth twice daily AUGMENTIN 875-125 MG TABS 899151 AMOXICILLIN-POT CLAVULANATE Inactive Advance Directives Directive Description [...] % 11.0-15.0 platelet count 230 THOUSAND/UL 10*3/mm3 200-395 4695/11/20 Blood type A Lab Report: ABO GROUP [...] Panel - Chemistry sodium, serum 142 mmol/L 026-413 4823/04/22 potassium, serum 3.9 mmol/L 3.5-5.2 chloride, serum [...] UC Encounters Code Encounter Date Provider Facility CPT-91337 Level 3 Est. Patient 11:17:39 FROILANT Mari Romo APRN [facility] CPT-57607 Level 3 Est. Patient 08:42:18 CDT Michelle Smith MD PhD [facility] CPT-63427 Level 3 Est. Patient 16:24:24 PANEL LAY UP WORKER Mari Romo [facility] CPT-24538 Level 3 Est. Patient 20:39:13 PANEL LAY UP WORKER Mari Clarissa [facility] CPT-50383 Level 3 Est. Patient 11:07:33 PANEL LAY UP WORKER Mari Romo [facility] CPT-47085 Level 3 Est. Patient 10:33:19 CDT Peter Sung MD [facility] CPT-77501 Level 3 Est. Patient 18:10:34 CDT Peter Sung MD [facility] Procedures Code Procedure Name Date Entry Date Standard Description CPT-J1885 Toradol 30 mg (Ketorolac) 17:01:40 CDT CPT-26282 Abx/Therapy Injection 17:01:40 CDT CPT-J1885 Toradol 60 mg (Ketorolac) 15:41:36 CDT CPT-J1050 Depo Provera 150 mg (Medroxyprogesterone) 13:48:38 PANEL LAY UP WORKER CPT-33513 Abx/Therapy Injection 13:48:38 PANEL LAY UP WORKER CPT-49709 Venipuncture Draw Fee 11:24:44 PANEL LAY UP WORKER CPT-J1050 Depo Provera 150 mg (Medroxyprogesterone) 11:07:33 PANEL LAY UP WORKER CPT-87276 Immunization Single Admin 13:12:44 PANEL LAY UP WORKER CPT-85611 Fluzone Quadrivalent Intramuscular Suspension 0.5 ML 13: 12:44 PANEL LAY UP WORKER CPT-63958 Fluzone 11:12:18 PANEL LAY UP WORKER CPT-38200 Spec Collection and Handling Fee 11:12:18 PANEL LAY UP WORKER CPT-70569 Visit 11:12:18 PANEL LAY UP WORKER
--- OUTSIDE RECORDS SUMMARY | 2017-12-29 16:40 | XMS REPORT | Clinical Summary ---
Author Author Admin, E Organization [employer] Address Unknown Phone Unavailable Allergies, Adverse Reactions, Alerts Allergy Name Reaction Description Start Date Severity Status Provider No Known Allergies Sandi Jolleyford RMA Conditions or Problems Problem Name Problem Code Onset Date Status Entry Date Provider Comment Standard Description Annotate Hand pain, right 729.5 Resolved Mari Romo DIRECTOR CHEMISTRY Pain in limb Low back pain 724.2 Resolved Mari Yokum DIRECTOR CHEMISTRY Lumbago Supervision of normal first V22.0 Resolved Mari Yosurajum DIRECTOR CHEMISTRY Supervision of normal first , adolescent 659.83 Resolved Mari Yokum DIRECTOR CHEMISTRY Other specified indications for care or intervention related to labor and delivery, antepartum condition or complication NEED FOR PROPHYLACTIC VACCINATION WITH STREPTOCOCCUS PNEUMONIAE (PNEUMOCOCCUS) AND INFLUENZA V06.6 Resolved Mari Yokum DIRECTOR CHEMISTRY Need for prophylactic vaccination and inoculation against Streptococcus pneumoniae [pneumococcus] and influenza UTI 599.0 Resolved Mari Yokum DIRECTOR CHEMISTRY Urinary tract infection, site not specified Contraceptive management V25.9 Active Mari Yosurajum DIRECTOR CHEMISTRY Encounter for unspecified contraceptive management Depression 311 Active Mari Yokum DIRECTOR CHEMISTRY Depressive disorder, not elsewhere classified Tonsillar hypertrophy 474.11 Active Mari Yokum DIRECTOR CHEMISTRY Hypertrophy of tonsils alone Headache 784.0 Active Michelle Smith MD PhD Headache Sinusitis, acute 461.9 Active Michelle Smith MD PhD Acute sinusitis, unspecified Hand pain, right ICD-729.5 Inactive Mari Romo DIRECTOR CHEMISTRY Low back pain ICD-724.2 Inactive Mari Romo DIRECTOR CHEMISTRY Supervision of normal first ICD-V22.0 Inactive Mari Romo DIRECTOR CHEMISTRY , adolescent ICD-659.83 Inactive Mari Romo DIRECTOR CHEMISTRY NEED FOR PROPHYLACTIC VACCINATION WITH STREPTOCOCCUS PNEUMONIAE (PNEUMOCOCCUS) AND INFLUENZA ICD-V06.6 Inactive Mari Romo DIRECTOR CHEMISTRY UTI ICD-599.0 Inactive Mari Romo DIRECTOR CHEMISTRY Medication List Medication Instructions Start Date Stop Date Generic Name NDC Status Provider Patient Instruction AUGMENTIN 875-125 MG TABS 1 pill by mouth twice daily AMOXICILLIN-POT CLAVULANATE 07098253090 No Longer Active Michelle Smith MD PhD Active PAROXETINE HCL 10 MG TABS 1 pill by mouth daily, for depression PAROXETINE HCL 11853748531 Active Michelle Smith MD PhD Active PROZAC 10 MG CAP Take one tablet daily for depression FLUOXETINE HCL 87526104508 No Longer Active Michelle Smith MD PhD Active CONCEPT DHA 53.5-38-1 MG CAPS one tab PO daily PRENAT -CTBZH-ZYIF-JF-OMEGA 3 04248581392 No Longer Active Michelle Smith MD PhD Active DEPO-PROVERA 150 MG/ML SUPENSION MEDROXYPROGEST RIK ( CONTRACEP) 94296623361 Active Mari Romo DIRECTOR CHEMISTRY Active MACROBID 100 MG CAPS one tab PO BID x 7 days NITROFURANTOIN MONOHYD MACRO 26208384804 No Longer Active Traci Tinsley MD Active TRAMADOL HCL 50 MG TABS 1 tab po tid prn back pain TRAMADOL HCL 02560315600 No Longer Active Traci Tinsley MD Active PREDNISONE 20 MG TAB Take 3 tabs daily for 3 days, then 2 tabs daily for 3 days, then 1 tab daily for 3 days, then 1/2 tab daily for 3 days. PREDNISONE 09045132138 No Longer Active Peter Sung MD Active TRAMADOL HCL 50 MG TABS 1 tab po tid prn back pain TRAMADOL HCL 50 MG TABS 199414 TRAMADOL HCL Inactive CONCEPT DHA 53.5-38-1 MG CAPS one tab PO daily CONCEPT DHA 53.5-38-1 MG CAPS [id number]-ZLYW-FA-OMEGA 3 Inactive PROZAC 10 MG CAP Take one tablet daily for depression PROZAC 10 MG CAP 161064 FLUOXETINE HCL Inactive PREDNISONE 20 MG TAB Take 3 tabs daily for 3 days, then 2 tabs daily for 3 days, then 1 tab daily for 3 days, then 1/2 tab daily for 3 days. PREDNISONE 20 MG TAB 917572 PREDNISONE Inactive MACROBID 100 MG CAPS one tab PO BID x 7 days MACROBID 100 MG CAPS 346514 NITROFURANTOIN MONOHYD MACRO Inactive AUGMENTIN 875-125 MG TABS 1 pill by mouth twice daily AUGMENTIN 875-125 MG TABS 650350 AMOXICILLIN-POT CLAVULANATE Inactive Advance Directives Directive Description [...] % 11.0-15.0 platelet count 230 THOUSAND/UL 10*3/mm3 033-235 7268/11/20 Blood type A Lab Report: ABO GROUP [...] UC Encounters Code Encounter Date Provider Facility CPT-33870 Level 3 Est. Patient 08:42:18 CDT Michelle Smith MD PhD [facility] CPT-80495 Level 3 Est. Patient 16:24:24 TILT WALL SUPERVISOR Mari Romo [facility] CPT-58092 Level 3 Est. Patient 20:39:13 TILT WALL SUPERVISOR Mari Romo [facility] CPT-72170 Level 3 Est. Patient 11:07:33 TILT WALL SUPERVISOR Mari Romo [facility] CPT-31323 Level 3 Est. Patient 10:33:19 CDT Peter Sung MD [facility] CPT-95873 Level 3 Est. Patient 18:10:34 CDT Peter Sung MD [facility] Procedures Code Procedure Name Date Entry Date Standard Description CPT-J1885 Toradol 30 mg (Ketorolac) 17:01:40 CDT CPT-01394 Abx/Therapy Injection 17:01:40 CDT CPT-J1885 Toradol 60 mg (Ketorolac) 15:41:36 CDT CPT-J1050 Depo Provera 150 mg (Medroxyprogesterone) 13:48:38 TILT WALL SUPERVISOR CPT-15562 Abx/Therapy Injection 13:48:38 TILT WALL SUPERVISOR CPT-66556 Venipuncture Draw Fee 11:24:44 TILT WALL SUPERVISOR CPT-J1050 Depo Provera 150 mg (Medroxyprogesterone) 11:07:33 TILT WALL SUPERVISOR CPT-17024 Immunization Single Admin 13:12:44 TILT WALL SUPERVISOR CPT-74017 Fluzone Quadrivalent Intramuscular Suspension 0.5 ML 13: 12:44 TILT WALL SUPERVISOR CPT-33671 Fluzone 11:12:18 TILT WALL SUPERVISOR CPT-14607 Spec Collection and Handling Fee 11:12:18 TILT WALL SUPERVISOR CPT-28917 Visit 11:12:18 TILT WALL SUPERVISOR
--- OUTSIDE RECORDS SUMMARY | 2017-12-29 16:41 | XMS REPORT | Clinical Summary ---
Author Author Admin, E Organization [employer] Address Unknown Phone Unavailable Allergies, Adverse Reactions, Alerts Allergy Name Reaction Description Start Date Severity Status Provider No Known Allergies Milli Hamilton MA Conditions or Problems Problem Name Problem Code Onset Date Status Entry Date Provider Comment Standard Description Annotate Hand pain, right 729.5 Resolved Maricarlton Romo FITTER / WELDER Pain in limb Low back pain 724.2 Resolved Mari Yokum FITTER / WELDER Lumbago Supervision of normal first V22.0 Resolved Mari Yosurajum FITTER / WELDER Supervision of normal first , adolescent 659.83 Resolved Mari Yokum FITTER / WELDER Other specified indications for care or intervention related to labor and delivery, antepartum condition or complication NEED FOR PROPHYLACTIC VACCINATION WITH STREPTOCOCCUS PNEUMONIAE (PNEUMOCOCCUS) AND INFLUENZA V06.6 Resolved Mari Yokum FITTER / WELDER Need for prophylactic vaccination and inoculation against Streptococcus pneumoniae [pneumococcus] and influenza UTI 599.0 Resolved Mari Yokum FITTER / WELDER Urinary tract infection, site not specified Contraceptive management V25.9 Active Mari Yosurajum FITTER / WELDER Encounter for unspecified contraceptive management Depression 311 Active Mari Yokum FITTER / WELDER Depressive disorder, not elsewhere classified Tonsillar hypertrophy 474.11 Active Mari Yokum FITTER / WELDER Hypertrophy of tonsils alone Headache 784.0 Active Michelle Smith MD PhD Headache Sinusitis, acute 461.9 Active Michelle Smith MD PhD Acute sinusitis, unspecified Abdominal pain 789.00 Active Mari Romo APRN Abdominal pain, unspecified site Abdominal pain, RLQ 789.03 Active Medina Pulliam Abdominal pain, right lower quadrant Hand pain, right ICD-729.5 Inactive Mari Romo FITTER / WELDER Low back pain ICD-724.2 Inactive Mari Romo FITTER / WELDER Supervision of normal first ICD-V22.0 Inactive Mari Romo FITTER / WELDER , adolescent ICD-659.83 Inactive Mari Romo FITTER / WELDER NEED FOR PROPHYLACTIC VACCINATION WITH STREPTOCOCCUS PNEUMONIAE (PNEUMOCOCCUS) AND INFLUENZA ICD-V06.6 Inactive Mari Romo FITTER / WELDER UTI ICD-599.0 Inactive Mari Romo FITTER / WELDER Medication List Medication Instructions Start Date Stop Date Generic Name NDC Status Provider Patient Instruction DEPO-PROVERA 150 MG/ML SUPENSION MEDROXYPROGEST RIK (CONTRACEP) 76265032838 No Longer Active Mari Romo APRN Active TRI-SPRINTEC 0.18/0.215/0.25 MG-35 MCG TABS 1 po qd as directed NORGESTIM-ETH ESTRAD TRIPHASIC 45684387034 Active Mari Romo APRN Active AUGMENTIN 875-125 MG TABS 1 pill by mouth twice daily AMOXICILLIN-POT CLAVULANATE 20733789139 No Longer Active Michelle Smith MD PhD Active PAROXETINE HCL 10 MG TABS 1 pill by mouth daily, for depression PAROXETINE HCL 58688957255 Active Mari Romo APRN Active PROZAC 10 MG CAP Take one tablet daily for depression FLUOXETINE HCL 46403149876 No Longer Active Michelle Smith MD PhD Active CONCEPT DHA 53.5-38-1 MG CAPS one tab PO daily PRENAT -ZJGUQ-XGES-KH-OMEGA 3 31844023197 No Longer Active Michelle Smith MD PhD Active MACROBID 100 MG CAPS one tab PO BID x 7 days NITROFURANTOIN MONOHYD MACRO 63732554613 No Longer Active Traci Tinsley MD Active TRAMADOL HCL 50 MG TABS 1 tab po tid prn back pain TRAMADOL HCL 57565283345 No Longer Active Traci Tinsley MD Active PREDNISONE 20 MG TAB Take 3 tabs daily for 3 days, then 2 tabs daily for 3 days, then 1 tab daily for 3 days, then 1/2 tab daily for 3 days. PREDNISONE 66500003830 No Longer Active Peter Sung MD Active TRAMADOL HCL 50 MG TABS 1 tab po tid prn back pain TRAMADOL HCL 50 MG TABS 718485 TRAMADOL HCL Inactive CONCEPT DHA 53.5-38-1 MG CAPS one tab PO daily CONCEPT DHA 53.5-38-1 MG CAPS [id number]-VCIHH-KOZI-FA-OMEGA 3 Inactive PROZAC 10 MG CAP Take one tablet daily for depression PROZAC 10 MG CAP 184442 FLUOXETINE HCL Inactive DEPO-PROVERA 150 MG/ML SUPENSION DEPO-PROVERA 150 MG/ML SUPENSION 0169123 MEDROXYPROGEST RIK (CONTRACEP) Inactive PREDNISONE 20 MG TAB Take 3 tabs daily for 3 days, then 2 tabs daily for 3 days, then 1 tab daily for 3 days, then 1/2 tab daily for 3 days. PREDNISONE 20 MG TAB 759958 PREDNISONE Inactive MACROBID 100 MG CAPS one tab PO BID x 7 days MACROBID 100 MG CAPS 621250 NITROFURANTOIN MONOHYD MACRO Inactive AUGMENTIN 875-125 MG TABS 1 pill by mouth twice daily AUGMENTIN 875-125 MG TABS 099714 AMOXICILLIN-POT CLAVULANATE Inactive Advance Directives Directive Description [...] % 11.0-15.0 platelet count 230 THOUSAND/UL 10*3/mm3 996-746 7620/11/20 Blood type A Lab Report: ABO GROUP [...] Panel - Chemistry sodium, serum 142 mmol/L 710-205 0393/04/22 potassium, serum 3.9 mmol/L 3.5-5.2 chloride, serum [...] UC Encounters Code Encounter Date Provider Facility CPT-68634 Level 3 Est. Patient 09:13:25 CDT Mari oRmo [facility] CPT-97346 Level 3 Est. Patient 11:17:39 CDT [facility] CPT-12181 Level 3 Est. Patient 08:42:18 CDT Michelle Smith MD PhD [facility] CPT-23046 Level 3 Est. Patient 16:24:24 POWDER LINE REPAIRER Mari Clarissa [facility] CPT-88731 Level 3 Est. Patient 20:39:13 POWDER LINE REPAIRER [facility] Clarissa [facility] CPT-32764 Level 3 Est. Patient 11:07:33 POWDER LINE REPAIRER [facility] Clarissa [facility] CPT-71620 Level 3 Est. Patient 10:33:19 CDT Peter Sung MD [facility] CPT-35801 Level 3 Est. Patient 18:10:34 CDT Peter Sung MD [facility] Procedures Code Procedure Name Date Entry Date Standard Description CPT-17332 Sono pelvis non OB uterus ovaries cervix 13:02:35 CDT CPT-J1885 Toradol 30 mg (Ketorolac) 17:01:40 CDT CPT-17716 Abx/Therapy Injection 17:01:40 CDT CPT-J1885 Toradol 60 mg (Ketorolac) 15:41:36 CDT CPT-J1050 Depo Provera 150 mg (Medroxyprogesterone) 13:48:38 POWDER LINE REPAIRER CPT-77235 Abx/Therapy Injection 13:48:38 POWDER LINE REPAIRER CPT-77943 Venipuncture Draw Fee 11:24:44 POWDER LINE REPAIRER CPT-J1050 Depo Provera 150 mg (Medroxyprogesterone) 11:07:33 POWDER LINE REPAIRER CPT-55358 Immunization Single Admin 13:12:44 POWDER LINE REPAIRER CPT-62352 Fluzone Quadrivalent Intramuscular Suspension 0.5 ML 13: 12:44 POWDER LINE REPAIRER CPT-25470 Fluzone 11:12:18 POWDER LINE REPAIRER CPT-50046 Spec Collection and Handling Fee 11:12:18 POWDER LINE REPAIRER CPT-01110 Visit 11:12:18 POWDER LINE REPAIRER
--- OUTSIDE RECORDS SUMMARY | 2017-12-29 16:41 | XMS REPORT | Clinical Summary ---
Author Author Admin, Jose Miguel Organization [employer] Address Unknown Phone Unavailable Allergies, Adverse Reactions, Alerts Allergy Name Reaction Description Start Date Severity Status Provider No Known Allergies Abril Shipman Conditions or Problems Problem Name Problem Code Onset Date Status Entry Date Provider Comment Standard Description Annotate Hand pain, right 729.5 Resolved Mari Yokum STOPPER SETTER Pain in limb Low back pain 724.2 Resolved Mari Yokum STOPPER SETTER Lumbago Supervision of normal first V22.0 Resolved Mari Yokum STOPPER SETTER Supervision of normal first , adolescent 659.83 Resolved Mari Yokum STOPPER SETTER Other specified indications for care or intervention related to labor and delivery, antepartum condition or complication NEED FOR PROPHYLACTIC VACCINATION WITH STREPTOCOCCUS PNEUMONIAE (PNEUMOCOCCUS) AND INFLUENZA V06.6 Resolved Mari Yokum STOPPER SETTER Need for prophylactic vaccination and inoculation against Streptococcus pneumoniae [pneumococcus] and influenza UTI 599.0 Resolved Mari Yokum STOPPER SETTER Urinary tract infection, site not specified Contraceptive management V25.9 Active Mari Yokum STOPPER SETTER Encounter for unspecified contraceptive management Depression 311 Active Mari Yokum STOPPER SETTER Depressive disorder, not elsewhere classified Tonsillar hypertrophy 474.11 Active Mari Yokum STOPPER SETTER Hypertrophy of tonsils alone Headache 784.0 Active Michelle Smith MD PhD Headache Sinusitis, acute 461.9 Active Michelle Smith MD PhD Acute sinusitis, unspecified Abdominal pain 789.00 Active Mari Romo APRN Abdominal pain, unspecified site Abdominal pain, RLQ 789.03 Active Medina Pulliam Abdominal pain, right lower quadrant Hand pain, right ICD-729.5 Inactive Mari Romo STOPPER SETTER Low back pain ICD-724.2 Inactive Mari Romo STOPPER SETTER Supervision of normal first ICD-V22.0 Inactive Mari Romo STOPPER SETTER , adolescent ICD-659.83 Inactive Mari Romo STOPPER SETTER NEED FOR PROPHYLACTIC VACCINATION WITH STREPTOCOCCUS PNEUMONIAE (PNEUMOCOCCUS) AND INFLUENZA ICD-V06.6 Inactive Mari Romo STOPPER SETTER UTI ICD-599.0 Inactive Mari Romo STOPPER SETTER Medication List Medication Instructions Start Date Stop Date Generic Name NDC Status Provider Patient Instruction DEPO-PROVERA 150 MG/ML SUPENSION MEDROXYPROGEST RIK (CONTRACEP) 96277716333 No Longer Active Mari Romo APRN Active TRI-SPRINTEC 0.18/0.215/0.25 MG-35 MCG TABS 1 po qd as directed NORGESTIM-ETH ESTRAD TRIPHASIC 77957581628 Active Mari Romo APRN Active AUGMENTIN 875-125 MG TABS 1 pill by mouth twice daily AMOXICILLIN-POT CLAVULANATE 76240388814 No Longer Active Michelle Smith MD PhD Active PAROXETINE HCL 10 MG TABS 1 pill by mouth daily, for depression PAROXETINE HCL 49976069347 Active Mari Romo APRN Active PROZAC 10 MG CAP Take one tablet daily for depression FLUOXETINE HCL 51908427646 No Longer Active Michelle Smith MD PhD Active CONCEPT DHA 53.5-38-1 MG CAPS one tab PO daily PRENAT -BFWKL-KQIL-LX-OMEGA 3 78921613678 No Longer Active Michelle Smith MD PhD Active MACROBID 100 MG CAPS one tab PO BID x 7 days NITROFURANTOIN MONOHYD MACRO 31868136685 No Longer Active Traci Tinsley MD Active TRAMADOL HCL 50 MG TABS 1 tab po tid prn back pain TRAMADOL HCL 41302059135 No Longer Active Traci Tinsley MD Active PREDNISONE 20 MG TAB Take 3 tabs daily for 3 days, then 2 tabs daily for 3 days, then 1 tab daily for 3 days, then 1/2 tab daily for 3 days. PREDNISONE 45962155667 No Longer Active Peter Sung MD Active TRAMADOL HCL 50 MG TABS 1 tab po tid prn back pain TRAMADOL HCL 50 MG TABS 596596 TRAMADOL HCL Inactive CONCEPT DHA 53.5-38-1 MG CAPS one tab PO daily CONCEPT DHA 53.5-38-1 MG CAPS [id number]-FADRX-OKEB-FA-OMEGA 3 Inactive PROZAC 10 MG CAP Take one tablet daily for depression PROZAC 10 MG CAP 696741 FLUOXETINE HCL Inactive DEPO-PROVERA 150 MG/ML SUPENSION DEPO-PROVERA 150 MG/ML SUPENSION 3388862 MEDROXYPROGEST RIK (CONTRACEP) Inactive PREDNISONE 20 MG TAB Take 3 tabs daily for 3 days, then 2 tabs daily for 3 days, then 1 tab daily for 3 days, then 1/2 tab daily for 3 days. PREDNISONE 20 MG TAB 383388 PREDNISONE Inactive MACROBID 100 MG CAPS one tab PO BID x 7 days MACROBID 100 MG CAPS 445020 NITROFURANTOIN MONOHYD MACRO Inactive AUGMENTIN 875-125 MG TABS 1 pill by mouth twice daily AUGMENTIN 875-125 MG TABS 104790 AMOXICILLIN-POT CLAVULANATE Inactive Advance Directives Directive Description [...] % 11.0-15.0 platelet count 230 THOUSAND/UL 10*3/mm3 543-817 4767/11/20 Blood type A Lab Report: ABO GROUP [...] Panel - Chemistry sodium, serum 142 mmol/L 985-137 6594/04/22 potassium, serum 3.9 mmol/L 3.5-5.2 chloride, serum [...] UC Encounters Code Encounter Date Provider Facility CPT-78063 Level 3 Est. Patient 09:13:25 CDT Mari Romo [facility] CPT-41140 Level 3 Est. Patient 11:17:39 CDT Mari Romo [facility] CPT-39372 Level 3 Est. Patient 08:42:18 CDT Michelle Smith MD PhD [facility] CPT-95826 Level 3 Est. Patient 16:24:24 POWER CRANE OPERATOR Mari Romo [facility] CPT-17775 Level 3 Est. Patient 20:39:13 POWER CRANE OPERATOR Mari Romo [facility] CPT-65246 Level 3 Est. Patient 11:07:33 POWER CRANE OPERATOR Mari Romo [facility] CPT-67823 Level 3 Est. Patient 10:33:19 CDT Peter Sung MD [facility] CPT-20452 Level 3 Est. Patient 18:10:34 CDT Peter Sung MD [facility] Procedures Code Procedure Name Date Entry Date Standard Description CPT-43971 Sono pelvis non OB uterus ovaries cervix 13:02:35 CDT CPT-J1885 Toradol 30 mg (Ketorolac) 17:01:40 CDT CPT-67510 Abx/Therapy Injection 17:01:40 CDT CPT-J1885 Toradol 60 mg (Ketorolac) 15:41:36 CDT CPT-J1050 Depo Provera 150 mg (Medroxyprogesterone) 13:48:38 POWER CRANE OPERATOR CPT-92483 Abx/Therapy Injection 13:48:38 POWER CRANE OPERATOR CPT-61677 Venipuncture Draw Fee 11:24:44 POWER CRANE OPERATOR CPT-J1050 Depo Provera 150 mg (Medroxyprogesterone) 11:07:33 POWER CRANE OPERATOR CPT-81364 Immunization Single Admin 13:12:44 POWER CRANE OPERATOR CPT-23937 Fluzone Quadrivalent Intramuscular Suspension 0.5 ML 13: 12:44 POWER CRANE OPERATOR CPT-12196 Fluzone 11:12:18 POWER CRANE OPERATOR CPT-68161 Spec Collection and Handling Fee 11:12:18 POWER CRANE OPERATOR CPT-25266 Visit 11:12:18 POWER CRANE OPERATOR
--- OUTSIDE RECORDS SUMMARY | 2017-12-29 16:41 | XMS REPORT ---
Author Author [employer] Medical Staff Organization [facility] Address [address] [place], [place] [address] Phone [phone] Care Team Providers Care Supervisor Statement Clerks Name Role Phone FEDERICA BARAKAT, RALPH PP [phone] Summary purpose TRANSITION OF CARE AUTO GENERATION Chief Complaint and Reason for Visit Admit Diagnosis 1 SWELLING IN HEAD NECK Problem list No authorized problems tracked for continuity of care are available for this visit. Encounters No authorized problems tracked for encounter diagnoses are available for this visit. Medications No home medications recorded for this patient visit Allergies, [...] Code Type Description Date Performed Performing Physician J1100 CPT-4 DEXAMETHASONE SODIUM PHOS 11-20-2013 JOEY RAM 27376 CPT-4 EMERGENCY DEPT VISIT 11-20-2013 LAURYN MEYER 73494 CPT-4 EMERGENCY DEPT VISIT 11-20-2013 LAURYN MEYER 80044 CPT-4 THER/PROPH/DIAG INJ, SC/IM 11-20-2013 JOEY RAM Functional status Functional Status Finding Observation Time Muscle Strength RUE 5 ROM full resist 16-13-800670:00 Muscle Strength RLE 5 ROM full resist 27-67-079601:00 Muscle Strength LUE 5 ROM full resist 46-85-200954:00 Muscle Strength LLE 5 ROM full resist 73-89-464614:00 Vital signs Type Value Date Respiration Rate 20breaths per minute :30 Pulse 74beats per minute :30 Oxygen Saturation 100% :30 BP Systolic 118mmHg 24-13-146776:30 BP Diastolic 78mmHg :30 Temperature 98.6F 55-18-150587:30 Social history Type Value Smoking Status NEVER SMOKER Treatment Plan No treatment plan text is available for this visit. Hospital discharge instructions Dismissal Condition good Disposition on DC home DC Inst/Educ Give yes Med/Side Effects Rev yes
--- OUTSIDE RECORDS SUMMARY | 2017-12-29 16:41 | XMS REPORT ---
Author NORIS Worley Organization [employer] Address Unknown Phone Unavailable Care Team Providers Care Blast Furnace Helper Name Role Phone NORIS JIMÉNEZ CP Unavailable Allergies, Adverse Reactions, Alerts Substance Reaction Event Type N.K.D.A. Info Not Available Non Drug Allergy Problems Problem Type Condition Code Onset Dates Condition Status Assessment Urticaria L50.9 Active Medications Medication Code System Code Instructions Start Date End Date Status Dosage Benadryl [facility] [address]-53 25 MG Orally every 6 hrs prn Jan 13, 2015 Jan 16, 2015 1 tablet as needed Vitamins [facility] [address]-34 0.8 MG Orally Once a day 1 tablet Procedures Procedure Coding System Code Date Office Visit, New Pt., Level 3 CPT-4 54878 Jan 09, 2015 Vital Signs Date/Time: Jan 09, 2015 Temperature 98.1 F BMIPercentile 52.31 % Weight 130.2 lbs Height 65.5 in BMI 21.33 Index Blood Pressure Diastolic 76 mmHg Blood Pressure Systolic 112 mmHg Cardiac Monitoring Heart Rate 75 bpm Wt Percentile 63.02 % Ht Percentile 69.52 % Results No Known Results Summary Purpose [employer] Submission
--- OUTSIDE RECORDS SUMMARY | 2017-12-29 16:41 | XMS REPORT | Clinical Summary ---
Author Author Admin, BENTLEY Organization [employer] Address Unknown Phone Unavailable Allergies, Adverse Reactions, Alerts Allergy Name Reaction Description Start Date Severity Status Provider No Known Allergies Leila Chay Conditions or Problems Problem Name Problem Code Onset Date Status Entry Date Provider Comment Standard Description Annotate Hand pain, right 729.5 Active Peter Sung MD Pain in limb Low back pain 724.2 Active Peter Sung MD Lumbago Medication List Medication Instructions Start Date Stop Date Generic Name NDC Status Provider Patient Instruction TRAMADOL HCL 50 MG TABS 1 tab po tid prn back pain TRAMADOL HCL 21106963407 Active Peter Sung MD Active PREDNISONE 20 MG TAB Take 3 tabs daily for 3 days, then 2 tabs daily for 3 days, then 1 tab daily for 3 days, then 1/2 tab daily for 3 days. PREDNISONE 33236720532 No Longer Active Peter Sung MD Active PREDNISONE 20 MG TAB Take 3 tabs daily for 3 days, then 2 tabs daily for 3 days, then 1 tab daily for 3 days, then 1/2 tab daily for 3 days. PREDNISONE 20 MG TAB 423318 PREDNISONE Inactive Vital Signs Date Name Value Unit Range Description blood pressure, diastolic - 8462-4 76 mm[Hg] [...] E&M - 3141-9 134 [lb_av] Weight Measured Encounters Code Encounter Date Provider Facility CPT-31319 Level 3 Est. Patient 10:33:19 CDT Peter Sung MD [facility] CPT-28508 Level 3 Est. Patient 18:10:34 CDT Peter Sung MD [facility]
--- OUTSIDE RECORDS SUMMARY | 2017-12-29 16:42 | XMS REPORT | Clinical Summary ---
Author Author Admin, Jose Miguel Organization [employer] Address Unknown Phone Unavailable Allergies, Adverse Reactions, Alerts Allergy Name Reaction Description Start Date Severity Status Provider No Known Allergies Leila Chay Conditions or Problems Problem Name Problem Code Onset Date Status Entry Date Provider Comment Standard Description Annotate Hand pain, right 729.5 Active Peter Sung MD Pain in limb Low back pain 724.2 Active Peter Sung MD Lumbago Supervision of normal first V22.0 Active Traci Tinsley MD Supervision of normal first , adolescent 659.83 Active Traci Tinsley MD Other specified indications for care or intervention related to labor and delivery, antepartum condition or complication NEED FOR PROPHYLACTIC VACCINATION WITH STREPTOCOCCUS PNEUMONIAE (PNEUMOCOCCUS) AND INFLUENZA V06.6 Active LESLIE Calderon Need for prophylactic vaccination and inoculation against Streptococcus pneumoniae [pneumococcus] and influenza Medication List Medication Instructions Start Date Stop Date Generic Name NDC Status Provider Patient Instruction CONCEPT DHA 53.5-38-1 MG CAPS one tab PO daily CRISTEL-AGUSTINA- INJR-WJ-YEDAJ 3 36844376674 Active Traci Tinsley MD Active TRAMADOL HCL 50 MG TABS 1 tab po tid prn back pain TRAMADOL HCL 56309003039 No Longer Active Traci Tinsley MD Active PREDNISONE 20 MG TAB Take 3 tabs daily for 3 days, then 2 tabs daily for 3 days, then 1 tab daily for 3 days, then 1/2 tab daily for 3 days. PREDNISONE 51256451578 No Longer Active Peter Sung MD Active TRAMADOL HCL 50 MG TABS 1 tab po tid prn back pain TRAMADOL HCL 50 MG TABS 122333 TRAMADOL HCL Inactive PREDNISONE 20 MG TAB Take 3 tabs daily for 3 days, then 2 tabs daily for 3 days, then 1 tab daily for 3 days, then 1/2 tab daily for 3 days. PREDNISONE 20 MG TAB 061492 PREDNISONE Inactive Advance Directives Directive Description Start Date CONSENT FOR MINOR CARE Vital Signs Date Name Value Unit Range Description blood pressure, diastolic 76 mm[Hg] BP ogden blood pressure, systolic 115 mm[Hg] BP sys pulse rate E&M 66 /min Heart rate temperature E&M 98.8 [degF] Body temperature weight E&M 137 [lb_av] Weight Measured blood pressure, diastolic 73 mm[Hg] BP ogden blood pressure, systolic 121 mm[Hg] BP sys height E&M 66.25 [in_us] Bdy height pulse rate E&M 73 /min Heart rate temperature E&M 98.4 [degF] Body temperature weight E&M 134 [lb_av] Weight Measured Encounters Code Encounter Date Provider Facility CPT-51816 Level 3 Est. Patient 10:33:19 CDT Peter Sung MD [facility] CPT-64209 Level 3 Est. Patient 18:10:34 CDT Peter Sung MD [facility] Procedures Code Procedure Name Date Entry Date Standard Description CPT-09460 Immunization Single Admin 13:12:44 MANAGER BEHAVIOR CPT-82264 Fluzone Quadrivalent Intramuscular Suspension 0.5 ML 13: 12:44 MANAGER BEHAVIOR CPT-99147 Fluzone 11:12:18 MANAGER BEHAVIOR CPT-44790 Spec Collection and Handling Fee 11:12:18 MANAGER BEHAVIOR CPT-78021 Visit 11:12:18 MANAGER BEHAVIOR
--- OUTSIDE RECORDS SUMMARY | 2017-12-29 16:42 | XMS REPORT | Clinical Summary ---
Author Author Admin, BENTLEY Organization [employer] Address Unknown Phone Unavailable Allergies, Adverse Reactions, [...] labor and delivery, antepartum condition or complication Medication List Medication Instructions Start Date Stop Date Generic Name NDC Status Provider Patient Instruction CONCEPT DHA 53.5-38-1 MG CAPS one tab PO daily SHAGUFTAAT-FEFUM- JNIN-TM-ISQUB 3 59530844862 Active Traci Tinsley MD Active TRAMADOL HCL 50 MG TABS 1 tab po tid prn back pain TRAMADOL HCL 62038922906 No Longer Active Traci Tinsley MD Active PREDNISONE 20 MG TAB Take 3 tabs daily for 3 days, then 2 tabs daily for 3 days, then 1 tab daily for 3 days, then 1/2 tab daily for 3 days. PREDNISONE 53314868179 No Longer Active Peter Sung MD Active TRAMADOL HCL 50 MG TABS 1 tab po tid prn back pain TRAMADOL HCL 50 MG TABS 269651 TRAMADOL HCL Inactive PREDNISONE 20 MG TAB Take 3 tabs daily for 3 days, then 2 tabs daily for 3 days, then 1 tab daily for 3 days, then 1/2 tab daily for 3 days. PREDNISONE 20 MG TAB 194231 PREDNISONE Inactive Vital Signs Date Name Value [...] Measured Encounters Code Encounter Date Provider Facility CPT-00348 Level 3 Est. Patient 10:33:19 CDT Peter Sung MD [facility] CPT-21297 Level 3 Est. Patient 18:10:34 CDT Peter Sung MD [facility] Procedures Code Procedure Name Date Entry Date Standard Description CPT-42651 Fluzone 11:12:18 REGIONAL DEDICATED TRUCK DRIVER CPT-00095 Spec Collection and Handling Fee 11:12:18 REGIONAL DEDICATED TRUCK DRIVER CPT-02568 Visit 11:12:18 REGIONAL DEDICATED TRUCK DRIVER
--- OUTSIDE RECORDS SUMMARY | 2017-12-29 16:42 | XMS REPORT | Clinical Summary ---
Author Author Admin, BENTLEY Organization [employer] Address Unknown Phone Unavailable Allergies, Adverse Reactions, Alerts Allergy Name Reaction Description Start Date Severity Status Provider No Known Allergies Milli Hamilton MA Conditions or Problems Problem Name Problem Code Onset Date Status Entry Date Provider Comment Standard Description Annotate Hand pain, right 729.5 Resolved Mari Yokum ASSISTANT STRENGTH COACH Pain in limb Low back pain 724.2 Resolved Mari Yokum ASSISTANT STRENGTH COACH Lumbago Supervision of normal first V22.0 Resolved Mari Yokum ASSISTANT STRENGTH COACH Supervision of normal first , adolescent 659.83 Resolved Mari Yokum ASSISTANT STRENGTH COACH Other specified indications for care or intervention related to labor and delivery, antepartum condition or complication NEED FOR PROPHYLACTIC VACCINATION WITH STREPTOCOCCUS PNEUMONIAE (PNEUMOCOCCUS) AND INFLUENZA V06.6 Resolved Mair Yokum ASSISTANT STRENGTH COACH Need for prophylactic vaccination and inoculation against Streptococcus pneumoniae [pneumococcus] and influenza UTI 599.0 Resolved Mari Yokum ASSISTANT STRENGTH COACH Urinary tract infection, site not specified Contraceptive management V25.9 Active Mari Yokum ASSISTANT STRENGTH COACH Encounter for unspecified contraceptive management Depression 311 Active Mari Yokum ASSISTANT STRENGTH COACH Depressive disorder, not elsewhere classified Hand pain, right ICD-729.5 Inactive Mari Yokum ASSISTANT STRENGTH COACH Low back pain ICD-724.2 Inactive Mari Yokum ASSISTANT STRENGTH COACH Supervision of normal first ICD-V22.0 Inactive Mari Yokum ASSISTANT STRENGTH COACH , adolescent ICD-659.83 Inactive Mari Romo ASSISTANT STRENGTH COACH NEED FOR PROPHYLACTIC VACCINATION WITH STREPTOCOCCUS PNEUMONIAE (PNEUMOCOCCUS) AND INFLUENZA ICD-V06.6 Inactive Mari Romo ASSISTANT STRENGTH COACH UTI ICD-599.0 Inactive Mari Romo ASSISTANT STRENGTH COACH Medication List Medication Instructions Start Date Stop Date Generic Name NDC Status Provider Patient Instruction DEPO-PROVERA 150 MG/ML SUPENSION MEDROXYPROGEST RIK ( CONTRACEP) 19966666250 Active Mari Romo ASSISTANT STRENGTH COACH Active PROZAC 10 MG CAP Take one tablet daily for depression FLUOXETINE HCL 12988067278 Active Mari Romo ASSISTANT STRENGTH COACH Active MACROBID 100 MG CAPS one tab PO BID x 7 days NITROFURANTOIN MONOHYD MACRO 76029568615 No Longer Active Traci Tinsley MD Active CONCEPT DHA 53.5-38-1 MG CAPS one tab PO daily PRENAT-FEFUM- BNCP-UY-JIRVE 3 08076552289 Active Traci Tinsley MD Active TRAMADOL HCL 50 MG TABS 1 tab po tid prn back pain TRAMADOL HCL 74325902163 No Longer Active Traci Tinsley MD Active PREDNISONE 20 MG TAB Take 3 tabs daily for 3 days, then 2 tabs daily for 3 days, then 1 tab daily for 3 days, then 1/2 tab daily for 3 days. PREDNISONE 06973053143 No Longer Active Peter Sung MD Active TRAMADOL HCL 50 MG TABS 1 tab po tid prn back pain TRAMADOL HCL 50 MG TABS 600445 TRAMADOL HCL Inactive PREDNISONE 20 MG TAB Take 3 tabs daily for 3 days, then 2 tabs daily for 3 days, then 1 tab daily for 3 days, then 1/2 tab daily for 3 days. PREDNISONE 20 MG TAB 960430 PREDNISONE Inactive MACROBID 100 MG CAPS one tab PO BID x 7 days MACROBID 100 MG CAPS 582456 NITROFURANTOIN MONOHYD MACRO Inactive Advance Directives Directive Description Start Date CONSENT FOR MINOR CARE Immunizations Vaccine Administration Date Value Standard Description hepatitis B vaccine series no hepatitis B vaccine, unspecified formulation Vital Signs Date Name Value Unit Range Description blood pressure, diastolic - 8462-4 69 mm[Hg] [...] % 11.0-15.0 platelet count 230 THOUSAND/UL 10*3/mm3 527-799 3097/11/20 Blood type A Lab Report: ABO GROUP [...] UC Encounters Code Encounter Date Provider Facility CPT-00062 Level 3 Est. Patient 20:39:13 DRAGLINE OPERATOR HELPER Mair Romo [facility] CPT-16899 Level 3 Est. Patient 11:07:33 DRAGLINE OPERATOR HELPER Mari Romo [facility] CPT-56339 Level 3 Est. Patient 10:33:19 CDT Peter Sung MD [facility] CPT-54951 Level 3 Est. Patient 18:10:34 CDT Peter Sung MD [facility] Procedures Code Procedure Name Date Entry Date Standard Description CPT-J1050 Depo Provera 150 mg (Medroxyprogesterone) 13:48:38 DRAGLINE OPERATOR HELPER CPT-06912 Abx/Therapy Injection 13:48:38 DRAGLINE OPERATOR HELPER CPT-53659 Venipuncture Draw Fee 11:24:44 DRAGLINE OPERATOR HELPER CPT-J1050 Depo Provera 150 mg (Medroxyprogesterone) 11:07:33 DRAGLINE OPERATOR HELPER CPT-37514 Immunization Single Admin 13:12:44 DRAGLINE OPERATOR HELPER CPT-11164 Fluzone Quadrivalent Intramuscular Suspension 0.5 ML 13: 12:44 DRAGLINE OPERATOR HELPER CPT-22948 Fluzone 11:12:18 DRAGLINE OPERATOR HELPER CPT-91939 Spec Collection and Handling Fee 11:12:18 DRAGLINE OPERATOR HELPER CPT-40545 Visit 11:12:18 DRAGLINE OPERATOR HELPER
--- OUTSIDE RECORDS SUMMARY | 2017-12-29 16:42 | XMS REPORT | Clinical Summary ---
Author Author Admin, E Organization [employer] Address Unknown Phone Unavailable Allergies, Adverse Reactions, Alerts Allergy Name Reaction Description Start Date Severity Status Provider No Known Allergies Imelda Barnett Conditions or Problems Problem Name Problem Code [...] Streptococcus pneumoniae [pneumococcus] and influenza UTI 599.0 Active Traci Tinsley MD Urinary tract infection, site not specified Medication List Medication Instructions Start Date Stop Date Generic Name NDC Status Provider Patient Instruction MACROBID 100 MG CAPS one tab PO BID x 7 days NITROFURANTOIN MONOHYD MACRO 28885469114 No Longer Active Traci Tinsley MD Active CONCEPT DHA 53.5-38-1 MG CAPS one tab PO daily PRENAT-FEFUM- RFFG-GS-QBOOL 3 39581431311 Active Traci Tinsley MD Active TRAMADOL HCL 50 MG TABS 1 tab po tid prn back pain TRAMADOL HCL 60840611686 No Longer Active Traci Tinsley MD Active PREDNISONE 20 MG TAB Take 3 tabs daily for 3 days, then 2 tabs daily for 3 days, then 1 tab daily for 3 days, then 1/2 tab daily for 3 days. PREDNISONE 25410975900 No Longer Active Peter Sung MD Active TRAMADOL HCL 50 MG TABS 1 tab po tid prn back pain TRAMADOL HCL 50 MG TABS 617634 TRAMADOL HCL Inactive PREDNISONE 20 MG TAB Take 3 tabs daily for 3 days, then 2 tabs daily for 3 days, then 1 tab daily for 3 days, then 1/2 tab daily for 3 days. PREDNISONE 20 MG TAB 749161 PREDNISONE Inactive MACROBID 100 MG CAPS one tab PO BID x 7 days MACROBID 100 MG CAPS 312103 NITROFURANTOIN MONOHYD MACRO Inactive Advance Directives Directive Description Start Date CONSENT FOR MINOR CARE Immunizations Vaccine Administration Date Value Standard Description hepatitis B vaccine series no hepatitis B vaccine, unspecified formulation Vital Signs Date Name Value Unit Range Description blood pressure, diastolic - 8462-4 81 mm[Hg] [...] % 11.0-15.0 platelet count 230 THOUSAND/UL 10*3/mm3 026-044 7572/11/20 Blood type A Lab Report: ABO GROUP [...] UC Encounters Code Encounter Date Provider Facility CPT-06015 Level 3 Est. Patient 11:07:33 ONLINE COMMUNICATIONS MANAGER Mari Rmoo APRN [facility] CPT-43624 Level 3 Est. Patient 10:33:19 CDT Peter Sung MD [facility] CPT-85578 Level 3 Est. Patient 18:10:34 CDT Peter Sung MD [facility] Procedures Code Procedure Name Date Entry Date Standard Description CPT-18501 Venipuncture Draw Fee 11:24:44 ONLINE COMMUNICATIONS MANAGER CPT-J1050 Depo Provera 150 mg (Medroxyprogesterone) 11:07:33 ONLINE COMMUNICATIONS MANAGER CPT-43537 Immunization Single Admin 13:12:44 ONLINE COMMUNICATIONS MANAGER CPT-03728 Fluzone Quadrivalent Intramuscular Suspension 0.5 ML 13: 12:44 ONLINE COMMUNICATIONS MANAGER CPT-59086 Fluzone 11:12:18 ONLINE COMMUNICATIONS MANAGER CPT-06922 Spec Collection and Handling Fee 11:12:18 ONLINE COMMUNICATIONS MANAGER CPT-56245 Visit 11:12:18 ONLINE COMMUNICATIONS MANAGER
--- OUTSIDE RECORDS SUMMARY | 2017-12-29 16:42 | XMS REPORT | Clinical Summary ---
Author Author Admin, BENTLEY Organization [facility] Address Unknown Phone Unavailable Allergies, Adverse Reactions, Alerts Allergy Name Reaction Description Start Date Severity Status Provider No Known Allergies Imelda Ericka Conditions or Problems Problem Name Problem Code Onset Date Status Entry Date Provider Comment Standard Description Annotate Hand pain, right 729.5 Resolved Mari Yokum STEAM FITTER SUPERVISOR MAINTENANCE Pain in limb Low back pain 724.2 Resolved Mari Yokum STEAM FITTER SUPERVISOR MAINTENANCE Lumbago Supervision of normal first V22.0 Resolved Mari Yokum STEAM FITTER SUPERVISOR MAINTENANCE Supervision of normal first , adolescent 659.83 Resolved Mari Yokum STEAM FITTER SUPERVISOR MAINTENANCE Other specified indications for care or intervention related to labor and delivery, antepartum condition or complication NEED FOR PROPHYLACTIC VACCINATION WITH STREPTOCOCCUS PNEUMONIAE (PNEUMOCOCCUS) AND INFLUENZA V06.6 Resolved Mari Yokum STEAM FITTER SUPERVISOR MAINTENANCE Need for prophylactic vaccination and inoculation against Streptococcus pneumoniae [pneumococcus] and influenza UTI 599.0 Resolved Mari Yokum STEAM FITTER SUPERVISOR MAINTENANCE Urinary tract infection, site not specified Contraceptive management V25.9 Active Mari Yokum STEAM FITTER SUPERVISOR MAINTENANCE Encounter for unspecified contraceptive management Depression 311 Active Mari Yokum STEAM FITTER SUPERVISOR MAINTENANCE Depressive disorder, not elsewhere classified Hand pain, right ICD-729.5 Inactive Mari Yokum STEAM FITTER SUPERVISOR MAINTENANCE Low back pain ICD-724.2 Inactive Mari Yokum STEAM FITTER SUPERVISOR MAINTENANCE Supervision of normal first ICD-V22.0 Inactive Mari Yokum STEAM FITTER SUPERVISOR MAINTENANCE , adolescent ICD-659.83 Inactive Mari Romo STEAM FITTER SUPERVISOR MAINTENANCE NEED FOR PROPHYLACTIC VACCINATION WITH STREPTOCOCCUS PNEUMONIAE (PNEUMOCOCCUS) AND INFLUENZA ICD-V06.6 Inactive Mari Romo STEAM FITTER SUPERVISOR MAINTENANCE UTI ICD-599.0 Inactive Mari Romo STEAM FITTER SUPERVISOR MAINTENANCE Medication List Medication Instructions Start Date Stop Date Generic Name NDC Status Provider Patient Instruction DEPO-PROVERA 150 MG/ML SUPENSION MEDROXYPROGEST RIK ( CONTRACEP) 88309123016 Active Mari Romo STEAM FITTER SUPERVISOR MAINTENANCE Active PROZAC 10 MG CAP Take one tablet daily for depression FLUOXETINE HCL 57058136582 Active Mari Romo STEAM FITTER SUPERVISOR MAINTENANCE Active MACROBID 100 MG CAPS one tab PO BID x 7 days NITROFURANTOIN MONOHYD MACRO 51464795612 No Longer Active Traci Tinsley MD Active CONCEPT DHA 53.5-38-1 MG CAPS one tab PO daily PRENAT-FEM- ACKH-FO-NVAYE 3 75829569898 Active Traci Tinsley MD Active TRAMADOL HCL 50 MG TABS 1 tab po tid prn back pain TRAMADOL HCL 51684684999 No Longer Active Traci Tinsley MD Active PREDNISONE 20 MG TAB Take 3 tabs daily for 3 days, then 2 tabs daily for 3 days, then 1 tab daily for 3 days, then 1/2 tab daily for 3 days. PREDNISONE 31887407858 No Longer Active Peter Sung MD Active TRAMADOL HCL 50 MG TABS 1 tab po tid prn back pain TRAMADOL HCL 50 MG TABS 804080 TRAMADOL HCL Inactive PREDNISONE 20 MG TAB Take 3 tabs daily for 3 days, then 2 tabs daily for 3 days, then 1 tab daily for 3 days, then 1/2 tab daily for 3 days. PREDNISONE 20 MG TAB 143518 PREDNISONE Inactive MACROBID 100 MG CAPS one tab PO BID x 7 days MACROBID 100 MG CAPS 531319 NITROFURANTOIN MONOHYD MACRO Inactive Advance Directives Directive [...] % 11.0-15.0 platelet count 230 THOUSAND/UL 10*3/mm3 903-183 2891/11/20 Blood type A Lab Report: ABO GROUP [...] UC Encounters Code Encounter Date Provider Facility CPT-67416 Level 3 Est. Patient 20:39:13 SOLID WASTE TRUCK DRIVER [facility] CPT-67934 Level 3 Est. Patient 11:07:33 SOLID WASTE TRUCK DRIVER [facility] CPT-73611 Level 3 Est. Patient 10:33:19 CDT Peter Sung MD [facility] CPT-34883 Level 3 Est. Patient 18:10:34 CDT Peter Sung MD [facility] Procedures Code Procedure Name Date Entry Date Standard Description CPT-J1050 Depo Provera 150 mg (Medroxyprogesterone) 13:48:38 SOLID WASTE TRUCK DRIVER CPT-43931 Abx/Therapy Injection 13:48:38 SOLID WASTE TRUCK DRIVER CPT-06715 Venipuncture Draw Fee 11:24:44 SOLID WASTE TRUCK DRIVER CPT-J1050 Depo Provera 150 mg (Medroxyprogesterone) 11:07:33 SOLID WASTE TRUCK DRIVER CPT-25191 Immunization Single Admin 13:12:44 SOLID WASTE TRUCK DRIVER CPT-32061 Fluzone Quadrivalent Intramuscular Suspension 0.5 ML 13: 12:44 SOLID WASTE TRUCK DRIVER CPT-69635 Fluzone 11:12:18 SOLID WASTE TRUCK DRIVER CPT-79853 Spec Collection and Handling Fee 11:12:18 SOLID WASTE TRUCK DRIVER CPT-28293 Visit 11:12:18 SOLID WASTE TRUCK DRIVER
--- OUTSIDE RECORDS SUMMARY | 2017-12-29 16:42 | XMS REPORT | Clinical Summary ---
Author Author Admin, Jose Miguel Organization [employer] Address Unknown Phone Unavailable Allergies, Adverse Reactions, [...] MG CAPS one tab PO daily CRISTEL-AGUSTINA- LLCL-OT-HQEHI 3 20337371298 Active Traci Tinsley MD Active TRAMADOL HCL 50 MG TABS 1 tab po tid prn back pain TRAMADOL HCL 79460144609 No Longer Active Traci Tinsley MD Active PREDNISONE 20 MG TAB Take 3 tabs daily for 3 days, then 2 tabs daily for 3 days, then 1 tab daily for 3 days, then 1/2 tab daily for 3 days. PREDNISONE 68962307197 No Longer Active Peter Sung MD Active TRAMADOL HCL 50 MG TABS 1 tab po tid prn back pain TRAMADOL HCL 50 MG TABS 416136 TRAMADOL HCL Inactive PREDNISONE 20 MG TAB Take 3 tabs daily for 3 days, then 2 tabs daily for 3 days, then 1 tab daily for 3 days, then 1/2 tab daily for 3 days. PREDNISONE 20 MG TAB 161376 PREDNISONE Inactive Advance Directives Directive Description Start [...] Measured Encounters Code Encounter Date Provider Facility CPT-74763 Level 3 Est. Patient 10:33:19 CDT Peter Sung MD [facility] CPT-27470 Level 3 Est. Patient 18:10:34 CDT Peter Sung MD [facility] Procedures Code Procedure Name Date Entry Date Standard Description CPT-81863 Immunization Single Admin 13:12:44 AUDIO VISUAL TECH CPT-10435 Fluzone Quadrivalent Intramuscular Suspension 0.5 ML 13: 12:44 AUDIO VISUAL TECH CPT-81143 Fluzone 11:12:18 AUDIO VISUAL TECH CPT-13731 Spec Collection and Handling Fee 11:12:18 AUDIO VISUAL TECH CPT-91941 Visit 11:12:18 AUDIO VISUAL TECH
--- OUTSIDE RECORDS SUMMARY | 2017-12-29 16:43 | XMS REPORT | Clinical Summary ---
Author Author Admin, E Organization [employer] Address Unknown Phone Unavailable Allergies, Adverse Reactions, Alerts Allergy Name Reaction Description Start Date Severity Status Provider No Known Allergies Sandi Jolleyford RMA Conditions or Problems Problem Name Problem Code Onset Date Status Entry Date Provider Comment Standard Description Annotate Hand pain, right 729.5 Resolved Mari Yosurajum MACHINE HOOP MAKER Pain in limb Low back pain 724.2 Resolved Mari Yokum MACHINE HOOP MAKER Lumbago Supervision of normal first V22.0 Resolved Mari Yokum MACHINE HOOP MAKER Supervision of normal first , adolescent 659.83 Resolved Mari Yokum MACHINE HOOP MAKER Other specified indications for care or intervention related to labor and delivery, antepartum condition or complication NEED FOR PROPHYLACTIC VACCINATION WITH STREPTOCOCCUS PNEUMONIAE (PNEUMOCOCCUS) AND INFLUENZA V06.6 Resolved Mari Yokum MACHINE HOOP MAKER Need for prophylactic vaccination and inoculation against Streptococcus pneumoniae [pneumococcus] and influenza UTI 599.0 Resolved Mari Yokum MACHINE HOOP MAKER Urinary tract infection, site not specified Contraceptive management V25.9 Active Mari Yokum MACHINE HOOP MAKER Encounter for unspecified contraceptive management Depression 311 Active Mari Yokum MACHINE HOOP MAKER Depressive disorder, not elsewhere classified Tonsillar hypertrophy 474.11 Active Mari Yokum MACHINE HOOP MAKER Hypertrophy of tonsils alone Headache 784.0 Active Michelle Smith MD PhD Headache Hand pain, right ICD-729.5 Inactive Mari Yokum MACHINE HOOP MAKER Low back pain ICD-724.2 Inactive Mari Romo MACHINE HOOP MAKER Supervision of normal first ICD-V22.0 Inactive Mari Jarvisum MACHINE HOOP MAKER , adolescent ICD-659.83 Inactive Mari Romo MACHINE HOOP MAKER NEED FOR PROPHYLACTIC VACCINATION WITH STREPTOCOCCUS PNEUMONIAE (PNEUMOCOCCUS) AND INFLUENZA ICD-V06.6 Inactive Mari Jarvisum MACHINE HOOP MAKER UTI ICD-599.0 Inactive Mari Romo MACHINE HOOP MAKER Medication List Medication Instructions Start Date Stop Date Generic Name NDC Status Provider Patient Instruction PAROXETINE HCL 10 MG TABS 1 pill by mouth daily, for depression PAROXETINE HCL 04717041625 Active Michelle Smith MD PhD Active PROZAC 10 MG CAP Take one tablet daily for depression FLUOXETINE HCL 94688079211 No Longer Active Michelle Smith MD PhD Active CONCEPT DHA 53.5-38-1 MG CAPS one tab PO daily PRENAT -DSCGZ-IAIF-QV-OMEGA 3 34592333120 No Longer Active Michelle Smith MD PhD Active DEPO-PROVERA 150 MG/ML SUPENSION MEDROXYPROGEST RIK ( CONTRACEP) 60372514088 Active Mari Romo MACHINE HOOP MAKER Active MACROBID 100 MG CAPS one tab PO BID x 7 days NITROFURANTOIN MONOHYD MACRO 22445215004 No Longer Active Traci Tinsley MD Active TRAMADOL HCL 50 MG TABS 1 tab po tid prn back pain TRAMADOL HCL 70330722832 No Longer Active Traci Tinsley MD Active PREDNISONE 20 MG TAB Take 3 tabs daily for 3 days, then 2 tabs daily for 3 days, then 1 tab daily for 3 days, then 1/2 tab daily for 3 days. PREDNISONE 13677351291 No Longer Active Peter Sung MD Active TRAMADOL HCL 50 MG TABS 1 tab po tid prn back pain TRAMADOL HCL 50 MG TABS 004658 TRAMADOL HCL Inactive CONCEPT DHA 53.5-38-1 MG CAPS one tab PO daily CONCEPT DHA 53.5-38-1 MG CAPS [id number]-JMDKM-XUZL-FA-OMEGA 3 Inactive PROZAC 10 MG CAP Take one tablet daily for depression PROZAC 10 MG CAP 486977 FLUOXETINE HCL Inactive PREDNISONE 20 MG TAB Take 3 tabs daily for 3 days, then 2 tabs daily for 3 days, then 1 tab daily for 3 days, then 1/2 tab daily for 3 days. PREDNISONE 20 MG TAB 169947 PREDNISONE Inactive MACROBID 100 MG CAPS one tab PO BID x 7 days MACROBID 100 MG CAPS 418247 NITROFURANTOIN MONOHYD MACRO Inactive Advance Directives Directive [...] % 11.0-15.0 platelet count 230 THOUSAND/UL 10*3/mm3 698-137 9461/11/20 Blood type A Lab Report: ABO GROUP [...] UC Encounters Code Encounter Date Provider Facility CPT-22933 Level 3 Est. Patient 08:42:18 CDT Michelle Smith MD PhD [facility] CPT-57907 Level 3 Est. Patient 16:24:24 SHREDDED FILLER CIGAR MAKER MACHINE Mari Romo [facility] CPT-84754 Level 3 Est. Patient 20:39:13 SHREDDED FILLER CIGAR MAKER MACHINE Mari Clarissa [facility] CPT-70251 Level 3 Est. Patient 11:07:33 SHREDDED FILLER CIGAR MAKER MACHINE Mari Clarissa [facility] CPT-86427 Level 3 Est. Patient 10:33:19 CDT Peter Sung MD [facility] CPT-13597 Level 3 Est. Patient 18:10:34 CDT Peter Sung MD [facility] Procedures Code Procedure Name Date Entry Date Standard Description CPT-J1885 Toradol 30 mg (Ketorolac) 17:01:40 CDT CPT-85756 Abx/Therapy Injection 17:01:40 CDT CPT-J1885 Toradol 60 mg (Ketorolac) 15:41:36 CDT CPT-J1050 Depo Provera 150 mg (Medroxyprogesterone) 13:48:38 SHREDDED FILLER CIGAR MAKER MACHINE CPT-90830 Abx/Therapy Injection 13:48:38 SHREDDED FILLER CIGAR MAKER MACHINE CPT-72604 Venipuncture Draw Fee 11:24:44 SHREDDED FILLER CIGAR MAKER MACHINE CPT-J1050 Depo Provera 150 mg (Medroxyprogesterone) 11:07:33 SHREDDED FILLER CIGAR MAKER MACHINE CPT-50382 Immunization Single Admin 13:12:44 SHREDDED FILLER CIGAR MAKER MACHINE CPT-55301 Fluzone Quadrivalent Intramuscular Suspension 0.5 ML 13: 12:44 SHREDDED FILLER CIGAR MAKER MACHINE CPT-47909 Fluzone 11:12:18 SHREDDED FILLER CIGAR MAKER MACHINE CPT-64258 Spec Collection and Handling Fee 11:12:18 SHREDDED FILLER CIGAR MAKER MACHINE CPT-01693 Visit 11:12:18 SHREDDED FILLER CIGAR MAKER MACHINE
--- OUTSIDE RECORDS SUMMARY | 2017-12-29 16:43 | XMS REPORT | Clinical Summary ---
Author Author Admin, E Organization [employer] Address Unknown Phone Unavailable Allergies, Adverse Reactions, Alerts Allergy Name Reaction Description Start Date Severity Status Provider No Known Allergies Sandi Jolleyford RMA Conditions or Problems Problem Name Problem Code Onset Date Status Entry Date Provider Comment Standard Description Annotate Hand pain, right 729.5 Resolved Mari Yosurajum SCRAP METAL COLLECTOR Pain in limb Low back pain 724.2 Resolved Mari Yokum SCRAP METAL COLLECTOR Lumbago Supervision of normal first V22.0 Resolved Mari Yokum SCRAP METAL COLLECTOR Supervision of normal first , adolescent 659.83 Resolved Mari Yokum SCRAP METAL COLLECTOR Other specified indications for care or intervention related to labor and delivery, antepartum condition or complication NEED FOR PROPHYLACTIC VACCINATION WITH STREPTOCOCCUS PNEUMONIAE (PNEUMOCOCCUS) AND INFLUENZA V06.6 Resolved Mari Yokum SCRAP METAL COLLECTOR Need for prophylactic vaccination and inoculation against Streptococcus pneumoniae [pneumococcus] and influenza UTI 599.0 Resolved Mari Yokum SCRAP METAL COLLECTOR Urinary tract infection, site not specified Contraceptive management V25.9 Active Mari Yokum SCRAP METAL COLLECTOR Encounter for unspecified contraceptive management Depression 311 Active Mari Yokum SCRAP METAL COLLECTOR Depressive disorder, not elsewhere classified Tonsillar hypertrophy 474.11 Active Mari Yokum SCRAP METAL COLLECTOR Hypertrophy of tonsils alone Headache 784.0 Active Michelle Smith MD PhD Headache Hand pain, right ICD-729.5 Inactive Mari Yokum SCRAP METAL COLLECTOR Low back pain ICD-724.2 Inactive Mari Romo SCRAP METAL COLLECTOR Supervision of normal first ICD-V22.0 Inactive Mari Jarvisum SCRAP METAL COLLECTOR , adolescent ICD-659.83 Inactive Mari Romo SCRAP METAL COLLECTOR NEED FOR PROPHYLACTIC VACCINATION WITH STREPTOCOCCUS PNEUMONIAE (PNEUMOCOCCUS) AND INFLUENZA ICD-V06.6 Inactive Mari Jarvisum SCRAP METAL COLLECTOR UTI ICD-599.0 Inactive Mari Romo SCRAP METAL COLLECTOR Medication List Medication Instructions Start Date Stop Date Generic Name NDC Status Provider Patient Instruction PAROXETINE HCL 10 MG TABS 1 pill by mouth daily, for depression PAROXETINE HCL 95224049119 Active Michelle Smith MD PhD Active PROZAC 10 MG CAP Take one tablet daily for depression FLUOXETINE HCL 93376079676 No Longer Active Michelle Smith MD PhD Active CONCEPT DHA 53.5-38-1 MG CAPS one tab PO daily PRENAT -WGLSY-KFWG-UO-OMEGA 3 83051044823 No Longer Active Michelle Smith MD PhD Active DEPO-PROVERA 150 MG/ML SUPENSION MEDROXYPROGEST RIK ( CONTRACEP) 83426817915 Active Mari Romo SCRAP METAL COLLECTOR Active MACROBID 100 MG CAPS one tab PO BID x 7 days NITROFURANTOIN MONOHYD MACRO 20211751587 No Longer Active Traci Tinsley MD Active TRAMADOL HCL 50 MG TABS 1 tab po tid prn back pain TRAMADOL HCL 83923091551 No Longer Active Traci Tinsley MD Active PREDNISONE 20 MG TAB Take 3 tabs daily for 3 days, then 2 tabs daily for 3 days, then 1 tab daily for 3 days, then 1/2 tab daily for 3 days. PREDNISONE 15862840102 No Longer Active Peter Sung MD Active TRAMADOL HCL 50 MG TABS 1 tab po tid prn back pain TRAMADOL HCL 50 MG TABS 298510 TRAMADOL HCL Inactive CONCEPT DHA 53.5-38-1 MG CAPS one tab PO daily CONCEPT DHA 53.5-38-1 MG CAPS IVJZVZ-RPQPB-KCLL-FA-OMEGA 3 Inactive PROZAC 10 MG CAP Take one tablet daily for depression PROZAC 10 MG CAP 960240 FLUOXETINE HCL Inactive PREDNISONE 20 MG TAB Take 3 tabs daily for 3 days, then 2 tabs daily for 3 days, then 1 tab daily for 3 days, then 1/2 tab daily for 3 days. PREDNISONE 20 MG TAB 442655 PREDNISONE Inactive MACROBID 100 MG CAPS one tab PO BID x 7 days MACROBID 100 MG CAPS 995552 NITROFURANTOIN MONOHYD MACRO Inactive Advance Directives Directive [...] % 11.0-15.0 platelet count 230 THOUSAND/UL 10*3/mm3 933-218 0181/11/20 Blood type A Lab Report: ABO GROUP [...] UC Encounters Code Encounter Date Provider Facility CPT-33309 Level 3 Est. Patient 08:42:18 CDT Michelle Smith MD PhD [facility] CPT-98867 Level 3 Est. Patient 16:24:24 DEVELOPMENT ENGINEER Mari Romo [facility] CPT-15203 Level 3 Est. Patient 20:39:13 DEVELOPMENT ENGINEER Mari Clarissa [facility] CPT-22989 Level 3 Est. Patient 11:07:33 DEVELOPMENT ENGINEER Mari Clarissa [facility] CPT-50248 Level 3 Est. Patient 10:33:19 CDT Peter Sung MD [facility] CPT-41264 Level 3 Est. Patient 18:10:34 CDT Peter Sung MD [facility] Procedures Code Procedure Name Date Entry Date Standard Description CPT-J1885 Toradol 30 mg (Ketorolac) 17:01:40 CDT CPT-81963 Abx/Therapy Injection 17:01:40 CDT CPT-J1885 Toradol 60 mg (Ketorolac) 15:41:36 CDT CPT-J1050 Depo Provera 150 mg (Medroxyprogesterone) 13:48:38 DEVELOPMENT ENGINEER CPT-30354 Abx/Therapy Injection 13:48:38 DEVELOPMENT ENGINEER CPT-06433 Venipuncture Draw Fee 11:24:44 DEVELOPMENT ENGINEER CPT-J1050 Depo Provera 150 mg (Medroxyprogesterone) 11:07:33 DEVELOPMENT ENGINEER CPT-44246 Immunization Single Admin 13:12:44 DEVELOPMENT ENGINEER CPT-20393 Fluzone Quadrivalent Intramuscular Suspension 0.5 ML 13: 12:44 DEVELOPMENT ENGINEER CPT-57091 Fluzone 11:12:18 DEVELOPMENT ENGINEER CPT-62327 Spec Collection and Handling Fee 11:12:18 DEVELOPMENT ENGINEER CPT-51080 Visit 11:12:18 DEVELOPMENT ENGINEER
--- OUTSIDE RECORDS SUMMARY | 2017-12-29 16:44 | XMS REPORT | Clinical Summary ---
Author Author Admin, E Organization [employer] Address Unknown Phone Unavailable Allergies, Adverse Reactions, [...] BID x 7 days NITROFURANTOIN MONOHYD MACRO 19487545529 No Longer Active Traci Tinsley MD Active CONCEPT DHA 53.5-38-1 MG CAPS one tab PO daily PRENAT-FEFUM- TOPI-RZ-DBVCP 3 20033227017 Active Traci Tinsley MD Active TRAMADOL HCL 50 MG TABS 1 tab po tid prn back pain TRAMADOL HCL 75566175877 No Longer Active Traci Tinsley MD Active PREDNISONE 20 MG TAB Take 3 tabs daily for 3 days, then 2 tabs daily for 3 days, then 1 tab daily for 3 days, then 1/2 tab daily for 3 days. PREDNISONE 72436384243 No Longer Active Peter Sung MD Active TRAMADOL HCL 50 MG TABS 1 tab po tid prn back pain TRAMADOL HCL 50 MG TABS 840935 TRAMADOL HCL Inactive PREDNISONE 20 MG TAB Take 3 tabs daily for 3 days, then 2 tabs daily for 3 days, then 1 tab daily for 3 days, then 1/2 tab daily for 3 days. PREDNISONE 20 MG TAB 572112 PREDNISONE Inactive MACROBID 100 MG CAPS one tab PO BID x 7 days MACROBID 100 MG CAPS 527826 NITROFURANTOIN MONOHYD MACRO Inactive Advance Directives Directive [...] % 11.0-15.0 platelet count 230 THOUSAND/UL 10*3/mm3 966-438 0988/11/20 Blood type A Lab Report: ABO GROUP [...] UC Encounters Code Encounter Date Provider Facility CPT-21631 Level 3 Est. Patient 10:33:19 CDT Peter Sung MD [facility] CPT-60002 Level 3 Est. Patient 18:10:34 CDT Peter Sung MD [facility] Procedures Code Procedure Name Date Entry Date Standard Description CPT-98329 Immunization Single Admin 13:12:44 ADVANCED MANUFACTURING TECHNICIAN CPT-24975 Fluzone Quadrivalent Intramuscular Suspension 0.5 ML 13: 12:44 ADVANCED MANUFACTURING TECHNICIAN CPT-63338 Fluzone 11:12:18 ADVANCED MANUFACTURING TECHNICIAN CPT-11120 Spec Collection and Handling Fee 11:12:18 ADVANCED MANUFACTURING TECHNICIAN CPT-14978 Visit 11:12:18 ADVANCED MANUFACTURING TECHNICIAN
--- OUTSIDE RECORDS SUMMARY | 2017-12-29 16:44 | XMS REPORT | Clinical Summary ---
Author Author Admin, BENTLEY Organization [employer] Address Unknown Phone Unavailable Allergies, Adverse Reactions, [...] MG CAPS one tab PO daily SHAGUFTAAT-FEFUM- QLHY-DR-MBACV 3 08439945178 Active Traci Tinsley MD Active TRAMADOL HCL 50 MG TABS 1 tab po tid prn back pain TRAMADOL HCL 33841497131 No Longer Active Traci Tinsley MD Active PREDNISONE 20 MG TAB Take 3 tabs daily for 3 days, then 2 tabs daily for 3 days, then 1 tab daily for 3 days, then 1/2 tab daily for 3 days. PREDNISONE 26024603935 No Longer Active Peter Sung MD Active TRAMADOL HCL 50 MG TABS 1 tab po tid prn back pain TRAMADOL HCL 50 MG TABS 436285 TRAMADOL HCL Inactive PREDNISONE 20 MG TAB Take 3 tabs daily for 3 days, then 2 tabs daily for 3 days, then 1 tab daily for 3 days, then 1/2 tab daily for 3 days. PREDNISONE 20 MG TAB 738112 PREDNISONE Inactive Vital Signs Date Name Value [...] Measured Encounters Code Encounter Date Provider Facility CPT-93271 Level 3 Est. Patient 10:33:19 CDT Peter Sung MD [facility] CPT-11154 Level 3 Est. Patient 18:10:34 CDT Peter Sung MD [facility] Procedures Code Procedure Name Date Entry Date Standard Description CPT-22848 Fluzone 11:12:18 ICT TRAINER CPT-43106 Spec Collection and Handling Fee 11:12:18 ICT TRAINER CPT-10052 Visit 11:12:18 ICT TRAINER
--- OUTSIDE RECORDS SUMMARY | 2017-12-29 16:44 | XMS REPORT | Clinical Summary ---
Author Author Admin, E Organization [employer] Address Unknown Phone Unavailable Allergies, Adverse Reactions, Alerts Allergy Name Reaction Description Start Date Severity Status Provider No Known Allergies Sandi Jolleyford RMA Conditions or Problems Problem Name Problem Code Onset Date Status Entry Date Provider Comment Standard Description Annotate Hand pain, right 729.5 Resolved Mari Yosurajum EFFICIENCY CLERK Pain in limb Low back pain 724.2 Resolved Mari Yokum EFFICIENCY CLERK Lumbago Supervision of normal first V22.0 Resolved Mari Yokum EFFICIENCY CLERK Supervision of normal first , adolescent 659.83 Resolved Mari Yokum EFFICIENCY CLERK Other specified indications for care or intervention related to labor and delivery, antepartum condition or complication NEED FOR PROPHYLACTIC VACCINATION WITH STREPTOCOCCUS PNEUMONIAE (PNEUMOCOCCUS) AND INFLUENZA V06.6 Resolved Mari Yokum EFFICIENCY CLERK Need for prophylactic vaccination and inoculation against Streptococcus pneumoniae [pneumococcus] and influenza UTI 599.0 Resolved Mari Yokum EFFICIENCY CLERK Urinary tract infection, site not specified Contraceptive management V25.9 Active Mari Yokum EFFICIENCY CLERK Encounter for unspecified contraceptive management Depression 311 Active Mari Yokum EFFICIENCY CLERK Depressive disorder, not elsewhere classified Tonsillar hypertrophy 474.11 Active Mari Yokum EFFICIENCY CLERK Hypertrophy of tonsils alone Headache 784.0 Active Michelle Smith MD PhD Headache Hand pain, right ICD-729.5 Inactive Mari Yokum EFFICIENCY CLERK Low back pain ICD-724.2 Inactive Mari Romo EFFICIENCY CLERK Supervision of normal first ICD-V22.0 Inactive Mari Jarvisum EFFICIENCY CLERK , adolescent ICD-659.83 Inactive Mari Romo EFFICIENCY CLERK NEED FOR PROPHYLACTIC VACCINATION WITH STREPTOCOCCUS PNEUMONIAE (PNEUMOCOCCUS) AND INFLUENZA ICD-V06.6 Inactive Mari Jarvisum EFFICIENCY CLERK UTI ICD-599.0 Inactive Mari Romo EFFICIENCY CLERK Medication List Medication Instructions Start Date Stop Date Generic Name NDC Status Provider Patient Instruction PAROXETINE HCL 10 MG TABS 1 pill by mouth daily, for depression PAROXETINE HCL 72690579865 Active Michelle Smith MD PhD Active PROZAC 10 MG CAP Take one tablet daily for depression FLUOXETINE HCL 76073518941 No Longer Active Michelle Smith MD PhD Active CONCEPT DHA 53.5-38-1 MG CAPS one tab PO daily PRENAT -RXBKU-UQNI-PG-OMEGA 3 96602591317 No Longer Active Michelle Smith MD PhD Active DEPO-PROVERA 150 MG/ML SUPENSION MEDROXYPROGEST RIK ( CONTRACEP) 98856531664 Active Mari Romo EFFICIENCY CLERK Active MACROBID 100 MG CAPS one tab PO BID x 7 days NITROFURANTOIN MONOHYD MACRO 23748488342 No Longer Active rTaci Tinsley MD Active TRAMADOL HCL 50 MG TABS 1 tab po tid prn back pain TRAMADOL HCL 59552692312 No Longer Active Traci Tinsley MD Active PREDNISONE 20 MG TAB Take 3 tabs daily for 3 days, then 2 tabs daily for 3 days, then 1 tab daily for 3 days, then 1/2 tab daily for 3 days. PREDNISONE 55532676542 No Longer Active Peter Sung MD Active TRAMADOL HCL 50 MG TABS 1 tab po tid prn back pain TRAMADOL HCL 50 MG TABS 173767 TRAMADOL HCL Inactive CONCEPT DHA 53.5-38-1 MG CAPS one tab PO daily CONCEPT DHA 53.5-38-1 MG CAPS GCQCSM-ZNAQI-ZPSJ-FA-OMEGA 3 Inactive PROZAC 10 MG CAP Take one tablet daily for depression PROZAC 10 MG CAP 960007 FLUOXETINE HCL Inactive PREDNISONE 20 MG TAB Take 3 tabs daily for 3 days, then 2 tabs daily for 3 days, then 1 tab daily for 3 days, then 1/2 tab daily for 3 days. PREDNISONE 20 MG TAB 071689 PREDNISONE Inactive MACROBID 100 MG CAPS one tab PO BID x 7 days MACROBID 100 MG CAPS 525164 NITROFURANTOIN MONOHYD MACRO Inactive Advance Directives Directive [...] % 11.0-15.0 platelet count 230 THOUSAND/UL 10*3/mm3 104-620 0359/11/20 Blood type A Lab Report: ABO GROUP [...] UC Encounters Code Encounter Date Provider Facility CPT-86547 Level 3 Est. Patient 08:42:18 CDT Michelle Smith MD PhD [facility] CPT-08330 Level 3 Est. Patient 16:24:24 HIGH SCHOOL LEARNING SUPPORT TEACHER Mari Romo [facility] CPT-82344 Level 3 Est. Patient 20:39:13 HIGH SCHOOL LEARNING SUPPORT TEACHER Mari Clarissa [facility] CPT-65771 Level 3 Est. Patient 11:07:33 HIGH SCHOOL LEARNING SUPPORT TEACHER Mari Clarissa [facility] CPT-71776 Level 3 Est. Patient 10:33:19 CDT Peter Sung MD [facility] CPT-24352 Level 3 Est. Patient 18:10:34 CDT Peter Sung MD [facility] Procedures Code Procedure Name Date Entry Date Standard Description CPT-J1885 Toradol 30 mg (Ketorolac) 17:01:40 CDT CPT-56403 Abx/Therapy Injection 17:01:40 CDT CPT-J1885 Toradol 60 mg (Ketorolac) 15:41:36 CDT CPT-J1050 Depo Provera 150 mg (Medroxyprogesterone) 13:48:38 HIGH SCHOOL LEARNING SUPPORT TEACHER CPT-91049 Abx/Therapy Injection 13:48:38 HIGH SCHOOL LEARNING SUPPORT TEACHER CPT-62867 Venipuncture Draw Fee 11:24:44 HIGH SCHOOL LEARNING SUPPORT TEACHER CPT-J1050 Depo Provera 150 mg (Medroxyprogesterone) 11:07:33 HIGH SCHOOL LEARNING SUPPORT TEACHER CPT-28335 Immunization Single Admin 13:12:44 HIGH SCHOOL LEARNING SUPPORT TEACHER CPT-16377 Fluzone Quadrivalent Intramuscular Suspension 0.5 ML 13: 12:44 HIGH SCHOOL LEARNING SUPPORT TEACHER CPT-93023 Fluzone 11:12:18 HIGH SCHOOL LEARNING SUPPORT TEACHER CPT-54962 Spec Collection and Handling Fee 11:12:18 HIGH SCHOOL LEARNING SUPPORT TEACHER CPT-78162 Visit 11:12:18 HIGH SCHOOL LEARNING SUPPORT TEACHER
--- OUTSIDE RECORDS SUMMARY | 2017-12-29 16:44 | XMS REPORT | Clinical Summary ---
Author Author Admin, BENTLEY Organization [facility] [place] Address Unknown Phone Unavailable Allergies, Adverse Reactions, Alerts Allergy Name Reaction Description Start Date Severity Status Provider No Known Allergies Milli Hamilton MA Conditions or Problems Problem Name Problem Code Onset Date Status Entry Date Provider Comment Standard Description Annotate Hand pain, right 729.5 Resolved Mari Yokum PROJECT DEVELOPMENT DIRECTOR Pain in limb Low back pain 724.2 Resolved Mari Yokum PROJECT DEVELOPMENT DIRECTOR Lumbago Supervision of normal first V22.0 Resolved Mari Yokum PROJECT DEVELOPMENT DIRECTOR Supervision of normal first , adolescent 659.83 Resolved Mari Yokum PROJECT DEVELOPMENT DIRECTOR Other specified indications for care or intervention related to labor and delivery, antepartum condition or complication NEED FOR PROPHYLACTIC VACCINATION WITH STREPTOCOCCUS PNEUMONIAE (PNEUMOCOCCUS) AND INFLUENZA V06.6 Resolved Mari Yokum PROJECT DEVELOPMENT DIRECTOR Need for prophylactic vaccination and inoculation against Streptococcus pneumoniae [pneumococcus] and influenza UTI 599.0 Resolved Mari Yokum PROJECT DEVELOPMENT DIRECTOR Urinary tract infection, site not specified Contraceptive management V25.9 Active Mari Yokum PROJECT DEVELOPMENT DIRECTOR Encounter for unspecified contraceptive management Depression 311 Active Mari Yokum PROJECT DEVELOPMENT DIRECTOR Depressive disorder, not elsewhere classified Hand pain, right ICD-729.5 Inactive Mari Yokum PROJECT DEVELOPMENT DIRECTOR Low back pain ICD-724.2 Inactive Mari Yokum PROJECT DEVELOPMENT DIRECTOR Supervision of normal first ICD-V22.0 Inactive Mari Yokum PROJECT DEVELOPMENT DIRECTOR , adolescent ICD-659.83 Inactive Mari Romo PROJECT DEVELOPMENT DIRECTOR NEED FOR PROPHYLACTIC VACCINATION WITH STREPTOCOCCUS PNEUMONIAE (PNEUMOCOCCUS) AND INFLUENZA ICD-V06.6 Inactive Mari Romo PROJECT DEVELOPMENT DIRECTOR UTI ICD-599.0 Inactive Mari Romo PROJECT DEVELOPMENT DIRECTOR Medication List Medication Instructions Start Date Stop Date Generic Name NDC Status Provider Patient Instruction DEPO-PROVERA 150 MG/ML SUPENSION MEDROXYPROGEST RKI ( CONTRACEP) [id number] Active Mari Romo PROJECT DEVELOPMENT DIRECTOR Active PROZAC 10 MG CAP Take one tablet daily for depression FLUOXETINE HCL 86297115879 Active Mari Romo PROJECT DEVELOPMENT DIRECTOR Active MACROBID 100 MG CAPS one tab PO BID x 7 days NITROFURANTOIN MONOHYD MACRO 52848333009 No Longer Active Traci Tinsley MD Active CONCEPT DHA 53.5-38-1 MG CAPS one tab PO daily PRENAT-FEFUM- NUMU-DI-TYJEA 3 90155781892 Active Traci Tinsley MD Active TRAMADOL HCL 50 MG TABS 1 tab po tid prn back pain TRAMADOL HCL 09162685082 No Longer Active Traci Tinsley MD Active PREDNISONE 20 MG TAB Take 3 tabs daily for 3 days, then 2 tabs daily for 3 days, then 1 tab daily for 3 days, then 1/2 tab daily for 3 days. PREDNISONE 06746244033 No Longer Active Peter Sung MD Active TRAMADOL HCL 50 MG TABS 1 tab po tid prn back pain TRAMADOL HCL 50 MG TABS 353196 TRAMADOL HCL Inactive PREDNISONE 20 MG TAB Take 3 tabs daily for 3 days, then 2 tabs daily for 3 days, then 1 tab daily for 3 days, then 1/2 tab daily for 3 days. PREDNISONE 20 MG TAB 656761 PREDNISONE Inactive MACROBID 100 MG CAPS one tab PO BID x 7 days MACROBID 100 MG CAPS 098631 NITROFURANTOIN MONOHYD MACRO Inactive Advance Directives Directive [...] % 11.0-15.0 platelet count 230 THOUSAND/UL 10*3/mm3 602-779 0573/11/20 Blood type A Lab Report: ABO GROUP [...] UC Encounters Code Encounter Date Provider Facility CPT-29657 Level 3 Est. Patient 20:39:13 SMEARER Mari Romo [facility] CPT-78167 Level 3 Est. Patient 11:07:33 SMEARER Mari Romo [facility] CPT-99735 Level 3 Est. Patient 10:33:19 CDT Peter Sung MD [facility] CPT-76049 Level 3 Est. Patient 18:10:34 CDT Peter Sung MD [facility] Procedures Code Procedure Name Date Entry Date Standard Description CPT-J1050 Depo Provera 150 mg (Medroxyprogesterone) 13:48:38 SMEARER CPT-15418 Abx/Therapy Injection 13:48:38 SMEARER CPT-35334 Venipuncture Draw Fee 11:24:44 SMEARER CPT-J1050 Depo Provera 150 mg (Medroxyprogesterone) 11:07:33 SMEARER CPT-37532 Immunization Single Admin 13:12:44 SMEARER CPT-07140 Fluzone Quadrivalent Intramuscular Suspension 0.5 ML 13: 12:44 SMEARER CPT-79269 Fluzone 11:12:18 SMEARER CPT-45708 Spec Collection and Handling Fee 11:12:18 SMEARER CPT-99407 Visit 11:12:18 SMEARER
--- OUTSIDE RECORDS SUMMARY | 2017-12-29 16:44 | XMS REPORT | Clinical Summary ---
Author Author Admin, [facility] Organization [employer] Address Unknown Phone Unavailable Allergies, Adverse Reactions, [...] BID x 7 days NITROFURANTOIN MONOHYD MACRO 88705174348 Active Traci Tinsley MD Active CONCEPT DHA 53.5-38-1 MG CAPS one tab PO daily PRENAT-FEFUM- RIZM-TR-BMDBS 3 44713130532 Active Traci Tinsley MD Active TRAMADOL HCL 50 MG TABS 1 tab po tid prn back pain TRAMADOL HCL 31475762279 No Longer Active Traci Tinsley MD Active PREDNISONE 20 MG TAB Take 3 tabs daily for 3 days, then 2 tabs daily for 3 days, then 1 tab daily for 3 days, then 1/2 tab daily for 3 days. PREDNISONE 38570374112 No Longer Active Peter Sung MD Active TRAMADOL HCL 50 MG TABS 1 tab po tid prn back pain TRAMADOL HCL 50 MG TABS 285412 TRAMADOL HCL Inactive PREDNISONE 20 MG TAB Take 3 tabs daily for 3 days, then 2 tabs daily for 3 days, then 1 tab daily for 3 days, then 1/2 tab daily for 3 days. PREDNISONE 20 MG TAB 437718 PREDNISONE Inactive Advance Directives Directive Description Start [...] temperature weight E&M 134 [lb_av] Weight Measured Diagnostic Results Date [...] RBCW/REFL I, CBC (IN ... - Hematology Blood type A leukocyte count, blood 8.5 THOUSAND/UL 10*3/mm3 4.5-13.0 erythrocyte (RBC) count 4.48 MILLION/UL 10*6/mm3 3.80-5.10 hemoglobin, blood 13.6 g/dL 11.5-15.3 hematocrit, blood 41.7 % 34.0-46.0 mean corpuscular volume, RBC 93.0 fL 78.0-98.0 mean corpuscular hemoglobin, RBC 30.4 pg 25.0-35.0 mean corpuscular hemoglobin concentration, RBC 32.7 G/DL % 31.0- 36.0 red blood cell distribution width 12.5 % 11.0-15.0 platelet count 230 THOUSAND/UL 10*3/mm3 140-400 Lab Report: ABO GROUP & RH TYPE, [...] NON-REACTIVE NON-REACTIVE rubella antibody, serum, IgG 2.86 Encounters Code Encounter Date Provider Facility CPT-11315 Level 3 Est. Patient 10:33:19 CDT Peter Sung MD [facility] CPT-29700 Level 3 Est. Patient 18:10:34 CDT Peter Sung MD [facility] Procedures Code Procedure Name Date Entry Date Standard Description CPT-79898 Immunization Single Admin 13:12:44 BULK SYSTEM OPERATOR CPT-28221 Fluzone Quadrivalent Intramuscular Suspension 0.5 ML 13: 12:44 BULK SYSTEM OPERATOR CPT-70991 Fluzone 11:12:18 BULK SYSTEM OPERATOR CPT-99251 Spec Collection and Handling Fee 11:12:18 BULK SYSTEM OPERATOR CPT-52224 Visit 11:12:18 BULK SYSTEM OPERATOR
--- OUTSIDE RECORDS SUMMARY | 2017-12-29 16:45 | XMS REPORT | Clinical Summary ---
Author Author Admin, [facility] Organization [employer] Address Unknown Phone Unavailable Allergies, Adverse Reactions, Alerts Allergy Name Reaction Description Start Date Severity Status Provider No Known Allergies Leila Cartwright Conditions or Problems Problem Name Problem Code Onset Date Status Entry Date Provider Comment Standard Description Annotate Hand pain, right 729.5 Active Peter Sung MD Pain in limb Low back pain 724.2 Active Peter Sung MD Lumbago Medication List Medication Instructions Start Date Stop Date Generic Name NDC Status Provider Patient Instruction No Drug Therapy Prescribed - none known did ask Leila Cartwright Vital Signs Date Name Value Unit Range Description blood pressure, diastolic - 8462-4 73 mm[Hg] BP ogden blood pressure, systolic - 8480-6 121 mm[Hg] BP sys height E&M - 8302-2 66.25 [in_us] Bdy height pulse rate E&M - 8867-4 73 /min Heart rate temperature E&M 98.4 [degF] Body temperature weight E&M - 3141-9 134 [lb_av] Weight Measured Encounters Code Encounter Date Provider Facility CPT-70372 Level 3 Est. Patient 18:10:34 CDT Peter Sung MD [facility]
--- OUTSIDE RECORDS SUMMARY | 2017-12-29 16:45 | XMS REPORT | Clinical Summary ---
Author Author Admin, [facility] Organization [employer] Address Unknown Phone Unavailable Allergies, Adverse Reactions, [...] BID x 7 days NITROFURANTOIN MONOHYD MACRO 82287179760 Active Traci Tinsley MD Active CONCEPT DHA 53.5-38-1 MG CAPS one tab PO daily PRENAT-FEFUM- TPTE-FC-NFPDT 3 72436428447 Active Traci Tinsley MD Active TRAMADOL HCL 50 MG TABS 1 tab po tid prn back pain TRAMADOL HCL 30948164658 No Longer Active Traci Tinsley MD Active PREDNISONE 20 MG TAB Take 3 tabs daily for 3 days, then 2 tabs daily for 3 days, then 1 tab daily for 3 days, then 1/2 tab daily for 3 days. PREDNISONE 12611012111 No Longer Active Peter Sung MD Active TRAMADOL HCL 50 MG TABS 1 tab po tid prn back pain TRAMADOL HCL 50 MG TABS 602101 TRAMADOL HCL Inactive PREDNISONE 20 MG TAB Take 3 tabs daily for 3 days, then 2 tabs daily for 3 days, then 1 tab daily for 3 days, then 1/2 tab daily for 3 days. PREDNISONE 20 MG TAB 661899 PREDNISONE Inactive Advance Directives Directive Description Start [...] I, CBC (IN ... - Blood bank antibody screen, serum NO ANTIBODIES DETECTED Rh antigen RH(D) POSITIVE Lab Report: ABO GROUP & RH TYPE, ANTIBODY SCREEN, RBCW/REFL I, CBC (IN ... - Chemistry hepatitis B surface antigen NON-REACTIVE NON-REACTIVE Lab Report: ABO GROUP & RH TYPE, ANTIBODY SCREEN, RBCW/REFL I, CBC (IN ... - Hematology erythrocyte (RBC) count 4.48 MILLION/UL 10*6/mm3 3.80-5.10 leukocyte count, blood 8.5 THOUSAND/UL 10*3/mm3 4.5-13.0 Blood type A hemoglobin, blood 13.6 g/dL 11.5-15.3 hematocrit, blood [...] 2.86 Encounters Code Encounter Date Provider Facility CPT-54170 Level 3 Est. Patient 10:33:19 CDT Peter Sung MD [facility] CPT-94288 Level 3 Est. Patient 18:10:34 CDT Peter Sung MD [facility] Procedures Code Procedure Name Date Entry Date Standard Description CPT-40420 Immunization Single Admin 13:12:44 PAINTER AND BODY MECHANIC APPRENTICE CPT-38618 Fluzone Quadrivalent Intramuscular Suspension 0.5 ML 13: 12:44 PAINTER AND BODY MECHANIC APPRENTICE CPT-28710 Fluzone 11:12:18 PAINTER AND BODY MECHANIC APPRENTICE CPT-27279 Spec Collection and Handling Fee 11:12:18 PAINTER AND BODY MECHANIC APPRENTICE CPT-02736 Visit 11:12:18 PAINTER AND BODY MECHANIC APPRENTICE
--- OUTSIDE RECORDS SUMMARY | 2017-12-29 16:45 | XMS REPORT | Clinical Summary ---
Author Author Admin, Jose Miguel Organization [facility] [employer] Address Unknown Phone Unavailable Allergies, Adverse Reactions, [...] MD Urinary tract infection, site not specified Contraceptive management V25.9 Active Mari Romo APRN Encounter for unspecified contraceptive management Medication List Medication Instructions Start Date Stop Date Generic Name NDC Status Provider Patient Instruction PROZAC 10 MG CAP Take one tablet daily for depression FLUOXETINE HCL 24721887493 Active Mari Romo APRN Active MACROBID 100 MG CAPS one tab PO BID x 7 days NITROFURANTOIN MONOHYD MACRO 92786090330 No Longer Active Traci Tinsley MD Active CONCEPT DHA 53.5-38-1 MG CAPS one tab PO daily PRENAT-FEFUM- ATHG-ZR-ZXAJT 3 35239384246 Active Traci Tinsley MD Active TRAMADOL HCL 50 MG TABS 1 tab po tid prn back pain TRAMADOL HCL 07459080022 No Longer Active Traci Tinsley MD Active PREDNISONE 20 MG TAB Take 3 tabs daily for 3 days, then 2 tabs daily for 3 days, then 1 tab daily for 3 days, then 1/2 tab daily for 3 days. PREDNISONE 27917660980 No Longer Active Peter Sung MD Active TRAMADOL HCL 50 MG TABS 1 tab po tid prn back pain TRAMADOL HCL 50 MG TABS 056933 TRAMADOL HCL Inactive PREDNISONE 20 MG TAB Take 3 tabs daily for 3 days, then 2 tabs daily for 3 days, then 1 tab daily for 3 days, then 1/2 tab daily for 3 days. PREDNISONE 20 MG TAB 388638 PREDNISONE Inactive MACROBID 100 MG CAPS one tab PO BID x 7 days MACROBID 100 MG CAPS 147927 NITROFURANTOIN MONOHYD MACRO Inactive Advance Directives Directive [...] % 11.0-15.0 platelet count 230 THOUSAND/UL 10*3/mm3 690-537 3071/11/20 Blood type A Lab Report: ABO GROUP [...] UC Encounters Code Encounter Date Provider Facility CPT-37551 Level 3 Est. Patient 11:07:33 EDGER TAILER Mari Romo APRN [facility] CPT-93569 Level 3 Est. Patient 10:33:19 CDT Peter Sung MD [facility] CPT-22356 Level 3 Est. Patient 18:10:34 CDT Peter Sung MD [facility] Procedures Code Procedure Name Date Entry Date Standard Description CPT-J1050 Depo Provera 150 mg (Medroxyprogesterone) 13:48:38 EDGER TAILER CPT-49837 Abx/Therapy Injection 13:48:38 EDGER TAILER CPT-56480 Venipuncture Draw Fee 11:24:44 EDGER TAILER CPT-J1050 Depo Provera 150 mg (Medroxyprogesterone) 11:07:33 EDGER TAILER CPT-50290 Immunization Single Admin 13:12:44 EDGER TAILER CPT-54876 Fluzone Quadrivalent Intramuscular Suspension 0.5 ML 13: 12:44 EDGER TAILER CPT-09975 Fluzone 11:12:18 EDGER TAILER CPT-40088 Spec Collection and Handling Fee 11:12:18 EDGER TAILER CPT-80722 Visit 11:12:18 EDGER TAILER
--- OUTSIDE RECORDS SUMMARY | 2017-12-29 16:45 | XMS REPORT | Clinical Summary ---
Author Author Admin, [facility] Organization [email or web address] Address Unknown Phone Unavailable Allergies, Adverse Reactions, [...] BID x 7 days NITROFURANTOIN MONOHYD MACRO 91612922189 Active Traci Tinsley MD Active CONCEPT DHA 53.5-38-1 MG CAPS one tab PO daily PRENAT-FEFUM- HUVD-DM-GJTTO 3 75643699996 Active Traci Tinsley MD Active TRAMADOL HCL 50 MG TABS 1 tab po tid prn back pain TRAMADOL HCL 58743600906 No Longer Active Traci Tinsley MD Active PREDNISONE 20 MG TAB Take 3 tabs daily for 3 days, then 2 tabs daily for 3 days, then 1 tab daily for 3 days, then 1/2 tab daily for 3 days. PREDNISONE 81566897063 No Longer Active Peter Sung MD Active TRAMADOL HCL 50 MG TABS 1 tab po tid prn back pain TRAMADOL HCL 50 MG TABS 445729 TRAMADOL HCL Inactive PREDNISONE 20 MG TAB Take 3 tabs daily for 3 days, then 2 tabs daily for 3 days, then 1 tab daily for 3 days, then 1/2 tab daily for 3 days. PREDNISONE 20 MG TAB 644804 PREDNISONE Inactive Advance Directives Directive Description Start [...] Measured Encounters Code Encounter Date Provider Facility CPT-12649 Level 3 Est. Patient 10:33:19 CDT Peter Sung MD [facility] CPT-30852 Level 3 Est. Patient 18:10:34 CDT Peter Sung MD [facility] Procedures Code Procedure Name Date Entry Date Standard Description CPT-72370 Immunization Single Admin 13:12:44 BENCH INSPECTOR CPT-83107 Fluzone Quadrivalent Intramuscular Suspension 0.5 ML 13: 12:44 BENCH INSPECTOR CPT-96046 Fluzone 11:12:18 BENCH INSPECTOR CPT-62410 Spec Collection and Handling Fee 11:12:18 BENCH INSPECTOR CPT-24436 Visit 11:12:18 BENCH INSPECTOR
--- OUTSIDE RECORDS SUMMARY | 2017-12-29 16:45 | XMS REPORT | Clinical Summary ---
Author Author Admin, [facility] Organization [employer] Address Unknown Phone Unavailable Allergies, Adverse Reactions, [...] BID x 7 days NITROFURANTOIN MONOHYD MACRO 55157928525 No Longer Active Traci Tinsley MD Active CONCEPT DHA 53.5-38-1 MG CAPS one tab PO daily PRENAT-FEFUM- BXIV-CR-HXXKP 3 21268931372 Active Traci Tinsley MD Active TRAMADOL HCL 50 MG TABS 1 tab po tid prn back pain TRAMADOL HCL 14740924318 No Longer Active Traci Tinsley MD Active PREDNISONE 20 MG TAB Take 3 tabs daily for 3 days, then 2 tabs daily for 3 days, then 1 tab daily for 3 days, then 1/2 tab daily for 3 days. PREDNISONE 48701109630 No Longer Active Peter Sung MD Active TRAMADOL HCL 50 MG TABS 1 tab po tid prn back pain TRAMADOL HCL 50 MG TABS 740548 TRAMADOL HCL Inactive PREDNISONE 20 MG TAB Take 3 tabs daily for 3 days, then 2 tabs daily for 3 days, then 1 tab daily for 3 days, then 1/2 tab daily for 3 days. PREDNISONE 20 MG TAB 140212 PREDNISONE Inactive MACROBID 100 MG CAPS one tab PO BID x 7 days MACROBID 100 MG CAPS 509281 NITROFURANTOIN MONOHYD MACRO Inactive Advance Directives Directive [...] 2.86 Encounters Code Encounter Date Provider Facility CPT-13063 Level 3 Est. Patient 10:33:19 CDT Peter Sung MD [facility] CPT-57078 Level 3 Est. Patient 18:10:34 CDT Peter Sung MD [facility] Procedures Code Procedure Name Date Entry Date Standard Description CPT-76080 Immunization Single Admin 13:12:44 MORTGAGE BROKER CPT-97582 Fluzone Quadrivalent Intramuscular Suspension 0.5 ML 13: 12:44 MORTGAGE BROKER CPT-65587 Fluzone 11:12:18 MORTGAGE BROKER CPT-25074 Spec Collection and Handling Fee 11:12:18 MORTGAGE BROKER CPT-01062 Visit 11:12:18 MORTGAGE BROKER
--- OUTSIDE RECORDS SUMMARY | 2017-12-29 16:45 | XMS REPORT | Clinical Summary ---
Author Author Admin, Jose Miguel Organization [employer] Address Unknown Phone Unavailable Allergies, Adverse Reactions, [...] one tablet daily for depression FLUOXETINE HCL 48031618078 Active Mari Romo APRN Active MACROBID 100 MG CAPS one tab PO BID x 7 days NITROFURANTOIN MONOHYD MACRO 27692965214 No Longer Active Traci Tinsley MD Active CONCEPT DHA 53.5-38-1 MG CAPS one tab PO daily PRENAT-FEFUM- GLZT-TW-GQHWT 3 57801133818 Active Traci Tinsley MD Active TRAMADOL HCL 50 MG TABS 1 tab po tid prn back pain TRAMADOL HCL 31996856211 No Longer Active Traci Tinsley MD Active PREDNISONE 20 MG TAB Take 3 tabs daily for 3 days, then 2 tabs daily for 3 days, then 1 tab daily for 3 days, then 1/2 tab daily for 3 days. PREDNISONE 27757655051 No Longer Active Peter Sung MD Active TRAMADOL HCL 50 MG TABS 1 tab po tid prn back pain TRAMADOL HCL 50 MG TABS 890131 TRAMADOL HCL Inactive PREDNISONE 20 MG TAB Take 3 tabs daily for 3 days, then 2 tabs daily for 3 days, then 1 tab daily for 3 days, then 1/2 tab daily for 3 days. PREDNISONE 20 MG TAB 282813 PREDNISONE Inactive MACROBID 100 MG CAPS one tab PO BID x 7 days MACROBID 100 MG CAPS 339137 NITROFURANTOIN MONOHYD MACRO Inactive Advance Directives Directive [...] % 11.0-15.0 platelet count 230 THOUSAND/UL 10*3/mm3 864-734 5554/11/20 Blood type A Lab Report: ABO GROUP [...] UC Encounters Code Encounter Date Provider Facility CPT-97226 Level 3 Est. Patient 11:07:33 SAND CUTTING MACHINE OPERATOR Mari Romo APRN [facility] CPT-71531 Level 3 Est. Patient 10:33:19 CDT Peter Sung MD [facility] CPT-79857 Level 3 Est. Patient 18:10:34 CDT Peter Sung MD [facility] Procedures Code Procedure Name Date Entry Date Standard Description CPT-J1050 Depo Provera 150 mg (Medroxyprogesterone) 13:48:38 SAND CUTTING MACHINE OPERATOR CPT-59374 Abx/Therapy Injection 13:48:38 SAND CUTTING MACHINE OPERATOR CPT-65524 Venipuncture Draw Fee 11:24:44 SAND CUTTING MACHINE OPERATOR CPT-J1050 Depo Provera 150 mg (Medroxyprogesterone) 11:07:33 SAND CUTTING MACHINE OPERATOR CPT-67941 Immunization Single Admin 13:12:44 SAND CUTTING MACHINE OPERATOR CPT-88291 Fluzone Quadrivalent Intramuscular Suspension 0.5 ML 13: 12:44 SAND CUTTING MACHINE OPERATOR CPT-62306 Fluzone 11:12:18 SAND CUTTING MACHINE OPERATOR CPT-72315 Spec Collection and Handling Fee 11:12:18 SAND CUTTING MACHINE OPERATOR CPT-62334 Visit 11:12:18 SAND CUTTING MACHINE OPERATOR
--- OUTSIDE RECORDS SUMMARY | 2017-12-29 16:46 | XMS REPORT | Clinical Summary ---
Author Author Admin, E Organization [employer] Address Unknown Phone Unavailable Allergies, Adverse Reactions, Alerts Allergy Name Reaction Description Start Date Severity Status Provider No Known Allergies Sandi Jolleyford RMA Conditions or Problems Problem Name Problem Code Onset Date Status Entry Date Provider Comment Standard Description Annotate Hand pain, right 729.5 Resolved Maricarlton Romo CREDIT COLLECTIONS ANALYST Pain in limb Low back pain 724.2 Resolved Mari Yokum CREDIT COLLECTIONS ANALYST Lumbago Supervision of normal first V22.0 Resolved Mari Yosurajum CREDIT COLLECTIONS ANALYST Supervision of normal first , adolescent 659.83 Resolved Mari Yokum CREDIT COLLECTIONS ANALYST Other specified indications for care or intervention related to labor and delivery, antepartum condition or complication NEED FOR PROPHYLACTIC VACCINATION WITH STREPTOCOCCUS PNEUMONIAE (PNEUMOCOCCUS) AND INFLUENZA V06.6 Resolved Mari Yokum CREDIT COLLECTIONS ANALYST Need for prophylactic vaccination and inoculation against Streptococcus pneumoniae [pneumococcus] and influenza UTI 599.0 Resolved Mari Yokum CREDIT COLLECTIONS ANALYST Urinary tract infection, site not specified Contraceptive management V25.9 Active Mari Yokum CREDIT COLLECTIONS ANALYST Encounter for unspecified contraceptive management Depression 311 Active Mari Yokum CREDIT COLLECTIONS ANALYST Depressive disorder, not elsewhere classified Tonsillar hypertrophy 474.11 Active Mari Yokum CREDIT COLLECTIONS ANALYST Hypertrophy of tonsils alone Headache 784.0 Active Michelle Smith MD PhD Headache Sinusitis, acute 461.9 Active Michelle Smith MD PhD Acute sinusitis, unspecified Low back pain ICD-724.2 Inactive Mari Romo CREDIT COLLECTIONS ANALYST Supervision of normal first ICD-V22.0 Inactive Mari Romo CREDIT COLLECTIONS ANALYST , adolescent ICD-659.83 Inactive Mari Romo CREDIT COLLECTIONS ANALYST NEED FOR PROPHYLACTIC VACCINATION WITH STREPTOCOCCUS PNEUMONIAE (PNEUMOCOCCUS) AND INFLUENZA ICD-V06.6 Inactive Mari Romo CREDIT COLLECTIONS ANALYST UTI ICD-599.0 Inactive Mari Romo CREDIT COLLECTIONS ANALYST Hand pain, right ICD-729.5 Inactive Mari Romo CREDIT COLLECTIONS ANALYST Medication List Medication Instructions Start Date Stop Date Generic Name NDC Status Provider Patient Instruction AUGMENTIN 875-125 MG TABS 1 pill by mouth twice daily AMOXICILLIN-POT CLAVULANATE 79348970214 Active Michelle Smith MD PhD Active PAROXETINE HCL 10 MG TABS 1 pill by mouth daily, for depression PAROXETINE HCL 58565399681 Active Michelle Smith MD PhD Active PROZAC 10 MG CAP Take one tablet daily for depression FLUOXETINE HCL 13490410202 No Longer Active Michelle Smith MD PhD Active CONCEPT DHA 53.5-38-1 MG CAPS one tab PO daily PRENAT -OPNVW-UFSQ-XK-OMEGA 3 35108252931 No Longer Active Michelle Smith MD PhD Active DEPO-PROVERA 150 MG/ML SUPENSION MEDROXYPROGEST RIK ( CONTRACEP) 04476551150 Active Mari Romo CREDIT COLLECTIONS ANALYST Active MACROBID 100 MG CAPS one tab PO BID x 7 days NITROFURANTOIN MONOHYD MACRO 02009615733 No Longer Active Traci Tinsley MD Active TRAMADOL HCL 50 MG TABS 1 tab po tid prn back pain TRAMADOL HCL 66281793023 No Longer Active Traci Tinsley MD Active PREDNISONE 20 MG TAB Take 3 tabs daily for 3 days, then 2 tabs daily for 3 days, then 1 tab daily for 3 days, then 1/2 tab daily for 3 days. PREDNISONE 80639261077 No Longer Active Peter Sung MD Active TRAMADOL HCL 50 MG TABS 1 tab po tid prn back pain TRAMADOL HCL 50 MG TABS 760170 TRAMADOL HCL Inactive CONCEPT DHA 53.5-38-1 MG CAPS one tab PO daily CONCEPT DHA 53.5-38-1 MG CAPS XTRSHX-XAILW-AVXW-FA-OMEGA 3 Inactive PROZAC 10 MG CAP Take one tablet daily for depression PROZAC 10 MG CAP 822553 FLUOXETINE HCL Inactive PREDNISONE 20 MG TAB Take 3 tabs daily for 3 days, then 2 tabs daily for 3 days, then 1 tab daily for 3 days, then 1/2 tab daily for 3 days. PREDNISONE 20 MG TAB 724326 PREDNISONE Inactive MACROBID 100 MG CAPS one tab PO BID x 7 days MACROBID 100 MG CAPS 638898 NITROFURANTOIN MONOHYD MACRO Inactive Advance Directives Directive [...] % 11.0-15.0 platelet count 230 THOUSAND/UL 10*3/mm3 679-795 1169/11/20 Blood type A Lab Report: ABO GROUP [...] UC Encounters Code Encounter Date Provider Facility CPT-02190 Level 3 Est. Patient 08:42:18 CDT Michelle Smith MD PhD [facility] CPT-52585 Level 3 Est. Patient 16:24:24 ENGRAVING PATTERNMAKER Mari Romo [facility] CPT-17513 Level 3 Est. Patient 20:39:13 ENGRAVING PATTERNMAKER Mari Romo [facility] CPT-61357 Level 3 Est. Patient 11:07:33 ENGRAVING PATTERNMAKER Mari Romo [facility] CPT-38627 Level 3 Est. Patient 10:33:19 CDT Peter Sung MD [facility] CPT-43295 Level 3 Est. Patient 18:10:34 CDT Peter Sung MD [facility] Procedures Code Procedure Name Date Entry Date Standard Description CPT-J1885 Toradol 30 mg (Ketorolac) 17:01:40 CDT CPT-96786 Abx/Therapy Injection 17:01:40 CDT CPT-J1885 Toradol 60 mg (Ketorolac) 15:41:36 CDT CPT-J1050 Depo Provera 150 mg (Medroxyprogesterone) 13:48:38 ENGRAVING PATTERNMAKER CPT-98589 Abx/Therapy Injection 13:48:38 ENGRAVING PATTERNMAKER CPT-29231 Venipuncture Draw Fee 11:24:44 ENGRAVING PATTERNMAKER CPT-J1050 Depo Provera 150 mg (Medroxyprogesterone) 11:07:33 ENGRAVING PATTERNMAKER CPT-28502 Immunization Single Admin 13:12:44 ENGRAVING PATTERNMAKER CPT-28167 Fluzone Quadrivalent Intramuscular Suspension 0.5 ML 13: 12:44 ENGRAVING PATTERNMAKER CPT-69559 Fluzone 11:12:18 ENGRAVING PATTERNMAKER CPT-37205 Spec Collection and Handling Fee 11:12:18 ENGRAVING PATTERNMAKER CPT-96568 Visit 11:12:18 ENGRAVING PATTERNMAKER
--- OUTSIDE RECORDS SUMMARY | 2017-12-29 16:46 | XMS REPORT | Clinical Summary ---
Author Author Admin, E Organization [employer] Address Unknown Phone Unavailable Allergies, Adverse Reactions, [...] BID x 7 days NITROFURANTOIN MONOHYD MACRO 11626941938 No Longer Active Traci Tinsley MD Active CONCEPT DHA 53.5-38-1 MG CAPS one tab PO daily PRENAT-FEFUM- JAAE-YA-EIGBE 3 55557224371 Active Traci Tinsley MD Active TRAMADOL HCL 50 MG TABS 1 tab po tid prn back pain TRAMADOL HCL 11748554750 No Longer Active Traci Tinsley MD Active PREDNISONE 20 MG TAB Take 3 tabs daily for 3 days, then 2 tabs daily for 3 days, then 1 tab daily for 3 days, then 1/2 tab daily for 3 days. PREDNISONE 60958395860 No Longer Active Peter Sung MD Active TRAMADOL HCL 50 MG TABS 1 tab po tid prn back pain TRAMADOL HCL 50 MG TABS 645198 TRAMADOL HCL Inactive PREDNISONE 20 MG TAB Take 3 tabs daily for 3 days, then 2 tabs daily for 3 days, then 1 tab daily for 3 days, then 1/2 tab daily for 3 days. PREDNISONE 20 MG TAB 563529 PREDNISONE Inactive MACROBID 100 MG CAPS one tab PO BID x 7 days MACROBID 100 MG CAPS 424383 NITROFURANTOIN MONOHYD MACRO Inactive Advance Directives Directive [...] % 11.0-15.0 platelet count 230 THOUSAND/UL 10*3/mm3 519-339 6944/11/20 Blood type A Lab Report: ABO GROUP [...] UC Encounters Code Encounter Date Provider Facility CPT-06922 Level 3 Est. Patient 11:07:33 ASSOCIATE PRINCIPAL Mari Romo APRN [facility] CPT-02808 Level 3 Est. Patient 10:33:19 CDT Peter Sung MD [facility] CPT-30425 Level 3 Est. Patient 18:10:34 CDT Peter Sung MD [facility] Procedures Code Procedure Name Date Entry Date Standard Description CPT-61313 Venipuncture Draw Fee 11:24:44 ASSOCIATE PRINCIPAL CPT-J1050 Depo Provera 150 mg (Medroxyprogesterone) 11:07:33 ASSOCIATE PRINCIPAL CPT-80850 Immunization Single Admin 13:12:44 ASSOCIATE PRINCIPAL CPT-18879 Fluzone Quadrivalent Intramuscular Suspension 0.5 ML 13: 12:44 ASSOCIATE PRINCIPAL CPT-25794 Fluzone 11:12:18 ASSOCIATE PRINCIPAL CPT-99763 Spec Collection and Handling Fee 11:12:18 ASSOCIATE PRINCIPAL CPT-98450 Visit 11:12:18 ASSOCIATE PRINCIPAL
--- OUTSIDE RECORDS SUMMARY | 2017-12-29 16:46 | XMS REPORT ---
Author Author [facility] [employer] [facility] Medical Staff Organization [facility] Address [address], [place] [address] Phone [phone] Care Team Providers Care Direct Care Specialist Name Role Phone RALPH STALLWORTH MD PP [phone] Summary purpose TRANSITION OF CARE AUTO GENERATION [...] tests and/or laboratory data RESULTS Radiology Results [id number] MRI BRAIN W/WO CONT PACs Image DATE OF EXAM: May 17 2014 MRI 0036-MRI BRAIN W/WO CONTRAST : RADIOLOGY REPORT DATE OF SERVICE:05/17/2014 HISTORY:Patient has headaches x6 weeks. MRI BRAIN WITH AND WITHOUT CONTRAST 1154 HOURS Multiplanar multisequence study was performed. Patient received 14 mL of Magnevist contrast intravenously for contrast portion of study. Signal intensity throughout the brain is normal. There is no mass effect. No white matter lesions are seen. Diffusion weighted images fail to show any restricted diffusion. There is no abnormal enhancement after contrast administration. The ventricles are normal. Cranial nerves VII and VIII are normal and symmetric. The orbits are normal. In the left maxillary sinus, there appears to be a small amount of fluid in the dependent aspect, and there is mild 2 to 3 mm maximum mucosal edema about the left maxillary sinus. The left ethmoid sinus shows mild to moderate opacification and edema. There is enhancement of the mucosa of the frontal sinus diffusely, measuring 1 to 2 mm thickness. The sphenoid sinus is clear. The study is otherwise negative. IMPRESSION:Negative study of the brain. Flow voids of major vessels are intact. There is evidence of some sinusitis as described in body of report. Pa Orr DO MW/cc 05/17/2014 12:14:00 / 05/17/2014 14:53:48 cc:Dr. Smith This document has been electronically Signed by: On: History of procedures No procedures recorded for this patient visit. Functional status No functional or cognitive status observations are available for this visit. Vital signs No authorized vital signs are available for this visit. Social history No Social History or smoking status observations were recorded for this visit. ( Unknown if ever smoked.) Treatment Plan No treatment plan text is available for this visit. Hospital discharge instructions No discharge instruction text is available for this visit.
--- OUTSIDE RECORDS SUMMARY | 2017-12-29 16:46 | XMS REPORT ---
Author Author [employer] [facility] Medical Staff Organization [facility] [employer] [facility] Address [address], [place] [address] Phone [phone] Care Team Providers Care Recreation Therapist Name Role Phone RALPH STALLWORTH MD PP [phone] Summary purpose TRANSITION OF CARE AUTO GENERATION Chief Complaint and Reason for Visit Admit Diagnosis 1 HEADACHE Problem list No authorized problems tracked for [...] tests and/or laboratory data RESULTS Radiology Results [id number] MRI BRAIN W/WO CONT PACs Image DATE [...] sinusitis as described in body of report. Amadeo Sánchez DO MW/cc 05/17/2014 12:14: / 05/17/2014 14:53:48 cc:Dr. Smith This document has been electronically Signed by: On: DATE OF EXAM: May 17 2014 MRI [...] sinusitis as described in body of report. Amadeo Sánchez DO MW/cc 05/17/2014 12:14:05/17/2014 14:53:48 cc:Dr. Smith This document has been electronically Signed by: AMADEO SÁNCHEZ DO On: May 18 20147:52A Result Amended on 2014-05-18 at 07:52:06. Previous status was MT. History of procedures Procedure Code Code Type Description Date Performed Performing Physician [id number] CPT-4 MRI BRAIN W/O & W/DYE 05-17-2014 IVÁN SMITH A9579 CPT-4 JESSICA-BASE MR CONTRAST NOS,1ML 05-17-2014 IVÁN SMITH Functional status No functional or cognitive status [...]
--- OUTSIDE RECORDS SUMMARY | 2017-12-29 16:46 | XMS REPORT | Clinical Summary ---
Author Author Admin, E Organization [employer] Address Unknown Phone Unavailable Allergies, Adverse Reactions, Alerts Allergy Name Reaction Description Start Date Severity Status Provider No Known Allergies Sandi Jolleyford RMA Conditions or Problems Problem Name Problem Code Onset Date Status Entry Date Provider Comment Standard Description Annotate Hand pain, right 729.5 Resolved Mari Yosurajum HEADRIG SAWYER Pain in limb Low back pain 724.2 Resolved Mari Yokum HEADRIG [employer]WYER Lumbago Supervision of normal first V22.0 Resolved Mari Yokum HEADRIG SAWYER Supervision of normal first , adolescent 659.83 Resolved Mari Yokum HEADRIG SAWYER Other specified indications for care or intervention related to labor and delivery, antepartum condition or complication NEED FOR PROPHYLACTIC VACCINATION WITH STREPTOCOCCUS PNEUMONIAE (PNEUMOCOCCUS) AND INFLUENZA V06.6 Resolved Mari Yokum HEADRIG SAWYER Need for prophylactic vaccination and inoculation against Streptococcus pneumoniae [pneumococcus] and influenza UTI 599.0 Resolved Mari Yokum HEADRIG SAWYER Urinary tract infection, site not specified Contraceptive management V25.9 Active Mari Yokum HEADRIG SAWYER Encounter for unspecified contraceptive management Depression 311 Active Mari Yokum HEADRIG SAWYER Depressive disorder, not elsewhere classified Tonsillar hypertrophy 474.11 Active Mari Yokum HEADRIG SAWYER Hypertrophy of tonsils alone Headache 784.0 Active Michelle Smith MD PhD Headache Hand pain, right ICD-729.5 Inactive Mari Yokum HEADRIG SAWYER Low back pain ICD-724.2 Inactive Mari Romo HEADRIG SAWYER Supervision of normal first ICD-V22.0 Inactive Mari Jarvisum HEADRIG SAWYER , adolescent ICD-659.83 Inactive Mari Romo HEADRIG SAWYER NEED FOR PROPHYLACTIC VACCINATION WITH STREPTOCOCCUS PNEUMONIAE (PNEUMOCOCCUS) AND INFLUENZA ICD-V06.6 Inactive Mari Jarvisum HEADRIG SAWYER UTI ICD-599.0 Inactive Mari Romo HEADRIG SAWYER Medication List Medication Instructions Start Date Stop Date Generic Name NDC Status Provider Patient Instruction PAROXETINE HCL 10 MG TABS 1 pill by mouth daily, for depression PAROXETINE HCL 60503666931 Active Michelle Smith MD PhD Active PROZAC 10 MG CAP Take one tablet daily for depression FLUOXETINE HCL 30960089503 No Longer Active Michelle Smith MD PhD Active CONCEPT DHA 53.5-38-1 MG CAPS one tab PO daily PRENAT -EQHXR-AVEA-XV-OMEGA 3 55955413852 No Longer Active Michelle Smith MD PhD Active DEPO-PROVERA 150 MG/ML SUPENSION MEDROXYPROGEST RIK ( CONTRACEP) 39399848068 Active Mari Romo HEADRIG SAWYER Active MACROBID 100 MG CAPS one tab PO BID x 7 days NITROFURANTOIN MONOHYD MACRO 23366395641 No Longer Active Traci Tinsley MD Active TRAMADOL HCL 50 MG TABS 1 tab po tid prn back pain TRAMADOL HCL 47880970102 No Longer Active Traci Tinsley MD Active PREDNISONE 20 MG TAB Take 3 tabs daily for 3 days, then 2 tabs daily for 3 days, then 1 tab daily for 3 days, then 1/2 tab daily for 3 days. PREDNISONE 60916817099 No Longer Active Peter Sung MD Active TRAMADOL HCL 50 MG TABS 1 tab po tid prn back pain TRAMADOL HCL 50 MG TABS 797442 TRAMADOL HCL Inactive CONCEPT DHA 53.5-38-1 MG CAPS one tab PO daily CONCEPT DHA 53.5-38-1 MG CAPS DATOOM-HMKSA-VIAT-FA-OMEGA 3 Inactive PROZAC 10 MG CAP Take one tablet daily for depression PROZAC 10 MG CAP 952104 FLUOXETINE HCL Inactive PREDNISONE 20 MG TAB Take 3 tabs daily for 3 days, then 2 tabs daily for 3 days, then 1 tab daily for 3 days, then 1/2 tab daily for 3 days. PREDNISONE 20 MG TAB 014695 PREDNISONE Inactive MACROBID 100 MG CAPS one tab PO BID x 7 days MACROBID 100 MG CAPS 596896 NITROFURANTOIN MONOHYD MACRO Inactive Advance Directives Directive [...] % 11.0-15.0 platelet count 230 THOUSAND/UL 10*3/mm3 190-263 6668/11/20 Blood type A Lab Report: ABO GROUP [...] UC Encounters Code Encounter Date Provider Facility CPT-95982 Level 3 Est. Patient 08:42:18 CDT Michelle Smith MD PhD [facility] CPT-61463 Level 3 Est. Patient 16:24:24 ADMINISTRATIVE ASSISTANT OFFICE MANAGER [facility] CPT-95215 Level 3 Est. Patient 20:39:13 ADMINISTRATIVE ASSISTANT OFFICE MANAGER [facility] CPT-25400 Level 3 Est. Patient 11:07:33 ADMINISTRATIVE ASSISTANT OFFICE MANAGER [facility] CPT-07034 Level 3 Est. Patient 10:33:19 CDT Peter Sung MD [facility] CPT-55945 Level 3 Est. Patient 18:10:34 CDT Peter Sung MD [facility] Procedures Code Procedure Name Date Entry Date Standard Description CPT-J1885 Toradol 30 mg (Ketorolac) 17:01:40 CDT CPT-83534 Abx/Therapy Injection 17:01:40 CDT CPT-J1885 Toradol 60 mg (Ketorolac) 15:41:36 CDT CPT-J1050 Depo Provera 150 mg (Medroxyprogesterone) 13:48:38 ADMINISTRATIVE ASSISTANT OFFICE MANAGER CPT-44897 Abx/Therapy Injection 13:48:38 ADMINISTRATIVE ASSISTANT OFFICE MANAGER CPT-07782 Venipuncture Draw Fee 11:24:44 ADMINISTRATIVE ASSISTANT OFFICE MANAGER CPT-J1050 Depo Provera 150 mg (Medroxyprogesterone) 11:07:33 ADMINISTRATIVE ASSISTANT OFFICE MANAGER CPT-40931 Immunization Single Admin 13:12:44 ADMINISTRATIVE ASSISTANT OFFICE MANAGER CPT-23624 Fluzone Quadrivalent Intramuscular Suspension 0.5 ML 13: 12:44 ADMINISTRATIVE ASSISTANT OFFICE MANAGER CPT-48744 Fluzone 11:12:18 ADMINISTRATIVE ASSISTANT OFFICE MANAGER CPT-15055 Spec Collection and Handling Fee 11:12:18 ADMINISTRATIVE ASSISTANT OFFICE MANAGER CPT-72912 Visit 11:12:18 ADMINISTRATIVE ASSISTANT OFFICE MANAGER
--- OUTSIDE RECORDS SUMMARY | 2017-12-29 16:47 | XMS REPORT | Continuity of Care Document ---
Demographics x Preferred Language Unknown Marital Status Unknown Bahai Affiliation Unknown Race Unknown Ethnic Group Unknown Author Author [facility] Organization [facility] Address Unknown Phone Unavailable Allergies Active Description Code Type Severity Reaction Onset Reported/Identified Relationship to Patient Clinical Status Yes No known drug allergies 89468289 ND N/A N/A Yes MILK [id number] FOOD N/A ABD PAIN Yes MILK [id number] FOOD N/A N/A Yes No Known Drug Allergies [id number] N/A N/A Yes No Known Allergies [id number] Drug Allergy Unknown N/A 10/14/2017 Medications There is no data. Problems Date Dx Coded Attending Type Code Diagnosis Diagnosed By 09/08/2017 PHOEBE MADRIGAL DO Ot Z36.89 ENCOUNTER FOR OTHER SPECIFIED 09/08/2017 PHOEBE MADRIGAL DO Ot Z3A.21 21 WEEKS GESTATION OF 09/21/2017 PHOEBE MADRIGAL DO Ot Z36.89 ENCOUNTER FOR OTHER SPECIFIED 09/21/2017 PHOEBE MADRIGAL DO Ot Z3A.21 21 WEEKS GESTATION OF 10/15/2017 Ot O23.592 INFECTION OTH PRT GENITL TRCT IN PREGNAN 10/15/2017 Ot O60.02 LABOR WITHOUT DELIVERY, SECOND T 10/15/2017 Ot Z3A.26 26 WEEKS GESTATION OF 10/15/2017 PHOEBE MADRIGAL DO Ot O60.02 LABOR WITHOUT DELIVERY, SECOND T 10/15/2017 PHOEBE MADRIGAL DO Ot Z3A.25 25 WEEKS GESTATION OF 10/19/2017 Ot O23.592 INFECTION OTH PRT GENITL TRCT IN PREGNAN 10/19/2017 Ot O60.02 LABOR WITHOUT DELIVERY, SECOND T 10/19/2017 Ot Z3A.26 26 WEEKS GESTATION OF 10/24/2017 SHELLI FINLEY DO Ot R10.9 UNSPECIFIED ABDOMINAL PAIN 10/24/2017 SHELLI FINLEY DO Ot Z3A.00 WEEKS OF GESTATION OF NOT SPEC 11/02/2017 PHOEBE MADRIGAL DO Ot O26.93 RELATED CONDITIONS, UNSPECIFIE 11/02/2017 PHOEBE MADRIGAL DO Ot R10.9 UNSPECIFIED ABDOMINAL PAIN 11/02/2017 MOUNAECH DO, PHOEBE Ferrell Ot Z3A.28 28 WEEKS GESTATION OF 11/08/2017 PHOEBE MADRIGAL DO Ot O26.93 RELATED CONDITIONS, UNSPECIFIE 11/08/2017 KAITLIN MCDERMOTT, PHOEBE Ferrell Ot R10.9 UNSPECIFIED ABDOMINAL PAIN 11/08/2017 MOUNAECH DO, PHOEBE Ferrell Ot Z3A.28 28 WEEKS GESTATION OF 11/11/2017 SHELLI FINLEY DO Ot R10.9 UNSPECIFIED ABDOMINAL PAIN 11/11/2017 FINLEY DO, SHELLI Navarro Ot Z3A.00 WEEKS OF GESTATION OF NOT SPEC 11/12/2017 PHOEBE MADRIGAL DO Ot N89.8 OTHER SPECIFIED NONINFLAMMATORY DISORDER 11/12/2017 KAITLIN MCDERMOTT, PHOEBE Ferrell Ot O99.89 OTH DISEASES AND CONDITIONS COMPL PREG/C 11/12/2017 MOUNAECH , PHOEBE Ferrell Ot Z3A.30 30 WEEKS GESTATION OF 11/17/2017 PHOEBE MADRIGAL DO Ot N89.8 OTHER SPECIFIED NONINFLAMMATORY DISORDER 11/17/2017 MOUNAECH DO, PHOEBE Ferrell Ot O99.89 OTH DISEASES AND CONDITIONS COMPL PREG/C 11/17/2017 MOUNAECH DO, PHOEBE S Ot Z3A.30 30 WEEKS GESTATION OF 11/18/2017 YO VALENCIA MD, Ot O46.93 ANTEPARTUM HEMORRHAGE, UNSPECIFIED, THIR 11/18/2017 YO VALENCIA MD, Ot O47.03 FALSE LABOR BEFORE 37 COMPLETED WEEKS OF 11/18/2017 YO VALENCIA MD, Ot Z3A.30 30 WEEKS GESTATION OF 11/24/2017 YO VALENCIA MD, Ot O46.93 ANTEPARTUM HEMORRHAGE, UNSPECIFIED, THIR 11/24/2017 YO VALENCIA MD, Ot O47.03 FALSE LABOR BEFORE 37 COMPLETED WEEKS OF 11/24/2017 YO VALENCIA MD, Ot Z3A.30 30 WEEKS GESTATION OF 11/24/2017 YO VALENCIA MD, Ot O47.03 FALSE LABOR BEFORE 37 COMPLETED WEEKS OF 11/24/2017 YO VALENCIA MD, Ot Z3A.36 36 WEEKS GESTATION OF 11/29/2017 YO VALENCIA MD, Ot47.03 FALSE LABOR BEFORE 37 COMPLETED WEEKS OF 11/29/2017 ANNIE BARAKAT, YO Sanchez Ot Z3A.36 36 WEEKS GESTATION OF 12/08/2017 SHELLI FINLEY DO Ot O47.03 FALSE LABOR BEFORE 37 COMPLETED WEEKS OF 12/08/2017 SHELLI FINLEY DO Ot Z3A.34 34 WEEKS GESTATION OF 12/15/2017 SHELLI FINLEY DO Ot O47.03 FALSE LABOR BEFORE 37 COMPLETED WEEKS OF 12/15/2017 SHELLI FINLEY DO Ot Z3A.34 34 WEEKS GESTATION OF Procedures Code Description [place] [address] ROUTINE VENIPUNCTURE 05/25/2015 09975 HEPATIC FUNCTION PANEL 05/25/2015 71676 URINALYSIS, AUTO W/SCOPE 05/25/2015 32399 ASSAY OF URINE CREATININE 05/25/2015 50270 ASSAY OF PROTEIN, URINE 05/25/2015 38415 COMPLETE CBC W/AUTO DIFF WBC 05/25/2015 23636 OBSERVATION CARE 05/25/2015 G0378 HOSPITAL OBSERVATION PER HR 05/25/2015 J7120 RINGERS LACTATE INFUSION 05/25/2015 06078 X-RAY EXAM OF WRIST 08/22/2015 36631 EMERGENCY DEPT VISIT 08/22/2015 J2550 PROMETHAZIEN 25MG/ML 08/22/2015 Results Test Result Range CBC WITH DIFF - 10/30/14 00:00 BASO% 0.4 % 0-2 EOS% 0.3 % 0-7.0 HCT 34.8 % 36.9-47.0 HGB 11.9 G/DL 12.0-16.0 LYMPH% 25.7 % 20-40 MCH 29.7 PG 27-31 MCHC 34.2 G/DL 33-37 MCV 86.8 FL 81-99 MONO% 6.3 % 0-10.0 MPV 10.4 FL 7.3-10.4 NEUTRO% 67.0 % 40-70 PLT 181 10^3u 130-400 RBC 4.0 10^6u 4.2-5.4 RDW 11.4 % 11.5-15.5 WBC 10.2 10^3u 4.8-10.8 NEUTRO# 6.8 10^3u 1.5-7.5 LYMPH# 2.6 10^3u 0.9-4.0 MONO# 0.6 10^3u 0-0.8 EOS# 0.0 10^3u 0-0.6 BASO# 0.0 10^3u 0-0.1 IMM GRANULOCYTE % 0.3 % IMM GRANULOCYTE # 0.0 10^3u 0-5 UA - 10/30/14 00:00 PH 5.5 4.5-8.0 SG 1.030 UABILI NEGATIVE UABLD NEGATIVE UACOLOR YEL UAGLU NEGATIVE UAKET 2+ UALEUK NEGATIVE UANIT NEGATIVE UAURO 0.2 0-0.2 CLARITY HAZY PROTEIN NEGATIVE UA WBC R05 UA RBC R05 SQUAMOUS EPITHELIAL CELLS 2+ BACTERIA 1+ MUCOUS 3+ RH TYPE - 10/30/14 00:00 RH P CMP - 10/30/14 00:00 ALB 4.3 G/DL 3.5-5 ALP 46 IU/L 39-101 ALT 13 IU/L 12-65 AST 11 IU/L 10-42 BCR 14.5 10-20 BUN 9 MG/DL 7-18 CA 8.8 MG/DL 8.4-10.2 CL 101 MEQ/L 98-107 CO2 24.2 MEQ/L 22-28 CREA 0.62 MG/DL 0.6-1.0 EGFR 127 eGFR >=60 GLU 82 MG/DL 70-105 K 3.7 MEQ/L 3.5-5.1 NA 138 MEQ/L 134-145 OSMSC 273.4 MOSML 280-300 TBIL 0.5 MG/DL 0.1-1.0 TP 7.2 G/DL 6.0-8.3 Albumin/Globulin Ratio 1.5 0-8 Anion Gap 12.8 8-16 BHCG - 10/30/14 00:00 HCG- Quantitative 03873 MIUML 0-5 UA - 05/24/15 00:00 PH 6.0 4.5-8.0 SG 1.015 1.003-1.035 UABILI NEGATIVE UABLD NEGATIVE UACOLOR YEL UAGLU NEGATIVE UAKET TRACE UALEUK NEGATIVE UANIT NEGATIVE UAURO 0.2 0-0.2 UCX NO CLARITY CLD PROTEIN NEGATIVE UA WBC R05 UA RBC NORBC SQUAMOUS EPITHELIAL CELLS 1+ BACTERIA 1+ CBC WITH DIFF - 05/24/15 00:00 BASO% 0.2 % 0-2 EOS% 0.4 % 0-7.0 HCT 30.9 % 36.9-47.0 HGB 10.5 G/DL 12.0-16.0 LYMPH% 26.2 % 20-40 MCH 31.3 PG 27-31 MCHC 34.0 G/DL 33-37 MCV 92.2 FL 81-99 MONO% 5.9 % 0-10.0 MPV 11.1 FL 7.3-10.4 NEUTRO% 66.7 % 40-70 PLT 180 10^3u 130-400 RBC 3.4 10^6u 4.2-5.4 RDW 12.1 % 11.5-15.5 WBC 10.2 10^3u 4.8-10.8 NEUTRO# 6.8 10^3u 1.5-7.5 LYMPH# 2.7 10^3u 0.9-4.0 MONO# 0.6 10^3u 0-0.8 EOS# 0.0 10^3u 0-0.6 BASO# 0.0 10^3u 0-0.1 IMM GRANULOCYTE % 0.6 % IMM GRANULOCYTE # 0.1 10^3u 0-5 HEPATIC PANEL - 05/24/15 00:00 ALB 2.7 G/DL 3.5-5 ALP 115 IU/L 39-101 ALT 14 IU/L 12-65 AST 13 IU/L 10-42 DBIL 0.1 MG/DL 0-0.3 IBILI 0.2 MG/DL 0.1-1.0 TBIL 0.3 MG/DL 0.1-1.0 TP 6.3 G/DL 6.0-8.3 Albumin/Globulin Ratio 0.8 0-8 URINE PROTEIN CREAT RATIO - 05/24/15 00:00 UCREAT 76.33 MG/DL 15.0-327 UPRCRCA 0.2 UPRO 12 MG/DL 0-14 Complete urinalysis with reflex to culture - 10/24/17 21:55 Urine color determination YELLOW NRG Urine clarity determination CLEAR NRG Urine pH measurement by test strip 6 5-9 Specific gravity of urine by test strip 1.025 1.016- 1.022 Urine protein assay by test strip, semi-quantitative NEGATIVE NEGATIVE Urine glucose detection by automated test strip NEGATIVE NEGATIVE Erythrocytes detection in urine sediment by light microscopy NEGATIVE NEGATIVE Urine ketones detection by automated test strip NEGATIVE NEGATIVE Urine nitrite detection by test strip NEGATIVE NEGATIVE Urine total bilirubin detection by test strip NEGATIVE NEGATIVE Urine urobilinogen measurement by automated test strip (mass/volume) NORMAL NORMAL Urine leukocyte esterase detection by dipstick 3+ NEGATIVE Automated urine sediment erythrocyte count by microscopy (number/high power field) NONE NRG Automated urine sediment leukocyte count by microscopy (number/high power field ) [HPF] NRG Bacteria detection in urine sediment by light microscopy TRACE NRG Squamous epithelial cells detection in urine sediment by light microscopy >50 NRG Crystals detection in urine sediment by light microscopy NONE NRG Casts detection in urine sediment by light microscopy NONE NRG Mucus detection in urine sediment by light microscopy LARGE NRG Complete urinalysis with reflex to culture NO NRG Urine protein/creatinine mass ratio - 11/17/17 18:30 Urine protein measurement (mass/volume) 15 mg/dL 6-12 Urine creatinine measurement (mass/volume) 147 mg/dL 30- 125 Urine protein/creatinine mass ratio 0.10 NRG Complete blood count (CBC) with automated white blood cell (WBC) differential - 11/17/17 18:41 Blood leukocytes automated count (number/volume) 10.5 10*3/uL 4.3-11.0 Blood erythrocytes automated count (number/volume) 3.12 10*6/uL 4.35-5.85 Venous blood hemoglobin measurement (mass/volume) 9.8 g/dL 11.5-16.0 Blood hematocrit (volume fraction) 29 % 35-52 Automated erythrocyte mean corpuscular volume 91 [foz_us] 80-99 Automated erythrocyte mean corpuscular hemoglobin (mass per erythrocyte) 31 pg 25-34 Automated erythrocyte mean corpuscular hemoglobin concentration measurement ( mass/volume) 34 g/dL 32-36 Automated erythrocyte distribution width ratio 12.4 % 10.0-14.5 Automated blood platelet count (count/volume) 214 10*3/uL 130-400 Automated blood platelet mean volume measurement 9.6 [foz_us] 7.4-10.4 Automated blood neutrophils/100 leukocytes 66 % 42-75 Automated blood lymphocytes/100 leukocytes 25 % 12-44 Blood monocytes/100 leukocytes 9 % 0-12 Automated blood eosinophils/100 leukocytes 1 % 0-10 Automated blood basophils/100 leukocytes 0 % 0-10 Blood neutrophils automated count (number/volume) 6.9 10*3 1.8-7.8 Blood lymphocytes automated count (number/volume) 2.6 10*3 1.0-4.0 Blood monocytes automated count (number/volume) 0.9 10*3 0.0-1.0 Automated eosinophil count 0.1 10*3/uL 0.0-0.3 Automated blood basophil count (count/volume) 0.0 10*3/uL 0.0-0.1 Comprehensive metabolic panel - 11/17/17 18:41 Serum or plasma sodium measurement (moles/volume) 137 mmol/L 135-145 Serum or plasma potassium measurement (moles/volume) 3.4 mmol/L 3.6-5.0 Serum or plasma chloride measurement (moles/volume) 107 mmol/L 98-107 Carbon dioxide 24 mmol/L 21-32 Serum or plasma anion gap determination (moles/volume) 6 mmol/L 5-14 Serum or plasma urea nitrogen measurement (mass/volume) 7 mg/dL 7-18 Serum or plasma creatinine measurement (mass/volume) 0.60 mg/dL 0.60-1.30 Serum or plasma urea nitrogen/creatinine mass ratio 12 NRG Serum or plasma creatinine measurement with calculation of estimated glomerular filtration rate > NRG Serum or plasma glucose measurement (mass/volume) 94 mg/dL 70-105 Serum or plasma calcium measurement (mass/volume) 8.9 mg/dL 8.5-10.1 Serum or plasma total bilirubin measurement (mass/volume) 0.3 mg/dL 0.1-1.0 Serum or plasma alkaline phosphatase measurement (enzymatic activity/volume) 65 U/L 40-136 Serum or plasma aspartate aminotransferase measurement (enzymatic activity/ volume) 15 U/L 5-34 Serum or plasma alanine aminotransferase measurement (enzymatic activity/volume ) 9 U/L 0-55 Serum or plasma protein measurement (mass/volume) 6.2 g/dL 6.4-8.2 Serum or plasma albumin measurement (mass/volume) 3.4 g/dL 3.2-4.5 CALCIUM CORRECTED 9.4 mg/dL 8.5-10.1 Serum or plasma uric acid measurement (mass/volume) - 11/17/17 18:41 Serum or plasma uric acid measurement (mass/volume) 3.6 mg/dL 2.6-7.2 Lactate dehydrogenase 1 [enzymatic activity/volume] in serum or plasma - 18:41 Lactate dehydrogenase 1 [enzymatic activity/volume] in serum or plasma 138 U/L 125-220 Complete urinalysis with reflex to culture - 11/24/17 21:10 Urine color determination YELLOW NRG Urine clarity determination CLEAR NRG Urine pH measurement by test strip 7 5-9 Specific gravity of urine by test strip 1.010 1.016- 1.022 Urine protein assay by test strip, semi-quantitative NEGATIVE NEGATIVE Urine glucose detection by automated test strip NEGATIVE NEGATIVE Erythrocytes detection in urine sediment by light microscopy NEGATIVE NEGATIVE Urine ketones detection by automated test strip NEGATIVE NEGATIVE Urine nitrite detection by test strip NEGATIVE NEGATIVE Urine total bilirubin detection by test strip NEGATIVE NEGATIVE Urine urobilinogen measurement by automated test strip (mass/volume) 1 mg/dL NORMAL Urine leukocyte esterase detection by dipstick 1+ NEGATIVE Automated urine sediment erythrocyte count by microscopy (number/high power field) NONE NRG Automated urine sediment leukocyte count by microscopy (number/high power field ) [HPF] NRG Bacteria detection in urine sediment by light microscopy TRACE NRG Squamous epithelial cells detection in urine sediment by light microscopy 2-5 NRG Crystals detection in urine sediment by light microscopy PRESENT NRG Casts detection in urine sediment by light microscopy NONE NRG Mucus detection in urine sediment by light microscopy SMALL NRG Complete urinalysis with reflex to culture NO NRG Calcium oxalate crystals detection in urine sediment by light microscopy LARGE NRG Complete blood count (CBC) with automated white blood cell (WBC) differential - 11/24/17 21:50 Blood leukocytes automated count (number/volume) 9.9 10*3/uL 4.3-11.0 Blood erythrocytes automated count (number/volume) 3.11 10*6/uL 4.35-5.85 Venous blood hemoglobin measurement (mass/volume) 9.9 g/dL 11.5-16.0 Blood hematocrit (volume fraction) 28 % 35-52 Automated erythrocyte mean corpuscular volume 91 [foz_us] 80-99 Automated erythrocyte mean corpuscular hemoglobin (mass per erythrocyte) 32 pg 25-34 Automated erythrocyte mean corpuscular hemoglobin concentration measurement ( mass/volume) 35 g/dL 32-36 Automated erythrocyte distribution width ratio 12.2 % 10.0-14.5 Automated blood platelet count (count/volume) 218 10*3/uL 130-400 Automated blood platelet mean volume measurement 9.8 [foz_us] 7.4-10.4 Automated blood neutrophils/100 leukocytes 62 % 42-75 Automated blood lymphocytes/100 leukocytes 30 % 12-44 Blood monocytes/100 leukocytes 8 % 0-12 Automated blood eosinophils/100 leukocytes 1 % 0-10 Automated blood basophils/100 leukocytes 0 % 0-10 Blood neutrophils automated count (number/volume) 6.1 10*3 1.8-7.8 Blood lymphocytes automated count (number/volume) 3.0 10*3 1.0-4.0 Blood monocytes automated count (number/volume) 0.8 10*3 0.0-1.0 Automated eosinophil count 0.1 10*3/uL 0.0-0.3 Automated blood basophil count (count/volume) 0.0 10*3/uL 0.0-0.1 [id number] - 11/24/17 21:50 [id number] SPECIMEN AVAILABLE NRG Complete urinalysis with reflex to culture - 11/24/17 22:15 Urine color determination YELLOW NRG Urine clarity determination CLEAR NRG Urine pH measurement by test strip 7 5-9 Specific gravity of urine by test strip 1.015 1.016- 1.022 Urine protein assay by test strip, semi-quantitative NEGATIVE NEGATIVE Urine glucose detection by automated test strip NEGATIVE NEGATIVE Erythrocytes detection in urine sediment by light microscopy NEGATIVE NEGATIVE Urine ketones detection by automated test strip NEGATIVE NEGATIVE Urine nitrite detection by test strip NEGATIVE NEGATIVE Urine total bilirubin detection by test strip NEGATIVE NEGATIVE Urine urobilinogen measurement by automated test strip (mass/volume) 4 mg/dL NORMAL Urine leukocyte esterase detection by dipstick NEGATIVE NEGATIVE Automated urine sediment erythrocyte count by microscopy (number/high power field) NONE NRG Automated urine sediment leukocyte count by microscopy (number/high power field ) [HPF] NRG Bacteria detection in urine sediment by light microscopy NEGATIVE NRG Squamous epithelial cells detection in urine sediment by light microscopy 5-10 NRG Crystals detection in urine sediment by light microscopy PRESENT NRG Casts detection in urine sediment by light microscopy NONE NRG Mucus detection in urine sediment by light microscopy MODERATE NRG Complete urinalysis with reflex to culture NO NRG Amorphous sediment detection in urine sediment by light microscopy FEW SYLVIE PHOSPHATE NRG Calcium oxalate crystals detection in urine sediment by light microscopy FEW NRG Complete urinalysis with reflex to culture - 12/08/17 02:15 Urine color determination YELLOW NRG Urine clarity determination CLEAR NRG Urine pH measurement by test strip 6 5-9 Specific gravity of urine by test strip 1.025 1.016- 1.022 Urine protein assay by test strip, semi-quantitative 1+ NEGATIVE Urine glucose detection by automated test strip NEGATIVE NEGATIVE Erythrocytes detection in urine sediment by light microscopy NEGATIVE NEGATIVE Urine ketones detection by automated test strip 4+ NEGATIVE Urine nitrite detection by test strip NEGATIVE NEGATIVE Urine total bilirubin detection by test strip NEGATIVE NEGATIVE Urine urobilinogen measurement by automated test strip (mass/volume) 4 mg/dL NORMAL Urine leukocyte esterase detection by dipstick 1+ NEGATIVE Automated urine sediment erythrocyte count by microscopy (number/high power field) NONE NRG Automated urine sediment leukocyte count by microscopy (number/high power field ) RARE NRG Bacteria detection in urine sediment by light microscopy FEW NRG Squamous epithelial cells detection in urine sediment by light microscopy 2-5 NRG Crystals detection in urine sediment by light microscopy PRESENT NRG Casts detection in urine sediment by light microscopy NONE NRG Mucus detection in urine sediment by light microscopy MODERATE NRG Complete urinalysis with reflex to culture NO NRG Uric acid crystals detection in urine sediment by light microscopy FEW NRG Complete urinalysis with reflex to culture - 12/28/17 19:10 Urine color determination YELLOW NRG Urine clarity determination CLEAR NRG Urine pH measurement by test strip 6 5-9 Specific gravity of urine by test strip 1.025 1.016- 1.022 Urine protein assay by test strip, semi-quantitative 1+ NEGATIVE Urine glucose detection by automated test strip NEGATIVE NEGATIVE Erythrocytes detection in urine sediment by light microscopy 1+ NEGATIVE Urine ketones detection by automated test strip 3+ NEGATIVE Urine nitrite detection by test strip NEGATIVE NEGATIVE Urine total bilirubin detection by test strip NEGATIVE NEGATIVE Urine urobilinogen measurement by automated test strip (mass/volume) 1 mg/dL NORMAL Urine leukocyte esterase detection by dipstick 3+ NEGATIVE Automated urine sediment erythrocyte count by microscopy (number/high power field) [HPF] NRG Automated urine sediment leukocyte count by microscopy (number/high power field ) [HPF] NRG Bacteria detection in urine sediment by light microscopy MODERATE NRG Squamous epithelial cells detection in urine sediment by light microscopy 10-25 NRG Crystals detection in urine sediment by light microscopy NONE NRG Casts detection in urine sediment by light microscopy NONE NRG Mucus detection in urine sediment by light microscopy LARGE NRG Complete urinalysis with reflex to culture YES NRG Bacterial urine culture - 12/28/17 19:10 Bacterial urine culture SEE COMMEN NRG COLONY COUNT . NRG Encounters ACCT No. Visit Date/Time Discharge Status Pt. Type Provider Facility Loc./Unit Complaint [id number] 08/22/2015 19:07:00 08/22/2015 20:33:00 DIS Emergency TOLU HUTCHINSON [facility] EMR [id number] 05/24/2015 19:19:00 05/25/2015 11:50:00 DIS Outpatient MADDIE BOGGSEkaterina Steele [facility] OB [id number] 10/30/2014 21:37:00 10/31/2014 00:01:00 DIS Emergency AMADEO CAMACHO [facility] EMR [id number] 08/20/2014 14:59:00 08/20/2014 16:10:00 DIS Emergency TOYA CHATMAN [facility] EMR [id number] 11/20/2013 19:55:00 11/20/2013 21:40:00 DIS Emergency JOEY RAM [facility] EMR [id number] 01/28/2015 00:00:00 Document Registration [id number] 01/28/2014 00:00:00 Document Registration [id number] 10/30/2014 21:38:25 ACT Document Registration [id number] 04/04/2017 10:10:28 ACT Unknown [id number] 07/22/2017 12:29:02 07/22/2017 23:59:59 CLS Outpatient Stephanie Crandall [id number] 07/04/2017 16:04:58 07/04/2017 23:59:59 CLS Outpatient Zaire Chuck [id number] 06/24/2017 16:22:21 06/24/2017 23:59:59 CLS Outpatient Stephanie Crandall [id number] 05/27/2017 16:25:46 05/27/2017 23:59:59 CLS Outpatient Stephanie Crandall [id number] 05/18/2017 11:50:41 05/18/2017 23:59:59 CLS Outpatient Evelina Villanueva [id number] 05/11/2017 09:39:01 05/11/2017 23:59:59 CLS Outpatient PHOEBE FINN [id number] 02/09/2017 12:07:21 02/09/2017 23:59:59 CLS Outpatient Evelina Villanueva [id number] 01/20/2017 19:15:01 01/20/2017 23:59:59 CLS Outpatient Eunice Cox [id number] 11/03/2016 10:43:42 11/03/2016 23:59:59 CLS Outpatient Evelina Villanueva [id number] 10/06/2016 10:56:50 10/06/2016 23:59:59 CLS Outpatient Villanueva Evelina Steele [id number] 02/06/2016 10:01:56 02/06/2016 23:59:59 CLS Outpatient Evelina Villanueva [id number] 09/16/2015 15:11:32 09/16/2015 23:59:59 CLS Outpatient Rich Evelina M [id number] 05/23/2015 11:46:57 05/23/2015 23:59:59 CLS Outpatient [place]She[place]phanie [id number] 05/16/2015 10:13:39 05/16/2015 23:59:59 CLS Outpatient [place] [id number] 05/01/2015 10:37:58 05/01/2015 23:59:59 CLS Outpatient [place]phanie [id number] 04/29/2015 14:47:04 04/29/2015 23:59:59 CLS Outpatient [place]ie [id number] 04/03/2015 10:33:09 04/03/2015 23:59:59 CLS Outpatient [place] [id number] 03/20/2015 11:51:46 03/20/2015 23:59:59 CLS Outpatient [place] Stephanie [id number] 02/20/2015 12:21:35 02/20/2015 23:59:59 CLS Outpatient [place] Stephanie [id number] 01/23/2015 11:09:14 01/23/2015 23:59:59 CLS Outpatient RichFidelEvelina M [id number] 12/26/2014 10:55:26 12/26/2014 23:59:59 CLS Outpatient JoseC arlos Neal [id number] 12/10/2014 17:13:00 12/10/2014 23:59:59 CLS Outpatient Jose Carlos Neal [id number] 12/10/2014 17:08:34 12/10/2014 23:59:59 CLS Outpatient Wendy Hicks [id number] 11/26/2014 16:55:05 11/26/2014 23:59:59 CLS Outpatient Jose Carlos Neal [id number] 10/29/2014 15:59:41 10/29/2014 23:59:59 CLS Outpatient Jose Carlos Neal [id number] 10/08/2014 21:52:09 10/08/2014 23:59:59 CLS Outpatient Deloris Urbano [id number] 10/08/2014 21:26:29 10/08/2014 23:59:59 CLS Outpatient Kae Tariq [id number] 03/29/2014 17:15:26 03/29/2014 23:59:59 CLS Outpatient Jose Carlos Neal [id number] 03/12/2014 16:17:17 03/12/2014 23:59:59 CLS Outpatient Jose Carlos Neal Stella [id number] 02/08/2014 16:43:30 02/08/2014 23:59:59 CLS Outpatient Jose Carlos Neal [id number] 01/30/2014 12:10:33 01/30/2014 23:59:59 CLS Outpatient Jose Carlos Neal [id number] 07/20/2013 15:41:01 07/20/2013 23:59:59 CLS Outpatient Conrad Bee [id number] 07/13/2013 15:16:13 07/13/2013 23:59:59 CLS Outpatient Conrad Bee [id number] 09/22/2017 08:17:07 Document Registration [id number] 08/30/2017 13:08:55 Document Registration [id number] 08/30/2017 11:06:09 Document Registration [id number] 08/30/2017 11:03:42 Document Registration [id number] 08/06/2017 00:07:45 Document Registration [id number] 08/05/2017 21:34:05 Document Registration [id number] 07/04/2017 17:34:14 Document Registration [id number] 05/18/2017 12:03:30 Document Registration [id number] 05/18/2017 11:37:41 Document Registration [id number] 05/12/2017 22:49:28 Document Registration [id number] 05/12/2017 22:46:48 Document Registration [id number] 02/09/2017 11:36:57 Document Registration [id number] 02/02/2017 20:01:12 Document Registration [id number] 02/02/2017 19:54:38 Document Registration [id number] 01/20/2017 19:34:46 Document Registration [id number] 12/08/2017 02:02:00 12/08/2017 03:50:00 DIS Outpatient SHELLI FINLEY DO [facility] CONTRACTIONS [id number] 11/24/2017 21:07:00 11/24/2017 23:43:00 DIS Outpatient YO VALENCIA MD [facility] CRAMPING [id number] 11/17/2017 17:14:00 11/18/2017 09:10:00 DIS Outpatient YO VALENCIA MD [facility] BLEEDING/ CONTRACTIONS [id number] 11/12/2017 16:39:00 11/12/2017 17:15:00 DIS Outpatient PHOEBE MADRIGAL DO [facility] VOMITING [id number] 11/02/2017 16:14:00 11/02/2017 17:35:00 DIS Outpatient PHOEBE MADRIGAL DO [facility] LEAKING;CRAMPING [id number] 10/24/2017 21:48:00 10/24/2017 22:50:00 DIS Outpatient SHELLI IFNLEY DO [facility] WSo ABD PAIN [id number] 10/15/2017 19:49:00 10/15/2017 22:50:00 DIS Outpatient PHOEBE MADRIGAL DO [facility] CRAMPING [id number] 09/07/2017 12:53:00 09/07/2017 23:59:59 CLS Outpatient PHOEBE MADRIGAL DO [facility] RAD [id number] 12/28/2017 19:54:00 Document Registration [id number] 10/15/2017 19:49:00 Document Registration
[2017-12-29] MEDS ORDERED: FERROUS SULF 325 MG (IRON) TAB PO ONE (19:43)
[2017-12-29] MEDS: DOCUSATE SODIUM 100 MG (COLACE) CAP PO SCH (19:45)
[2017-12-29] MEDS: FERROUS SULF 325 MG (IRON) TAB PO SCH (19:45)
[2017-12-29] MEDS: ACETAMINOPHEN 500 MG TAB (TYLENOL) PO PRN (22:18)
[2017-12-30] MEDS: IBUPROFEN 600 MG (MOTRIN) TAB PO SCH ×4 (02:55→20:35)
[2017-12-30 04:10] VITALS: BP 98/67
[2017-12-30 07:02] LABS: BASOPHILS % (AUTO) 0 % (0-10); EOSINOPHILS # (AUTO) 0.1 10^3/uL (0.0-0.3); EOSINOPHILS % (AUTO) 0 % (0-10); HEMATOCRIT 28 % (35-52); HEMOGLOBIN 9.2 G/DL (11.5-16.0); LYMPHOCYTES # (AUTO) 2.3 X 10^3 (1.0-4.0); LYMPHOCYTES % (AUTO) 13 % (12-44); MEAN CORPUSCULAR HGB CONC 33 G/DL (32-36); MEAN CORPUSCULAR VOLUME 89 FL (80-99); MEAN PLATELET VOLUME 9.8 FL (7.4-10.4); MONOCYTES # (AUTO) 1.3 X 10^3 (0.0-1.0); MONOCYTES % (AUTO) 7 % (0-12); NEUTROPHILS # (AUTO) 14.5 X 10^3 (1.8-7.8); NEUTROPHILS % (AUTO) 80 % (42-75); PLATELET COUNT 199 10^3/uL (130-400); RED BLOOD COUNT 3.12 10^6/uL (4.35-5.85); WHITE BLOOD COUNT 18.2 10^3/uL (4.3-11.0)
[2017-12-30 07:03] LABS: MEAN CORPUSCULAR HEMOGLOBIN 29 PG (25-34)
--- NOTE | 2017-12-30 07:33 | Postpartum Progress Note ---
Note Note Day # [1 Subjective: Patient is without complaints. Ambulating, voiding. Tolerating a regular diet without nausea or vomiting. Normal lochia. Pain is well controlled with oral pain medications. Objective: Vital Sign - Last 24 Hours 12/29/17 12/29/17 12/29/17 12/29/17 13:21 13:44 14:00 14:12 Temp 98.4 Pulse 131 111 100 96 Resp 20 20 20 20 B/P (MAP) 164/89 (114) 128/71 (90) 123/70 (87) 124/79 (94) 12/29/17 12/29/17 12/29/17 12/29/17 14:27 14:47 14:57 15:12 Pulse 82 77 83 68 Resp 20 20 20 18 B/P (MAP) 127/81 (96) 125/70 (88) 126/73 (90) 124/73 (90) 12/29/17 12/29/17 12/29/17 12/30/17 15:27 19:45 23:45 04:10 Temp 99.3 98.1 98.0 Pulse 64 79 85 74 Resp 18 20 20 20 B/P (MAP) 115/71 (86) 117/78 (91) 103/55 (71) 98/67 (77) Pulse Ox 97 97 96 O2 Delivery Room Air Room Air Room Air Physical Exam: General - Alert and oriented, no apparent distress Abdomen - Soft, appropriately tender to palpation, non-distended, fundus firm at umbilicus Extremities - no edema, negative Marcos's bilaterally Assessment: PPD NVD 1 Plan: Routine care. Encourage breast feeding. Encourage ambulation. Ferrous sulfate supplementation. Plan for discharge today tomorrow pending release Vitals - Labs Vital Signs - I&O Vital Signs Date Time Temp Pulse Resp B/P (MAP) Pulse Ox O2 Delivery O2 Flow Rate FiO2 12/30/17 04:10 98.0 74 20 98/67 (77) 96 Room Air 12/29/17 23:45 98.1 85 20 103/55 (71) 97 Room Air 12/29/17 19:45 99.3 79 20 117/78 (91) 97 Room Air 12/29/17 15:27 64 18 115/71 (86) 12/29/17 15:12 68 18 124/73 (90) 12/29/17 14:57 83 20 126/73 (90) 12/29/17 14:47 77 20 125/70 (88) 12/29/17 14:27 82 20 127/81 (96) 12/29/17 14:12 98.4 96 20 124/79 (94) 12/29/17 14:00 100 20 123/70 (87) 12/29/17 13:44 111 20 128/71 (90) 12/29/17 13:21 131 20 164/89 (114) Labs Laboratory Tests 12/30/17 06:51: White Blood Count 18.2H, Red Blood Count 3.12L, Hemoglobin 9.2L, Hematocrit 28L , Mean Corpuscular Volume 89, Mean Corpuscular Hemoglobin 29, Mean Corpuscular Hemoglobin Concent 33, Red Cell Distribution Width 13.0, Platelet Count 199, Mean Platelet Volume 9.8, Neutrophils (%) (Auto) 80H, Lymphocytes (%) (Auto) 13 , Monocytes (%) (Auto) 7, Eosinophils (%) (Auto) 0, Basophils (%) (Auto) 0, Neutrophils # (Auto) 14.5H, Lymphocytes # (Auto) 2.3, Monocytes # (Auto) 1.3H, Eosinophils # (Auto) 0.1, Basophils # (Auto) 0.0 PHOEBE MADRIGAL DO Dec 30, 2017 07:33
--- NOTE | 2017-12-30 07:36 | Discharge Inst-Women's Service ---
Discharge Inst-Women's Serv Depart Medication/Instructions New, Converted or Re-Newed RX: RX on Chart Final Diagnosis PP NVD Consults/Follow Up Additional Follow Up: Yes Orders/Referrals Dr. Madrigal in 6 weeks Activity Activity: Activity as Tolerated Driving Instructions: No Driving for 1 Week NO SMOKING: NO SMOKING Nothing Inside Vagina: No Douching, No [place], No Tampons Diet Discharge Diet: No Restrictions Symptoms to Report to : Bleeding Excessive, Pain Increased, Fever Over 101 Degrees F, Vaginal Bleeding Increase, Questions/Concerns For Any Problems or Questions: Contact Your Physician PHOEBE MADRIGAL DO Dec 30, 2017 07:36
[2017-12-30] MEDS ORDERED: DOCU100C37 PO (07:37)
[2017-12-30] MEDS ORDERED: IBUP-844 PO (07:37)
[2017-12-30 08:00] VITALS: BP 102/71
[2017-12-30] MEDS ORDERED: TETANUS,DIPTH,PERTUSS P/F (BOOSTRIX) 0.5 ML VIAL IM ONE (08:22)
[2017-12-30] MEDS ORDERED: FLU QUADRIvalent (5+ YOA) 2018-2019 (AFLURIA) 0.5 ML IM ONE (08:23)
[2017-12-30 08:29] LABS: BAND NEUTROPHILS 4 %; BASOPHILS % (MANUAL) 0 %; EOSINOPHILS % (MANUAL) 2 %; LYMPHOCYTES % (MANUAL) 11 %; MONOCYTES % (MANUAL) 5 %; NEUTROPHILS % (MANUAL) 78 %; RBC MORPH NORMAL
[2017-12-30] MEDS: PRENATAL VITAMIN 1 EA TAB PO SCH (08:37)
[2017-12-30] MEDS: DOCUSATE SODIUM 100 MG (COLACE) CAP PO SCH ×2 (08:37→20:34)
[2017-12-30] MEDS: FERROUS SULF 325 MG (IRON) TAB PO SCH (08:37)
[2017-12-30 12:00] VITALS: BP 111/71
[2017-12-30 16:00] VITALS: BP 109/66
[2017-12-30] MEDS: ACETAMINOPHEN 500 MG TAB (TYLENOL) PO PRN (18:14)
[2017-12-30 20:35] VITALS: BP_SYST 100; BP_SYST 70; BP_DIAS 66
[2017-12-31 03:30] VITALS: BP 121/82
[2017-12-31] MEDS: IBUPROFEN 600 MG (MOTRIN) TAB PO SCH ×2 (03:30→08:44)
[2017-12-31 08:38] VITALS: BP 112/78
--- NOTE | 2017-12-31 08:42 | Postpartum Progress Note ---
Note Note Day # 2 Subjective: Patient is without complaints. Ambulating, voiding. Tolerating a regular diet without nausea or vomiting. Normal lochia. Pain is well controlled with oral pain medications. Objective: Vital Sign - Last 24 Hours 12/30/17 12/30/17 12/30/17 12/31/17 12:00 16:00 20:35 03:30 Temp 98.6 98.9 98.2 97.5 Pulse 84 75 70 66 Resp 18 18 18 18 B/P (MAP) 111/71 (84) 109/66 (80) 100/66 (77) 121/82 (95) Pulse Ox 98 98 98 98 O2 Delivery Room Air Room Air Room Air Room Air 12/31/17 08:38 Temp 98.4 Pulse 69 Resp 18 B/P (MAP) 112/78 (89) Pulse Ox 98 O2 Delivery Room Air Physical Exam: General - Alert and oriented, no apparent distress Abdomen - Soft, appropriately tender to palpation, non-distended, fundus firm at umbilicus Extremities - no edema, negative Marcos's bilaterally Assessment: PPD 2 NVD- precip Plan: Routine care. Encourage breast feeding. Encourage ambulation. Ferrous sulfate supplementation. Plan for discharge today Vitals - Labs Vital Signs - I&O Vital Signs Date Time Temp Pulse Resp B/P (MAP) Pulse Ox O2 Delivery O2 Flow Rate FiO2 12/31/17 08:38 98.4 69 18 112/78 (89) 98 Room Air 12/31/17 03:30 97.5 66 18 121/82 (95) 98 Room Air 12/30/17 20:35 98.2 70 18 100/66 (77) 98 Room Air 12/30/17 16:00 98.9 75 18 109/66 (80) 98 Room Air 12/30/17 12:00 98.6 84 18 111/71 (84) 98 Room Air PHOEBE MADRIGAL DO Dec 31, 2017 8:42 am
[2017-12-31] MEDS: PRENATAL VITAMIN 1 EA TAB PO SCH (08:44)
[2017-12-31] MEDS: FERROUS SULF 325 MG (IRON) TAB PO SCH (08:44)
[2017-12-31] MEDS: DOCUSATE SODIUM 100 MG (COLACE) CAP PO SCH (08:44)
== END 2017-12-31 13:55 | disposition home or self-care (01) | DRG 807 ==
LOC: LDRP 13:21 → WSo 13:21 → LDRP 15:17
PROVIDERS: ADMIT Obstetrics & Gynecology; ATTEND Obstetrics & Gynecology
PROC: 10E0XZZ Delivery of Products of Conception, External Approach (ICD-10-PCS; principal; 2017-12-29)
DX: O62.3 Precipitate labor (principal); O71.82 Other specified trauma to perineum and vulva; Z3A.37 37 weeks gestation of pregnancy; Z37.0 Single live birth
CPT/HCPCS: 36415; 85007; 85027; 86850; 86900; 86901; 90471; 90686; 90715; 99212